=== PATIENT | female | born 1950 | race Caucasian/White ===

== ENCOUNTER → 2020-09-07 08:54 | Outpatient (CLI) | payer MEDICARE, SELFPAY ==
--- NOTE | ~2020-09-07 | US_ITS ---
EXAMINATION: US abdomen limited DATE: 09/07/2020 09:12 INDICATION: Right upper quadrant abdominal pain. TECHNIQUE: Multiple grayscale and Doppler ultrasound images of the abdomen were obtained. COMPARISON: None FINDINGS: The visualized portions of the head, body, and tail of the pancreas are normal. There is di ffuse hepatic steatosis. No liver surface nodularity. There is normal flow in main portal vein. The g allbladder is normal in size. No gallstones or gallbladder wall thickening. There was no sonographic Vigil sign. The common duct is normal and measures 4 mm. IMPRESSION: 1. Diffuse hepatic steatosis. Reviewed, dictated and finalized at location A.
== END ==
PROVIDERS: Visit Provider Internal Medicine
DX: R10.11 Right upper quadrant pain (principal); K76.0 Fatty (change of) liver, not elsewhere classified
CPT/HCPCS: 76705

== ENCOUNTER 2021-02-12 11:24 | Outpatient (CLI) | payer MEDICARE, SELFPAY ==
[2021-02-12 12:22] LABS: Basophils Percent Auto 0.6 % (0.2-1.2); Eosinophils Absolute Auto 0.1 K/mm3 (0-0.3); Eosinophils Percent Auto 2.5 % (0-4.4); Hematocrit 40.3 % (37.0-47.0); Hemoglobin 13.4 g/dL (12.0-15.0); Immature Granulocyte Absolute 0.01 K/mm3 (0.00-0.031); Immature Granulocyte Percent A 0.2 % (0-0.5); Lymphocytes Absolute Auto 1.82 K/mm3 (0.9-3.2); Lymphocytes Percent Auto 38.2 % (18.3-44.2); Mean Corpuscular HGB Conc 33.3 g/dl (32-36); Mean Corpuscular Hemoglobin 30.8 pg (26-34); Mean Corpuscular Volume 92.6 fl (80-100); Mean Platelet Volume 8.8 fl (7.4-10.4); Monocytes Absolute Auto 0.4 K/mm3 (0.1-0.6); Monocytes Percent Auto 8.6 % (2.6-8.5); Neutrophils Absolute Auto 2.4 K/mm3 (1.3-6.7); Neutrophils Percent Auto 49.9 % (45.5-73.1); Platelet Count Result 293 k/mm3 (150-375); Red Blood Count 4.35 M/mm3 (4.2-5.4); White Blood Count 4.8 K/mm3 (4.5-10.0)
[2021-02-12 12:32] LABS: Add Urine Microscopic? YES; Appearance Urine Turbid (Clear); Bacteria Urine Trace /hpf; Bilirubin Urine Negative (Negative); Blood Urine Negative (Negative); Color Urine Amber (Yellow); Glucose Urine UA Negative (Negative); Ketones Urine Negative (Negative); Leukocyte Esterase Ur Negative LEU/UL (NEGATIVE); Nitrate Urine Negative (Negative); Protein Urine Negative (Negative); Specific Grav Ur 1.024 (1.001-1.035); Squamous Epithelial Cell Urine Rare /hpf (Few); Urobilinogen Urine Negative mg/dL (<2.0)
[2021-02-12 12:42] LABS: Alanine Aminotransferase 26 U/L (4-35); Albumin Level 4.3 g/dL (3.5-5.1); Alkaline Phosphatase 78 U/L (38-126); Anion Gap 9 mmol/L (8-16); Aspartate Amino Transferase 28 U/L (14-36); Bilirubin,Total 0.5 mg/dL (0.2-1.3); Blood Urea Nitrogen 23 mg/dL (7-17); Calcium 8.8 mg/dL (8.4-10.2); Carbon Dioxide 25 mmol/L (22-30); Chloride 105 mmol/L (98-107); Cholesterol 132 mg/dL (0-200); Estimated Glomerular Filt Rate > 60; Glucose 125 mg/dL (65-110); HDL Direct 61 mg/dL; Potassium 4.2 mmol/L (3.4-5.0); Sodium 139 mmol/L (137-145); Triglycerides 82 mg/dL (<150)
[2021-02-12 12:53] LABS: LDL Cholesterol Direct 46 mg/dL
[2021-02-15 11:22] LABS: Apolipoprotein B 60 mg/dL (<90)
== END 2021-02-12 11:25 | disposition home or self-care (01) ==
LOC: ANHLAB 11:28
PROVIDERS: PCP Internal Medicine; Visit Provider Internal Medicine
DX: E78.2 Mixed hyperlipidemia (principal); E11.69 Type 2 diabetes mellitus with other specified complication; Z51.81 Encounter for therapeutic drug level monitoring; Z79.899 Other long term (current) drug therapy
CPT/HCPCS: 36415; 80053; 80061; 81001; 82172; 83036; 85025

== ENCOUNTER 2021-03-19 14:03 | Outpatient (CLI) | payer MEDICARE, SELFPAY ==
--- NOTE | ~2021-03-19 | CT_ITS ---
EXAMINATION: CT abdomen pelvis wo con DATE: 03/19/2021 14:31 INDICATION: Microscopic hematuria. TECHNIQUE: Computed tomography (CT) of the abdomen and pelvis was performed without intravenous contr ast. Automated exposure control and iterative reconstruction technique were employed. The dose-length product was 177.35 mGy-cm. COMPARISON: None. FINDINGS: The visualized portions of the lung bases are clear without pneumonia or pleural effusion. The heart size is normal. No pericardial effusion. The liver, gallbladder, spleen, pancreas, adrenal glands, and kidneys are normal. There is no urolithiasis. The bladder is decompressed. There are no d ilated loops of bowel. The appendix is normal. There are no pathologically enlarged lymph nodes. Ther e is no free intraperitoneal fluid. There is a 3.3 cm cyst in right ovary. 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 There is severe lumbar spondylosis and moderate thoracic spondylosis. IMPRESSION: 1. No urolithiasis. 2. 3.3 cm cyst in right ovary, likely benign. Pelvis ultrasound is recommended in one year. Reviewed, dictated and finalized at location A. DOCUMENTATION SPECIALIST
== END 2021-03-19 14:04 | disposition home or self-care (01) ==
PROVIDERS: PCP Internal Medicine; Visit Provider Urology
DX: R31.29 Other microscopic hematuria (principal); N83.201 Unspecified ovarian cyst, right side
CPT/HCPCS: 74176

== ENCOUNTER 2021-07-16 09:21 | Outpatient (CLI) | payer MEDICARE, SELFPAY ==
[2021-07-16 10:05] LABS: Alanine Aminotransferase 24 U/L (6-35); Albumin Level 4.3 g/dL (3.5-5.1); Alkaline Phosphatase 76 U/L (38-126); Anion Gap 8 mmol/L (8-16); Aspartate Amino Transferase 33 U/L (14-36); Bilirubin,Total 0.4 mg/dL (0.2-1.3); Blood Urea Nitrogen 18 mg/dL (7-17); Calcium 8.7 mg/dL (8.4-10.2); Carbon Dioxide 28 mmol/L (22-30); Chloride 105 mmol/L (98-107); Cholesterol 143 mg/dL (0-200); Estimated Glomerular Filt Rate > 60; Glucose 118 mg/dL (65-110); HDL Direct 63 mg/dL; Potassium 4.1 mmol/L (3.4-5.0); Sodium 141 mmol/L (137-145); Triglycerides 55 mg/dL (<150)
[2021-07-16 10:16] LABS: LDL Cholesterol Direct 50 mg/dL
[2021-07-16 10:27] LABS: Hemoglobin A1C 5.9 % (<5.7)
[2021-07-16 10:48] LABS: Free T4 Free Thyroxine 1.53 ng/mL (0.78-2.19)
== END 2021-07-16 09:22 | disposition home or self-care (01) ==
LOC: ANHLAB 09:25
PROVIDERS: PCP Internal Medicine; Visit Provider Internal Medicine
DX: E78.2 Mixed hyperlipidemia (principal); Z79.899 Other long term (current) drug therapy; E11.69 Type 2 diabetes mellitus with other specified complication; Z13.29 Encounter for screening for other suspected endocrine disorder
CPT/HCPCS: 36415; 80053; 80061; 83036; 84439; 84443

== ENCOUNTER 2021-11-24 09:54 | Outpatient (CLI) | payer MEDICARE, SELFPAY ==
[2021-11-24 10:31] LABS: Alanine Aminotransferase 27 U/L (6-35); Albumin Level 4.3 g/dL (3.5-5.1); Alkaline Phosphatase 79 U/L (38-126); Anion Gap 11 mmol/L (8-16); Aspartate Amino Transferase 27 U/L (14-36); Bilirubin,Total 0.5 mg/dL (0.2-1.3); Blood Urea Nitrogen 23 mg/dL (7-17); Calcium 8.6 mg/dL (8.4-10.2); Carbon Dioxide 24 mmol/L (22-30); Chloride 104 mmol/L (98-107); Cholesterol 135 mg/dL (0-200); Estimated Glomerular Filt Rate > 60; Glucose 121 mg/dL (65-110); HDL Direct 60 mg/dL; Potassium 3.9 mmol/L (3.4-5.0); Sodium 139 mmol/L (137-145); Triglycerides 79 mg/dL (<150)
[2021-11-24 10:34] LABS: Hemoglobin A1C 5.9 % (<5.7)
[2021-11-24 10:43] LABS: LDL Cholesterol Direct 49 mg/dL
[2021-11-24 10:54] LABS: Free T4 Free Thyroxine 1.34 ng/mL (0.78-2.19)
[2021-11-24 10:59] LABS: Creatinine Urine 201.3 mg/dL
[2021-11-24 11:05] LABS: MALB Creatinine Ratio 5.1 mg/g (0-30); Microalbumin Urine Random 10.2 mg/L (0-16.7)
[2021-11-26 16:00] LABS: GGT 13 U/L (3-65)
== END 2021-11-24 09:55 | disposition home or self-care (01) ==
LOC: ANHLAB 09:55
PROVIDERS: PCP Internal Medicine; Visit Provider Internal Medicine
DX: E11.69 Type 2 diabetes mellitus with other specified complication (principal); K76.0 Fatty (change of) liver, not elsewhere classified; Z13.29 Encounter for screening for other suspected endocrine disorder; Z79.899 Other long term (current) drug therapy; E78.2 Mixed hyperlipidemia
CPT/HCPCS: 36415; 80053; 80061; 82043; 82977; 83036; 84439; 84443

== ENCOUNTER 2022-04-28 09:16 | Outpatient (CLI) | payer MEDICARE, SELFPAY ==
[2022-04-28 10:03] LABS: Basophils Percent Auto 0.6 % (0.2-1.2); Eosinophils Absolute Auto 0.2 K/mm3 (0-0.3); Eosinophils Percent Auto 2.9 % (0-4.4); Hematocrit 41.4 % (37.0-47.0); Hemoglobin 13.9 g/dL (12.0-15.0); Immature Granulocyte Absolute 0.01 K/mm3 (0.00-0.031); Immature Granulocyte Percent A 0.2 % (0-0.5); Lymphocytes Absolute Auto 2.53 K/mm3 (0.9-3.2); Lymphocytes Percent Auto 38.5 % (18.3-44.2); Mean Corpuscular HGB Conc 33.6 g/dl (32-36); Mean Corpuscular Hemoglobin 30.9 pg (26-34); Monocytes Absolute Auto 0.5 K/mm3 (0.1-0.6); Monocytes Percent Auto 7.8 % (2.6-8.5); Neutrophils Absolute Auto 3.3 K/mm3 (1.3-6.7); Platelet Count Result 294 k/mm3 (150-375); Red Cell Distribution Width 12.8 % (11.5-14.5); White Blood Count 6.6 K/mm3 (4.5-10.0)
[2022-04-28 10:08] LABS: Alanine Aminotransferase 29 U/L (6-35); Albumin Level 4.5 g/dL (3.5-5.1); Alkaline Phosphatase 72 U/L (38-126); Anion Gap 8 mmol/L (8-16); Aspartate Amino Transferase 27 U/L (14-36); Bilirubin,Total 0.8 mg/dL (0.2-1.3); Blood Urea Nitrogen 19 mg/dL (7-17); Calcium 8.7 mg/dL (8.4-10.2); Carbon Dioxide 28 mmol/L (22-30); Chloride 105 mmol/L (98-107); Cholesterol 139 mg/dL (0-200); Estimated Glomerular Filt Rate > 60; Glucose 117 mg/dL (65-110); HDL Direct 63 mg/dL; Potassium 4.3 mmol/L (3.4-5.0); Sodium 141 mmol/L (137-145); Triglycerides 77 mg/dL (<150)
[2022-04-28 10:19] LABS: LDL Cholesterol Direct 51 mg/dL
[2022-04-28 10:34] LABS: Free T4 Free Thyroxine 1.21 ng/mL (0.78-2.19)
[2022-04-28 11:27] LABS: Appearance Urine Cloudy (Clear); Color Urine Dark Yellow (Yellow)
[2022-04-28 11:28] LABS: Bacteria Urine None Seen /hpf; Bilirubin Urine 1+ (Negative); Blood Urine Negative (Negative); Glucose Urine UA Negative (Negative); Ketones Urine Trace mg/dL (Negative); Leukocyte Esterase Ur Trace LEU/UL (Negative); Need Manual Microscopic Reviewed; Nitrate Urine Negative (Negative); Non Pathogenic Casts 0-2; Protein Urine Trace mg/dL (Negative); Specific Grav Ur 1.027 (1.001-1.035); Squamous Epithelial Cell Urine Occasional /hpf (Few); WBC Urine 0-5 /hpf
[2022-04-28 11:33] LABS: Add Urine Microscopic? YES
[2022-04-30 15:07] LABS: GGT 13 U/L (3-65)
== END 2022-04-28 09:17 | disposition home or self-care (01) ==
LOC: ANHLAB 09:17
PROVIDERS: PCP Internal Medicine; Visit Provider Internal Medicine
DX: K76.0 Fatty (change of) liver, not elsewhere classified (principal); Z79.899 Other long term (current) drug therapy; Z13.29 Encounter for screening for other suspected endocrine disorder; E11.69 Type 2 diabetes mellitus with other specified complication; E78.2 Mixed hyperlipidemia
CPT/HCPCS: 36415; 80053; 80061; 81001; 82977; 83036; 84439; 84443; 85025

== ENCOUNTER → 2022-04-30 08:18 | Outpatient (CLI) | payer MEDICARE, SELFPAY ==
--- NOTE | ~2022-04-30 | CT_ITS ---
CT of the Abdomen and Pelvis: Indication: Hematuria Technique: 2.5 mm axial scans were obtained through the abdomen and pelvis prior to and following in travenous administration of 130 cc of Omnipaque 350. Dose reduction technique was used on this scan b y utilizing automated exposure control and iterative reconstruction technique. The dose-length produc t (DLP) was 1537.35 mGy-cm. COMPARISON: 03/19/2021 Findings: Scans through the lung bases are unremarkable. The liver, spleen, pancreas, gallbladder, adrenals and kidneys are within normal limits. No evidence of aortic aneurysm. No lymphadenopathy. No bowel obstruction or bowel wall thickening. There is no evidence to suggest acute appendicitis. Images through the pelvis are degraded by streak artifact from left hip arthroplasty. Urinary bladder unremarkable. 3.8 cm right ovarian cyst present. No ascites. Impression: No etiology for hematuria identified. 3.8 cm right ovarian cyst. Reviewed, dictated and finalized at [facility]. EE BREAK ATTENDANT Impression: No etiology for hematuria identified. 3.8 cm right ovarian cyst.
== END ==
PROVIDERS: PCP Internal Medicine; Visit Provider Internal Medicine
DX: R82.90 Unspecified abnormal findings in urine (principal); N83.201 Unspecified ovarian cyst, right side
CPT/HCPCS: 74178; Q9967

== ENCOUNTER 2022-08-10 09:00 | Outpatient (NON) | payer MEDICARE, SELFPAY | END 2022-08-10 09:01 | disposition home or self-care (01) | LOC: ANHLAB 08-11 07:16 | PROVIDERS: PCP Internal Medicine; Visit Provider Internal Medicine Gastroenterology | DX: Z12.11 Encounter for screening for malignant neoplasm of colon (principal) | CPT/HCPCS: 88305 ==

== ENCOUNTER 2022-09-08 08:23 | Outpatient (CLI) | payer MEDICARE, SELFPAY ==
[2022-09-08 08:58] LABS: Basophils Percent Auto 0.5 % (0.2-1.2); Eosinophils Absolute Auto 0.2 K/mm3 (0-0.3); Hematocrit 39.8 % (37.0-47.0); Hemoglobin 13.2 g/dL (12.0-15.0); Immature Granulocyte Absolute 0.02 K/mm3 (0.00-0.031); Immature Granulocyte Percent A 0.3 % (0-0.5); Lymphocytes Percent Auto 34.8 % (18.3-44.2); Mean Corpuscular HGB Conc 33.2 g/dl (32-36); Mean Corpuscular Hemoglobin 31.1 pg (26-34); Mean Corpuscular Volume 93.9 fl (80-100); Mean Platelet Volume 8.9 fl (7.4-10.4); Monocytes Absolute Auto 0.5 K/mm3 (0.1-0.6); Monocytes Percent Auto 7.3 % (2.6-8.5); Neutrophils Absolute Auto 3.6 K/mm3 (1.3-6.7); Neutrophils Percent Auto 54.1 % (45.5-73.1); Platelet Count Result 259 k/mm3 (150-375); Red Blood Count 4.24 M/mm3 (4.2-5.4); Red Cell Distribution Width 12.7 % (11.5-14.5); White Blood Count 6.6 K/mm3 (4.5-10.0)
[2022-09-08 09:11] LABS: Alanine Aminotransferase 39 U/L (6-35); Albumin Level 4.3 g/dL (3.5-5.1); Alkaline Phosphatase 66 U/L (38-126); Anion Gap 5 mmol/L (8-16); Aspartate Amino Transferase 32 U/L (14-36); Bilirubin,Total 0.5 mg/dL (0.2-1.3); Blood Urea Nitrogen 18 mg/dL (7-17); Calcium 8.8 mg/dL (8.4-10.2); Carbon Dioxide 28 mmol/L (22-30); Chloride 102 mmol/L (98-107); Cholesterol 134 mg/dL (0-200); Estimated Glomerular Filt Rate > 60; Glucose 118 mg/dL (65-110); HDL Direct 58 mg/dL; Potassium 4.3 mmol/L (3.4-5.0); Sodium 135 mmol/L (137-145); Triglycerides 96 mg/dL (<150)
[2022-09-08 09:22] LABS: Hemoglobin A1C 6.3 % (<5.7)
[2022-09-08 09:24] LABS: LDL Cholesterol Direct 46 mg/dL
[2022-09-08 09:27] LABS: Creatinine Urine 156.3 mg/dL
[2022-09-08 09:30] LABS: MALB Creatinine Ratio 5.3 mg/g (0-30); Microalbumin Urine Random 8.3 mg/L (0-16.7)
[2022-09-08 10:01] LABS: Free T4 Free Thyroxine 1.22 ng/mL (0.78-2.19)
[2022-09-08 10:03] LABS: Vitamin D 25 Hydroxy > 126.0 ng/mL
== END 2022-09-08 08:24 | disposition home or self-care (01) ==
PROVIDERS: PCP Internal Medicine; Visit Provider Internal Medicine
DX: E11.69 Type 2 diabetes mellitus with other specified complication (principal); E78.2 Mixed hyperlipidemia; Z79.899 Other long term (current) drug therapy; E55.9 Vitamin D deficiency, unspecified; Z13.29 Encounter for screening for other suspected endocrine disorder
CPT/HCPCS: 36415; 80053; 80061; 82043; 82306; 83036; 84439; 84443; 85025

== ENCOUNTER 2022-10-13 12:18 | Outpatient (CLI) | payer MEDICARE, SELFPAY ==
[2022-10-13 13:29] LABS: Vitamin D 25 Hydroxy > 126.0 ng/mL
== END 2022-10-13 12:19 | disposition home or self-care (01) ==
LOC: ANHLAB 12:20
PROVIDERS: PCP Internal Medicine; Visit Provider Internal Medicine
DX: E67.3 Hypervitaminosis D (principal)
CPT/HCPCS: 36415; 82306

== ENCOUNTER 2023-02-01 14:53 | Outpatient (CLI) | payer MEDICARE, SELFPAY ==
[2023-02-01 15:13] LABS: Basophils Percent Auto 0.5 % (0.2-1.2); Eosinophils Absolute Auto 0.2 K/mm3 (0-0.3); Eosinophils Percent Auto 3.1 % (0-4.4); Hematocrit 39.1 % (37.0-47.0); Hemoglobin 12.7 g/dL (12.0-15.0); Immature Granulocyte Absolute 0.01 K/mm3 (0.00-0.031); Immature Granulocyte Percent A 0.2 % (0-0.5); Lymphocytes Absolute Auto 2.25 K/mm3 (0.9-3.2); Lymphocytes Percent Auto 36.8 % (18.3-44.2); Mean Corpuscular HGB Conc 32.5 g/dl (32-36); Mean Corpuscular Hemoglobin 30.2 pg (26-34); Mean Corpuscular Volume 92.9 fl (80-100); Mean Platelet Volume 8.8 fl (7.4-10.4); Monocytes Absolute Auto 0.5 K/mm3 (0.1-0.6); Monocytes Percent Auto 8.8 % (2.6-8.5); Neutrophils Absolute Auto 3.1 K/mm3 (1.3-6.7); Neutrophils Percent Auto 50.6 % (45.5-73.1); Platelet Count Result 258 k/mm3 (150-375); Red Blood Count 4.21 M/mm3 (4.2-5.4); Red Cell Distribution Width 12.8 % (11.5-14.5); White Blood Count 6.1 K/mm3 (4.5-10.0)
[2023-02-01 15:28] LABS: Alanine Aminotransferase 26 U/L (6-35); Albumin Level 4.2 g/dL (3.5-5.1); Alkaline Phosphatase 86 U/L (38-126); Anion Gap 9 mmol/L (8-16); Aspartate Amino Transferase 32 U/L (14-36); Bilirubin,Total 0.5 mg/dL (0.2-1.3); Blood Urea Nitrogen 20 mg/dL (7-17); Carbon Dioxide 25 mmol/L (22-30); Chloride 102 mmol/L (98-107); Cholesterol 141 mg/dL (0-200); Estimated Glomerular Filt Rate > 60; Glucose 116 mg/dL (65-110); HDL Direct 66 mg/dL; Potassium 4.2 mmol/L (3.4-5.0); Sodium 136 mmol/L (137-145); Triglycerides 103 mg/dL (<150)
[2023-02-01 15:39] LABS: LDL Cholesterol Direct 57 mg/dL
[2023-02-01 15:45] LABS: Free T4 Free Thyroxine 1.34 ng/mL (0.78-2.19); Vitamin D 25 Hydroxy 84.7 ng/mL
[2023-02-01 22:29] LABS: Hemoglobin A1C 5.9 % (<5.7)
== END 2023-02-01 14:54 | disposition home or self-care (01) ==
LOC: ANHLAB 14:55
PROVIDERS: PCP Internal Medicine; Visit Provider Internal Medicine
DX: E11.9 Type 2 diabetes mellitus without complications (principal); E78.5 Hyperlipidemia, unspecified; Z79.899 Other long term (current) drug therapy; Z13.29 Encounter for screening for other suspected endocrine disorder; E67.3 Hypervitaminosis D
CPT/HCPCS: 36415; 80053; 80061; 82306; 83036; 84439; 84443; 85025

== ENCOUNTER 2023-06-22 10:13 | Outpatient (CLI) | payer OTHER, SELFPAY ==
[2023-06-22 10:43] LABS: Basophils Percent Auto 0.5 % (0.2-1.2); Eosinophils Absolute Auto 0.2 K/mm3 (0-0.3); Eosinophils Percent Auto 3.1 % (0-4.4); Hematocrit 44.1 % (37.0-47.0); Hemoglobin 14.1 g/dL (12.0-15.0); Immature Granulocyte Absolute 0.02 K/mm3 (0.00-0.031); Immature Granulocyte Percent A 0.3 % (0-0.5); Lymphocytes Absolute Auto 2.37 K/mm3 (0.9-3.2); Lymphocytes Percent Auto 36.5 % (18.3-44.2); Mean Corpuscular Hemoglobin 30.5 pg (26-34); Mean Corpuscular Volume 95.5 fl (80-100); Monocytes Absolute Auto 0.6 K/mm3 (0.1-0.6); Monocytes Percent Auto 8.9 % (2.6-8.5); Neutrophils Absolute Auto 3.3 K/mm3 (1.3-6.7); Neutrophils Percent Auto 50.7 % (45.5-73.1); Platelet Count Result 307 k/mm3 (150-375); Red Blood Count 4.62 M/mm3 (4.2-5.4); White Blood Count 6.5 K/mm3 (4.5-10.0)
[2023-06-22 10:47] LABS: Appearance Urine Clear (Clear); Bilirubin Urine Negative (Negative); Blood Urine Negative (Negative); Color Urine Yellow (Yellow); Glucose Urine UA Negative (Negative); Ketones Urine Negative (Negative); Leukocyte Esterase Ur Negative LEU/UL (Negative); Nitrate Urine Negative (Negative); Protein Urine Negative (Negative); Specific Grav Ur 1.013 (1.001-1.035); Urobilinogen Urine 0.2 mg/dL (<2.0); pH Urine 6.5 (5.0-9.0)
[2023-06-22 10:48] LABS: Add Urine Microscopic? NO
[2023-06-22 10:54] LABS: Alanine Aminotransferase 26 U/L (6-35); Albumin Level 4.7 g/dL (3.5-5.1); Alkaline Phosphatase 68 U/L (38-126); Anion Gap 6 mmol/L (4-12); Aspartate Amino Transferase 29 U/L (14-36); Bilirubin,Total 0.7 mg/dL (0.2-1.3); Blood Urea Nitrogen 22 mg/dL (7-17); Calcium 9.2 mg/dL (8.4-10.2); Carbon Dioxide 29 mmol/L (22-30); Chloride 106 mmol/L (98-107); Cholesterol 153 mg/dL (0-200); Estimated Glomerular Filt Rate > 60; Glucose 127 mg/dL (65-110); HDL Direct 76 mg/dL; Potassium 4.1 mmol/L (3.4-5.0); Sodium 141 mmol/L (137-145); Triglycerides 75 mg/dL (<150)
[2023-06-22 11:06] LABS: LDL Cholesterol Direct 66 mg/dL
[2023-06-22 11:12] LABS: Creatinine Urine 72.7 mg/dL
[2023-06-22 11:18] LABS: Microalbumin Urine Random < 6.0 mg/L (0-16.7)
[2023-06-22 11:19] LABS: MALB Creatinine Ratio < 8.3 mg/g (0-30)
[2023-06-22 11:26] LABS: Free T4 Free Thyroxine 1.31 ng/mL (0.78-2.19)
[2023-06-22 19:26] LABS: Hemoglobin A1C 6.1 % (<5.7)
== END 2023-06-22 10:14 | disposition home or self-care (01) ==
LOC: ANHLAB 10:16
PROVIDERS: PCP Internal Medicine; Visit Provider Internal Medicine
DX: Z13.29 Encounter for screening for other suspected endocrine disorder (principal); Z79.899 Other long term (current) drug therapy; E11.69 Type 2 diabetes mellitus with other specified complication; E78.5 Hyperlipidemia, unspecified
CPT/HCPCS: 36415; 80053; 80061; 81003; 82043; 83036; 84439; 84443; 85025

== ENCOUNTER 2023-11-11 13:31 | Outpatient (CLI) | payer OTHER, SELFPAY ==
[2023-11-11 15:17] LABS: LDL Cholesterol Direct 39 mg/dL
[2023-11-11 15:19] LABS: Alanine Aminotransferase 27 U/L (6-35); Albumin Level 4.5 g/dL (3.5-5.1); Alkaline Phosphatase 52 U/L (38-126); Anion Gap 9 mmol/L (4-12); Aspartate Amino Transferase 32 U/L (14-36); Bilirubin,Total 0.5 mg/dL (0.2-1.3); Blood Urea Nitrogen 27 mg/dL (7-17); Calcium 9.5 mg/dL (8.4-10.2); Carbon Dioxide 27 mmol/L (22-30); Chloride 101 mmol/L (98-107); Cholesterol 125 mg/dL (0-200); Estimated Glomerular Filt Rate > 60; Glucose 84 mg/dL (65-110); HDL Direct 70 mg/dL; Potassium 4.4 mmol/L (3.4-5.0); Sodium 137 mmol/L (137-145); Triglycerides 60 mg/dL (<150)
[2023-11-11 15:53] LABS: Hemoglobin A1C 6.6 % (<5.7)
[2023-11-11 15:59] LABS: Vitamin D 25 Hydroxy 86.2 ng/mL
== END 2023-11-11 13:32 | disposition home or self-care (01) ==
LOC: ANHLAB 13:40
PROVIDERS: PCP Internal Medicine; Visit Provider Internal Medicine
DX: E11.9 Type 2 diabetes mellitus without complications (principal); E78.5 Hyperlipidemia, unspecified; Z79.899 Other long term (current) drug therapy
CPT/HCPCS: 36415; 80053; 80061; 82306; 83036

== ENCOUNTER 2024-03-20 09:14 | Outpatient (CLI) | payer OTHER, SELFPAY ==
[2024-03-20 10:01] LABS: Alanine Aminotransferase 27 U/L (6-35); Albumin Level 4.2 g/dL (3.5-5.1); Alkaline Phosphatase 59 U/L (38-126); Anion Gap 9 mmol/L (4-12); Aspartate Amino Transferase 29 U/L (14-36); Bilirubin,Total 0.6 mg/dL (0.2-1.3); Blood Urea Nitrogen 20 mg/dL (7-17); Carbon Dioxide 25 mmol/L (22-30); Chloride 102 mmol/L (98-107); Cholesterol 121 mg/dL (0-200); Estimated Glomerular Filt Rate > 60; Glucose 114 mg/dL (65-110); HDL Direct 60 mg/dL; Potassium 4.1 mmol/L (3.4-5.0); Sodium 136 mmol/L (137-145); Triglycerides 65 mg/dL (<150)
[2024-03-20 10:11] LABS: Hemoglobin A1C 6.5 % (<5.7)
[2024-03-20 10:12] LABS: LDL Cholesterol Direct 45 mg/dL
[2024-03-20 10:20] LABS: Free T4 Free Thyroxine 1.36 ng/dL (0.78-2.19); Vitamin D 25 Hydroxy 88.8 ng/mL
[2024-03-20 12:59] LABS: Creatinine Urine 12.7 mg/dL
[2024-03-20 13:11] LABS: MALB Creatinine Ratio < 47.2 mg/g (0-30); Microalbumin Urine Random < 6.0 mg/L (0-16.7)
== END 2024-03-20 09:15 | disposition home or self-care (01) ==
LOC: ANHLAB 09:17
PROVIDERS: PCP Internal Medicine; Visit Provider Internal Medicine
DX: E11.69 Type 2 diabetes mellitus with other specified complication (principal); E78.5 Hyperlipidemia, unspecified; E67.3 Hypervitaminosis D; Z79.899 Other long term (current) drug therapy; Z13.29 Encounter for screening for other suspected endocrine disorder
CPT/HCPCS: 36415; 80053; 80061; 82043; 82306; 83036; 84439; 84443

== ENCOUNTER 2024-05-03 07:08 | Outpatient (CLI) | payer OTHER, SELFPAY ==
--- NOTE | ~2024-05-03 | US_ITS ---
COMPLETE ABDOMINAL ULTRASOUND Ordering provider: Tomas Romero MD History: . R10.9 - Unspecified abdominal pain . Comparison: None. FINDINGS: LIVER: Normal size and echotexture. The liver measures 12.1 cm. No focal hepatic lesions or perihepat ic fluid collections are identified. GALLBLADDER: Unremarkable. No evidence for stones, sludge, gallbladder wall thickening or pericholecy stic fluid collections. The wall measures 2 mm. A negative sonographic Vigil's sign was noted. BILIARY DUCTS: No evidence for intra or extrahepatic biliary dilation. Common bile duct measures 5 mm in diameter which is within normal limits. PANCREAS: Normal echotexture and size. SPLEEN: Normal size, echotexture and contour and measures 9.3 cm in length. KIDNEYS: Right measures 10.1x 3.3x 4.8 cm in length and the left 10.3x 4.1x 5.3 cm in length. There i s no evidence for hydronephrosis, solid renal mass, renal calculi or perinephric fluid collections. N o renal cysts. UPPER ABDOMINAL AORTA: Normal in caliber. Proximal aorta measures 2.2 cm. Mid aorta measures 1.7 cm. Distal aorta measures 1.5 cm. IVC: Patent. FREE FLUID: None. IMPRESSION: Unremarkable complete ultrasound of the abdomen. Reviewed, dictated and finalized at location A. TS MEDICINE SPECIALIST
--- OUTSIDE RECORDS SUMMARY | 2024-05-03 07:12 | XMS_ITS | Encounter Summary ---
Author Organization [facility] Address [address] [place] [address] Care Team Providers Care Sporting Goods Salesperson Name Role Phone Rubin Lehman MD Primary Care Provider Jose powers Encounter Details Date Type Department Care Team (Late st Contact Info) Description 02/23/2007 Outpatient Historical [facility] Primary Care - [address] [place] [address] Chu Reddy MD [address] [facility] [address] [place] [address] Social History Tobacco Use Types Packs/Day Years Used Date Smoking Tobacco: Never Assessed Comments Unknown Sex and Gender Information Value Date Recorded Sex Assigned at Not on file Legal Sex Female 3:22 AM AFTERSCHOOL Gender Identity Not on file Sexual Orientation Not on file documented as of this encounter Plan of Treatment Not on file documented as of this encounter Visit Diagnoses Not on filedocumented in this encounter Care Teams Sporting Goods Salesperson Relationship Specialty Start Date End Date Rubin Lehman MD PCP - General Internal Medicine 09/03/10 05/08/17 documented as of this encounter
--- OUTSIDE RECORDS SUMMARY | 2024-05-03 07:12 | XMS_ITS | Continuity of Care Document ---
Author Organization [facility] Address [address] [place] [address] [address] [place] [address] Phone Care Team Providers Care Heel Slugger Name Role Phone Tessa PT, DPT, Noemi Unavailable Unavaila ble Procedures Procedure Date Therapeutic Activities Manual Therapy PT Re-evaluation Progress Note Neuromuscular Re-Ed Therapeutic Activities Manual Therapy Therapeutic Activities Therapeutic Exercise Neuromuscular Re-Ed Neuromuscular Re-Ed Therapeutic Activities Progress Note Therapeutic Exercise Manual Therapy Therapeutic Exercise Neuromuscular Re-Ed Therapeutic Exercise Neuromuscular Re-Ed Manual Therapy Therapeutic Activities Neuromuscular Re-Ed Manual Therapy Therapeutic Exercise Manual Therapy Neuromuscular Re-Ed Therapeutic Activities Therapeutic Activities Therapeutic Exercise Manual Therapy PT Evaluation Moderate Complexity Therapeutic Exercise Neuromuscular Re-Ed Manual Therapy Hot or Cold Pack Therapeutic Exercise Manual Therapy Hot or Cold Pack Therapeutic Exercise Neuromuscular Re-Ed Manual Therapy Hot or Cold Pack PT Evaluation Moderate Complexity Therapeutic Exercise Neuromuscular Re-Ed Advance Directives Directive Yes / No Effective Date File Name No Information Encounters Encounter Description Practice Location Reason(s) For Visit Diagnoses Date Provider Providers Copied on Encounter [facility] [address], [place], [place], [id number], tel:[phone] [place]k No Information 1 Zarate Noemi. . Referring Provider: Courtney Abreu [address] [place] [address] [address], [place], [address]. tel:[phone] [facility] [address], [place], [place], [id number], tel:[phone] [place] No Information 1 Zarate Noemi. . Referring Provider: Michelle Curry [facility] [address], [place], [address]. tel:[phone] [facility] [address], [place], [place], [id number], tel:[phone] [place] No Information 1 Zarate Noemi. . Referring Provider: Michelle Curry [facility] [address], [place], [address]. tel:[phone] [facility] [address], [place], [place], [id number], tel:[phone] Tk No Information 1 Zarate Noemi. . Referring Provider: Michelle Curry [facility] [address], [place], [address]. tel:[phone] [facility] [address], [place], [place], [id number], [place] tel:[phone] Tk No Information 1 Zarate Noemi. . Referring Provider: Courtney Abreu [address] [place] [address] [address], [place], [address]. tel:[phone] [facility], [address], [place], [place], [id number], [place] tel:[phone] [place] No Information 1 Zarate Noemi. . Referring Provider: Courtney Abreu, [address] [place] [address] [address], [place], [address]. tel:[phone] [facility], [address], [place], [place], [address], [place] tel:[phone] [place] No Information 1 Zarate Noemi. . Referring Provider: Courtney Abreu [address] [place] [address] [address], [place], [address]. tel:[phone] [facility], [address], [place], [place], [address], [place] tel:[phone] [place] No Information 1 Zarate Noemi. . Referring Provider: Courtney Abreu [address] [place] [address] [address], [place], [address]. tel:[phone] [facility] [address], [place], [place], [address], [place] tel:[phone] Tk No Information 1 Zarate Noemi. . Referring Provider: Courtney Abreu [address] [place] [address] [address], [place], [address]. tel:[phone] [facility], [place], [place], [address], [place] tel:[phone] [place] No Information 8 José Miguel Yates. . Referring Provider: Mart Fink, [address] [facility] [address], [place], [address]. tel:[phone], [id number], tel:[phone] [place] No Information 8 Simon Roberto. [address] [place] [address], [address] [place] [address], [facility], . tel:[phone] Referring Provider: Mart Fink, [address] [place] [address], [facility]. tel:[phone], [id number], tel:[phone] [place] No Information 8 José Miguel Yates. . Referring Provider: Mart Fink, [address] [place] [address], [facility]. tel:[phone], [id number], tel:[phone] [place] Low back painPain in right hipStiffness of unspecified joint, not elsewhere classifiedSti ffness of left hip, not elsewhere classifiedMus lindy weakness (generalized) 8 Simon Roberto. [address] [place] [address], [address], [place], [facility], . tel:[phone] Referring Provider: Mart Fink, [facility] [address] [place] [address], [facility]. tel:[phone] Family History Family Member Type Diagnosis Age At Onset No Information Payers Payer name Insurance type Covered green party ID Authorbrendaa ambersivan(s) [facility] Medicare Complete 16 [id number] Social History Type Description Quantity Date Captured Comments Alcohol Use Details Unknown Caffeine Use Details Unknown Tobacco Use Status Current non-smoker Smoking Status Never smoker Non-Smoking Tobacco Use Details : No Details Available : No Details Available Sex Female Chief Complaint And Reason For Visit No Information Reason For Referral Reason For Referral No Information Plan Of Treatment Date Type Action Status Referral Ordered: Weight management: Referral to physician timeframe: 1 Month. (related to Overweight) ordered Referral Ordered: PCP timeframe: 1 week. (related to Overweight) ordered History Of Present Illness Encounter Date Complaint History Of Prese nt Illness No Information Functional Status Date Functional Assessmen t No Information Instructions Date Instruction Additional Infor mation No Information Assessments Type Assessment Date No Information Patient Care Teams Name Effective Dates (start - stop) Status Members No Information
--- OUTSIDE RECORDS SUMMARY | 2024-05-03 07:12 | XMS_ITS | Encounter Summary ---
Author Organization [facility] Address [address] [place] [address] Care Team Providers Care Language Pathologist Name Role Phone Rubin Lehman MD Primary Care Provider Jose powers Encounter Details Date Type Department Care Team (Late st Contact Info) Description 03/09/2007 Orders Only [facility] Primary Care - [address] [place] [address] Chu Reddy MD [address] [facility] [address] [place], [place] [id number] Social History Tobacco Use Types Packs/Day Years Used Date Smoking Tobacco: Never Assessed Comments Unknown Sex and Gender Information Value Date Recorded Sex Assigned at Not on file Legal Sex Female 3:22 AM CUFF STITCHER Gender Identity Not on file Sexual Orientation Not on file documented as of this encounter Progress Notes * Chu Reddy MD - 07/13/2007 5:56 PM CDT BLOOD PRESSURE: 116/80 Right Arm Sitting TEMPERATURE: 98.6??f Oral WEIGHT: 170lbs NURSE NAME: Aggie Barrera ALLERGIES: Allergies are as listed. TOBACCO USE Patient does not currently use tobacco. MEDICATIONS: Medication list current. CHIEF COMPLAINT Seen as a new patient to get established with the practice. general check up. HISTORY: HISTORY: V70.0-ROUTINE GENERAL MEDICAL EXAMINATION The patient is here for a routine examination and to become established as a member of this practice. PAST MEDICAL HISTORY: see patient sheet for review of med/all/pmh/psh/sh/fh/ros PHYSICAL EXAMINATION: CONSTITUTIONAL: GENERAL APPEARANCE: Healthy appearing patient in no distress. NECK/THYROID: Trachea midline. No thyroid enlargement, tenderness, or mass. No supraclavicular or cervical adenopathy. RESPIRATORY: Clear to auscultation and percussion. Normal respiratory effort. CARDIOVASCULAR: CARDIAC: Regular rhythm. No murmurs, rubs, or gallops. ARTERIAL: No aortic bruits. EDEMA/VARICOSITIES OF EXTREMITIES: No edema or varicosities. GASTROINTESTINAL: ABDOMEN: Soft, non-tender, without masses. Bowel sounds active. LIVER/SPLEEN/KIDNEY: No hepatosplenomegaly, tenderness or nodularity. Kidneys not palpable. ASSESSMENT/PLAN: V70.0-ROUTINE GENERAL MEDICAL EXAMINATION repeat colonoscopy is due but she would like to defer until later in the year ASSESSMENT: The patient is doing well and no distinct problems were identified on exam. LAB ORDERS: Order number: [id number] Test Ordered: COMPREHENSIVE METABOLIC PANEL 17307 Order number: [id number] Test Ordered: TSH W/REFLEX TO FT4 [id number] Order number: [id number] Test Ordered: LIPID PANEL 7600 HEALTH MAINTENANCE: LAST BREAST EXAM DATE: 2001. LAST PAP DATE: 2001. LAST DATE PELVIC EXAM: 2001. LAST MAMMOGRAM DATE: 2001. DISCUSSED SMOKING: no. LAST TD: unknown SEXUAL ACTIVITY DISCUSSED: no. SUBSTANCE ABUSE DISCUSSED: no. INJURY PREVENTION DISCUSSED: yes. DIET AND EXERCISE DISCUSSED: yes. ADVANCED DIRECTIVES DISCUSSED: no. LAST DATE COLONOSCOPY: 1998. LAST BONE DENSITY DATE: 2000. LAST FLU VACCINE:no LAST PNEUMOCOCCAL:no Electronically Signed by: Chu Reddy MD on Friday, March 09, 2007 documented in this encounter Plan of Treatment Not on file documented as of this encounter Visit Diagnoses Not on filedocumented in this encounter Care Teams Language Pathologist Relationship Specialty Start Date End Date Rubin Lehman MD PCP - General Internal Medicine 09/03/10 05/08/17 documented as of this encounter
--- OUTSIDE RECORDS SUMMARY | 2024-05-03 07:12 | XMS_ITS | Encounter Summary ---
Author Organization [facility] Address [address] [place] [address] Care Team Providers Care Cnc Service Engineer Name Role Phone Rubin Lehman MD Primary Care Provider Jose powers Encounter Details Date Type Department Care Team (Late st Contact Info) Description 08/07/1999 Outpatient Historical [facility] Jeffery MATTHEWS Carolyn, MD [address] [place] [phone] Social History Tobacco Use Types Packs/Day Years Used Date Smoking Tobacco: Never Assessed Comments Unknown Sex and Gender Information Value Date Recorded Sex Assigned at Not on file Legal Sex Female 3:22 AM SHELL MOLDING ROLLER BLAST OPERATOR Gender Identity Not on file Sexual Orientation Not on file documented as of this encounter Plan of Treatment Not on file documented as of this encounter Visit Diagnoses Not on filedocumented in this encounter Care Teams Cnc Service Engineer Relationship Specialty Start Date End Date Rubin Lehman MD PCP - General Internal Medicine 09/03/10 05/08/17 documented as of this encounter
--- OUTSIDE RECORDS SUMMARY | 2024-05-03 07:13 | XMS_ITS | Encounter Summary ---
Author Organization [facility] Address [address] [place] [address] Care Team Providers Care Roundhouse Worker Name Role Phone Mart Fink MD Primary Care Provider [phone] Mena Butcher MD Primary Care Provider [phone] Flaco Burrell CONSULTING SALES EXECUTIVE-STAFF NUCLEAR WEAPONS OFFICER Primary Care Provi good Tomas Romero MD Primary Care Provider [phone] Encounter Details Date Type Department Care Team (Late st Contact Info) Description 08/10/2019 Telephone [facility] [address] [place] [address] Mart Fink MD [address] [facility] [address] [place] [address] Social History Tobacco Use Types Packs/Day Years Used Date Smoking Tobacco: Never Smokeless Tobacco: Never Alcohol Use Standard Drinks/Week Comments No 0 (1 standard drink = 0.6 oz pur e alcohol) Sex and Gender Information Value Date Recorded Sex Assigned at Not on file Gender Identity Not on file Sexual Orientation Not on file documented as of this encounter Patient Instructions * Patient Instructions* Neymar Moss - 08/10/2019 2:04 PM CDT Per pt she has called her provider, Dr. Bo GOYAL, for a colonoscopy. It is set for 08/23/2019. Pt stated that there is no longer a need to make one willam her. documented in this encounter Plan of Treatment Upcoming Encounters Date Type Department Care Team (Late st Contact Info) Description 05/03/2024 2:00 PM SMALL BATTERY PLATE ASSEMBLER Office Visit [facility] - ENT [address] [place] [phone] Nazanin Shetty MD [address] [place] [address] DEPT OF OTOLARYNGOLOGY [place], [place] [id number] 06/28/2024 1:30 PM CDT Office Visit [facility] - Ophthalmology [address] [place] [phone] Susan Flores MD [address] [place] [address] [place] [phone] documented as of this encounter Goals Goal Patient Goal Type Associated Problems Recent Progress Patient-Stated? Author Medication Management General Radha Dowling, RN Note: Interventions: documented as of this encounter Visit Diagnoses Not on filedocumented in this encounter Care Teams Roundhouse Worker Relationship Specialty Start Date End Date Mart Fink MD [address] [facility] [address] [place] [address] PCP - General Family Medicine 05/25/17 06/27/20 Mena Butcher MD [address] [place] [address] [place] [address] PCP - General 06/28/20 08/01/20 Flaco Burrell, CONSULTING SALES EXECUTIVE-STAFF NUCLEAR WEAPONS OFFICER [address] [facility] [address] [place] [address] PCP - General Nurse Practitioner Family 08/02/2010/30 Tomas Romero MD [address] [facility] [address] [place] [address] PCP - General Internal Medicine 11/13/20 documented as of this encounter
--- OUTSIDE RECORDS SUMMARY | 2024-05-03 07:13 | XMS_ITS | Clinical Summary ---
Author Organization [facility] Address [address] [place] [address] Care Team Providers Care Esl Professor Name Role Phone Unavailable Primary Care Provider Unavailabl e Allergies Active Allergy Reactions Criticality Noted Date Comments Amoxicillin-Pot Clavulanate Nausea and Vomiting,Fever Low 03/09/2007 Codeine 03/09/2007 Fd And C Blue No.1 Other (See Comments) 012 teary Fexofenadine-Pseudoephedrine 008 Triamcinolone 03/09/2007 Medications ascorbic acid (VITAMIN C) 1,000 mg Oral Tab Take 1 Tab by mouth 3 times daily. 1 Active PHYTONADIONE (VITAMIN K) 100 mcg Oral Tab Take 1 Tab by mouth daily. 1 Active astaxanthin 4 mg Oral Cap Take 10 mg by mouth daily. 1 Active OTHER Kriaxanthin 1000mg itd 1 Active resveratrol 100 mg Oral Cap Take 100 mg by mouth daily. 1 Active vitamin B complex (B COMPLEX 1) Oral Tab Take 3 Tabs by mouth daily. 1 Active coQ10, ubiquinol, 100 mg Oral Cap Take 1 Cap by mouth daily. 1 Cap 0 3 Active FLUoxetine (PROZAC) 20 mg capsule TAKE ONE CAPSULE BY MOUTH EVERY DAY. 30 Capsule 10 5 Active LORazepam (ATIVAN) 0.5 mg tablet TAKE ONE TABLET BY MOUTH AT BEDTIME 30 Tablet 0 6 Active Active Problems Problem Noted Date Diagnosed Date Mammogram declined 04/25/2015 Dysthymia 09/23/2010 Overview (09/23/2010): Hormone related Impaired fasting glucose 03/14/2007 Resolved Problems Problem Noted Date Diagnosed Date Resolved Date Depression 04/04/2008 09/23/2010 Routine general medical exam ination at a health care facility 03/09/2007 09/29/2010 Family History Medical History Relation Name Comments Other Father depression Colon Cancer Mother Breast Cancer Other Mat Aunt 40's Other Sister alcoholic Relation Name Status Comments Father Mother Other Mat Aunt Sister Alive Social History Tobacco Use Types Packs/Day Years Used Date Smoking Tobacco: Never Smokeless Tobacco: Never Tobacco Cessation:Counseling Given: No Alcohol Use Standard Drinks/Week Comments No 0 (1 standard drink = 0.6 oz pur e alcohol) Comments No Sex and Gender Information Value Date Recorded Sex Assigned at Not on file Legal Sex Female 3:22 AM PAROLE OFFICER Gender Identity Not on file Sexual Orientation Not on file Occupation Industry Job Start Date Job End Date Not on file Not on file Not on file Not on file Last Filed Vital Signs Vital Sign Reading Time Taken Comments Blood Pressure 100/70 04/25/2015 2:31 PM PAROLE OFFICER Pulse - - Temperature 37.2 C (99 F) 03/26/2014 2:42 PM PAROLE OFFICER Respiratory Rate - - Oxygen Saturation - - Inhaled Oxygen Concentration - - Weight 76.2 kg (168 lb) 04/25/2015 2:31 PM PAROLE OFFICER Height 157.5 cm (5' 2 ) 04/25/2015 2:31 PM PAROLE OFFICER Body Mass Index 30.73 04/25/2015 2:31 PM PAROLE OFFICER Plan of Treatment Health Maintenance Due Date Last Done Comments FIT-DNA Q 3 years 06/05/1995 FIT/FOBT Q 1 year 06/05/1995 Flex Sig/CT Colonography Q 5 years 06/05/1995 PNEUMOCOCCAL VACCINE 50+ YEA RS (1 of 1 - PCV) 2000 ZOSTER VACCINE (1 of 2) 2000 BREAST CANCER SCREENING 03/01/2002 03/01/2001, 03/01 OSTEOPOROSIS SCREENING 06/05/2015 INFLUENZA VACCINE (#1) 2023 COLORECTAL SCREENING 10/11/2023 10/10/2013, 03/01/2001, 03/01/1999 Colorectal Cancer Screening 10/11/2023 RSV VACCINE (60+ or ) (1 - 1-dose 75+ series) 2025 DTAP/TDAP/TD VACCINES (2 - T d or Tdap) 10/02/2026 10/02/2016 Procedures Procedure Name Priority Date/Time Associated Diagnosis Comments ENDOSCOPY, COLON, SCREENING Routine 10/10/2013 from Last 3 Months or Most Recently Relevant to Health Maintenance Results * (ABNORMAL) ENDOSCOPY, COLON, SCREENING (10/10/2013) us Abstract Provider GI PROCEDURE ORDERABLES Edited Result - Final [facility] from Last 3 Months or Most Recently Relevant to Health Maintenance Advance Directives For more information, please contact: [phone] Documents on File Type Date Recorded Patient Rubber Mill Operator Expl 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
--- OUTSIDE RECORDS SUMMARY | 2024-05-03 07:13 | XMS_ITS | Referral Summary ---
Author Organization [facility] Address [address] [place] [address] Care Team Providers Care Clerk Rating Name Role Phone Tomas Romero MD Primary Care Provider [phone] Source Comments [facility],non-owned Affiliates and Associated Physician Practices is amultiple site organization consisting of ambulatory clinics and hospital sitesin [place], [place], [place] and [place]. This disclosure is being madepursuant to the Care Everywhere program and may not contain all information available regarding this patient. Last updated 17.[facility] Encounters Date Type Department Care Team Description 05/01/2024 Refill [facility] - Orthopedic Surgery [address] [place] [address] Paco Meléndez MD MEDICATION REFILL 04/07/2024 Travel from Last 3 Months Allergies Active Allergy Reactions Criticality Noted Date Comments Naproxen GI Discomfort 05/31/2017 Amoxicillin-Pot Clavulanate Nausea and/or Vomiting,Other Low 03/09/2007 [place] [facility] Other Low 04/02/2011 teary, teary Fexofenadine-Pseudoeph edrine Urticaria Medium 03/09/2007 Hydrocodone Other 10/25/2018 Low blood pressure Tramadol Shortness of Breath High 05/31/2017 Medications * Be aware that medications may not be up to date on this document. Alwaysverify current medications with the patient. Medication Sig Dispensed Refills Start Date End Date Status FLUoxetine (PROZAC) 20 MG capsule Take 20 mg by mouth once daily Active Phenazopyridine HCl 99.5 MG TABS Active acetaminophen (TYLENOL) 500 MG tablet Take 1,000 mg by mouth every 4 hours as needed for Fever or Pain Maximum allowable Acetaminophen amount = 4 Grams (4000 mg) / 24 hours. Active Pseudoephedrine- guaiFENesin (MUCINEX D PO) Take 1 tablet by mouth as needed Active Dextromethorphan -guaiFENesin (MUCINEX DM PO) Take 1 tablet by mouth as needed Active LORazepam (ATIVAN) 0.5 MG tablet Take 0.25 mg by mouth every 8 hours as needed for Anxiety Active metFORMIN (GLUCOPHAGE) 500 MG tablet Take 1 (one) tablet by mouth 2 times daily with morning and evening meal 180 tablet 4 07/17/2020 Active Blood Glucose Monitoring Suppl (ONE TOUCH ULTRA 2) w/Device KIT CHECK BLOOD SUGAR ONCE PER DAY 09/23/2020 Active ONETOUCH ULTRA test strip CHECK BLOOD SUGAR ONCE PER DAY 10/26/2020 Active Lancets (ONETOUCH DELICA PLUS 33G EXTRA FINE LANCET) CHECK BLOOD SUGAR ONCE PER DAY 09/18/2020 Active rosuvastatin (CRESTOR) 20 MG tablet Take 20 mg by mouth once daily 09/23/2020 Active fluticasone propionate (FLONASE) 50 MCG/ACT nasal spray USE 2 SPRAYS IN EACH NOSTRIL ONCE DAILY 09/12/2020 Active amoxicillin (Amoxil) 500 MG capsule TAKE 4 (FOUR) CAPSULES BY MOUTH PRE-PROCEDURE ONCE FOR 1 DOSE. 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 Starting alendronate 11/2017 Prediabetes 07/30/2016 Assessment & Plan (03/29/2019 9:[address]IVER): A1c up slightly. Still in pre-diabetes stage. Continue to monitor Anxiety disorder 07/30/2016 Assessment & Plan (09/01/2019 2:35 PM CDT): Advised to continue reducing dose of lorazepam. Suggested trying some guided meditations to help continue weaning down dose. Assessment & Plan (07/21/2019 9:37 AM CDT): Better than previously, but still relying too heavily on lorazepam. Had long discussion about importance of coming off lorazepam eventually. Does not seem to be getting much from Prozac and she has tried numerous SSRIs in the past without significant improvement (sertraline, citalopram, escitalopram). Will try on Cymbalta. Follow-up 6 weeks. Assessment & Plan (03/29/2019 9:[address]IVER): Poorly controlled at present, mostly due to recent stressors. Continue with counseling. Increasing Prozac. Wary of increasing lorazepam dose. Return in about 6 weeks (around 05/10/2019) for f/u anxiety. Pure hypercholesterolemia 07/30/2016 Osteopenia 09/30/2015 Overview (07/11/2020): T-score -2.4 Resolved Problems Problem Noted Date Diagnosed Date Resolved Date S/P hip replacement, left 06/17/2017 Major depressive disorder, single episode 07/30/2016 09/01/2019 Immunizations Name Administration Dates Next Due Covid [employer] primary monoval ent 12+ yr 0.3mL Purple cap 05/17/2020,04/26/2020 PNEUMOCOCCAL PPSV23 05/12/2016 Pneumococcal Pcv13 Conj 12/17/2017 TDAP (7yrs+) 10/02/2016 Social History Tobacco Use Types Packs/Day Years Used Date Smoking Tobacco: Never Smokeless Tobacco: Never Alcohol Use Standard Drinks/Week Comments No 0 (1 standard drink = 0.6 oz pur e alcohol) PHQ-2 Answer Date Recorded PHQ2 TOTAL SCORE 0 07/17/2020 Sex and Gender Information Value Date Recorded Sex Assigned at Not on file Gender Identity Not on file Sexual Orientation Not on file Last Filed Vital Signs Vital Sign Reading Time Taken Comments Blood Pressure 144/80 07/17/2020 10:34 AM CDT Pulse 103 07/17/2020 10:34 AM CDT Temperature 37.1 C (98.8 F) 07/17/2020 10:32 AM CDT Respiratory Rate 12 01/16/2020 4:[address] Oxygen Saturation 95% 07/17/2020 10:34 AM CDT Inhaled Oxygen Concentration - - Weight 71.2 kg (157 lb) 10/14/2023 10:22 AM CDT Height 157.5 cm (5' 2 ) 10/14/2023 10:22 AM CDT Body Mass Index 28.72 10/14/2023 10:22 AM CDT Plan of Treatment Upcoming Encounters Date Type Department Care Team (Late st Contact Info) Description 05/03/2024 2:[address] Office Visit [facility] - ENT [address] [place] [address] [phone] Nazanin Shetty MD [address] [place] [address] [place] [address] 06/28/2024 1:30 PM CDT [facility] - Ophthalmology [address] [place] [phone] Susan Flores MD [address] [place] [address] [place] [address] Goals Goal Patient Goal Type Associated Problems Recent Progress Patient-Stated? Author Medication Management General No Radha Wall, RN Note: Interventions: Medical Devices Implanted Type Area Roll Scale Worker Device Identifier Shelf Expiration Date Model / Serial / Lot Shell Actb 52mm Hip 3 Hl Poly R3 Std Implanted:Qty: 1 on 06/17/2017 by Paco Meléndez MD at [facility] Left: Hip [employer] 12/02/2026 [id number] / / [id number] Screw 6.5mm 45mm Actb Sphrcl Head Reflc Implanted:Qty: 1 on 06/17/2017 by Paco Meléndez MD at [facility] Left: Hip [employer] 08/19/2026 [id number] / / [id number] Liner Actb R3 0d 52mm 36mm Xlpe Hip Flxb Implanted:Qty: 1 on 06/17/2017 by Paco Meléndez MD at [facility] Left: Hip [employer] 08/01/2026 [id number] / / [id number] Polarstem Size 3 Stem Implanted:Qty: 1 on 06/17/2017 by Paco Meléndez MD at [facility] Left: Hip 02/11/2024 75 [id number] / / [id number] Head Fem +4mm 12/14 36mm Hip Tpr Oxnm Implanted:Qty: 1 on 06/17/2017 by Pcao Meléndez MD at [facility] Left: Hip [employer] 10/11/2026 [id number] / / [id number] Mata Uncem Hip All Inclusive Implanted:Qty: 1 on 06/17/2017 by Paco Meléndez MD at [facility] [employer] BILL ONLY UNCEM HIP ALL INCLUSIVE SNORTH / / Procedures Procedure Name Priority Date/Time Associated Diagnosis Comments MAMMO BILAT SCREENING W SALOMÓN Routine 10/14/2023 10:26 AM CDT Encounter for screening mammogram for malignant neoplasm of breast HEMOGLOBIN A1C - POINT OF CARE (AMB) [facility] Routine 07/17/2020 Prediabetes COLONOSCOPY Routine 08/23/2019 COLOGUARD TEST Routine 08/02/2019 9:37 AM CDT Colon cancer screening DEXA BONE DENSITY AXIAL SKELETON Routine 12/27/2017 10:59 AM CDT Osteopenia, unspecified location LIPID PROFILE (EXTERAL RESULT ENTRY) Routine 12/17/2017 from Last 3 Months or Most Recently Relevant to Health Maintenance Results * Mammo Bilat Screening [place] (10/14/2023 10:26 AM CDT) Anatomical Region Laterality Modality Breast Bilateral Mammography 10/14/2023 12:5 6 PM CDT Impressions 10/14/2023 12:58 PM CDT : No mammographic evidence of malignancy in either breast. ASSESSMENT: BIRADS Category 1: Negative mammogram. RECOMMENDATION: Bilateral screening mammogram in one year. Thank you for allowing us to participate in the care of your patient. [facility] utilizes [employer] as a reminder system to notify patients of their next recommended mammogram. > Interpreting Provider: Alyssa Sosa MD on 10/14/2023 12:58 PM Narrative 10/14/2023 12:58 PM CDT EXAMINATION: Digital screening mammogram. Low-dose full-field digital breast tomosynthesis examination was performed with synthetic 2D images. Computer assisted detection was utilized. DATE: 10/14/2023 10:31 AM PRIOR: 05/13/2022 and prior mammograms dating back to 2020. BREAST PARENCHYMAL DENSITY: There are scattered areas of fibroglandular density. FINDINGS: No suspicious masses, areas of architectural distortion or microcalcifications are evident on synthetic 2D mammogram or tomosynthesis images. There has been no significant interval change since the prior examination. Tomas Romero MD MAMMO ORDERABLES * HEMOGLOBIN A1C - POINT OF CARE (AMB) [facility] (07/17/2020) Hemoglobin A1c POCT 5.8 % BLOOD SPECIMEN / Unknown 07/17/2020 Flaco Burrell COMIC WRITER-GALLERY OR MUSEUM CURATOR LAB - POINT OF CARE ORDERABLES * COLONOSCOPY (08/23/2019) Historical Provider MD SCANNING ONLY * (ABNORMAL) COLOGUARD TEST (08/02/2019 9:37 AM CDT) Cologuard Positive (A) Not Applicable [employer] [facility] Comment: It is recommended that a positive Cologuard screen be clinically correlated and followed-up with a structural examination of the colon such as diagnostic colonoscopy. Colonoscopies performed for a positive Cologuard may find as the most clinically significant lesion: colorectal cancer [4.0%], advanced adenoma (including sessile serrated polyps greater than or equal to 1cm diameter) [20%] or non- advanced adenoma [31%]; or no colorectal neoplasia [45%]. These estimates are derived from a prospective cross-sectional screening study of 10,000 individuals at average risk for colorectal cancer who were screened with both Cologuard and colonoscopy. (Table 3, Mira Lerma et al, N Engl J Med 2014;370(14):3389-3620.) The normal value (reference range) for this assay is negative. TEST TYPE: Composite algorithmic analysis of stool DNA-biomarkers with hemoglobin immunoassay. Quantitative values of individual biomarkers are not reportable and are not associated with individual biomarker result reference ranges. PRECAUTIONS AND LIMITATIONS: Cologuard is intended for colorectal cancer screening of adults of either sex, 45 years or older, who are at average-risk for colorectal cancer (CRC). Cologuard has been approved for use by the U.S. FDA. Cologuard may produce a false negative or false positive result. A negative Cologuard test result does not guarantee the absence of CRC or advanced adenoma (pre-cancer). Patients with a negative Cologuard test result should be advised to continue participating in a colorectal cancer screening program. The screening interval for Cologuard is currently recommended at an interval of every 3 years by the [place] [employer] Society and U.S. Multi-Society Task Force. A false positive result occurs when Cologuard produces a positive result, even though a colonoscopy may not find colorectal cancer or precancerous polyps. The performance of Cologuard has been established in a cross sectional study (i.e., single point in time) of average-risk adults aged 50-84. Cologuard performance in patients ages 45 to 49 years was estimated by sub-group analysis of near-age groups. Cologuard performance data in a 10,000 patient pivotal study using colonoscopy as the reference method can be accessed at the following location: www.[employer]/results. Additional description of the Cologuard test process, warnings and precautions can be found at www.cologuardtest.com. Rx only. Stool specimen (specimen) STOOL SPECIMEN / Unknown 08/02/2019 9:37 AM CDT 08/03/2019 3:38 PM CDT Mart Fink MD LAB - CHEMISTRY TAYA JEAN Performing Organization Address City/State/[facility] Co de Phone Number [facility] [address] [place] [address] [facility] [address] [place] [address] * DEXA BONE DENSITY AXIAL SKELETON (12/27/2017 10:59 AM CDT) Anatomical Region Laterality Modality Mammography 12/27/2017 9:43 AM CDT Narrative 12/27/2017 10:44 AM CDT Examination: Dual energy x-ray absorptiometry of the lumbar spine and hip. Clinical Indication: M85.80: Osteopenia, unspecified location Findings: No prior study is available for comparison at the time of this dictation. Detailed data from the exam is sent separately to the ordering physician and is also available on CUPS, the Radiology Department's computerized picture archive system. Patient's height 62 in; weight 155 lbs. SUMMARY: BONE MINERAL DENSITY (BMD) right femoral neck: Osteoporosis; T-score -2.7 BONE MINERAL DENSITY (BMD) lumbar spine (L1-4): Osteopenia; T-score -2.2 FRAX 10 year fracture risk: Not reported because all T-scores for spine total, hip total, femoral neck at/or below -2.5. Definitions: T-score = Standard Deviation Normal: A value for bone mineral density (BMD) within 1 standard deviation of the young adult reference mean (T-score above -1). Low bone mass (osteopenia): A value for bone mineral density (BMD) more than 1 standard deviation below the young adult mean, but less than 2.5 standard deviations below the young adult mean (T-score between -1 and -2.5). Osteoporosis: A value for bone mineral density 2.5 standard deviations or more below the young adult mean (T-score at or below -2.5). Severe osteoporosis: Osteoporosis + the presence of one or more fragility fractures. Please note that T-score values are important in determining increased risk for fractures. The T-score represents the standard deviation above or below the mean bone mineral density for young adults. With each -1 standard deviation decrease in bone mineral density, the risk for fracture doubles exponentially. A T-score of -1 will double the risk , and -2 will be 4 times the risk. As a rule of thumb, a T-score of -1 to -2.5 indicates increasing degrees of osteopenia. This report was approved by Ilya Love on 12/27/2017 9:45 AM . I, Dr. PACO HERNDON D.O. have personally reviewed and interpreted this examination/study. This report was electronically signed by PACO HERNDON D.O. on 12/27/2017 10:44 AM . Procedure Note Paco Herndon, - 12/27/2017 Examination: Dual energy x-ray absorptiometry of the lumbar spine andhip. Clinical Indication: M85.80: Osteopenia, unspecified location Findings: No prior study is available for comparison at the time of this dictation. Detailed data from the exam is sent separately to the ordering physician and is also available on CUPS, the Radiology Department'[employer] picture archive system. Patient's height 62 in; weight 155 lbs. SUMMARY: BONE MINERAL DENSITY (BMD) right femoral neck: Osteoporosis; T-score -2.7 BONE MINERAL DENSITY (BMD) lumbar spine (L1-4): Osteopenia; T-score -2.2 FRAX 10 year fracture risk: Not reported because all T-scores for spine total, hip total, femoralneck at/or below -2.5. Definitions: T-score = Standard Deviation Normal: A value for bone mineral density (BMD) within 1 standarddeviation of the young adult reference mean (T-score above -1). Low bone mass (osteopenia): A value for bone mineral density (BMD) more than 1 standard deviation below the young adult mean, but less than 2.5 standard deviations below the young adult mean (T-score between -1 and -2.5). Osteoporosis: A value for bone mineral density 2.5 standard deviationsor more below the young adult mean (T-score at or below -2.5). Severe osteoporosis: Osteoporosis + the presence of one or morefragility fractures. Please note that T-score values are important in determining increased risk for fractures. The T-score represents the standard deviation aboveor below the mean bone mineral density for young adults. With each -1 standard deviation decrease in bone mineral density, the risk forfracture doubles exponentially. A T-score of -1 will double the risk , and -2will be 4 times the risk. As a rule of thumb, a T-score of -1 to -2.5indicates increasing degrees of osteopenia. This report was approved by Ilya Love on 12/27/2017 9:45 AM . I, Dr. PACO HERNDON D.O. have personally reviewed and interpreted this examination/study. This report was electronically signed by PACO HERNDON D.O. on 12/27/2017 10:44 AM . Mart Fink MD DEXA ORDERABLES * LIPID PROFILE (EXTERAL RESULT ENTRY) (12/17/2017) Cholesterol (EXTERNAL RESULT) 192 mg/dL Triglycerides (EXTERNAL RESULT) 100 mg/dL HDL (EXTERNAL RESULT) 69 mg/dL LDL (EXTERNAL RESULT) 103 mg/dL VLDL (EXTERNAL RESULT) mg/dL Chol HDL Ratio (External Result) Fasting Glucose (EXTERNAL RESULTS) 127 HCV Antibody Screen Not Detected Blood BLOOD SPECIMEN / Unknown 12/17/2017 Historical Provider LAB - CHEMISTRY O RDERABLES from Last 3 Months or Most Recently Relevant to Health Maintenance Care Teams Clerk Rating Relationship Specialty Start Date End Date Tomas Romero MD [address] [facility] [address] [place] [address] PCP - General Internal Medicine 11/13/20
--- OUTSIDE RECORDS SUMMARY | 2024-05-03 07:13 | XMS_ITS | Encounter Summary ---
Author Organization [facility] Address [address] [place] [address] Care Team Providers Care Lumber Buyer Name Role Phone Mart Fink MD Primary Care Provider Mena Butcher MD Primary Care Provider [phone] Flaco Burrell COORDINATOR [employer]-SHAKE P[employer]ER Primary Care Provi good Tomas Romero MD Primary Care Provider [phone] Encounter Details Date Type Department Care Team (Late st Contact Info) Description 05/15/2020 Telephone [facility] [address] [place] [address] Mena Butcher MD [address] [place] [address] Social History Tobacco Use Types Packs/Day Years Used Date Smoking Tobacco: Never Smokeless Tobacco: Never Alcohol Use Standard Drinks/Week Comments No 0 (1 standard drink = 0.6 oz pur e alcohol) Sex and Gender Information Value Date Recorded Sex Assigned at Not on file Gender Identity Not on file Sexual Orientation Not on file COVID-19 Exposure Response Date Recorded In the last month, have you been in contact with someone who was confirmed or suspected to have Coronavirus / COVID-19? No / Unsure 05/16/2020 9:42 AM CDT documented as of this encounter Miscellaneous Notes * Telephone Encounter - Courtney hTao - 05/15/2020 1:16 PM CDT Reason for call: Pt called to schedule an appt w/ Dr. Butcher but there are no available NEW pt slots until 09/25. Is there any way she can get a sooner appt? Patient Call Back number: [phone] documented in this encounter Plan of Treatment Upcoming Encounters Date Type Department Care Team (Late st Contact Info) Description 05/03/2024 2:00 PM BLIND AIDE Office Visit [facility] - ENT [address] [place] [phone] Nazanin Shetty MD [address] [place] [address] [place] [address] 06/28/2024 1:30 PM CDT Office Visit [facility] - Ophthalmology [address] [place] [address] [phone] Susan Flores MD [address] [place] [address] [place] [phone] documented as of this encounter Goals Goal Patient Goal Type Associated Problems Recent Progress Patient-Stated? Author Medication Management General No Radha Wall, RN Note: Interventions: documented as of this encounter Visit Diagnoses Not on filedocumented in this encounter Care Teams Lumber Buyer Relationship Specialty Start Date End Date Mart Fink MD [address] [facility] [address] [place] [address] PCP - General Family Medicine 05/25/17 06/27/20 Mena Butcher MD [address] [place] [address] PCP - General 06/28/20 08/01/20 Flaco Burrell, COORDINATOR [employer] [address] [facility] [address] [place] [address] PCP - General Nurse Practitioner Family 08/02/2010/30 Tomas Romero MD [address] [facility] [address] [place] [address] PCP - General Internal Medicine 11/13/20 documented as of this encounter
--- OUTSIDE RECORDS SUMMARY | 2024-05-03 07:13 | XMS_ITS | Patient Health Summary ---
Author Organization [facility] Address [address] [place] [address] Care Team Providers Care Administrative Services Manager Name Role Phone Tomas Romero MD Primary Care Provider [phone] Note from [facility],non-owned Affiliates and Associated Physician Practices is amultiple site organization consisting of ambulatory clinics and hospital sitesin [place], [place], [place] and [place]. This disclosure is being madepursuant to the Care Everywhere program and may not contain all information available regarding this patient. Last updated 17.[facility] Allergies * Naproxen(GI Discomfort) * Amoxicillin-Pot Clavulanate(Nausea and/or Vomiting,Other) -Low Criticality * [place] Blue Fcf(Other) -Low Criticality * Fexofenadine-Pseudoephedrine(Urticaria) -Medium Criticality * Hydrocodone(Other) * Tramadol(Shortness of Breath) -High Criticality * Codeine(Dizziness) -Low Criticality,Inactive * Codeine(Other) -Low Criticality,Inactive * Nefazodone(Other),Inactive Medications * Be aware that medications may not be up to date on this document. Alwaysverify current medications with the patient. * FLUoxetine (PROZAC) 20 MG capsule Take 20 mg by mouth once daily * Phenazopyridine HCl 99.5 MG TABS * acetaminophen (TYLENOL) 500 MG tablet Take 1,000 mg by mouth every 4 hours as needed for Fever or Pain Maximum allowable Acetaminophen amount = 4 Grams (4000 mg) / 24 hours. * Pseudoephedrine-guaiFENesin (MUCINEX D PO) Take 1 tablet by mouth as needed * Dextromethorphan-guaiFENesin (MUCINEX DM PO) Take 1 tablet by mouth as needed * LORazepam (ATIVAN) 0.5 MG tablet Take 0.25 mg by mouth every 8 hours as needed for Anxiety * metFORMIN (GLUCOPHAGE) 500 MG tablet(Started 07/17/2020) Take 1 (one) tablet by mouth 2 times daily with morning and evening meal 4 refills by 07/17/2021 * Blood Glucose Monitoring Suppl (ONE TOUCH ULTRA 2) w/Device KIT(Started 09/23/2020) CHECK BLOOD SUGAR ONCE PER DAY * milogTOUCH ULTRA test strip(Started 10/26/2020) CHECK BLOOD SUGAR ONCE PER DAY * Lancets (milogTOUCH DELICA PLUS 33G EXTRA FINE LANCET)(Started 09/18/2020) CHECK BLOOD SUGAR ONCE PER DAY * rosuvastatin (CRESTOR) 20 MG tablet(Started 09/23/2020) Take 20 mg by mouth once daily * fluticasone propionate (FLONASE) 50 MCG/ACT nasal spray(Started 09/12/2020) USE 2 SPRAYS IN EACH NOSTRIL ONCE DAILY * amoxicillin (Amoxil) 500 MG capsule(Started 02/02/2024) TAKE 4 (FOUR) CAPSULES BY MOUTH PRE-PROCEDURE ONCE FOR 1 DOSE. 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 05/01/2020 Obstruction of nasal valve 05/01/2020 Cystitis 01/03/2020 Trigger finger of left thumb 06/23/2018 Arthritis of left hip 06/17/2017 Osteoporosis 07/30/2016 Prediabetes 07/30/2016 Anxiety disorder 07/30/2016 Pure hypercholesterolemia 07/30/2016 Osteopenia 09/30/2015 Resolved Problems Problem Noted Date Diagnosed Date Resolved Date S/P hip replacement, left 06/17/2017 Major depressive disorder, single episode 07/30/2016 09/01/2019 Immunizations * Covid Pfizer primary monovalent 12+ yr 0.3mL Purple cap(Given 05/17/2020, 04/26/2020) * PNEUMOCOCCAL PPSV23(Given 05/12/2016) * Pneumococcal Pcv13 Conj(Given 12/17/2017) * TDAP (7yrs+)(Given 10/02/2016) Social History Tobacco Use Types Packs/Day Years [...] CDT Respiratory Rate 12 01/16/2020 4:21 PM GLOBAL TRANSPORTATION MANAGER Oxygen Saturation 95% 07/17/2020 10:34 AM CDT Inhaled Oxygen Concentration - - Weight 71.2 kg (157 lb) 10/14/2023 10:22 AM CDT Height 157.5 cm (5' 2 ) 10/14/2023 10:22 AM CDT Body Mass Index 28.72 10/14/2023 10:22 AM CDT Medical Devices Implanted Type Area Surgical Asst Device Identifier Shelf Expiration Date Model / Serial / Lot Shell Actb 52mm Hip 3 Hl Poly R3 Std Implanted:Qty: 1 on 06/17/2017 by Paco Meléndez MD at [facility] Left: Hip [employer] 12/02/2026 [id number] / / [id number] Screw 6.5mm 45mm Actb Sphrcl Head Reflc Implanted:Qty: 1 on 06/17/2017 by Paco Meléndez MD at [facility] Left: Hip [employer] 08/19/2026 [id number] / / [id number] Liner Actb R3 0d 52mm 36mm Xlpe Hip Flxb Implanted:Qty: 1 on 06/17/2017 by Paco Meléndez MD at [facility] Left: Hip [employer] 08/01/2026 [id number] / / [id number] Polarstem Size 3 Stem Implanted:Qty: 1 on 06/17/2017 by Paco Meléndez MD at [facility] Left: Hip 02/11/2024 75 100 [id number] / / [id number] Head Fem +4mm 02/11 36mm Hip Tpr Oxnm Implanted:Qty: 1 on 06/17/2017 by Paco Meléndez MD at [facility] Left: Hip [employer] 10/11/2026 [id number] / / [id number] Mata Uncem Hip All Inclusive Implanted:Qty: 1 on 06/17/2017 by Paco Meléndez MD at [facility] [employer] BILL ONLY UNCEM HIP ALL INCLUSIVE SNORTH / / Procedures * MAMMO BILAT SCREENING W SALOMÓN(Performed 10/14/2023) Performed for Encounter for screening mammogram for malignant neoplasm of breast * MAMMO BILAT SCREENING W [place](Performed 05/13/2022) Performed for Visit for screening mammogram * HEMOGLOBIN A1C - POINT OF CARE (AMB) [facility](Performed 07/17/2020) Performed for Prediabetes * MAMMO BILAT SCREENING(Performed 07/08/2020) Performed for Visit for screening mammogram * US RETROPERITONEAL COMPLETE(Performed 05/21/2020) Performed for Kidney stone * PROC SINUS ENDOSCOPY(Performed 05/01/2020) Performed for Nasal obstruction * EYE EXAM(Performed 04/11/2020) * CT ABDOMEN PELVIS W CONTRAST(Performed 01/16/2020) Performed for Flank pain * URINE MICROSCOPIC ONLY REFLEX TO CULTURE(Performed 01/16/2020) * URINALYSIS REFLEX MICROSCOPIC REFLEX CULTURE(Performed 01/16/2020) * COMPREHENSIVE METABOLIC PANEL(Performed 01/16/2020) * CBC W AUTO DIFFERENTIAL(Performed 01/16/2020) * NJ INSERT NON-INDWELLING BLADDER(Performed 01/16/2020) Performed for Urge incontinence, Dysuria, Microscopic hematuria * URINALYSIS - POINT OF CARE(Performed 01/16/2020) Performed for Urge incontinence, Dysuria, Microscopic hematuria * EYE EXAM(Performed 01/04/2020) * URINALYSIS MICROSCOPIC ONLY REFLEXED(Performed 01/03/2020) Performed for Cystitis * URINALYSIS W/MICROSCOPIC NO CULTURE(Performed 01/03/2020) Performed for Cystitis * CULTURE URINE(Performed 01/03/2020) Performed for Cystitis * URINALYSIS - POINT OF CARE (AMB) [facility](Performed 01/03/2020) Performed for Cystitis * COLONOSCOPY(Performed 08/23/2019) * COLOGUARD TEST(Performed 08/02/2019) Performed for Colon cancer screening * EYE EXAM(Performed 03/30/2019) * HEMOGLOBIN A1C - POINT OF CARE (AMB) [facility](Performed 03/29/2019) Performed for Prediabetes * XR PELVIS 1 OR 2VW(Performed 10/25/2018) Performed for Pain of left hip joint * XR HIP LEFT 2VW OR MORE(Performed 10/25/2018) Performed for Pain of left hip joint * US BREAST LEFT LTD(Performed 08/03/2018) Performed for Abnormal mammogram * MAMMO LEFT DIAGNOSTIC(Performed 08/03/2018) Performed for Abnormal mammogram * MAMMO BILAT SCREENING(Performed 07/20/2018) Performed for Visit for screening mammogram * HEMOGLOBIN A1C - POINT OF CARE (AMB)(Performed 06/23/2018) Performed for Prediabetes * NJ INJ TENDON SHEATH/LIGAMENT/APONEUROSIS(Performed 12/30/2017) Performed for Trigger finger of left thumb * XR HAND LEFT 3VW OR MORE(Performed 12/30/2017) Performed for Pain of left thumb * DEXA BONE DENSITY AXIAL SKELETON(Performed 12/27/2017) Performed for Osteopenia, unspecified location * LAB RESULTS ORDER(Performed 12/21/2017) * LIPID PROFILE (EXTERAL RESULT ENTRY)(Performed 12/17/2017) * XR PELVIS W LEFT HIP 2VW(Performed 10/19/2017) Performed for Follow-up examination after orthopedic surgery * XR PELVIS W LEFT HIP 2VW(Performed 07/13/2017) Performed for Follow-up examination after orthopedic surgery * CARDIAC RHYTHM STRIP ORDER(Performed 06/22/2017) * HGB HCT PANEL(Performed 06/19/2017) * GLUCOSE - POINT OF CARE(Performed 06/18/2017) * GLUCOSE - POINT OF CARE(Performed 06/18/2017) * GLUCOSE - POINT OF CARE(Performed 06/18/2017) * HGB HCT PANEL(Performed 06/18/2017) * GLUCOSE - POINT OF CARE(Performed 06/17/2017) * GLUCOSE - POINT OF CARE(Performed 06/17/2017) * GLUCOSE - POINT OF CARE(Performed 06/17/2017) * XR PELVIS 1 OR 2VW(Performed 06/17/2017) Performed for Arthritis of left hip * GLUCOSE - POINT OF CARE(Performed 06/17/2017) * ENDOTRACHEAL TUBE NOTE(Performed 06/17/2017) * ARTHROPLASTY TOTAL HIP(Performed 06/17/2017) Performed for Diagnosis unknown * BLOOD TYPE VERIFICATION(Performed 06/17/2017) * TYPE + SCREEN PANEL(Performed 06/17/2017) * GLUCOSE - POINT OF CARE(Performed 06/17/2017) * TRANSFERRIN(Performed 05/31/2017) Performed for Pre-op testing * URINALYSIS REFLEX MICROSCOPIC REFLEX CULTURE(Performed 05/31/2017) Performed for Pre-op testing * COMPREHENSIVE METABOLIC PANEL(Performed 05/31/2017) Performed for Pre-op testing * CBC W AUTO DIFFERENTIAL(Performed 05/31/2017) Performed for Pre-op testing * CULTURE MSSA/MRSA(Performed 05/31/2017) Performed for Pre-op testing * XR PELVIS W LEFT HIP 2VW(Performed 04/13/2017) * HEMOGLOBIN A1C - POINT OF CARE (AMB) [facility](Performed 02/01/2017) * LAB HISTORICAL RESULTS-ONBASE(Performed 05/12/2016) Results * Mammo Bilat Screening [place] (10/14/2023 10:26 AM CDT) Only the most recent of2 resultswithin the time period is included. Anatomical Region Laterality Modality Breast Bilateral Mammography 10/14/2023 12:5 6 PM CDT Impressions 10/14/2023 12:58 PM CDT : No mammographic evidence of malignancy in either breast. ASSESSMENT: BIRADS Category 1: Negative mammogram. RECOMMENDATION: Bilateral screening mammogram in one year. Thank you for allowing us to participate in the care of your patient. [facility] utilizes [employer] as a reminder system to notify patients [...] - POINT OF CARE (AMB) [facility] (07/17/2020) Only the most recent of3 resultswithin the time period is included. Hemoglobin A1c POCT 5.8 % BLOOD SPECIMEN / Unknown 07/17/2020 Flaco Burrell [employer] SHARPENER-BENCH EXAMINER LAB - POINT OF CARE ORDERABLES * MAMMO BILAT SCREENING (07/08/2020 11:55 AM CDT) Only the most recent of2 resultswithin the time period is included. Anatomical Region Laterality Modality Breast Bilateral Mammography 07/08/2020 1:06 PM CDT Impressions 07/08/2020 1:22 PM CDT Annual screening mammography is recommended. OVERALL FINAL ASSESSMENT: BI-RADS CATEGORY 1: NEGATIVE. *Reading Radiologist: Katie Ortega on 07/08/2020 at 1:22 PM Narrative 07/08/2020 1:22 PM CDT EXAMINATION: BILATERAL DIGITAL SCREENING MAMMOGRAM AND BILATERAL BREAST TOMOSYNTHESIS HISTORY: Screening. COMPARISON: Serial examinations dating back to 05/12/2016 TECHNIQUE: BILATERAL digital breast tomosynthesis (DBT) and synthetic 2D digital mammogram images were obtained (bilateral craniocaudal and mediolateral oblique projections) including computer aided detection (CAD.) BREAST PARENCHYMAL COMPOSITION:Category B: There are scattered areas of fibroglandular density. MAMMOGRAM FINDINGS: There is no suspicious finding in either breast. Mena Butcher MD MAMMO ORDERABLES * US RETROPERITONEAL COMPLETE (05/21/2020 11:30 AM CDT) Anatomical Region Laterality Modality Abdomen Ultrasound 05/21/2020 11:4 0 AM CDT Impressions 05/21/2020 12:29 PM CDT No stone or hydronephrosis identified. Edited by Cristina Madsen on 05/21/2020 11:43 AM *Reading Radiologist: Alvaro Connell on 05/21/2020 at 12:29 PM Narrative 05/21/2020 12:29 PM CDT RENAL SONOGRAM HISTORY: Kidney stone, left hydronephrosis. Images show the right kidney to measure 10.3 x 4.3 cm with a cortical thickness of 1.4 cm. The left kidney is 9.8 x 4.9 x 4 cm with a cortical thickness of 1.4 cm. There is no hydronephrosis. No calculi are demonstrated. Urinary bladder is not distended. Ureteral jets are not seen. Procedure Note Alvaro Connell MD - 05/21/2020 RENAL SONOGRAM HISTORY: Kidney stone, left hydronephrosis. Images show the right kidney to measure 10.3 x 4.3 cm with a cortical thickness of 1.4 cm. The left kidney is 9.8 x 4.9 x 4 cm with a cortical thickness of 1.4 cm. There is no hydronephrosis. No calculi are demonstrated. Urinary bladder is not distended. Ureteral jets are not seen. IMPRESSION No stone or hydronephrosis identified. Edited by Cristina Madsen on 05/21/2020 11:43 AM *Reading Radiologist: Alvaro Connell on 05/21/2020 at 12:29 PM Ja Quezada MD US ORDERABLES * PROC SINUS ENDOSCOPY (05/01/2020 2:30 PM GLOBAL TRANSPORTATION MANAGER) Narrative Nazanin Shetty MD - 05/01/2020 2:30 PM GLOBAL TRANSPORTATION MANAGER Raj Daly MD 05/01/2020 2:51 PM Procedure: Rigid Nasal Sinus Endoscopy Procedure date: 05/01/20 Pre Op Dx: nasal obstruction Post Op Dx: same Attending: Dr. Shetty Resident: Raj Daly MD Anesthesia: Bilateral Nasal Cavities sprayed with Lidocaine and Neosynephrine Procedure Detaisl: Rigid nasal endoscopy performed bilaterally. Septum was mildly deviated. Right nasal cavity showed normal healthy appearing mucosa and turbinates, there were no polyps or purulence. Left nasal cavity showed normal mucosa and turbinates, small polypoid tissue seen in posterior superior middle meatus there were no purulence. Dr. Shetty was present for the entire procedure. Raj Daly MD 05/01/20 Nazanin Shetty MD PROCEDURE/MINOR KAREN GICAL ORDERABLES * EYE EXAM (04/11/2020 1:08 PM GLOBAL TRANSPORTATION MANAGER) Anatomical Region Laterality Modality Other Narrative 04/11/2020 1:08 PM GLOBAL TRANSPORTATION MANAGER Ordered by an unspecified provider. Scanned Document SCANNING ONLY * CT ABDOMEN PELVIS W CONTRAST (01/16/2020 2:52 PM GLOBAL TRANSPORTATION MANAGER) Anatomical Region Laterality Modality Abdomen, Pelvis Computed Tomogra phy 01/16/2020 2:55 PM GLOBAL TRANSPORTATION MANAGER Impressions 01/16/2020 3:02 PM GLOBAL TRANSPORTATION MANAGER 1. Left hydronephrosis and hydroureter. This is most likely due to a 2 mm distal ureteral calculus. (Note that the pelvis is not well seen due to artifact from the left hip arthroplasty and this calcification could also be a phlebolith.) Differential would include upper urinary tract infection. 2. Mild hepatic steatosis. 2. No intrarenal stones. *Reading Radiologist: Alli Bolivar on 01/16/2020 at 3:02 PM Narrative 01/16/2020 3:02 PM GLOBAL [address]SPORTATION MANAGER CT ABDOMEN AND PELVIS with contrast DATE: 01/16/2020. INDICATION: Left flank pain with dysuria and hematuria TECHNIQUE: Multidetector enhanced CT through the abdomen and pelvis utilizing 80 cc of Isovue-370 intravenously with triplanar reformations. No oral contrast. COMPARISONS: None. FINDINGS: The lung bases are clear and free of effusion. The heart size is normal. The liver is fatty but normal in size. No mass or cyst. The portal and hepatic veins are patent. Gallbladder is unremarkable. No dilatation of biliary tree or common duct. The pancreas and pancreatic duct are normal. The spleen is normal. Adrenal glands are normal. There is mild to moderate left hydronephrosis with perinephric stranding. The ureter is dilated extending into the pelvis. There is a possible 2 mm calculus in the distal left ureter. Unfortunately this area is partially obscured by artifact from the left total hip arthroplasty. The urinary bladder is entirely decompressed and unremarkable. There are no stones in either kidney. No renal perfusion defects to indicate pyelonephritis. The abdominal aorta and IVC are normal. Retroperitoneal lymph nodes are small. No iliac or inguinal adenopathy. The stomach is decompressed and normal. The duodenum is normal. Small bowel is normal. The terminal ileum and appendix are normal. There is scattered stool in colon without obstructive or inflammatory changes. Uterine size is normal. The ovaries are not enlarged. There is a dominant follicle on the right measuring 2.7 cm. No associated free fluid. Mild chronic degenerative changes occur in the lower thoracic spine and minimal degenerative subluxation at L4-L5. Procedure Note Alli Bolivar MD - 01/16/2020 CT ABDOMEN AND PELVIS with contrast DATE: 01/16/2020. INDICATION: Left flank pain with dysuria and hematuria TECHNIQUE: Multidetector enhanced CT through the abdomen and pelvis utilizing 80 cc of Isovue-370 intravenously with triplanar reformations. No oral contrast. COMPARISONS: None. FINDINGS: The lung bases are clear and free of effusion. The heart size is normal. The liver is fatty but normal in size. No mass or cyst. The portal and hepatic veins are patent. Gallbladder is unremarkable. No dilatation of biliary tree or common duct. The pancreas and pancreatic duct are normal. The spleen is normal. Adrenal glands are normal. There is mild to moderate left hydronephrosis with perinephric stranding. The ureter is dilated extending into the pelvis. There is a possible 2 mm calculus in the distal left ureter. Unfortunately this area is partially obscured by artifact from the left total hip arthroplasty. The urinary bladder is entirely decompressed and unremarkable. There are no stones in either kidney. No renal perfusion defects to indicate pyelonephritis. The abdominal aorta and IVC are normal. Retroperitoneal lymph nodes are small. No iliac or inguinal adenopathy. The stomach is decompressed and normal. The duodenum is normal. Small bowel is normal. The terminal ileum and appendix are normal. There is scattered stool in colon without obstructive or inflammatory changes. Uterine size is normal. The ovaries are not enlarged. There is a dominant follicle on the right measuring 2.7 cm. No associated free fluid. Mild chronic degenerative changes occur in the lower thoracic spine and minimal degenerative subluxation at L4-L5. IMPRESSION 1. Left hydronephrosis and hydroureter. This is most likely due to a 2 mm distal ureteral calculus. (Note that the pelvis is not well seen due to artifact from the left hip arthroplasty and this calcification could also be a phlebolith.) Differential would include upper urinary tract infection. 2. Mild hepatic steatosis. 2. No intrarenal stones. *Reading Radiologist: Alli Bolivar on 01/16/2020 at 3:02 PM Diann Redd MD CT ORDERABLES * (ABNORMAL) URINE MICROSCOPIC ONLY REFLEX TO CULTURE (01/16/2020 11:21 AM GLOBAL TRANSPORTATION MANAGER) RBC UA 6-10(A) None Seen, 0-2, 3-5 # /hpf 01/16/2020 12:05 PM GLOBAL TRANSPORTATION MANAGER [facility] WBC UA 6-10(A) None Seen, 0-5 # /hpf 01/16/2020 12:[address] [facility] Bacteria UA 2+(A) None Seen 01/16/2020 12:[address] [facility] Squamous Epithelial Cells 0-2 None Seen, 0-2, 3-5 /hpf 01/16/2020 12:[address] [facility] Urine URINE SPECIMEN OBTAINED BY CLEAN CATCH PROCEDURE / Unknown Collection / Unknown 01/16/2020 11:21 AM GLOBAL TRANSPORTATION MANAGER 01/16/2020 11:24 AM GLOBAL TRANSPORTATION MANAGER Narrative [facility] - 01/16/2020 12:05 PM GLOBAL TRANSPORTATION MANAGER SAMPLE QNS FOR SPUN MICROSCOPIC. MICRO DONE ON UNSPUN SAMPLE Rafael Connelly PA-C LAB - URINALYSIS OR DERABLES [facility] [address] [place] [address] * (ABNORMAL) URINALYSIS REFLEX MICROSCOPIC REFLEX CULTURE (01/16/2020 11:21 AM GLOBAL TRANSPORTATION MANAGER) Only the most recent of2 resultswithin the time period is included. Color UA Liliana(A) Straw, Yellow 01/16/2020 11:[address] [facility] Clarity UA Cloudy(A) Clear 01/16/2020 11:[address] [facility] Glucose UA Negative Negative 01/16/2020 11:[address] [facility] Bilirubin UA 1+(A) Negative 01/16/2020 11:[address] [facility] Ketone UA 1+(A) Negative 01/16/2020 11:[address] [facility] Specific Strawn UA >=1.030 1.005 - 1.030 01/16/2020 11:[address] [facility] Blood UA 3+(A) Negative 01/16/2020 11:[address] [facility] pH UA 5.0 5.0 - 8.0 pH 01/16/2020 11:[address] [facility] Protein UA 1+(A) Negative 01/16/2020 11:[address] [facility] Urobilinogen UA Negative Negative mg/dL 01/16/2020 11:[address] [facility] Nitrite UA Negative Negative 01/16/2020 11:[address] [facility] Leukocyte UA Negative Negative 01/16/2020 11:[address] [facility] Urine Microscopy Urine microscopy to follow 01/16/2020 11:[address] [facility] Reflex Status Culture not indicated 01/16/2020 11:[address] [facility] Urine URINE SPECIMEN OBTAINED BY CLEAN CATCH PROCEDURE / Unknown Collection / Unknown 01/16/2020 11:21 AM GLOBAL TRANSPORTATION MANAGER 01/16/2020 11:24 AM GLOBAL TRANSPORTATION MANAGER Rafael Connelly PA-C LAB - URINALYSIS OR DERABLES [facility] [address] [place] [address] [id number] * (ABNORMAL) CBC W AUTO DIFFERENTIAL (01/16/2020 10:06 AM GLOBAL TRANSPORTATION MANAGER) Only the most recent of2 resultswithin the time period is included. [facility] WBC 12.2(H) 4.4 - 10.7 x10E9/L 01/16/2020 10:[address] [facility] WBC Corrected 01/16/2020 10:[address] [facility] RBC 4.56 3.80 - 5.20 x10E12/L 01/16/2020 10:[address] [facility] Hemoglobin 13.6 12.0 - 15.6 gm/dL 01/16/2020 10:[address] [facility] Hematocrit 40.7 35.9 - 45.5 % 01/16/2020 10:[address] [facility] MCV 89.3 80.7 - 98.3 fl 01/16/2020 10:[address] [facility] MCH 29.8 26.7 - 34.0 pg 01/16/2020 10:[address] [facility] MCHC 33.4 30.8 - 35.9 gm/dL 01/16/2020 10:[address] [facility] Platelet Count 412 153 - 416 x10E9/L 01/16/2020 10:[address] [facility] RDW-CV 11.9(L) 12.1 - 14.9 % 01/16/2020 10:[address] [facility] MPV 8.6(L) 9.4 - 12.9 fl 01/16/2020 10:[address] [facility] Neutrophils % 85.9(H) 44.0 - 73.0 % 01/16/2020 10:[address] [facility] Lymphocytes % 9.4(L) 20.0 - 43.0 % 01/16/2020 10:[address] [facility] Monocytes % 4.1(L) 5.0 - 13.0 % 01/16/2020 10:[address] [facility] Eosinophils % 0.2 0.0 - 6.0 % 01/16/2020 10:[address] [facility] Basophils % 0.2 0.0 - 2.0 % 01/16/2020 10:[address] [facility] Immature Granulocytes 0.2 0 - 1 % 01/16/2020 10:[address] [facility] Neutrophil Absolute 10.49(H) 2.01 - 7.14 x10E9/L 01/16/2020 10:[address] [facility] Lymphocytes Absolute 1.14 1.07 - 3.94 x10E9/L 01/16/2020 10:[address] [facility] Monocytes Absolute 0.50 0.26 - 1.07 x10E9/L 01/16/2020 10:[address] [facility] Eosinophils Absolute 0.02 0 - 0.47 x10E9/L 01/16/2020 10:[address] [facility] Basophils Absolute 0.02 0 - 0.08 x10E9/L 01/16/2020 10:[address] [facility] Immature Granulocytes Absolute 0.02 0.00 - 0.06 x10E9/L 01/16/2020 10:[address] [facility] nRBC Auto 0 /100 WBC 01/16/2020 10:[address] [facility] Blood BLOOD SPECIMEN / Unknown Venipuncture / Unknown 01/16/2020 10:06 AM GLOBAL TRANSPORTATION MANAGER 01/16/2020 10:13 AM [facility] Linda Ruby [employer] SHARP[employer]-BENCH EXAMINER LAB - HEMATO LOGY ORDERABLES [facility] [address] [place] [address] * (ABNORMAL) COMPREHENSIVE METABOLIC PANEL (01/16/2020 10:06 AM [facility]) Only the most recent of2 resultswithin the time period is included. Glucose 216(H) 70 - 105 mg/dL 01/16/2020 10:[address] [facility] Sodium 137 136 - 145 mmol/L 01/16/2020 10:[address] [facility] Potassium 3.8 3.5 - 5.1 mmol/L 01/16/2020 10:[address] [facility] Chloride 103 98 - 107 mmol/L 01/16/2020 10:[address] [facility] CO2 20(L) 23 - 31 mmol/L 01/16/2020 10:[address] [facility] LABORATORY Calcium 9.2 8.4 - 10.4 mg/dL 01/16/2020 10:[address] [facility] Anion Gap 14 8 - 18 mmol/L 01/16/2020 10:[address] [facility] Comment:Attention clinician: Reference Range change. BUN 19 9.8 - 20.1 mg/dL 01/16/2020 10:31 AM GLOBAL TRANSPORTATION MANAGER [facility] Creatinine 1.07 0.57 - 1.11 mg/dL 01/16/2020 10:[address] [facility] Alkaline Phosphatase 120 40 - 150 U/L 01/16/2020 10:[address] [facility] Comment:Attention clinician: Reference Range change. ALT 25 0 - 61 U/L 01/16/2020 10:31 AM GLOBAL TRANSPORTATION MANAGER [facility] AST 23 5 - 34 U/L 01/16/2020 10:[address] [facility] Protein Total 7.4 6.4 - 8.3 gm/dL 01/16/2020 10:[address] [facility] Albumin 4.4 3.2 - 4.6 gm/dL 01/16/2020 10:[address] [facility] Bilirubin Total 0.7 0.2 - 1.2 mg/dL 01/16/2020 10:[address] [facility] Comment:Attention clinician: Reference Range change. eGFR by MDRD 51(L) >60 mL/min/1.7 3m2 01/16/2020 10:[address] [facility] eGFR by MDRD >60 >60 mL/min/1.7 3m2 01/16/2020 10:[address] [facility] Blood BLOOD SPECIMEN / Unknown Venipuncture / Unknown 01/16/2020 10:06 AM GLOBAL TRANSPORTATION MANAGER 01/16/2020 10:13 AM GLOBAL TRANSPORTATION MANAGER Linda Ruby [employer] SHARP[employer]-BENCH EXAMINER LAB - CHEMIS TRY ORDERABLES Performing Organization Address City/State/[facility] Co de Phone Number [facility] [address] [place], [place] [id number] * [place] INSERT NON-INDWELLING BLADDER (01/16/2020 9:26 AM GLOBAL TRANSPORTATION MANAGER) Narrative Osmin Velazquez Che, MD - 01/16/2020 9:26 AM GLOBAL TRANSPORTATION MANAGER Osmin Velazquez Che, MD 01/16/2020 9:27 AM The patient was prepped with betadine (or with hibiclens or other antiseptic agent if allergic to topical iodine). She understood the rationale for the procedure and agreed to the procedure. A 14F short female catheter was then advanced into the urethra and urine was collected for bedside urinalysis as well as a urine culture and/or formal urinalysis as needed. The post void residual is as noted in the progress note, as are results of the dipstick taken. The patient tolerated the procedure well. Osmin Velazquez MD PROCEDURE/MINOR SURG ICAL ORDERABLES * (ABNORMAL) URINALYSIS - POINT OF CARE (01/16/2020) Clarity UA POCT cloudy Color UA POCT liliana Leukocyte UA neg Negative Nitrite UA POCT neg Negative Urobilinogen UA 1.0 0.1 - 1.0 Protein UA POCT + Negative pH UA 5.0 5.0 - 8.0 pH units Blood UA +++ Negative Specific Strawn UA POCT 1.030 1.002 - 1.030 Ketone UA + Negative Bilirubin UA POCT + Negative Glucose UA neg Negative Urine URINE / Unknown 01/16/2020 Osmin Velazquez MD LAB - POINT OF CARE ORDERABLES * EYE EXAM (01/04/2020 2:11 PM GLOBAL TRANSPORTATION MANAGER) Anatomical Region Laterality Modality Other Narrative 01/04/2020 2:11 PM GLOBAL TRANSPORTATION MANAGER Ordered by an unspecified provider. Scanned Document SCANNING ONLY * (ABNORMAL) URINALYSIS MICROSCOPIC ONLY REFLEXED (01/03/2020 4:19 PM GLOBAL TRANSPORTATION MANAGER) WBC UA None seen 0 - 5 /hpf [facility] INSURANCE BILL RBC UA None seen 0 - 2 /hpf [facility] INSURANCE BILL Epithelial Cells (non renal) 0-10 0 - 10 /hpf [facility] INSURANCE BILL Epithelial Cells (renal) NOT NEEDED [facility] INSURANCE BILL Comment:Ancillary determined the test is not needed. Casts ua NOT NEEDED [facility] INSURANCE BILL Comment:Ancillary determined the test is not needed. Casts UA NOT NEEDED [facility] INSURANCE BILL Comment:Ancillary determined the test is not needed. Crystals UA Present(A) N/A [facility] INSURANCE BILL Crystals UA Calcium Oxalate N/A [facility] INSURANCE BILL Mucus UA Present Not Estab. [facility] INSURANCE BILL Bacteria UA None seen None seen/Few [facility] INSURANCE BILL Yeast UA NOT NEEDED [facility] INSURANCE BILL Comment:Ancillary determined the test is not needed. Trichomonas UA NOT NEEDED [facility] INSURANCE BILL Comment:Ancillary determined the test is not needed. Comment Urine NOT NEEDED [facility] INSURANCE BILL Comment:Ancillary determined the test is not needed. 01/03/2020 4:19 PM GLOBAL TRANSPORTATION MANAGER 01/03/2020 Narrative Resulting Agency Comment Lab Testing performed at: [facility] [place] [address] [facility] [phone] Mart Fink MD LAB - URINALYSIS ORD ERABLES [facility] INSURANCE BILL [address] [place] [address] * URINALYSIS W/MICROSCOPIC NO CULTURE (01/03/2020 4:19 PM GLOBAL TRANSPORTATION MANAGER) Specific Strawn UA NOT NEEDED [facility] INSURANCE BILL Comment: Test not performed Ancillary determined the test is not needed. pH UA NOT NEEDED [facility] INSURANCE BILL Comment: Test not performed Ancillary determined the test is not needed. Color UA Yellow Yellow [facility] INSURANCE BILL Comment:Unable to read or as say due to color interference. Appearance Clear Clear [facility] INSURANCE BILL Leukocyte UA NOT NEEDED [facility] INSURANCE BILL Comment:Ancillary determined the test is not needed. Protein UA NOT NEEDED [facility] INSURANCE BILL Comment: Test not performed Ancillary determined the test is not needed. Glucose UA NOT NEEDED [facility] INSURANCE BILL Comment: Test not performed Ancillary determined the test is not needed. Ketone UA NOT NEEDED [facility] INSURANCE BILL Comment: Test not performed Ancillary determined the test is not needed. Occult Blood Urine NOT NEEDED [facility] INSURANCE BILL Comment:Ancillary determined the test is not needed. Bilirubin UA NOT NEEDED [facility] INSURANCE BILL Comment:Ancillary determined the test is not needed. Urobilinogen NOT NEEDED [facility] INSURANCE BILL Comment:Ancillary determined the test is not needed. Nitrite UA NOT NEEDED [facility] INSURANCE BILL Comment:Ancillary determined the test is not needed. Microscopic Examination Urine [facility] INSURANCE BILL Comment:Microscopic follows if indicated. Microscopic Examination Urine See below: [facility] INSURANCE BILL Comment:Microscopic was idalia cated and was performed. Urine URINE SPECIMEN OBTAINED BY CLEAN CATCH PROCEDURE / Unknown 01/03/2020 4:19 PM GLOBAL TRANSPORTATION MANAGER 01/03/2020 Narrative Resulting Agency Comment Lab Testing performed at: [facility] [address] [facility] [phone] Mart Fink MD LAB - URINALYSIS ORD ERABLES [facility] INSURANCE BILL [address] [place] [address] * CULTURE URINE (01/03/2020 4:19 PM GLOBAL TRANSPORTATION MANAGER) [facility] Urine Culture Routine Final report [facility] INS[facility] Result 1 [facility] INSURANCE BILL Comment: Mixed urogenital staci Less than 10,000 colonies/mL Urine URINE SPECIMEN OBTAINED BY CLEAN CATCH PROCEDURE / Unknown 01/03/2020 4:19 PM GLOBAL TRANSPORTATION MANAGER 01/03/2020 Narrative Resulting Agency Comment Lab Testing performed at: [facility] [address] [facility] [phone] Mart Fink MD LAB - MICROBIOLOGY O RDERABLES Performing Organization Address City/[facility]/ZIP Co de Phone Number [facility] [address] [place] [address] * URINALYSIS - POINT OF CARE (AMB) [facility] (01/03/2020) [facility] Specific Strawn UA 1.020 pH UA 5 WBC UA trace Nitrite UA positive Protein UA neg Glucose UA normal Ketones UA POCT neg Urobilinogen UA normal Bilirubin UA POCT neg Blood Urine POCT about 50 Urine URINE / Unknown 01/03/2020 Mart Fink MD LAB - POINT OF CARE ORDERABLES * COLONOSCOPY (08/23/2019) Historical Provider SCANNING ONLY * (ABNORMAL) COLOGUARD TEST (08/02/2019 9:37 AM CDT) [facility] Cologuard Positive (A) Not Applicable [facility] Comment: It is recommended that [...] Lerma et al, N Engl J Med 2014;370(14):8649-6229.) The normal value (reference range) for this [...] interval of every 3 years by the [place] [employer] and U.S. Multi-Society Task Force. [...] can be accessed at the following location: [email or web address]/results. Additional description of the Cologuard test process, warnings and precautions can be found at [email or web address].com. Rx only. Stool specimen (specimen) STOOL SPECIMEN / Unknown 08/02/2019 9:37 AM CDT 08/03/2019 3:38 PM CDT Mart Fink MD LAB - CHEMISTRY TAYA JEAN [facility] [address] [facility] [address] [place] [address] [facility] [address] [place] [address] * EYE EXAM (03/30/2019 10:27 AM GLOBAL TRANSPORTATION MANAGER) Anatomical Region Laterality Modality Other Narrative 03/30/2019 10:27 AM GLOBAL TRANSPORTATION MANAGER Ordered by an unspecified provider. Scanned Document SCANNING ONLY * XR PELVIS 1 OR 2VW (10/25/2018 10:07 AM CDT) Only the most recent of2 resultswithin the time period is included. Anatomical Region Laterality Modality Pelvis Radiographic Sheri ging 10/25/2018 10:5 3 AM CDT Impressions 10/25/2018 10:55 AM CDT IMPRESSION: Left total hip arthroplasty without complication. This report was electronically signed by CHAPO ESCAMILLA MD on 10/25/2018 10:55 AM . Narrative 10/25/2018 10:55 AM CDT Exam: 1. XR PELVIS 1 view 2. XR HIP LEFT 2 view History: hip pain Comparison: 10/19/2017. Findings: Left hip: Total hip arthroplasty is present. The prosthetic components are intact and there is no suspicious periprosthetic lucency. No acute fracture or dislocation is seen. Focal sclerosis is noted in the lateral supra-acetabular region of the iliac bone. Pelvis: There is no displaced pelvic fracture. Mild right hip degeneration is evident. Multiple enthesophytes are noted. Procedure Note Chapo Escamilla MD - 10/25/2018 Exam: 1. XR PELVIS 1 view 2. XR HIP LEFT 2 view History: hip pain Comparison: 10/19/2017. Findings: Left hip: Total hip arthroplasty is present. The prosthetic components are intact and there is no suspicious periprosthetic lucency. No acute fracture or dislocation is seen. Focal sclerosis is noted in the lateral supra-acetabular region of the iliac bone. Pelvis: There is no displaced pelvic fracture. Mild right hip degeneration is evident. Multiple enthesophytes are noted. IMPRESSION: Left total hip arthroplasty without complication. This report was electronically signed by CHAPO ESCAMILLA MD on10/25/2018 10:55 AM . Paco Meléndez MD DIAGNOSTIC IMAGING ORDERABLES * XR HIP LEFT 2VW OR MORE (10/25/2018 10:07 AM CDT) Anatomical Region Laterality Modality Pelvis, Lower Extremity Radiogra phic Imaging 10/25/2018 10:5 3 AM CDT Impressions 10/25/2018 10:55 AM CDT IMPRESSION: Left total hip arthroplasty without complication. This report was electronically signed by CHAPO ESCAMILLA MD on 10/25/2018 10:55 AM . Narrative 10/25/2018 10:55 AM CDT Exam: 1. XR PELVIS 1 view 2. XR HIP LEFT 2 view History: hip pain Comparison: 10/19/2017. Findings: Left hip: Total hip arthroplasty is present. The prosthetic components are intact and there is no suspicious periprosthetic lucency. No acute fracture or dislocation is seen. Focal sclerosis is noted in the lateral supra-acetabular region of the iliac bone. Pelvis: There is no displaced pelvic fracture. Mild right hip degeneration is evident. Multiple enthesophytes are noted. Procedure Note Chapo Escamilla MD - 10/25/2018 Exam: 1. XR PELVIS 1 view 2. XR HIP LEFT 2 view History: hip pain Comparison: 10/19/2017. Findings: Left hip: Total hip arthroplasty is present. The prosthetic components are intact and there is no suspicious periprosthetic lucency. No acute fracture or dislocation is seen. Focal sclerosis is noted in the lateral supra-acetabular region of the iliac bone. Pelvis: There is no displaced pelvic fracture. Mild right hip degeneration is evident. Multiple enthesophytes are noted. IMPRESSION: Left total hip arthroplasty without complication. This report was electronically signed by CHAPO ESCAMILLA MD on10/25/2018 10:55 AM . Paco Meléndez MD DIAGNOSTIC IMAGING ORDERABLES * US BREAST LEFT LTD (08/03/2018 11:13 AM CDT) Anatomical Region Laterality Modality Breast Left Ultrasound 08/03/2018 10:5 2 AM CDT Impressions 08/09/2018 1:09 PM CDT No evidence of malignancy ASSESSMENT: BIRADS Category 2: Benign finding(s). RECOMMENDATION: Bilateral screening mammogram in one year Findings and recommendation were discussed with the patient by Dr. Carrasco. Thank you for allowing us to participate in the care of your patient. [facility] [employer] utilizes [employer] as a reminder system to notify patients of their next recommended mammogram. I, Kaite Carrasco, have personally reviewed the images and I agree with this report. Reading Radiologist: Katie Carrasco MD on 08/09/2018 at 1:09 PM Narrative 08/09/2018 1:09 PM CDT EXAMINATION: Digital left diagnostic mammogram and targeted left breast ultrasound on 08/03/2018 10:52 AM. Outside images 2017 are now available as of 08/09/2018, see below Low-dose digital breast tomosynthesis examination was performed with 2D and 3D acquisitions. Computer assisted detection was utilized. PRIOR: Screening mammogram dated 07/20/[address]. [address] [place] [address] now available as of 08/09/18 HISTORY: 68-year-old female recalled from screening mammogram for a mass in the subareolar slightly upper outer left breast BREAST PARENCHYMAL DENSITY: There are scattered areas of fibroglandular density. FINDINGS: In the slightly upper outer subareolar left breast, there is a 0.6 cm round mass with mildly indistinct margins. No associated architectural distortion or calcifications are identified. Limited left breast ultrasound in the slightly upper outer subareolar breast was performed by the hand cloth cutter. In the 1:00 position 2 cm from the nipple there is a 1 cm mixed echogenicity mass in parallel orientation corresponding to the mammographic mass. It is unchanged since 2017 mammographically and deemed benign. Shayna Carrasco MD US ORDERABLES * NORMA DIAG DIRECT DIG IMAGE UNI LEFT [id number] (08/03/2018 10:50 AM CDT) Anatomical Region Laterality Modality Breast Left Mammography 08/03/2018 10:5 2 AM CDT Impressions 08/09/2018 1:09 PM CDT No evidence of malignancy ASSESSMENT: BIRADS Category 2: Benign finding(s). RECOMMENDATION: Bilateral screening mammogram in one year Findings and recommendation were discussed with the patient by Dr. Carrasco. Thank you for allowing us to participate in the care of your patient. [facility] [employer] utilizes [employer] as a reminder system to notify patients of their next recommended mammogram. I, Katie Carrasco, have personally reviewed the images and I agree with this report. Reading Radiologist: Katie Carrasco MD on 08/09/2018 at 1:09 PM Narrative 08/09/2018 1:09 PM CDT EXAMINATION: Digital left diagnostic mammogram and targeted left breast ultrasound on 08/03/2018 10:52 AM. Outside images 2017 are now available as of 08/09/2018, see below Low-dose digital breast tomosynthesis examination was performed with 2D and 3D acquisitions. Computer assisted detection was utilized. PRIOR: Screening mammogram dated 07/20/[address]. [address] [place] [address] now available as of 08/09/18 HISTORY: 68-year-old female recalled from screening mammogram for a mass in the subareolar slightly upper outer left breast BREAST PARENCHYMAL DENSITY: There are scattered areas of fibroglandular density. FINDINGS: In the slightly upper outer subareolar left breast, there is a 0.6 cm round mass with mildly indistinct margins. No associated architectural distortion or calcifications are identified. Limited left breast ultrasound in the slightly upper outer subareolar breast was performed by the hand cloth cutter. In the 1:00 position 2 cm from the nipple there is a 1 cm mixed echogenicity mass in parallel orientation corresponding to the mammographic mass. It is unchanged since 2017 mammographically and deemed benign. Shayna Carrasco MD MAMMO ORDERABLES * HEMOGLOBIN A1C - POINT OF CARE (AMB) (06/23/2018) Hemoglobin A1c POCT 5.7 % Expiration Date 04/03/2020 Lot # [id number] QC Verified Yes Yes Blood BLOOD SPECIMEN / Unknown 06/23/2018 Mart Fink MD LAB - POINT OF CARE ORDERABLES * [place] INJ TENDON SHEATH/LIGAMENT/APONEUROSIS (12/30/2017 3:57 PM CDT) Narrative Aida Sanchez PA-C - 12/30/2017 3:57 PM CDT Aida Sanchez PA-C 12/30/2017 3:57 PM Orthopaedic Hand Surgery Procedure Note Diagnosis: Left Trigger Finger Procedure: Injection of Corticosteroid into the Left Thumb Indications: Citlaly Gauthier is a 67 y.o. female who has Left trigger finger in the Thumb. Procedure Details: The patient was informed of her condition, and the potential benefits of injection of steroid. The patient was counseled as to the risks of the procedure including the risk of pain during injection and of temporary effect of the medication. The patient was understanding and agreeable. The patient's Left hand was placed onto the table with the palm up. The area was prepped with beta-dine. Next, a topical anesthetic was used to numb the skin and using a 25 Ga needle, a solution of 0.5 cc 1% lidocaine without epinephrine and 0.5 cc of betamethasone was injected at the level of the A1 tami level. The needle was removed and the needle site dressed with a semi-sterile bandage. The patient tolerated the procedure well. Aida Sanchez PA-C 12/30/2017 3:53 PM Aida Sanchez PA-C PROCEDURE/MINOR SURGICAL ORDERABLES * XR HAND LEFT 3VW OR MORE (12/30/2017 12:49 PM CDT) Anatomical Region Laterality Modality Wrist / Hand Radiographic Sheri ging 12/30/2017 2:01 PM CDT Impressions 12/30/2017 3:05 PM CDT IMPRESSION: Arthritis, greatest at the base of first carpometacarpal joint. Dictated by Tramaine Salguero MD (residential real estate assistant). IDr. CHAPO MD have personally reviewed and interpreted this examination/study. This report was electronically signed by CHAPO ESCAMILLA MD on 12/30/2017 3:05 PM . Narrative 12/30/2017 3:05 PM CDT EXAMINATION: XR HAND LEFT 3VW OR MORE HISTORY: thump pain COMPARISON: No prior study is available for comparison. FINDINGS: No acute fracture or dislocation is seen. There is moderate to severe osteoarthritis at the first carpometacarpal joint and mild to moderate involvement of several interphalangeal joints. There is chronic deformity of the base of the third digit middle phalanx medially which is probably due to old fracture. A chronic appearing cortical contour defect is noted along the distal, lateral aspect of the third proximal phalanx shaft. There is mild concavity along the radial side of the second and third middle phalanges which appears chronic and could be related to bone resorption from hyperparathyroidism or other process. Small erosions are noted in the ulnar styloid process. Soft tissue swelling is present including around the third proximal interphalangeal joint and ulnar styloid process. There is a sclerotic focus in the second metacarpal head, likely a bone island. A cyst is noted in the lunate. Procedure Note Chapo Escamilla MD - 12/30/2017 EXAMINATION: XR HAND LEFT 3VW OR MORE HISTORY: thump pain COMPARISON: No prior study is available for comparison. FINDINGS: No acute fracture or dislocation is seen. There is moderate to severe osteoarthritis at the first carpometacarpal joint and mild to moderate involvement of several interphalangeal joints. There is chronicdeformity of the base of the third digit middle phalanx medially which is probably due to old fracture. A chronic appearing cortical contour defect isnoted along the distal, lateral aspect of the third proximal phalanx shaft. There is mild concavity along the radial side of the second and third middle phalanges which appears chronic and could be related to bone resorption from hyperparathyroidism or other process. Small erosionsare noted in the ulnar styloid process. Soft tissue swelling is present including around the third proximal interphalangeal joint and ulnar styloid process. There is a sclerotic focus in the second metacarpalhead, likely a bone island. A cyst is noted in the lunate. IMPRESSION: Arthritis, greatest at the base of first carpometacarpal joint. Dictated by Tramaine Salguero MD (residential real estate assistant). I, Dr. CHAPO ESCAMILLA MD have personally reviewed and interpreted this examination/study. This report was electronically signed by CHAPO ESCAMILLA MD on12/30/2017 3:05 PM . Aida Sanchez PAFela DIAGNOSTIC IMAG ING ORDERABLES * DEXA BONE DENSITY AXIAL SKELETON (12/27/2017 [...] ordering physician and is also available on [employer], the Radiology Department's computerized picture archive system. [...] Ilya Love on 12/27/2017 9:45 AM . IDr. PACO, D.O. have personally reviewed and interpreted this examination/study. This report was electronically signed by PACO HERNDON D.O. on 12/27/2017 10:44 AM . Procedure Note Paco Herndon, DO - 12/27/2017 Examination: Dual energy x-ray absorptiometry of the lumbar spine andhip. Clinical Indication: M85.80: Osteopenia, unspecified location Findings: No prior study is available for comparison at the time of this dictation. Detailed data from the exam is sent separately to the ordering physician and is also available on [employer], the Radiology Department'[employer] picture archive system. Patient's height 62 in; [...] Ilya Love on 12/27/2017 9:[address] PACO Romero D.O. have personally reviewed and interpreted this examination/study. This report was electronically signed by PACO HERNDON D.O. on 12/27/2017 10:44 AM . Mart Fink MD DEXA ORDERABLES * LAB RESULTS ORDER (12/21/2017 9:14 AM CDT) Narrative 12/21/2017 9:14 AM CDT Ordered by an unspecified provider. Scanned Document LAB - THERAPEUTIC DR HARRIET MONITORING ORDERABLES * LIPID PROFILE (EXTERAL RESULT ENTRY) (12/17/2017) Cholesterol (EXTERNAL RESULT) 192 mg/dL Triglycerides (EXTERNAL RESULT) 100 mg/dL HDL (EXTERNAL RESULT) 69 mg/dL LDL (EXTERNAL RESULT) 103 mg/dL VLDL (EXTERNAL RESULT) mg/dL Chol HDL Ratio (External Result) Fasting Glucose (EXTERNAL RESULTS) 127 HCV Antibody Screen Not Detected Blood BLOOD SPECIMEN / Unknown 12/17/2017 Historical Provider LAB - CHEMISTRY O RDERABLES * XR PELVIS W LEFT HIP 2VW (10/19/2017 9:55 AM CDT) Only the most recent of3 resultswithin the time period is included. Anatomical Region Laterality Modality Radiographic Sheri ging 10/19/2017 10:1 0 AM CDT Impressions 10/19/2017 10:19 AM CDT IMPRESSION: Intact left hip total arthroplasty. Dictated by Aldair Lagunas MD (residential real estate assistant). Dr. CHAPO Romero MD have personally reviewed and interpreted this examination/study. This report was electronically signed by CHAPO ESCAMILLA MD on 10/19/2017 10:19 AM . Narrative 10/19/2017 10:19 AM CDT EXAMINATION: XR PELVIS W LEFT HIP 2VW HISTORY: L HIP F/U FINDINGS: 07/13/2017. The patient is status post left hip total arthroplasty. The prosthesis is intact without evidence of loosening. No fractures or dislocation are seen. The right hip demonstrates mild osteoarthritis. Bone density is mildly decreased. Procedure Note Chapo Escamilla MD - 10/19/2017 EXAMINATION: XR PELVIS W LEFT HIP 2VW HISTORY: L HIP F/U FINDINGS: 07/13/2017. The patient is status post left hip total arthroplasty. The prosthesisis intact without evidence of loosening. No fractures or dislocation are seen. The right hip demonstrates mild osteoarthritis. Bone density is mildly decreased. IMPRESSION: Intact left hip total arthroplasty. Dictated by Aldair Lagunas MD (residential real estate assistant). I, Dr. CHAPO ESCAMILLA MD have personally reviewed and interpreted this examination/study. This report was electronically signed by CHAPO ESCAMILLA MD on10/19/2017 10:19 AM . Paco Meléndez MD DIAGNOSTIC IMAGING ORDERABLES * CARDIAC RHYTHM STRIP ORDER (06/22/2017 2:53 AM CDT) Narrative 06/22/2017 2:53 AM CDT Ordered by an unspecified provider. Scanned Document CARDIAC SERVICES ORD ERABLES * (ABNORMAL) HGB HCT PANEL (06/19/2017 4:52 AM CDT) Only the most recent of2 resultswithin the time period is included. Pathologist [facility] Hemoglobin 8.1(L) 12.0 - 15.6 gm/dL 06/19/2017 5:18 AM CDT [facility] Hematocrit 24.4(L) 35.9 - 45.5 % 06/19/2017 5:18 AM CDT [facility] [facility] Blood BLOOD SPECIMEN / Unknown Lab Venipuncture / Unknown 06/19/2017 4:52 AM CDT 06/19/2017 5:12 AM CDT Ga Short MD LAB - HEMATOLOGY ORD ERABLES [facility] [address] [place] [address] * (ABNORMAL) GLUCOSE - POINT OF CARE (06/18/2017 9:16 PM CDT) Only the most recent of8 resultswithin the time period is included. Glucose WB/POC 126(H) 70 - 106 mg/dL 06/18/2017 9:39 PM CDT [facility] Specimen Type CAPILLARY BLOOD 06/18/2017 9:39 PM CDT [facility] Blood BLOOD SPECIMEN / Unknown 06/18/2017 9:16 PM CDT 06/18/2017 9:39 PM CDT Paco Meléndez MD LAB - POINT OF CARE ORDERABLES Performing Organization Address City/[facility]/ZIP Co de Phone Number [facility] [address] [place] [address] * BLOOD TYPE VERIFICATION (06/17/2017 6:56 AM CDT) ABO A 06/17/2017 7:36 AM CDT [facility] Rh Type Positive 06/17/2017 7:36 AM CDT [facility] Blood Bank BLOOD SPECIMEN / Unknown Lab Venipuncture / Unknown 06/17/2017 6:56 AM CDT 06/17/2017 6:56 AM CDT Paco Meléndez MD LAB - BLOOD BANK OR DERABLES Performing Organization Address [facility] Co de Phone Number [facility] [address] [place] [address] * TYPE + SCREEN PANEL (06/17/2017 6:45 AM CDT) ABO A 06/17/2017 7:36 AM CDT [facility] Rh Type Positive 06/17/2017 7:36 AM CDT [facility] Comment:History checked. Antibody Screen Negative 06/17/2017 7:36 AM CDT [facility] Blood Bank BLOOD SPECIMEN / Unknown Venipuncture / Unknown 06/17/2017 6:45 AM CDT 06/17/2017 6:51 AM CDT Elvi Polk MD LAB - BLOOD BANK ORD ERABLES Performing Organization Address City/[facility]/ZIP Co de Phone Number [facility] [address] [place] [address] * CULTURE MSSA/MRSA (05/31/2017 8:03 AM CDT) Culture Negative for Staphylococcus aureus (MRSA/MSSA) [place] 06/02/2017 9:57 AM CDT [facility] Microbiology SPECIMEN FROM NASAL FOSSAE / Unknown Collection / Unknown 05/31/2017 8:03 AM CDT 05/31/2017 8:40 AM CDT Paco Meléndez MD LAB - MICROBIOLOGY ORDERABLES [facility] [address] [place], [place] [address] [place] [address] * (ABNORMAL) TRANSFERRIN (05/31/2017 8:03 AM CDT) Transferrin 235(L) 250 - 380 mg/dL 05/31/2017 9:07 AM CDT [facility] Blood BLOOD SPECIMEN / Unknown Venipuncture / Unknown 05/31/2017 8:03 AM CDT 05/31/2017 8:40 AM CDT Paco Meléndez MD LAB - CHEMISTRY ORD ERABLES Performing Organization Address City/[facility]/ZIP Co de Phone Number [facility] [address] [place] [address] * LAB HISTORICAL RESULTS-ONBASE (05/12/2016) 05/12/2016 Historical Provider LAB - CHEMISTRY O RDERABLES [facility] [address] [place] [address], [facility] Care Teams Administrative Services Manager Relationship Specialty Start Date End Date Tomas Romero MD [address] [facility] [address] [facility] [address] [place] [address] PCP - General Internal Medicine 11/13/20
--- OUTSIDE RECORDS SUMMARY | 2024-05-03 07:13 | XMS_ITS | Clinical Summary ---
Author Organization [facility] Address [address] [facility] [place] [address] Care Team Providers Care Pneumatic System Conveyor Operator Name Role Phone Tomas Romero MD Primary Care Provider [phone] Source Comments [facility],non-owned Affiliates and Associated Physician Practices is amultiple site organization consisting of ambulatory clinics and hospital sitesin [place], [place], [place] and [place]. This disclosure is being madepursuant to the Care Everywhere program and may not contain all information available regarding this patient. Last updated 17.[facility] Box Upon a Time Allergies Active Allergy Reactions Criticality Noted Date Comments Naproxen GI Discomfort 05/31/2017 Amoxicillin-Pot Clavulanate Nausea and/or Vomiting,Other Low 03/09/2007 [place] [facility] Other Low 04/02/2011 teary, teary [...] 07/30/2016 Assessment & Plan (03/29/2019 9:51 PM MATHEMATICAL STATISTICIAN): A1c up slightly. Still in pre-diabetes stage. [...] weeks. Assessment & Plan (03/29/2019 9:52 PM MATHEMATICAL STATISTICIAN): Poorly controlled at present, mostly due to recent stressors. Continue with counseling. Increasing Prozac. Wary of increasing lorazepam dose. Return in about 6 weeks (around 05/10/2019) for f/u anxiety. Pure hypercholesterolemia 07/30/2016 Osteopenia 09/30/2015 Overview (07/11/2020): T-score -2.4 Resolved Problems Problem Noted Date Diagnosed Date Resolved Date S/P hip replacement, left 06/17/2017 Major depressive disorder, single episode 07/30/2016 09/01/2019 Encounters Date Type Department Care Team Description 05/01/2024 Refill [facility] [address] [place] [address] Paco Meléndez MD MEDICATION REFILL 04/07/2024 Travel from Last 3 Months Immunizations Name Administration Dates Next Due Covid youmag primary monoval ent 12+ yr 0.3mL Purple cap 05/17/2020,04/26/2020 PNEUMOCOCCAL PPSV23 05/12/2016 Pneumococcal Pcv13 Conj 12/17/2017 TDAP (7yrs+) 10/02/2016 Family History Medical History Relation Name Comments Cancer - Breast Maternal Aunt Deirdre Mckinley She ronn vived it Macular Degeneration Maternal Aunt Deirdre Mckinley Glaucoma Neg Hx Relation Name Status Comments Maternal Aunt Deirdre Mckinley Social History Tobacco Use Types Packs/Day Years [...] CDT Respiratory Rate 12 01/16/2020 4:21 PM MATHEMATICAL STATISTICIAN Oxygen Saturation 95% 07/17/2020 10:34 AM CDT Inhaled Oxygen Concentration - - Weight 71.2 kg (157 lb) 10/14/2023 10:22 AM CDT Height 157.5 cm (5' 2 ) 10/14/2023 10:22 AM CDT Body Mass Index 28.72 10/14/2023 10:22 AM CDT Plan of Treatment Upcoming Encounters Date Type Department Care Team (Late st Contact Info) Description 05/03/2024 2:00 PM MATHEMATICAL STATISTICIAN [facility] [address] [place] [phone] Nazanin Shetty MD [address] [place] [address] [place] [address] 06/28/2024 1:30 PM CDT Office Visit [facility] - Ophthalmology [address] [place] [phone] Susan Flores MD [address] [place] [address] [place] [phone] Health Maintenance Due Date Last Done Comments CT COLONOGRAPHY - COLON CA SCREENING 1950 FIT - COLON CA SCREENING 1950 FLEX SIG - COLON CA SCREENING 1950 MEDICARE AWV 12 MONTHS 1950 ZOSTER VACCINE (1 of 2) 2000 COLOGUARD (AGES 45-75) - COLON CA SCREENING 08/01/2022 08/02/2019, 08/02/2019 SCREENING FOR DIABETES 07/18/2023 , 01/16/2020, 03/29/2019, Additional history exists COVID-19 VACCINE ( season) 2023 11/16/2020, 05/17/2020, 04/26/2020 INFLUENZA VACCINE (#1) 2023 01/03/2021 DEPRESSION SCREENING 03/01/2024 COLON MONITORING 08/22/2024 08/23/2019, 01/2014 (Done Outside Per Report) Colorectal Cancer Screening 08/22/2024 Respiratory Syncytial Virus (RSV) Vaccine Pt: or over 60 yrs (1 - 1-dose 75+ series) 2025 MAMMOGRAM 10/13/2025 10/14/2023, 04/29, 07/08/2020, Additional history exists DTAP/TDAP/TD VACCINES (2 - Td or Tdap) 10/02/2026 10/02/2016 COLONOSCOPY - COLON CA SCREENING 08/22/2029 08/23/2019 HEPATITIS C SCREENING Completed 12/17/2017, 018 PNEUMOCOCCAL VACCINE 50+ Completed 12/17/2017, 04/29 BONE DENSITY TESTING Completed 12/27/2017 HEPATITIS B VACCINE Aged Out No longe r eligible based on patient's age to complete this topic HIB VACCINE Aged Out No longer eligi ble based on patient's age to complete this topic HPV VACCINE Aged Out No longer eligi ble based on patient's age to complete this topic MENINGOCOCCAL (Group B) VACCINE Aged Out No longer eligible based on patient's age to complete this topic MENINGOCOCCAL VACCINE Aged Out No jael samantha eligible based on patient's age to complete this topic Goals Goal Patient Goal Type Associated Problems Recent Progress Patient-Stated? Author Medication Management General No Wall, Radha, RN Note: Interventions: Medical Devices Implanted Type Area Thread Separator Device Identifier Shelf Expiration Date Model / Serial / Lot Shell Actb 52mm Hip 3 Hl Poly R3 Std Implanted:Qty: 1 on 06/17/2017 by Paco Meléndez MD at [facility] Left: Hip [employer] 12/02/2026 [id number] / / [id number] Screw 6.5mm 45mm Actb Sphrcl Head Reflc Implanted:Qty: 1 on 06/17/2017 by Paco Meléndez MD at [facility] Left: Hip [employer] 08/19/2026 [id number] / / [id number] Liner Actb R3 0d 52mm 36mm Xlpe Hip Flxb Implanted:Qty: 1 on 06/17/2017 by Paco Meléndez MD at [facility] Left: Hip [employer] 08/01/2026 [id number] / / [id number] Polarstem Size 3 Stem Implanted:Qty: 1 on 06/17/2017 by Paco Meléndez MD at [facility] Left: Hip 02/11/2024 75 [id number] / / [id number] Head Fem +4mm /14 36mm Hip Tpr Oxnm Implanted:Qty: 1 on 06/17/2017 by Paco Meléndez MD at [facility] Left: Hip [employer] 10/11/2026 [id number] / / [id number] Mata Uncem Hip All Inclusive Implanted:Qty: 1 on 06/17/2017 by Paco Meléndez MD at [facility] [employer] BILL ONLY UN[employer] HIP [...] participate in the care of your patient. [facility] Care utilizes [employer] as a reminder system to notify patients [...] % BLOOD SPECIMEN / Unknown 07/17/2020 Flaco GriggsMckenna Burrell MIXER AND BLENDER-TIME STAMP ASSEMBLER LAB - POINT OF CARE ORDERABLES * COLONOSCOPY (08/23/2019) Historical Provider MD SCANNING ONLY * (ABNORMAL) COLOGUARD TEST (08/02/2019 9:37 AM CDT) Cologuard Positive (A) Not Applicable [facility] Comment: It is recommended that a [...] both Cologuard and colonoscopy. (Table 3, Mira White. et al, N Engl J Med 2014;370(14):9699-5214.) The normal value (reference range) for this [...] interval of every 3 years by the [place] [employer] Society and U.S. Multi-Society Task Force. [...] can be accessed at the following location: [email or web address].com/results. Additional description of the Cologuard test process, warnings and precautions can be found at [email or web address].com. Rx only. Stool specimen (specimen) STOOL SPECIMEN / Unknown 08/02/2019 9:37 AM CDT 08/03/2019 3:38 PM CDT Mart Fink MD LAB - CHEMISTRY TAYA JEAN [facility] Organization Address City/State/[facility] Co de Phone Number [facility] [address] [place] [address] [facility] [address] [place] [address] * DEXA BONE DENSITY AXIAL SKELETON (12/27/2017 [...] ordering physician and is also available on [employer], the Radiology Department's computerized picture archive system. [...] ordering physician and is also available on [employer], the Radiology Department'Valentin Uzhun picture archive system. Patient's height 62 in; [...] Recently Relevant to Health Maintenance Care Teams Pneumatic System Conveyor Operator Relationship Specialty Start Date End Date Tomas Romero MD [address] [facility] [address] [place] [address] PCP - General Internal Medicine 11/13/20
== END 2024-05-03 07:09 | disposition home or self-care (01) ==
PROVIDERS: PCP Internal Medicine; Visit Provider Internal Medicine
DX: R63.8 Other symptoms and signs concerning food and fluid intake (principal)
CPT/HCPCS: 76700

== ENCOUNTER 2024-05-17 08:28 | Outpatient (CLI) | payer OTHER, SELFPAY ==
--- NOTE | ~2024-05-17 | XR_ITS ---
EXAMINATION: XR UGIAC w small bowel DATE: 05/17/2024 09:41 INDICATION: Unspecified abdominal pain TECHNIQUE: The patient drank thick barium, gas-producing crystals, and thin barium. Conventional supi ne abdomen radiographs and fluoroscopic spot radiographs of the esophagus, stomach, and proximal smal l bowel were obtained. Additional overhead radiographs were obtained during the transit through the s mall bowel. Spot fluoroscopic images of the small bowel were obtained upon contrast reaching the cec um. A total of 444 fluoroscopic images and 3 overhead radiographs were obtained. Fluoroscopy exposure time was 2.2 minutes. Total DAP was 17.440 Gycm^2 COMPARISON: None. FINDINGS: Instrumented cervical anterior spinal fusion with interbody bone graft cages and anterior plate-screw fixation extending from C3-C7. The esophagus is normal without mass or stricture. Esophageal motilit y is normal. Small sliding-type hiatal hernia with subtle esophageal B ring at the gastroesophageal j unction located approximately 4 cm above level of the diaphragm. Single episode of gastroesophageal r eflux was observed with provocative maneuvers with a relatively large amount of contrast which extend s cephalad to the upper thoracic esophagus. The stomach and proximal small bowel are normal. Transit time from the stomach to proximal colon was approximately 15 minutes. There is normal caliber and mucosal fold pattern throughout the small bowel. Terminal ileum is normal. IMPRESSION: 1. Small sliding-type hiatal hernia and gastroesophageal reflux with provocative maneuvers. 2. Normal small bowel follow-through. Reviewed, dictated and finalized at location A. IMPRESSION: 1. Small sliding-type hiatal hernia and gastroesophageal reflux with provocativ e maneuvers. 2. Normal small bowel follow-through.
--- OUTSIDE RECORDS SUMMARY | 2024-05-17 08:51 | XMS_ITS | Encounter Summary ---
Author Organization [facility] Address [address] [place] [address] Care Team Providers Care Associate Manager Affiliate Marketing Name Role Phone Rubin Lehman MD Primary Care Provider Jose powers Encounter Details Date Type Department Care Team (Late st Contact Info) Description 03/09/2007 Orders Only [facility] Primary Care - [address] [place] [address] Chu Reddy MD [address] [facility] [address] [place], [place] [id number] Social History Tobacco Use Types Packs/Day Years Used Date Smoking Tobacco: Never Assessed Comments Unknown Sex and Gender Information Value Date Recorded Sex Assigned at Not on file Legal Sex Female 3:22 AM [facility] Gender Identity Not on file Sexual Orientation [...] identified on exam. LAB ORDERS: Order number: [id number] Test Ordered: COMPREHENSIVE METABOLIC PANEL [id number] Order number: [id number] Test Ordered: TSH W/REFLEX TO [id number] Order number: [id number] Test Ordered: LIPID PANEL 7600 HEALTH MAINTENANCE: [...] on filedocumented in this encounter Care Teams Associate Manager Affiliate Marketing Relationship Specialty Start Date End Date Rubin Lehman MD PCP - General Internal Medicine 09/03/10 05/08/17 documented as of this encounter
--- OUTSIDE RECORDS SUMMARY | 2024-05-17 08:51 | XMS_ITS | Encounter Summary ---
Author Organization [facility] Address [address] [place] [address] Care Team Providers Care Environmental Science Instructor Name Role Phone Mart Fink MD Primary Care Provider Mena Butcher MD Primary Care Provider [phone] Flaco Burrell SHIPS EQUIPMENT ENGINEER-PROGRAM MANAGER RN Primary Care Provi good Tomas Romero MD Primary Care Provider [phone] Encounter Details Date Type Department Care Team (Late st Contact Info) Description 08/10/2019 Telephone [facility] [address] [place] [address] Mart Fink MD [address] [facility] [address] [place] [address] Social History Tobacco Use Types Packs/Day Years [...] Care Team (Late st Contact Info) Description 06/28/2024 1:30 PM CDT Office Visit [facility] - Ophthalmology [address] [facility] [place] [phone] Susan Flores MD [facility] [facility] [place] [phone] documented as of this encounter Goals Goal Patient Goal Type Associated Problems Recent Progress Patient-Stated? Author Medication Management General No Radha Wall, RN Note: Interventions: documented as of this encounter Visit Diagnoses Not on filedocumented in this encounter Care Teams Environmental Science Instructor Relationship Specialty Start Date End Date Mart Fink MD [address] [facility] [address] [place] [address] PCP - General Family Medicine 05/25/17 06/27/20 Mena Butcher MD [address] DIV [place] [address] PCP - General 06/28/20 08/01/20 Flaco Burrell, SHIPS EQUIPMENT ENGINEER-PROGRAM MANAGER RN [address] [facility] [address] [place] [address] PCP - General Nurse Practitioner Family 08/02/2010/30 Tomas Romero MD [address] [place] [address] PCP - General Internal Medicine 11/13/20 documented as of this encounter
--- OUTSIDE RECORDS SUMMARY | 2024-05-17 08:51 | XMS_ITS | Clinical Summary ---
Author Organization [facility] Address [address] [facility] [place] [address] Care Team Providers Care Docket Clerk Name Role Phone Tomas Romero MD Primary Care Provider Source Comments [facility],non-owned Affiliates and Associated Physician Practices is amultiple site organization consisting of ambulatory clinics and hospital sitesin [place], [place], [place] and [place]. This disclosure is being madepursuant to the Care Everywhere program and may not contain all information available regarding this patient. Last updated 17.[facility] Allergies Active Allergy Reactions Criticality Noted Date Comments Naproxen GI Discomfort 05/31/2017 Mireya-D Itching,Unknown,Fever 05/10/2024 Augmentin Nausea and/or Vomiting,Dizziness,Fever 05/10/2024 Dapagliflozin Other,GI Discomfort,Neuropathy High 05/10/2024 Lower back pain Hydrocodone Other 10/25/2018 Low blood pressure Triamcinolone Itching,Other,Fever 05/10/2024 Bone pain Tramadol Shortness of Breath High 05/31/2017 Medications * Be aware that medications may not be up to date on this document. Alwaysverify current medications with the patient. Medication Sig Dispensed Refills Start Date End Date Status FLUoxetine (PROZAC) 20 MG capsule Take 1 (one) capsule by mouth once daily Active LORazepam (ATIVAN) 0.5 MG tablet Take 0.5 (one-half) tablet by mouth every 8 hours as needed [...] Active rosuvastatin (CRESTOR) 20 MG tablet Take 1 (one) tablet by mouth once daily 09/23/2020 Active fluticasone propionate (FLONASE) 50 MCG/ACT nasal spray USE 2 SPRAYS IN EACH NOSTRIL ONCE DAILY 09/12/2020 Active famotidine (Pepcid) 40 MG tablet Take 1 (one) tablet by mouth once daily 04/03/2024 Active tretinoin (Retin-A) 0.05 % cream Apply to affected area at bedtime 04/27/2024 Active mupirocin (Bactroban) 2 % ointment Apply to affected area 3 times daily 22 g 05/10/2024 Active Phenazopyridine HCl 99.5 MG TABS 5 Discontinued (List Clean-Up) acetaminophen (TYLENOL) 500 MG tablet Take 1,000 mg by mouth every 4 hours as needed for Fever or Pain Maximum allowable Acetaminophen amount = 4 Grams (4000 mg) / 24 hours. 5 Discontinued (List Clean-Up) Pseudoephedrine -guaiFENesin (MUCINEX D PO) Take 1 tablet by mouth as needed 5 Discontinued (List Clean-Up) Dextromethorpha n-guaiFENesin (MUCINEX DM PO) Take 1 tablet by mouth as needed 5 Discontinued (List Clean-Up) amoxicillin (Amoxil) 500 MG capsule TAKE 4 (FOUR) CAPSULES BY MOUTH PRE-PROCEDURE ONCE FOR 1 DOSE. 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 Assessment & Plan (03/29/2019 9:52 PM MAKING MACHINE CATCHER): Poorly controlled at present, mostly due to recent stressors. Continue with counseling. Increasing Prozac. Wary of increasing lorazepam dose. Return in about 6 weeks (around 05/10/2019) for f/u anxiety. Pure hypercholesterolemia 07/30/2016 Osteopenia 09/30/2015 Overview (07/11/2020): T-score -2.4 Resolved Problems Problem Noted Date Diagnosed Date Resolved Date Cystitis 01/03/2020 05/10/2024 Trigger finger of left thumb 06/23/2018 05/10/2024 Arthritis of left hip 06/17/20172024 S/P hip replacement, left 06/17/2017 Osteoporosis 07/30/2016 05/10/2024 Overview (12/28/2017): Diagnosed 11/2017. Starting alendronate 11/2017 Prediabetes 07/30/2016 05/10/2024 Assessment & Plan (03/29/2019 9:51 PM MAKING MACHINE CATCHER): A1c up slightly. Still in pre-diabetes stage. Continue to monitor Major depressive disorder, single episode 07/30/2016 09/01/2019 Encounters Date Type Department Care Team Description 05/10/2024 1:45 PM CDT Office Visit [facility] - ENT [address] [place] [address] Nazanin Shetty MD Nasal obstruction (Primary Dx); Post-nasal drip; Facial pain; Nasal congestion; Nasal valve collapse 05/10/2024 Travel 05/01/2024 Refill [facility] - Orthopedic Surgery [address] [place] [address] Paco Meléndez MD MEDICATION REFILL 04/07/2024 Travel from Last 3 Months Immunizations Name Administration Dates Next Due Covid BOS [employer] primary monoval ent 12+ yr 0.3mL Purple cap 05/17/2020,04/26/2020 INFLUENZA VACCINE, ADJUVANTE D, QUADR. (FLUAD QUADRIVALENT; 65Y+) (AIIV4) 01/03/2021 PNEUMOCOCCAL PPSV23 05/12/2016 Pneumococcal Pcv13 Conj 12/17/2017 TDAP (7yrs+) 10/02/2016 Family History Medical History Relation Name Comments Cancer - Breast Maternal Aunt Deirdre Cuimeredith She ronn vived it Macular Degeneration Maternal [...] Sign Reading Time Taken Comments Blood Pressure 174/77 05/10/2024 1:32 PM CDT Pulse 102 05/10/2024 1:32 PM CDT Temperature 37.1 C (98.8 F) 07/17/2020 10:32 AM CDT Respiratory Rate 12 01/16/2020 4:21 PM MAKING MACHINE CATCHER Oxygen Saturation 95% 07/17/2020 10:34 AM CDT Inhaled Oxygen Concentration - - Weight 69.9 kg (154 lb) 05/10/2024 1:32 PM CDT Height 157.5 cm (5' 2 ) 05/10/2024 1:32 PM CDT Body Mass Index 28.17 05/10/2024 1:32 PM CDT Plan of Treatment Upcoming Encounters Date Type Department Care Team (Late st Contact Info) Description 06/28/2024 1:30 PM CDT Office Visit [facility] - Ophthalmology [address] [place] [address] Susan Flores MD [address] [place] [address] [place] [address] Health Maintenance Due Date Last Done Comments CT COLONOGRAPHY - COLON CA SCREENING 1950 FIT - COLON CA SCREENING 1950 FLEX SIG - COLON CA SCREENING 1950 MEDICARE AWV 12 MONTHS 1950 ZOSTER VACCINE (1 of 2) 2000 COLOGUARD (AGES 45-75) - COLON CA SCREENING 08/01/2022 08/02/2019, 08/02/2019 SCREENING FOR DIABETES 07/18/2023 , 01/16/2020, 03/29/2019, Additional history exists COVID-19 VACCINE (2023- season) 2023 11/16/2020, 05/17/2020, 04/26/2020 INFLUENZA VACCINE (#1) 2023 01/03/2021 DEPRESSION SCREENING 03/01/2024 MEDICARE AWV CALENDAR YEAR 2024 COLON MONITORING 08/22/2024 08/23/2019, 01/2014 (Done Outside [...] complete this topic MENINGOCOCCAL (Group B) VACCINE SHARED DECISION-MAKING Aged Out No longer eligible based on patient's age to complete this topic MENINGOCOCCAL GROUPS A/C/Y/W VACCINE Aged Out No longer eligible based on patient's age to complete this topic Goals Goal Patient Goal Type Associated Problems Recent Progress Patient-Stated? Author Medication Management General No Radha Wall, RN Note: Interventions: Medical Devices Implanted Type Area Looper Operator Device Identifier Shelf Expiration Date Model / Serial / Lot Shell Actb 52mm Hip 3 Hl Poly R3 Std Implanted:Qty: 1 on 06/17/2017 by Paco Meléndez MD at [facility] Left: Hip [employer] 12/02/2026 [id number] / / [id number] Screw 6.5mm 45mm Actb Sphrcl Head Reflc Implanted:Qty: 1 on 06/17/2017 by Paco Meléndez MD at [facility] Left: Hip [employer] 08/19/2026 [id number] / / [id number] Liner Actb R3 0d 52mm 36mm Xlpe Hip Flxb Implanted:Qty: 1 on 06/17/2017 by Paco Meléndez MD at [facility] Left: Hip [employer] 08/01/2026 [id number] / / [id number] Polarstem Size 3 Stem Implanted:Qty: 1 on 06/17/2017 by Paco Meléndez MD at [facility] Left: Hip 02/11/2024 [id number] / / [id number] Head Fem +4mm /14 36mm Hip Tpr Oxnm Implanted:Qty: 1 on 06/17/2017 by Paco Meléndez MD at [facility] Left: Hip [employer] 10/11/2026 [id number] / / [id number] Mata Uncem Hip All Inclusive Implanted:Qty: 1 on 06/17/2017 by Paco Meléndez MD at [facility] Orthopaedics BILL ONLY UNCEM HIP ALL INCLUSIVE SNORTH / / Procedures Procedure Name Priority Date/Time Associated Diagnosis Comments [place] NASAL ENDOSCOPY,DX Routine 05/10/2024 1:51 PM CDT Nasal obstruction Post-nasal drip Facial pain Nasal congestion MAMMO BILAT SCREENING W SALOMÓN Routine 10/14/2023 [...] Recently Relevant to Health Maintenance Results * AZ NASAL ENDOSCOPY,DX (05/10/2024 1:51 PM CDT) Narrative Andre Cazares MD - 05/10/2024 1:51 PM CDT Andre Cazares MD 05/10/2024 2:21 PM Procedure: Rigid Nasal Endoscopy Anesthesia: Bilateral Nasal Cavities sprayed with lidocaine and Neosynephrine Detail: Rigid nasal endoscopy performed bilaterally. We bilaterally visualized the interior nasal cavity, entire septum, inferior, middle and superior turbinates, middle meatus, superior meatus, sphenoethmoidal recess and the nasopharynx. Unless mentioned below these structures were normal. Findings include external nasal valve collapse. Mild septal deviation anteriorly to the left. Right nasal cavity normal. Clear mucus seen posteriorly in the nose. Left nasal cavity with evidence of vestibulitis extending onto the left lateral wall with mild crusting. No polyps bilaterally. EBL: none Dr. Shetty was present for the entire procedure. Nazanin Shetty MD PROCEDURE/MINOR RONN GICAL ORDERABLES * Mammo Bilat Screening W [place] (10/14/2023 10:26 AM CDT) Anatomical Region Laterality Modality Breast Bilateral Mammography 10/14/2023 12:5 6 PM CDT Impressions 10/14/2023 12:58 PM CDT : No mammographic evidence of malignancy in either breast. ASSESSMENT: BIRADS Category 1: Negative mammogram. RECOMMENDATION: Bilateral screening mammogram in one year. Thank you for allowing us to participate in the care of your patient. [facility] utilizes [employer] as a reminder system to notify patients [...] BLOOD SPECIMEN / Unknown 07/17/2020 Flaco Burrell PATIENT CARE REPRESENTATIVE-FREEZER ASSISTANT LAB - POINT OF CARE ORDERABLES * COLONOSCOPY (08/23/2019) Historical Provider MD SCANNING ONLY * (ABNORMAL) COLOGUARD TEST (08/02/2019 9:37 AM CDT) Cologuard Positive (A) Not Applicable [facility] Comment: It is recommended that a [...] White. et al, N Engl J Med 2014;370(14):3417-2987.) The normal value (reference range) for this [...] interval of every 3 years by the [place] [employer] and U.S. Multi-Society Task Force. [...] can be accessed at the following location: www.Viewsy/results. Additional description of the Cologuard test process, warnings and precautions can be found at [email or web address].com. Rx only. Stool specimen (specimen) STOOL SPECIMEN / Unknown 08/02/2019 9:37 AM CDT 08/03/2019 3:38 PM CDT Mart Fink MD LAB - CHEMISTRY TAYA JEAN Performing Organization Address City/State/[facility] Co de Phone Number [employer] [address] [place] [address] [employer] [address] [place] [address]. [place] [address] * DEXA BONE DENSITY AXIAL SKELETON (12/27/2017 [...] ordering physician and is also available on [employer], the Radiology Department's computerized picture archive system. [...] ordering physician and is also available on [employer], the Radiology Department'[employer] picture archive system. Patient's height 62 in; [...] Recently Relevant to Health Maintenance Care Teams Docket Clerk Relationship Specialty Start Date End Date Tomas Romero MD [address] [facility] [address] [place] [address] PCP - General Internal Medicine 11/13/20
--- OUTSIDE RECORDS SUMMARY | 2024-05-17 08:51 | XMS_ITS | Clinical Summary ---
Author Organization [facility] Address [address] [place] [address] Care Team Providers Care Product Steward Name Role Phone Unavailable Primary Care Provider [...] on file Legal Sex Female 3:22 AM ENTRY LEVEL ACCOUNT EXECUTIVE Gender Identity Not on file Sexual Orientation Not on file Occupation Industry Job Start Date Job End Date Not on file Not on file Not on file Not on file Last Filed Vital Signs Vital Sign Reading Time Taken Comments Blood Pressure 100/70 04/25/2015 2:31 PM ENTRY LEVEL ACCOUNT EXECUTIVE Pulse - - Temperature 37.2 C (99 F) 03/26/2014 2:42 PM ENTRY LEVEL ACCOUNT EXECUTIVE Respiratory Rate - - Oxygen Saturation - - Inhaled Oxygen Concentration - - Weight 76.2 kg (168 lb) 04/25/2015 2:31 PM ENTRY LEVEL ACCOUNT EXECUTIVE Height 157.5 cm (5' 2 ) 04/25/2015 2:31 PM ENTRY LEVEL ACCOUNT EXECUTIVE Body Mass Index 30.73 04/25/2015 2:31 PM ENTRY LEVEL ACCOUNT EXECUTIVE Plan of Treatment Health Maintenance Due Date [...] Advance Directives For more information, please contact: [phone] Documents on File Type Date Recorded Patient Honing Machine Operator Tool Expl 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
--- OUTSIDE RECORDS SUMMARY | 2024-05-17 08:51 | XMS_ITS | Encounter Summary ---
Author Organization [facility] Address [address] [facility] [facility] [place] [address] Care Team Providers Care Netsuite Consultant Name Role Phone Mart Fink MD Primary Care Provider [phone] Mena Butcher MD Primary Care Provider [phone] Flcao Burrell PARTS DRIVER-LUMBER BUYER Primary Care Provi good Tomas Romero MD Primary Care Provider [phone] Encounter Details Date Type Department Care Team (Late st Contact Info) Description 05/15/2020 Telephone [facility] [address] [place] [address] Mena Butcher MD [address] [address] Social History Tobacco Use Types Packs/Day Years [...] encounter Miscellaneous Notes * Telephone Encounter - MasterCourtney good - 05/15/2020 1:16 PM CDT Reason for call: Pt called to schedule an appt w/ Dr. Butcher but there are no available NEW pt slots until 09/25. Is there any way she can get a sooner appt? Patient Call Back number: [phone] documented in this encounter Plan of Treatment Upcoming Encounters Date Type Department Care Team (Late st Contact Info) Description 06/28/2024 1:30 PM CDT Office Visit [facility] - Ophthalmology [address] [facility], [place] [address] [place] [address] [place] [address] DEPT [place] [address] documented as of this encounter Goals Goal Patient Goal Type Associated Problems Recent Progress Patient-Stated? Author Medication Management General No Radha Wall, RN Note: Interventions: documented as of this encounter Visit Diagnoses Not on filedocumented in this encounter Care Teams Netsuite Consultant Relationship Specialty Start Date End Date Mart Fink MD [address] [facility] [address] [place] [phone] PCP - General Family Medicine 05/25/17 06/27/20 Mena Butcher MD [address] [place] [address] PCP - General 06/28/20 08/01/20 Flaco Burrell, PARTS DRIVER-LUMBER BUYER [address] [facility] [facility] [address] [place] [address] PCP - General Nurse Practitioner Family 08/02/2010/30 Tomas Romero MD [address] [facility] [address] [place] [address] PCP - General Internal Medicine 11/13/20 documented as of this encounter
--- OUTSIDE RECORDS SUMMARY | 2024-05-17 08:51 | XMS_ITS | Encounter Summary ---
Author Organization [facility] Address [address] [place] [address] Care Team Providers Care Prototype Machine Operator Name Role Phone Rubin Lehman MD Primary Care Provider Jose powers Encounter Details Date Type Department Care Team (Late st Contact Info) Description 02/23/2007 Outpatient Historical [facility] Primary Care - [address] [place] [address] Chu Reddy MD [address] [facility] [address] [place] [address] Social History Tobacco Use Types Packs/Day Years Used Date Smoking Tobacco: Never Assessed Comments Unknown Sex and Gender Information Value Date Recorded Sex Assigned at Not on file Legal Sex Female 3:22 AM WINDOW TINTER Gender Identity Not on file Sexual Orientation Not on file documented as of this encounter Plan of Treatment Not on file documented as of this encounter Visit Diagnoses Not on filedocumented in this encounter Care Teams Prototype Machine Operator Relationship Specialty Start Date End Date Rubin Lehman MD PCP - General Internal Medicine 09/03/10 05/08/17 documented as of this encounter
--- OUTSIDE RECORDS SUMMARY | 2024-05-17 08:51 | XMS_ITS | Encounter Summary ---
Author Organization [facility] Address [address] [place] [address] Care Team Providers Care Construction Carpenter Name Role Phone Rubin Lehman MD Primary Care Provider Jose pwoers Encounter Details Date Type Department Care Team (Late st Contact Info) Description 08/07/1999 Outpatient Historical [facility] Jeffery MATTHEWS Carolyn, MD [address] [place] [phone] Social History Tobacco Use Types Packs/Day Years Used Date Smoking Tobacco: Never Assessed Comments Unknown Sex and Gender Information Value Date Recorded Sex Assigned at Not on file Legal Sex Female 3:22 AM TECHNICAL SPECIALIST CYTOLOGY Gender Identity Not on file Sexual Orientation Not on file documented as of this encounter Plan of Treatment Not on file documented as of this encounter Visit Diagnoses Not on filedocumented in this encounter Care Teams Construction Carpenter Relationship Specialty Start Date End Date Rubin Lehman MD PCP - General Internal Medicine 09/03/10 05/08/17 documented as of this encounter
== END 2024-05-17 08:29 | disposition home or self-care (01) ==
PROVIDERS: PCP Internal Medicine; Visit Provider Internal Medicine
DX: R10.9 Unspecified abdominal pain (principal); R14.0 Abdominal distension (gaseous); R13.10 Dysphagia, unspecified; R63.8 Other symptoms and signs concerning food and fluid intake
CPT/HCPCS: 74246; 74248

== ENCOUNTER 2024-05-22 12:36 | Inpatient (IN) | payer OTHER, SELFPAY ==
[2024-05-22] VITALS (7 sets, daily range): BP systolic 108–145; BP diastolic 56–68; PULSE 85–102; RESP 14–20; TEMP 36.7–37.6; O2SAT 94–100; BMI 25.6
--- NOTE | ~2024-05-22 | CT_ITS ---
EXAMINATION: CTA chest PE protocol DATE: 05/22/2024 15:08 INDICATION: Right-sided chest pain and hypoxia TECHNIQUE: Computed tomography (CT) pulmonary angiogram of the chest was performed with 100 mL Omnipa que-350 intravenous contrast. Additional 3D reconstructions utilizing coronal maximum intensity proje ction (MIP) were performed. Automated exposure control and iterative reconstruction technique were em ployed. The dose-length product was 282.61 mGy-cm. COMPARISON: None FINDINGS: There are occlusive appearing filling defects within the medial segmental pulmonary artery the right middle lobe and the right lower lobar pulmonary artery extending into the posterior basilar, lateral basilar and anterior basilar subsegmental pulmonary arteries. Additional nonocclusive pulmonary arter ial filling defect within the more posterior branch of the (lower lobar pulmonary artery. Discoid ate lectasis in the bilateral lower lobes. There are also patchy groundglass opacities in both lungs. Brooks ateral trace pleural effusion. Heart size is normal. No evident bowing of the ventricular septum to s uggest right heart strain. No pericardial effusion. Thoracic aorta is normal in caliber with no disse ction. No pathologically enlarged thoracic lymphadenopathy. 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 Mild thoracic spondylosis. Partially visualized anterior plate and screw fixatio n for anterior spinal fusion at C6-C7. IMPRESSION: 1. Bilateral pulmonary emboli but without evident right heart strain. Dr. Hall discussed these fi ndings with Dr. Harrison at 2:20 PM. 2. Patchy groundglass opacities in both lungs including the lower lobes which could represent atelect asis, pulmonary infarcts, pulmonary edema, pneumonia or some combination thereof. Reviewed, dictated and finalized at location B. IMPRESSION: 1. Bilateral pulmonary emboli but without evident right heart strain. Dr. Kayce gomez discussed these findings with Dr. Harrison at 2:20 PM. 2. Patchy groundglass opacities in both lungs including the lower lobes which c ould represent atelectasis, pulmonary infarcts, pulmonary edema, pneumonia or s ome combination thereof.
--- NOTE | ~2024-05-22 | XR_ITS ---
XR abdomen/kub 1V Ordering provider: Cinthia Purcell History: . Contrast seen in colon . Comparison: None. FINDINGS: BOWEL: Residual contrast in the bowel. Nonobstructive bowel gas pattern. ORGANOMEGALY: None. SIGNIFICANT PATHOLOGIC CALCIFICATIONS: None. OTHER: No free air is seen under the diaphragm. contrast in the urinary bladder and kidneys. degenerative changes in the spine. Left hip arthroplasty . Right hip osteoarthritic changes. IMPRESSION: NO ACUTE ABDOMINAL FINDINGS. Reviewed, dictated and finalized at location A.
--- NOTE | ~2024-05-22 | US_ITS ---
EXAMINATION: US venous doppler [facility] DATE: 05/23/2024 18:16 INDICATION: Lower limb swelling, rule out dvt . TECHNIQUE: Grayscale images without and with compression and Doppler images of the bilateral lower ex tremity veins were obtained. COMPARISON: None FINDINGS: The right common femoral vein, profunda (deep) femoral vein, femoral vein, popliteal vein, peroneal v ein, posterior tibial veins, gastrocnemius vein, and greater saphenous vein are patent. The left common femoral vein, profunda (deep) femoral vein, femoral vein, popliteal vein, peroneal v ein, posterior tibial veins, gastrocnemius vein, and greater saphenous vein are patent. IMPRESSION: Patent bilateral lower extremity veins. No evidence of deep venous thrombosis. Reviewed, dictated and finalized at location K.
--- NOTE | 2024-05-22 14:13 | ECG_ITS ---
Test Date: 2024-05-22 14:30:49 Measurements Intervals Olema Rate: 92 P: 41 ND: 145 QRS: 55 QRSD: 88 T: 40 QT: 347 QTc: 431 Interpretive Statements SINUS RHYTHM No previous ECG available for comparison Electronically Signed On 05-23-2024 15:38:20 CDT by Harper Martin M.D.
--- OUTSIDE RECORDS SUMMARY | 2024-05-22 14:13 | XMS_ITS | Encounter Summary ---
Author Organization [facility] Address [address] [place] [address] Care Team Providers Care Automation Test Engineer Name Role Phone Rubin Lehman MD Primary Care Provider Jose powesr Encounter Details Date Type Department Care Team (Late st Contact Info) Description 02/23/2007 Outpatient Historical [facility] Primary Care - [address] [place] [address] Chu Reddy MD [address] [facility] [address] [place] [address] Social History Tobacco Use Types Packs/Day Years Used Date Smoking Tobacco: Never Assessed Comments Unknown Sex and Gender Information Value Date Recorded Sex Assigned at Not on file Legal Sex Female 3:22 AM POLICY ADVISER Gender Identity Not on file Sexual Orientation Not on file documented as of this encounter Plan of Treatment Not on file documented as of this encounter Visit Diagnoses Not on filedocumented in this encounter Care Teams Automation Test Engineer Relationship Specialty Start Date End Date Rubin Lehman MD PCP - General Internal Medicine 09/03/10 05/08/17 documented as of this encounter
--- OUTSIDE RECORDS SUMMARY | 2024-05-22 14:13 | XMS_ITS | Encounter Summary ---
Author Organization [facility] Address [address] [facility] [place] [address] Care Team Providers Care Transmission Mechanic Name Role Phone Mart Fink MD Primary Care Provider [phone] Mena Butcher MD Primary Care Provider [phone] Flaco Burrell SUPERVISOR REINFORCED STEEL PLACING-SHELLACKER Primary Care Provi good Tomas Romero MD Primary Care Provider [phone] Encounter Details Date Type Department Care Team (Late st Contact Info) Description 05/15/2020 Telephone [facility] [address] [place] [address] Mena Butcher MD [address] [place] [address] Social History Tobacco Use Types Packs/Day Years [...] Miscellaneous Notes * Telephone Encounter - Courtney Thao - 05/15/2020 1:16 PM CDT Reason for call: Pt called to schedule an appt w/ Dr. Butcher but there are no available NEW pt slots until 09/25. Is there any way she can get a sooner appt? Patient Call Back number: [phone] documented in this encounter Plan of Treatment Upcoming Encounters Date Type Department Care Team (Late st Contact Info) Description 05/29/2024 10:45 AM CDT Office Visit [facility] - ENT [address], [facility] [address] [place] [phone] Enrique Fontanez MD [address] [place] [address] 06/28/2024 1:30 PM CDT Office Visit [facility] - Ophthalmology [address] [facility], [place] [address] Susan Flores MD [address] [place] [address] [place] [phone] documented as of this encounter Goals Goal Patient Goal Type Associated Problems Recent Progress Patient-Stated? Author Medication Management General No Radha Wall, RN Note: Interventions: documented as of this encounter Visit Diagnoses Not on filedocumented in this encounter Care Teams Transmission Mechanic Relationship Specialty Start Date End Date Mart Fink MD [address] [facility] [address] [place] [address] PCP - General Family Medicine 05/25/17 06/27/20 Mena Butcher MD [address] [place] [address] PCP - General 06/28/20 08/01/20 Flaco Burrell, SUPERVISOR REINFORCED STEEL PLACING-SHELLACKER [address] [facility] [address] [place] [address] PCP - General Nurse Practitioner Family 08/02/2010/30 Tomas Romero MD [address] [facility] [address] [place] [address] PCP - General Internal Medicine 11/13/20 documented as of this encounter
--- OUTSIDE RECORDS SUMMARY | 2024-05-22 14:13 | XMS_ITS | Clinical Summary ---
Author Organization [facility] Address [address] [place] [address] Care Team Providers Care Oracle Business Analyst Name Role Phone Tomas Romero MD Primary Care Provider [phone] Source Comments [facility],non-owned Affiliates and Associated Physician Practices is amultiple site organization consisting of ambulatory clinics and hospital sitesin [place], [place], [place] and [place]. This disclosure is being madepursuant to the Care Everywhere program and may not contain all information available regarding this patient. Last updated 17.[facility] [employer] Allergies Active Allergy Reactions Criticality Noted Date [...] weeks. Assessment & Plan (03/29/2019 9:52 PM SKEIN DYER): Poorly controlled at present, mostly due to [...] 05/10/2024 Assessment & Plan (03/29/2019 9:51 PM SKEIN DYER): A1c up slightly. Still in pre-diabetes stage. Continue to monitor Major depressive disorder, single episode 07/30/2016 09/01/2019 Encounters Date Type Department Care Team Description 05/10/2024 1:45 PM CDT Office Visit [facility] - ENT [address] [place] [address] Nazanin Shetty MD Nasal obstruction (Primary Dx); Post-nasal drip; Facial pain; Nasal congestion; Nasal valve collapse 05/10/2024 Travel 05/01/2024 Refill [facility] - Orthopedic Surgery [address] [place] [address] Paco Meléndez MD MEDICATION REFILL 04/07/2024 Travel from Last 3 Months Immunizations Name Administration Dates Next Due Covid Pruffi primary monoval ent 12+ yr 0.3mL Purple [...] CDT Respiratory Rate 12 01/16/2020 4:21 PM SKEIN DYER Oxygen Saturation 95% 07/17/2020 10:34 AM CDT Inhaled Oxygen Concentration - - Weight 69.9 kg (154 lb) 05/10/2024 1:32 PM CDT Height 157.5 cm (5' 2 ) 05/10/2024 1:32 PM CDT Body Mass Index 28.17 05/10/2024 1:32 PM CDT Plan of Treatment Upcoming Encounters Date Type Department Care Team (Late st Contact Info) Description 05/29/2024 10:45 AM CDT Office Visit [facility] - ENT [address], [address] [phone] Enrique Fontanez MD [address] [place] [address] [place] [address] 06/28/2024 1:30 PM CDT Office Visit [facility] - Ophthalmology [address] [place] [address], [place] [phone] Susan Flores MD [address] [place] [address] [place] [address] Health Maintenance Due Date Last Done Comments CT COLONOGRAPHY - COLON CA SCREENING 1950 FIT - COLON CA SCREENING 1950 FLEX SIG - COLON CA SCREENING 1950 ZOSTER VACCINE (1 of 2) 2000 [...] Patient-Stated? Author Medication Management General No Radha Wall RN Note: Interventions: Medical Devices Implanted Type Area Independent Insurance Adjuster Device Identifier Shelf Expiration Date Model / Serial / Lot Shell Actb 52mm Hip 3 Hl Poly R3 Std Implanted:Qty: 1 on 06/17/2017 by Paco Meléndez MD at [facility] Left: Hip [employer] 12/02/2026 [id number] / / [id number] Screw 6.5mm 45mm Actb Sphrcl Head Reflc Implanted:Qty: 1 on 06/17/2017 by Paco Meléndez MD at [facility] Left: Hip [employer] 08/19/2026 [id number] / / [id number] Liner Actb R3 0d 52mm 36mm Xlpe Hip Flxb Implanted:Qty: 1 on 06/17/2017 by Paco Meléndez MD at [facility] Left: Hip [employer] 08/01/2026 [id number] / / [id number] Polarstem Size 3 Stem Implanted:Qty: 1 on 06/17/2017 by Paco Meléndez MD at [facility] Left: Hip 02/11/2024 [id number] / / [id number] Head Fem +4mm 02/11 36mm Hip Tpr Oxnm Implanted:Qty: 1 on 06/17/2017 by Paco Meléndez MD at [facility] Left: Hip [employer] 10/11/2026 [id number] / / [id number] Mata Uncem Hip All Inclusive Implanted:Qty: 1 on 06/17/2017 by Paco Meléndez MD at [facility] [employer] BILL ONLY UNCEM HIP ALL INCLUSIVE SNORTH / / Procedures Procedure Name Priority Date/Time Associated Diagnosis Comments [place] NASAL ENDOSCOPY,DX Routine 05/10/2024 1:51 PM CDT [...] Recently Relevant to Health Maintenance Results * [place] NASAL ENDOSCOPY,DX (05/10/2024 1:51 PM CDT) Narrative [...] participate in the care of your patient. [facility] utilizes [employer] as a reminder system to notify patients [...] SPECIMEN / Unknown 07/17/2020 Flaco GriggsMckenna Burrell [employer] OFFICER-RIVER BOAT CAPTAIN LAB - POINT OF CARE ORDERABLES * COLONOSCOPY (08/23/2019) Historical Provider MD SCANNING ONLY * (ABNORMAL) COLOGUARD TEST (08/02/2019 9:37 AM CDT) Cologuard Positive (A) Not Applicable [facility] Comment: It is recommended that [...] Lerma et al, N Engl J Med 2014;370(14):9121-6496.) The normal value (reference range) for this [...] interval of every 3 years by the [place] [employer] Society and U.S. Multi-Society Task Force. [...] can be accessed at the following location: [email or web address].Wizer/results. Additional description of the Cologuard test process, warnings and precautions can be found at www.cologuardtest.com. Rx only. Stool specimen (specimen) STOOL SPECIMEN / Unknown 08/02/2019 9:37 AM CDT 08/03/2019 3:38 PM CDT Mart Fink MD LAB - CHEMISTRY TAYA JEAN [facility] Organization Address City/State/[facility] Co de Phone Number [employer] [address] [place] [address] [employer] [address] [place] [address] * DEXA BONE DENSITY AXIAL SKELETON (12/27/2017 [...] ordering physician and is also available on [facility], the Radiology Department's computerized picture archive system. [...] Love on 12/27/2017 9:45 AM . IDr. PACO D.O. have personally reviewed and interpreted this [...] ordering physician and is also available on [facility], the Radiology Department'[employer]ibe picture archive system. Patient's height 62 in; [...] Love on 12/27/2017 9:45 AM . IDr. PACO D.O. have personally reviewed and interpreted this [...] Recently Relevant to Health Maintenance Care Teams Oracle Business Analyst Relationship Specialty Start Date End Date Tomas Romero MD [address] [place] [address] PCP - General Internal Medicine 11/13/20
--- OUTSIDE RECORDS SUMMARY | 2024-05-22 14:13 | XMS_ITS | Clinical Summary ---
Author Organization [facility] Address [address] [place] [address] Care Team Providers Care Flight Information Expediter Name Role Phone Unavailable Primary Care Provider [...] on file Legal Sex Female 3:22 AM MACHINE STUFFER AUTOMATIC Gender Identity Not on file Sexual Orientation Not on file Occupation Industry Job Start Date Job End Date Not on file Not on file Not on file Not on file Last Filed Vital Signs Vital Sign Reading Time Taken Comments Blood Pressure 100/70 04/25/2015 2:31 PM MACHINE STUFFER AUTOMATIC Pulse - - Temperature 37.2 C (99 F) 03/26/2014 2:42 PM MACHINE STUFFER AUTOMATIC Respiratory Rate - - Oxygen Saturation - - Inhaled Oxygen Concentration - - Weight 76.2 kg (168 lb) 04/25/2015 2:31 PM MACHINE STUFFER AUTOMATIC Height 157.5 cm (5' 2 ) 04/25/2015 2:31 PM MACHINE STUFFER AUTOMATIC Body Mass Index 30.73 04/25/2015 2:31 PM MACHINE STUFFER AUTOMATIC Plan of Treatment Health Maintenance Due Date [...] Advance Directives For more information, please contact: [phone] Documents on File Type Date Recorded Patient Lace Roller Expl 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
--- OUTSIDE RECORDS SUMMARY | 2024-05-22 14:13 | XMS_ITS | Encounter Summary ---
Author Organization [facility] Address [address] [place] [address] Care Team Providers Care Commercial Account Manager Name Role Phone Rubin Lehman MD Primary Care Provider Jose powers Encounter Details Date Type Department Care Team (Late st Contact Info) Description 08/07/1999 Outpatient Historical HIS MD Jeffery MATTHEWS Carolyn, MD [address] [place] [phone] Social History Tobacco Use Types Packs/Day Years Used Date Smoking Tobacco: Never Assessed Comments Unknown Sex and Gender Information Value Date Recorded Sex Assigned at Not on file Legal Sex Female 3:22 AM ASPHALT HEATER TENDER Gender Identity Not on file Sexual Orientation Not on file documented as of this encounter Plan of Treatment Not on file documented as of this encounter Visit Diagnoses Not on filedocumented in this encounter Care Teams Commercial Account Manager Relationship Specialty Start Date End Date Rubin Lehman MD PCP - General Internal Medicine 09/03/10 05/08/17 documented as of this encounter
--- OUTSIDE RECORDS SUMMARY | 2024-05-22 14:13 | XMS_ITS | Encounter Summary ---
Author Organization [facility] Address [address] [place] [address] Care Team Providers Care Senior Restaurant Manager Name Role Phone Mart Fink MD Primary Care Provider [phone] Mena Butcher MD Primary Care Provider [phone] Flaco Burrell LEARNING DISABLED TEACHER-OCEAN BIOLOGIST Primary Care Provi good Tomas Romero MD Primary Care Provider [phone] Encounter Details Date Type Department Care Team (Late st Contact Info) Description 08/10/2019 Telephone [facility] [address] [place] [address] Mart Fink MD [address] [facility] [address] [place] [address] Social History Tobacco Use Types Packs/Day Years [...] Description 05/29/2024 10:45 AM CDT Office Visit [facility] - ENT [address], [address] [place] [phone] Enrique Fontanez MD [address] DEPT OF OTOLARYNGOLOGY [place], [place] [phone] 06/28/2024 1:30 PM CDT Office Visit [facility] - Ophthalmology [address] [facility], [place] [phone] Susan Flores MD [address] [place] [address] [place] [phone] documented as of this encounter Goals Goal Patient Goal Type Associated Problems Recent Progress Patient-Stated? Author Medication Management General Radha Dowling, RN Note: Interventions: documented as of this encounter Visit Diagnoses Not on filedocumented in this encounter Care Teams Senior Restaurant Manager Relationship Specialty Start Date End Date Mart Fink MD [address] [facility] [address] [place] [address] PCP - General Family Medicine 05/25/17 06/27/20 Mena Butcher MD [address] [place] [address] PCP - General 06/28/20 08/01/20 Flaco Burrell, LEARNING DISABLED TEACHER-OCEAN BIOLOGIST [address] [place] [address] PCP - General Nurse Practitioner Family 08/02/2010/30 Tomas Romero MD [address] [facility] [address] [place] [address] PCP - General Internal Medicine 11/13/20 documented as of this encounter
--- OUTSIDE RECORDS SUMMARY | 2024-05-22 14:13 | XMS_ITS | Encounter Summary ---
Author Organization [facility] Address [address] [place] [address] Care Team Providers Care Plastics Fitter Name Role Phone Rubin Lehman MD Primary Care Provider Jose powers Encounter Details Date Type Department Care Team (Late st Contact Info) Description 03/09/2007 Orders Only [facility] Primary Care - [address] [place] [address] Chu Reddy MD [address] [facility] [address] [place], [place] [id number] Social History Tobacco Use Types Packs/Day Years Used Date Smoking Tobacco: Never Assessed Comments Unknown Sex and Gender Information Value Date Recorded Sex Assigned at Not on file Legal Sex Female 3:22 AM GAMBLING BOX PERSON Gender Identity Not on file Sexual Orientation [...] identified on exam. LAB ORDERS: Order number: [id number] Test Ordered: COMPREHENSIVE METABOLIC PANEL 98368 Order number: [id number] Test Ordered: TSH W/REFLEX TO FT4 77310 Order number: [id number] Test Ordered: LIPID PANEL 7600 HEALTH MAINTENANCE: [...] on filedocumented in this encounter Care Teams Plastics Fitter Relationship Specialty Start Date End Date Rubin Lehman MD PCP - General Internal Medicine 09/03/10 05/08/17 documented as of this encounter
[2024-05-22 14:28] LABS: Basophils Percent Auto 0.3 % (0.2-1.2); Eosinophils Absolute Auto 0.1 K/mm3 (0-0.3); Hematocrit 40.2 % (37.0-47.0); Hemoglobin 13.4 g/dL (12.0-15.0); Immature Granulocyte Absolute 0.04 K/mm3 (0.00-0.031); Immature Granulocyte Percent A 0.4 % (0-0.5); Lymphocytes Absolute Auto 1.66 K/mm3 (0.9-3.2); Lymphocytes Percent Auto 15.9 % (18.3-44.2); Mean Corpuscular HGB Conc 33.3 g/dl (32-36); Mean Corpuscular Hemoglobin 30.3 pg (26-34); Mean Platelet Volume 8.4 fl (7.4-10.4); Monocytes Absolute Auto 0.9 K/mm3 (0.1-0.6); Neutrophils Absolute Auto 7.6 K/mm3 (1.3-6.7); Neutrophils Percent Auto 73.4 % (45.5-73.1); Platelet Count Result 278 k/mm3 (150-375); Red Blood Count 4.42 M/mm3 (4.2-5.4); Red Cell Distribution Width 12.9 % (11.5-14.5); White Blood Count 10.4 K/mm3 (4.5-10.0)
[2024-05-22 14:38] LABS: Alanine Aminotransferase 19 U/L (6-35); Albumin Level 4.5 g/dL (3.5-5.1); Alkaline Phosphatase 62 U/L (38-126); Anion Gap 12 mmol/L (4-12); Aspartate Amino Transferase 29 U/L (14-36); Bilirubin,Total 0.8 mg/dL (0.2-1.3); Blood Urea Nitrogen 20 mg/dL (7-17); Calcium 9.3 mg/dL (8.4-10.2); Carbon Dioxide 22 mmol/L (22-30); Chloride 103 mmol/L (98-107); Estimated CRCL calculation 49 ml/min; Estimated Glomerular Filt Rate > 60; Glucose 127 mg/dL (65-110); Potassium 4.4 mmol/L (3.4-5.0); Sodium 137 mmol/L (137-145)
--- NOTE | 2024-05-22 14:53 | ED.GENADULT ---
HPI - General Adult General Chief complaint: Shortness of Breath/Dyspnea Stated complaint: SOB Time Seen by Provider: 05/22/24 14:10 History of Present Illness HPI narrative: 73-year-old female presenting to the emergency department for evaluation for worsening shortness of breath. Patient states she has had intermittent shortness breath since January and states the shortness of breath was attributed to anxiety. Patient feels that her shortness of breath did acutely worsen the last few days. At time of initial evaluation patient was satting approximately 87% on room air was placed on 2 L of supplemental oxygen and did feel improved Patient did have some right lower extremity tenderness to palpation. Patient does have history of diabetes. Patient denies prior history of HI, PE, DVT. Related Data Home Medications ?Medication ?Instructions ?Recorded ?Confirmed ?Last Taken ?Type coenzyme Q10 100 mg capsule 100 mg PO DAILY 08/29/20 05/22/24 Unknown History (CoQ-10) pseudoephedrine-guaifenesin ER 60 1 tablet PO BID PRN Congestion 08/29/20 05/22/24 Unknown History mg-600 mg tablet,extend release 12hr (Mucinex D) Optimized Quercetin 250 mg PO DAILY 11/17/23 05/22/24 Unknown History fluoxetine 20 mg capsule 20 mg PO DAILY 11/17/23 05/22/24 Unknown History folate 8,500 mcg PO DAILY 11/17/23 05/22/24 Unknown History tretinoin 0.1 % topical cream 1 applic topical QHS 11/17/23 05/22/24 Unknown History Vitamin C 24 hr liposomal hydrogel PO DAILY 04/03/24 04/03/24 Unknown History brimonidine 0.025 % eye drops 1 drp EACH EYE QID PRN dry eye(s) 04/03/24 05/22/24 Unknown History (Lumify) cranberry fruit concentrate 250 mg 250 mg PO TID 04/03/24 05/22/24 Unknown History chewable tablet (Azo Cranberry) multivitamin 1 tablet PO BID 04/03/24 05/22/24 Unknown History Curcumin 500 mg PO DAILY 05/22/24 05/22/24 Unknown History brimonidine 0.025 % eye drops 1 drp EACH EYE DAILY PRN dry eye(s) 05/22/24 05/22/24 Unknown History (Lumify) cranberry fruit concentrate 250 mg 250 mg PO BID 05/22/24 05/22/24 Unknown History chewable tablet (Azo Cranberry) critical slow release PO BID 05/22/24 Unknown History dextromethorphan-guaifenesin 30 1 tablet PO HS PRN cough 05/22/24 05/22/24 Unknown History mg-600 mg tablet extended [id number] hr (Mucinex DM) magnesium acetyl-taurate 45 mg PO DAILY 05/22/24 05/22/24 Unknown History mupirocin 2 % topical ointment 1 applic topical TID 05/22/24 05/22/24 Unknown History omega-3 fatty acids 1,000 mg PO BID 05/22/24 05/22/24 Unknown History peg 400-propylene glycol (PF) 0.4 1 drp EACH EYE Q6H 05/22/24 05/22/24 Unknown History %-0.3 % eye drops in a dropperette (Systane Hydration (PF)) pseudoephedrine-guaifenesin ER 120 1 tablet PO DAILY PRN cold symptoms 05/22/24 05/22/24 Unknown History mg-1,200 mg tab,extend release 12hr (Mucinex D Maximum Strength) resveratrol 250 mg capsule 222 mg PO DAILY 05/22/24 05/22/24 Unknown History womens bladder support PO BID 05/22/24 Unknown History Allergies Allergy/AdvReac Type Severity Reaction Status Date / Time hydrocodone Allergy Severe Difficulty Verified 05/22/24 17:35 Breathing tramadol Allergy Severe Difficulty Verified 05/22/24 17:35 Breathing alendronate sodium Allergy Intermediate Unknown Verified 05/22/24 17:35 trazodone Allergy Intermediate body aches Verified 05/22/24 17:35 codeine Allergy Unknown Dizziness Verified 05/22/24 17:35 dapagliflozin Allergy Unknown Back Pain Verified 05/22/24 17:35 fexofenadine Allergy Unknown Unknown Verified 05/22/24 17:35 nefazodone Allergy Unknown Unknown Verified 05/22/24 17:35 triamcinolone Allergy Unknown Unknown Verified 05/22/24 17:35 doxycycline Allergy Gastrointestinal Verified 05/22/24 17:35 Upset clavulanic acid (From AdvReac Intermediate Nausea Verified 05/22/24 17:35 Augmentin) duloxetine AdvReac Intermediate Hypertensio Verified 05/22/24 17:35 n ibuprofen AdvReac Intermediate extreme Verified 05/22/24 17:35 acid reflux naproxen AdvReac Intermediate extreme Verified 05/22/24 17:35 acid reflux buspirone AdvReac Mild Depression Verified 05/22/24 17:35 diphenhydramine (From AdvReac Agitated Verified 05/22/24 17:35 Benadryl) levofloxacin AdvReac Gastrointestinal Verified 05/22/24 17:35 Upset Review of Systems Review of Systems: All systems reviewed & are unremarkable except as noted in HPI and below [facility] Past Medical History Medical History (Updated 05/22/24 @ 21:38 by Terrell Harrison MD) Breast cancer screening Dysphagia Facial hair on examination Trigger finger of right hand Migraine Colon cancer screening BMI 28.0-28.9,adult Vision changes Encounter for Medicare annual wellness exam Osteopenia Hip pain, bilateral Elevated fasting blood sugar Depression Chronic bilateral low back pain without sciatica Ovarian cyst Personal history of COVID-19 BMI 26.0-26.9,adult Microscopic hematuria Pelvic floor weakness Post menopausal syndrome BMI 25.0-25.9,adult Encounter for routine adult health examination without abnormal findings Need for 23-polyvalent pneumococcal polysaccharide vaccine Family history of colon cancer History of unexplained bleeding Visit for gynecologic examination Dysuria Hypersomnolence Hyperlipidemia Follow up BMI 27.0-27.9,adult Fatty liver Nasal congestion Facial pain Facial pressure RUQ abdominal pain Nasal polyp DM type 2 (diabetes mellitus, type 2) Hx of colonic polyps Ptosis, bilateral Insomnia Bladder spasms Anxiety with depression Encounter to establish care 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 Pre-diabetes Surgical History Surgical History (Updated 04/03/24 @ 10:38 by Teagan Francis CMA) ACEI/ARB contraindicated Hx of abdominoplasty History of bilateral breast reduction surgery Hx of section History of tonsillectomy and adenoidectomy History of strabismus surgery Family History Family History Mother Family history of arthritis Carcinoma of colon Myocardial infarction Depression Heart disease Father Family history of congestive heart failure Alcoholism Depression Heart disease Sibling Alcoholism Hypertension Other Depression Grandparent Alcoholism Heart disease Grandparent Carcinoma of colon Other Cerebrovascular accident Family history of alcoholism Family history of cardiovascular disease Family history of liver disease Family history of malignant neoplasm Family history of mental disorder Social History Social History (Reviewed 04/03/24 @ 10:22 by Teagan Francis [facility]) Smoking status: Never smoker Second hand tobacco smoke exposure: No Alcohol intake: never Substance use: never Substance use type: does not use Do You Feel Safe in your Home?: Yes Lack of Transportation: No Lack of Food: Never True Current Housing: I Have Housing Concerned About Future Housing: No Difficulty Paying Gas/Electric Bills: No Difficulty Paying for Meds: No Currently Unemployed: No Education: Master's Degree or Higher Difficulty w/ Childcare or Family Care: No Living arrangements: with family Gender identity (if verbalized by the patient): Female Spiritual care concerns: No Exam Narrative: APPEARANCE: Uncomfortable due to right-sided chest pain and shortness of breath HEAD: normocephalic, atraumatic. EYES: PERRLA/EOMI, conjunctivae clear. NOSE: Normal no drainage EARS:TMS clear with good light reflex. THROAT: Pharynx clear, no exudate. NECK: Supple. No adenopathy, no masses. RESPIRATORY: Airway patent, respirations nonlabored. Clear to auscultation bilaterally, no rales, rhonchi, wheezing. CARDIOVASCULAR: Regular rate and rhythm without murmurs rubs or gallops. ABDOMINAL: Soft, nontender, nondistended, normal bowel sounds MUSCULOSKELETAL: Moves all extremities. Strength/ROM intact, No edema, No calf tenderness. NEURO: Alert. Cranial nerves II through XII intact. Good gait. Good coordination SKIN: Warm, dry. Normal Color Course Vital Signs Vital signs: Vital Signs Temperature 99.4 F 05/22/24 12:51 Pulse Rate 102 H 05/22/24 12:51 Respiratory Rate 20 05/22/24 12:51 Blood Pressure 139/65 05/22/24 12:51 Pulse Oximetry 97 05/22/24 12:51 Oxygen Delivery Room Air 05/22/24 12:51 Temperature 98.9 F 05/22/24 19:52 Pulse Rate 87 05/22/24 19:52 Respiratory Rate 20 05/22/24 19:52 Blood Pressure 145/63 H 05/22/24 19:52 Pulse Oximetry 96 05/22/24 19:52 Oxygen Delivery Nasal Cannula 05/22/24 16:30 Oxygen Flow Rate 2 05/22/24 16:30 Medical Decision Making [facility] Narrative Medical decision making narrative: 73-year-old female presents emergency department for evaluation for worsening shortness of breath. Patient was found to have bilateral pulmonary embolisms with no evidence of right heart strain. Patient is currently afebrile with a minor leukocytosis of 10.4 hemoglobin of 13.4. No significant acute abnormalities on the patient's CMP proBNP is 113. Patient was started on heparin bolus and infusion. Case was discussed with hospitalist patient was admitted to [facility] for pulmonary edema. Patient family updated on results of the workup and plan for treatment admission. All questions concerns were addressed. Differential Diagnosis Differential Diagnosis: Pneumonia, pulmonary embolism, pneumothorax, COVID, RSV, influenza Vital Signs Vital Signs: Vital Signs Temperature 99.4 F 05/22/24 12:51 Pulse Rate 102 H 05/22/24 12:51 Respiratory Rate 20 05/22/24 12:51 Blood Pressure 139/65 05/22/24 12:51 Pulse Oximetry 97 05/22/24 12:51 Oxygen Delivery Room Air 05/22/24 12:51 Temperature 98.9 F 05/22/24 19:52 Pulse Rate 87 05/22/24 19:52 Respiratory Rate 20 05/22/24 19:52 Blood Pressure 145/63 H 05/22/24 19:52 Pulse Oximetry 96 05/22/24 19:52 Oxygen Delivery Nasal Cannula 05/22/24 16:30 Oxygen Flow Rate 2 05/22/24 16:30 Lab Data Lab results reviewed: Yes I reviewed the patient's lab results. 05/22/24 14:23 05/22/24 14:23 Labs: Lab Results 05/22/24 Range/Units 14:23 WBC 10.4 H (4.5-10.0) K/mm3 RBC 4.42 (4.2-5.4) M/mm3 Hgb 13.4 (12.0-15.0) g/dL Hct 40.2 (37.0-47.0) % MCV 91.0 (80-100) fl MCH 30.3 (26-34) pg MCHC 33.3 (32-36) g/dl RDW 12.9 (11.5-14.5) % Plt Count 278 (150-375) k/mm3 MPV 8.4 (7.4-10.4) fl Immature Gran % (Auto) 0.4 (0-0.5) % Neut % (Auto) 73.4 H (45.5-73.1) % Lymph % (Auto) 15.9 L (18.3-44.2) % Custer % (Auto) 9.0 H (2.6-8.5) % Eos % (Auto) 1.0 (0-4.4) % Baso % (Auto) 0.3 (0.2-1.2) % Lymph # (Auto) 1.66 (0.9-3.2) K/mm3 Custer # (Auto) 0.9 H (0.1-0.6) K/mm3 Eos # (Auto) 0.1 (0-0.3) K/mm3 Baso # (Auto) 0.0 (0.0-0.1) K/mm3 Abs Immat Gran (auto) 0.04 H (0.00-0.031) K/mm3 Absolute Neuts (auto) 7.6 H (1.3-6.7) K/mm3 Absolute Nucleated RBC 0.000 (0.0-0.012) K/mm3 Nucleated RBC % 0.0 (0.0-0.2) % Sodium 137 (137-145) mmol/L Potassium 4.4 (3.4-5.0) mmol/L Chloride 103 (98-107) mmol/L Carbon Dioxide 22 (22-30) mmol/L Anion Gap 12 (4-12) mmol/L BUN 20 H (7-17) mg/dL Creatinine 0.70 (0.7-1.0) mg/dL Estim Creat Clear Calc 49 ml/min Estimated GFR > 60 (59 - ) Glucose 127 H (65-110) mg/dL Calcium 9.3 (8.4-10.2) mg/dL Total Bilirubin 0.8 (0.2-1.3) mg/dL AST 29 (14-36) U/L ALT 19 (6-35) U/L Alkaline Phosphatase 62 (38-126) U/L NT-Pro-B Natriuret Pep 113 H (19.9-100) pg/mL Total Protein 7.0 (6.3-8.2) g/dL Albumin 4.5 (3.5-5.1) g/dL Imaging Data Radiologist's impression: Impressions Chest CTA 05/22/24 15:13 IMPRESSION: 1. Bilateral pulmonary emboli but without evident right heart strain. Dr. Hall discussed these findings with Dr. Harrison at 2:20 PM. 2. Patchy groundglass opacities in both lungs including the lower lobes which could represent atelectasis, pulmonary infarcts, pulmonary edema, pneumonia or some combination thereof. Abdomen X-Ray 05/22/24 15:54 IMPRESSION: NO ACUTE ABDOMINAL FINDINGS. Critical Care Time Critical Care Time Critical Care Time: Yes Total Critical Care Time: 35 Discharge Plan Discharge Clinical Impression: Pulmonary embolism Patient Disposition: Still a Patient Condition: Serious
--- NOTE | 2024-05-22 15:27 | P.HP_ITS ---
H&P: HPI History of Present Illness Date/Time: 05/22/24 15:27 Chief Complaint: Shortness of breath Narrative: 73-year-old female past medical history of chronic low back pain, hyperlipidemia, fatty liver, diabetes type 2 presents the hospital with shortness of breath. She had gone to her primary care provider the ended March beginning of April with shortness of breath in the residential that was anxiety. Today when she presented to the hospital she was 87% on room air. Patient states that in December she had very sedentary after the presidential elections and one of her close friends got sick and had . She states that most days she states in bed and placed on her phone or watches TV. She states that prior to elections she was very active. She states that she had acute calf pain yesterday was worried that she had a DVT, the pain went away with Tylenol. But in her restart she became worried that she had a pulmonary embolism so she came into the emergency room today. In the ED she had leukocytosis at 10.4, BUN of 20, glucose of 127 with hemoglobin A1c 6.5, BUN of 113, chest CT shows Bilateral pulmonary emboli but without evident right heart strain. Patchy groundglass opacities in both lungs including the lower lobes which could represent atelectasis, pulmonary infarcts, pulmonary edema, pneumonia or some combination thereof. Review of Systems Review of Systems: 12 systems were reviewed and are negativ e except for as per HPI. 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) Breast cancer screening Dysphagia Facial hair on examination Trigger finger of right hand Migraine Colon cancer screening BMI 28.0-28.9,adult Vision changes Encounter for Medicare annual wellness exam Osteopenia Hip pain, bilateral Elevated fasting blood sugar Depression Chronic bilateral low back pain without sciatica Ovarian cyst Personal history of COVID-19 BMI 26.0-26.9,adult Microscopic hematuria Pelvic floor weakness Post menopausal syndrome BMI 25.0-25.9,adult Encounter for routine adult health examination without abnormal findings Need for 23-polyvalent pneumococcal polysaccharide vaccine Family history of colon cancer History of unexplained bleeding Visit for gynecologic examination Dysuria Hypersomnolence Hyperlipidemia Follow up BMI 27.0-27.9,adult Fatty liver Nasal congestion Facial pain Facial pressure RUQ abdominal pain Nasal polyp DM type 2 (diabetes mellitus, type 2) Hx of colonic polyps Ptosis, bilateral Insomnia Bladder spasms Anxiety with depression Encounter to establish care 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 Pre-diabetes Surgical History Surgical History (Updated 04/03/24 @ 10:38 by Teagan Francis [facility]) ACEI/ARB contraindicated Hx of abdominoplasty History of bilateral breast reduction surgery Hx of section History of tonsillectomy and adenoidectomy History of strabismus surgery Family History Family History Mother Family history of arthritis Carcinoma of colon Myocardial infarction Depression Heart disease Father Family history of congestive heart failure Alcoholism Depression Heart disease Sibling Alcoholism Hypertension Other Depression Grandparent Alcoholism Heart disease Grandparent Carcinoma of colon Other Cerebrovascular accident Family history of alcoholism Family history of cardiovascular disease Family history of liver disease Family history of malignant neoplasm Family history of mental disorder Social History Social History Smoking status: Never smoker Second hand tobacco smoke exposure: No Alcohol intake: never Substance use: never Substance use type: does not use Do You Feel Safe in your Home?: Yes Lack of Transportation: No Lack of Food: Never True Current Housing: I Have Housing Concerned About Future Housing: No Difficulty Paying Gas/Electric Bills: No Difficulty Paying for Meds: No Currently Unemployed: No Education: Master's Degree or Higher Difficulty w/ Childcare or Family Care: No Living arrangements: with family Gender identity (if verbalized by the patient): Female Spiritual care concerns: No Meds Home Medications and Allergies Home Medications ?Medication ?Instructions ?Recorded ?Confirmed ?Type coenzyme Q10 100 mg capsule 100 mg PO DAILY 08/29/20 05/22/24 History (CoQ-10) pseudoephedrine-guaifenesin ER 60 1 tablet PO BID PRN Congestion 08/29/20 05/22/24 History mg-600 mg tablet,extend release 12hr (Mucinex D) resveratrol 250 mg capsule 250 mg PO DAILY #90 caps 02/17/21 05/22/24 Rx Optimized Quercetin 250 mg PO DAILY 11/17/23 05/22/24 History fluoxetine 20 mg capsule 20 mg PO DAILY 11/17/23 05/22/24 History folate 8,500 mcg PO DAILY 11/17/23 05/22/24 History tretinoin 0.1 % topical cream 1 applic topical QHS 11/17/23 05/22/24 History fluticasone propionate 50 See Rx Instructions .Route 12/02/23 05/22/24 Rx mcg/actuation nasal .COMPLEX #48 mL spray,suspension metformin 500 mg tablet See Rx Instructions .Route 12/05/23 05/22/24 Rx .COMPLEX #180 tabs rosuvastatin 20 mg tablet See Rx Instructions .Route 02/18/24 05/22/24 Rx .COMPLEX #45 tabs Vitamin C 24 hr liposomal hydrogel PO DAILY 04/03/24 04/03/24 History brimonidine 0.025 % eye drops 1 drp EACH EYE QID PRN dry eye(s) 04/03/24 05/22/24 History (Lumify) cranberry fruit concentrate 250 mg 250 mg PO TID 04/03/24 05/22/24 History chewable tablet (Azo Cranberry) famotidine 40 mg tablet (Pepcid) 40 mg PO DAILY #90 tabs 04/03/24 05/22/24 Rx multivitamin 1 tablet PO BID 04/03/24 05/22/24 History lorazepam 0.5 mg tablet 0.5 mg PO DAILY #30 tabs 04/28/24 05/22/24 Rx Curcumin 500 mg PO DAILY 05/22/24 05/22/24 History brimonidine 0.025 % eye drops 1 drp EACH EYE DAILY PRN dry eye(s) 05/22/24 05/22/24 History (Lumify) cranberry fruit concentrate 250 mg 250 mg PO BID 05/22/24 05/22/24 History chewable tablet (Azo Cranberry) critical slow release PO BID 05/22/24 History dextromethorphan-guaifenesin 30 1 tablet PO HS PRN cough 05/22/24 05/22/24 History mg-600 mg tablet extended [id number] hr (Mucinex DM) magnesium acetyl-taurate 45 mg PO DAILY 05/22/24 05/22/24 History mupirocin 2 % topical ointment 1 applic topical TID 05/22/24 05/22/24 History omega-3 fatty acids 1,000 mg PO BID 05/22/24 05/22/24 History peg 400-propylene glycol (PF) 0.4 1 drp EACH EYE Q6H 05/22/24 05/22/24 History %-0.3 % eye drops in a dropperette (Systane Hydration (PF)) pseudoephedrine-guaifenesin ER 120 1 tablet PO DAILY PRN cold symptoms 05/22/24 05/22/24 History mg-1,200 mg tab,extend release 12hr (Mucinex D Maximum Strength) resveratrol 250 mg capsule 222 mg PO DAILY 05/22/24 05/22/24 History womens bladder support PO BID 05/22/24 History Allergies Allergy/AdvReac Type Severity Reaction Status Date / Time hydrocodone Allergy Severe Difficulty Verified 05/22/24 17:35 Breathing tramadol Allergy Severe Difficulty Verified 05/22/24 17:35 Breathing alendronate sodium Allergy Intermediate Unknown Verified 05/22/24 17:35 trazodone Allergy Intermediate body aches Verified 05/22/24 17:35 codeine Allergy Unknown Dizziness Verified 05/22/24 17:35 dapagliflozin Allergy Unknown Back Pain Verified 05/22/24 17:35 fexofenadine Allergy Unknown Unknown Verified 05/22/24 17:35 nefazodone Allergy Unknown Unknown Verified 05/22/24 17:35 triamcinolone Allergy Unknown Unknown Verified 05/22/24 17:35 doxycycline Allergy Gastrointestinal Verified 05/22/24 17:35 Upset clavulanic acid (From AdvReac Intermediate Nausea Verified 05/22/24 17:35 Augmentin) duloxetine AdvReac Intermediate Hypertensio Verified 05/22/24 17:35 n ibuprofen AdvReac Intermediate extreme Verified 05/22/24 17:35 acid reflux naproxen AdvReac Intermediate extreme Verified 05/22/24 17:35 acid reflux buspirone AdvReac Mild Depression Verified 05/22/24 17:35 diphenhydramine (From AdvReac Agitated Verified 05/22/24 17:35 Benadryl) levofloxacin AdvReac Gastrointestinal Verified 05/22/24 17:35 Upset Vital Signs Vital Signs - 24 hr 05/22/24 12:51 Temperature 99.4 F Pulse Rate 102 H Respiratory Rate 20 Blood Pressure 139/65 Pulse Oximetry 97 Oxygen Delivery Room Air Exam Narrative: General: well appearing, appears stated age. HEENT: normocephalic, atraumatic. Mucous membranes moist. EOMI, PERRLA, bilateral sclera anicteric, no conjunctival injection. Neck supple without JVD, lymphadenopathy, or bruit. Respiratory: clear to ascultation bilaterally. No rales/rhonic/wheezes. Cardiovascular: Regular rate and rhythm, normal S1-S2 upon ascultation. No murmurs, rubs, or clicks. PMI is nondisplaced, capillary refill less than 3 second. Abdomen: Soft, round, no pulsatile masses, nondistended and nontender. No rebound, no guarding. No CVA tenderness, no hepatosplenomegaly. Bowel sounds present to all four quadrants. No high pitch or tinkling sounds, resonant to percussion. Extremities: No cyanosis, clubbing, or edema present. Pulses are palpable 2/2. Active ROM to all four extremities. Neuro: Alert and orientated x 4. PERRLA. Cranial nerves 2-12 intact without focal deficit. Skin: Warm, dry, and intact, without rash, erythema, or lesion. Psych: pleasant, cooperative, normal speech, normal affect, no hallucinations, no dysarthia H&P: Results Labs Labs: Short CBC 05/22/24 Range/Units 14:23 WBC 10.4 H (4.5-10.0) K/mm3 Hgb 13.4 (12.0-15.0) g/dL Hct 40.2 (37.0-47.0) % Plt Count 278 (150-375) k/mm3 BMP 05/22/24 14:23 Sodium 137 Potassium 4.4 Chloride 103 Carbon Dioxide 22 BUN 20 H Creatinine 0.70 Glucose 127 H Calcium 9.3 Liver Function 05/22/24 Range/Units 14:23 Total Bilirubin 0.8 (0.2-1.3) mg/dL AST 29 (14-36) U/L ALT 19 (6-35) U/L Alkaline Phosphatase 62 (38-126) U/L Albumin 4.5 (3.5-5.1) g/dL Assessment and Plan Assessment and plan (1) Pulmonary embolism: Code(s): I26.99 - Other pulmonary embolism without acute cor pulmonale Status: Acute Assessment and Plan: Heparin drip per protocol Telemetry monitoring Activities tolerate Educated patient on sedentary lifestyle (2) Acute respiratory failure: Code(s): J96.00 - Acute respiratory failure, unspecified whether with hypoxia or hypercapnia Status: Acute Assessment and Plan: Secondary to above Currently on 2 L nasal cannula Wean oxygen as able Incentive spirometer (3) Muscle spasm: Code(s): M62.838 - Other muscle spasm Status: Acute Assessment and Plan: Robaxin q.i.d. (4) Right leg pain: Code(s): M79.604 - Pain in right leg Status: Acute Assessment and Plan: Patient denies pain at this time, no erythema or tenderness to palpation No SCDs (5) Ground glass opacity present on imaging of lung: Code(s): R91.8 - Other nonspecific abnormal finding of lung field Status: Acute Assessment and Plan: Patchy groundglass opacities in both lungs including the lower lobes which could represent atelectasis, pulmonary infarcts, pulmonary edema, pneumonia or some combination thereof. Repeat chest x-ray in the morning Holding off on antibiotics at this time (6) Leukocytosis: Code(s): D72.829 - Elevated white blood cell count, unspecified Status: Acute Assessment and Plan: 10.4 on admission Daily CBC Holding off on antibiotics at this time (7) Fatty liver: Code(s): K76.0 - Fatty (change of) liver, not elsewhere classified Status: Acute Assessment and Plan: liver enzymes within normal limits (8) Anxiety with depression: Code(s): F41.8 - Other specified anxiety disorders Status: Acute Assessment and Plan: Continue home Prozac and Ativan Quality VTE Prophylaxis VTE prophylaxis: pharmacologic ordered If No VTE Prophylaxis Answer both mechanical and pharmacologic: Reason no mechanical VTE proph: medical contraindication Patient states that her will have to bring her home [facility] Hospitalist [facility] Advance Care Plan I have confirmed that the patient's Advanced Care Plan is present, code status is documented, or surrogate decision maker is listed in patient medical record.: Yes
[2024-05-22 15:32] LABS: NT Pro B Type Natriuretic Pept 113 pg/mL (19.9-100)
[2024-05-22] MEDS: HEPARIN SODIUM 5,000 UNITS/ML VIAL 4500 UNITS IV PUSH (15:46)
[2024-05-22] MEDS: HEPARIN SOD/D5W 100 UNITS/ML 25,000 UNITS/250 ML BAG 10 UNITS IV CONT (15:47)
--- NOTE | 2024-05-22 16:29 | ADMGEN ---
This patient, Citlaly Gauthier, was admitted to 2 Medical Room 259-01. Patient/family oriented to hospital policies and general routines including ID bracelet, bed and alarms, visiting hours, pain management, procedures, bathroom and other care routines, personal items, smoking policy, room service/diet, and visiting hours. Information on how to activate the Rapid Response Team has been discussed. Patient/Family are encouraged to report perceived risks to care and to ask questions if they do not understand what they are told or what they should do.
--- OUTSIDE RECORDS SUMMARY | 2024-05-22 16:51 | XMS_ITS | Encounter Summary ---
Author Organization [facility] Address 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
--- OUTSIDE RECORDS SUMMARY | 2024-05-22 16:51 | XMS_ITS | Encounter Summary ---
Author Organization [facility] Address [address] [place] [address] Care Team Providers Care Qa Reviewer Name Role Phone Rubin Lehman MD Primary Care Provider Jose powers Encounter Details Date Type Department Care Team (Late st Contact Info) Description 02/23/2007 Outpatient Historical [facility] Primary Care - [address] [place] [address] Chu Reddy MD [address] [facility] [address] [place] [address] Social History Tobacco Use Types Packs/Day Years Used Date Smoking Tobacco: Never Assessed Comments Unknown Sex and Gender Information Value Date Recorded Sex Assigned at Not on file 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
--- OUTSIDE RECORDS SUMMARY | 2024-05-22 16:51 | XMS_ITS | Encounter Summary ---
Author Organization [facility] Address [address] [place] [address] Care Team Providers Care Drop Hammer Pile Driver Operator Name Role Phone Rubin Lehman MD Primary Care Provider Jose powers Encounter Details Date Type Department Care Team (Late st Contact Info) Description 03/09/2007 Orders Only [facility] Primary Care - [address] [place] [address] Chu Reddy MD [address] [facility] [address] [place], [place] [id number] Social History Tobacco Use Types Packs/Day Years Used Date Smoking Tobacco: Never Assessed Comments Unknown Sex and Gender Information Value Date Recorded Sex Assigned at Not on file 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 LAB ORDERS: Order number: [id number] Test Ordered: COMPREHENSIVE METABOLIC PANEL 91854 Order number: [id number] Test Ordered: TSH W/REFLEX TO FT4 94998 Order number: [id number] Test Ordered: LIPID PANEL 7600 HEALTH MAINTENANCE: [...] on filedocumented in this encounter Care Teams Drop Hammer Pile Driver Operator Relationship Specialty Start Date End Date Rubin Lehman MD PCP - General Internal Medicine 09/03/10 05/08/17 documented as of this encounter
--- OUTSIDE RECORDS SUMMARY | 2024-05-22 16:52 | XMS_ITS | Continuity of Care Document ---
Author Organization [facility] Address [address] [place] [address] [address] [place] [address] Phone Care Team Providers Care Infrastructure Developer Name Role Phone Tessa PT, DPT, Noemi Unavailable Unavaila ble Procedures Procedure Date PT Re-evaluation Manual Therapy Therapeutic Activities Neuromuscular Re-Ed Therapeutic Activities Progress Note Manual Therapy Therapeutic Exercise Neuromuscular Re-Ed Therapeutic Activities Neuromuscular Re-Ed Therapeutic Activities Progress Note Therapeutic Exercise Manual Therapy Neuromuscular Re-Ed Therapeutic Exercise Therapeutic Exercise Neuromuscular Re-Ed Manual Therapy Therapeutic Activities Manual Therapy Therapeutic Exercise Neuromuscular Re-Ed Manual Therapy Therapeutic Activities Neuromuscular Re-Ed Manual Therapy PT Evaluation Moderate Complexity Therapeutic Activities Therapeutic Exercise Therapeutic Exercise Neuromuscular Re-Ed Manual Therapy Hot or Cold Pack Therapeutic Exercise Manual Therapy Hot or Cold Pack Therapeutic Exercise Neuromuscular Re-Ed Manual Therapy Hot or Cold Pack PT Evaluation Moderate Complexity Therapeutic Exercise Neuromuscular Re-Ed Advance Directives Directive Yes / No Effective Date File Name No Information Encounters Encounter Description Practice Location Reason(s) For Visit Diagnoses Date Provider Providers Copied on Encounter [facility] [address], [place], [place], [id number], tel:[phone] Tk No Information 1 Zarate Noemi. . Referring Provider: Courtney Abreu [address] [place] [address] [address], [place], [address]. tel:[phone] [facility] [address], [place], [place], [address], tel:[phone] Tk No Information 1 Zarate Noemi. . Referring Provider: Michelle Curry [facility] [address], [place], [address]. tel:[phone] [facility] [address], [place], [place], [address], tel:[phone] Tk No Information 1 Zarate Noemi. . Referring Provider: Michelle Curry [facility] [address], [place], [address]. tel:[phone] [facility] [address], [place], [place], [id number], tel:[phone] Tk No Information 1 Zarate Noemi. . Referring Provider: Michelle Curry [facility] [address], [place], [address]. tel:[phone] [facility] [address], [place], [place], [address], [place] tel:[phone] [place] No Information 1 Zarate Noemi. . Referring Provider: Courtney Abreu [address] [place] [address] [address], [place], [address]. tel:[phone] [facility], [address], [place], [place], [address], [place] tel:[phone] [place] No Information 1 Zarate Noemi. . Referring Provider: Courtney Abreu, [address] [place] [address] [address], [place], [address]. tel:[phone] [facility], [address], [place], [place], [address], [place] tel:[phone] [place] No Information 1 Zarate Noemi. . Referring Provider: Courtney Abreu [address] [place] [address] [address], [place], [address]. tel:[phone] [facility], [address], [place], [place], [address], [place] tel:[phone] T[place] No Information 1 Zarate Noemi. . Referring Provider: Courtney Abreu [address] [place] [address] [address], [place], [address]. tel:[phone] [facility] [address], [place], [place], [address], [place] tel:[phone] [place] No Information 1 Zarate Noemi. . Referring Provider: Courtney Abreu [address] [place] [address] [address], [place], [address]. tel:[phone] [facility], [place], [place], [address], [place] tel:[phone] [place] No Information 8 José Miguel Yates. . Referring Provider: Mart Fink, [address] [facility] [address], [place], [address]. tel:[phone], [id number], tel:[phone] [place] No Information 8 Simon Roberto. [address] [place] [address], [address] [place] [address], [facility], . tel:[phone] Referring Provider: Mart Fink, [address] [place] [address], [facility]. tel:[phone], [id number], tel:[phone] [place] No Information 8 José Miguel Yates. . Referring Provider: Mart Fink, [address] [place] [address], [facility]. tel:[phone], [id number], tel:[phone] [place] Low back painPain in right hipStiffness of unspecified joint, not elsewhere classifiedSti ffness of left hip, not elsewhere classifiedMus lindy weakness (generalized) 8 Simon Roberto. [address] [place] [address], [address], [place], [facility], . tel:[phone] Referring Provider: Mart Fink, [facility] [address] [place] [address], [facility]. tel:[phone] Family History Family Member Type Diagnosis Age At Onset No Information Payers Payer name Insurance type Covered republican ID Authorbrendaa ambersivan(s) [facility] Medicare Complete 16 [id number] Social History Type Description Quantity Date Captured [...]
--- OUTSIDE RECORDS SUMMARY | 2024-05-22 16:52 | XMS_ITS | Clinical Summary ---
Author Organization [facility] Address [address] [facility] [place] [address] Care Team Providers Care Medical Record Coder Name Role Phone Tomas Romero MD Primary Care Provider [phone] Source Comments [facility],non-owned Affiliates and Associated Physician Practices is amultiple site organization consisting of ambulatory clinics and hospital sitesin [place], [place], [place] and [place]. This disclosure is being madepursuant to the Care Everywhere program and may not contain all information available regarding this patient. Last updated 17.[facility] [employer] Allergies Active Allergy Reactions Criticality Noted Date [...] weeks. Assessment & Plan (03/29/2019 9:52 PM CLUB WAITER/WAITRESS): Poorly controlled at present, mostly due to [...] 05/10/2024 Assessment & Plan (03/29/2019 9:51 PM CLUB WAITER/WAITRESS): A1c up slightly. Still in pre-diabetes stage. Continue to monitor Major depressive disorder, single episode 07/30/2016 09/01/2019 Encounters Date Type Department Care Team Description 05/10/2024 1:45 PM CDT Office Visit [facility] - ENT [address] [place] [address] Nazanin Shetty MD Nasal obstruction (Primary Dx); Post-nasal drip; Facial pain; Nasal congestion; Nasal valve collapse 05/10/2024 Travel 05/01/2024 Refill [facility] - Orthopedic Surgery [address] [place] [address] Paco Meléndez MD MEDICATION REFILL 04/07/2024 Travel from Last 3 Months Immunizations Name Administration Dates Next Due Covid Tweekaboo primary monoval ent 12+ yr 0.3mL Purple cap 05/17/2020,04/26/2020 INFLUENZA VACCINE, ADJUVANTE D, QUADR. (FLUAD QUADRIVALENT; 65Y+) (AIIV4) 01/03/2021 PNEUMOCOCCAL PPSV23 05/12/2016 Pneumococcal Pcv13 Conj 12/17/2017 TDAP (7yrs+) 10/02/2016 Family History Medical History Relation Name Comments Cancer - Breast Maternal Aunt Deirdre Cuimeredith She rnon vived it Macular Degeneration Maternal Aunt Deirdre Mckinley Glaucoma Neg Hx Relation Name Status Comments Maternal Aunt Deirdre Mckinlye Social History Tobacco Use Types Packs/Day Years [...] CDT Respiratory Rate 12 01/16/2020 4:21 PM CLUB WAITER/WAITRESS Oxygen Saturation 95% 07/17/2020 10:34 AM CDT Inhaled Oxygen Concentration - - Weight 69.9 kg (154 lb) 05/10/2024 1:32 PM CDT Height 157.5 cm (5' 2 ) 05/10/2024 1:32 PM CDT Body Mass Index 28.17 05/10/2024 1:32 PM CDT Plan of Treatment Upcoming Encounters Date Type Department Care Team (Late st Contact Info) Description 05/29/2024 10:45 AM CDT Office Visit [facility] - ENT [address], [address] [address] Enrique Fontanez MD [address] [place] [address] [place] [address] 06/28/2024 1:30 PM CDT Office Visit [facility] - Ophthalmology [address] [place] [address], [place] [address] Susan Flores MD [address] [place] [address] DE[place] [address] Health Maintenance Due Date Last [...] Note: Interventions: Medical Devices Implanted Type Area Binder Folder Operator Device Identifier Shelf Expiration Date Model / Serial / Lot Shell Actb 52mm Hip 3 Hl Poly R3 Std Implanted:Qty: 1 on 06/17/2017 by Paco Meléndez MD at [facility][note 3] Left: Hip [employer] 12/02/2026 [id number] / / [id number] Screw 6.5mm 45mm Actb Sphrcl Head Reflc Implanted:Qty: 1 on 06/17/2017 by Paco Meléndez MD at [facility][note 3] Left: Hip [employer] 08/19/2026 [id number] / / [id number] Liner Actb R3 0d 52mm 36mm Xlpe Hip Flxb Implanted:Qty: 1 on 06/17/2017 by Paco Meléndez MD at [facility][note 3] Left: Hip [employer] 08/01/2026 [id number] / / [id number] Polarstem Size 3 Stem Implanted:Qty: 1 on 06/17/2017 by Paco Meléndez MD at [facility][note 3] Left: Hip 02/11/2024 [id number] / / [id number] Head Fem +4mm 02/11 36mm Hip Tpr Oxnm Implanted:Qty: 1 on 06/17/2017 by Paco Meléndez MD at [facility][note 3] Left: Hip [employer] 10/11/2026 [id number] / / [id number] Mata Uncem Hip All Inclusive Implanted:Qty: 1 on 06/17/2017 by Paco Meléndez MD at [facility][note 3] [employer] BILL ONLY [employer] HIP ALL INCLUSIVE SNORTH / / Procedures Procedure Name Priority Date/Time Associated Diagnosis Comments ND NASAL ENDOSCOPY,DX Routine 05/10/2024 1:51 PM CDT [...] Recently Relevant to Health Maintenance Results * ND NASAL ENDOSCOPY,DX (05/10/2024 1:51 PM CDT) Narrative [...] in the care of your patient. [facility] Breast Care utilizes [employer] as a reminder system to notify patients [...] SPECIMEN / Unknown 07/17/2020 Flaco GriggsMckenna Burrell MANAGER CLIENT-MOTOR VEHICLE OR CARAVAN SALESPERSON LAB - POINT OF CARE ORDERABLES * COLONOSCOPY (08/23/2019) Historical Provider MD SCANNING ONLY * (ABNORMAL) COLOGUARD TEST (08/02/2019 9:37 AM CDT) Cologuard Positive (A) Not Applicable [facility] Comment: It is recommended that [...] Lerma et al, N Engl J Med 2014;370(14):2460-3940.) The normal value (reference range) for this [...] interval of every 3 years by the [place] Cancer Society and U.S. Multi-Society Task Force. [...] can be accessed at the following location: www.Tynt.CBTec/results. Additional description of the Cologuard test process, warnings and precautions can be found at www.cologuardtest.com. Rx only. Stool specimen (specimen) STOOL SPECIMEN / Unknown 08/02/2019 9:37 AM CDT 08/03/2019 3:38 PM CDT Mart Fink MD LAB - CHEMISTRY [facility] Organization Address City/State/[facility] Co de Phone Number [employer] [address] [place] [address] [employer] [address] [place] [address] * DEXA BONE DENSITY AXIAL SKELETON (12/27/2017 [...] ordering physician and is also available on SoWeTrip, the Radiology Department's computerized picture archive system. [...] ordering physician and is also available on [employer], the Radiology Department'Quick2LAUNCH picture archive system. Patient's height 62 in; [...] Recently Relevant to Health Maintenance Care Teams Medical Record Coder Relationship Specialty Start Date End Date Tomas Romero MD [address] [place] [address] PCP - General Internal Medicine 11/13/20
--- OUTSIDE RECORDS SUMMARY | 2024-05-22 16:52 | XMS_ITS | Encounter Summary ---
Author Organization [facility] Address [address] [place] [address] Care Team Providers Care Dependency Program Director Name Role Phone Mart Fink MD Primary Care Provider [phone] Mena Butcher MD Primary Care Provider [phone] Flaco Burrell GAS TURBINE POWERPLANT MECHANIC HELPER-PEDIATRIC GENETICIST Primary Care Provi good Tomas Romero MD Primary Care Provider [phone] Encounter Details Date Type Department Care Team (Late st Contact Info) Description 08/10/2019 Telephone [facility] [address] [place] [address] Mart Fink MD [address] [facility] [address] [place] [address] Social History Tobacco Use Types Packs/Day Years [...] Description 05/29/2024 10:45 AM CDT Office Visit [facility] - ENT [address], [address] [place] [address] Enrique Fontanez MD [address] DEPT OF OTOLARYNGOLOGY [place], [place] [address] 06/28/2024 1:30 PM CDT Office Visit [facility] - Ophthalmology [address] [facility], [place] [address] Susan Flores MD [address] [place] [address] [place] [address] documented as of this encounter Goals Goal Patient Goal Type Associated Problems Recent Progress Patient-Stated? Author Medication Management General Radha Dowling, RN Note: Interventions: documented as of this encounter Visit Diagnoses Not on filedocumented in this encounter Care Teams Dependency Program Director Relationship Specialty Start Date End Date Mart Fink MD [address] [facility] [address] [place] [address] PCP - General Family Medicine 05/25/17 06/27/20 Mena Butcher MD [address] [place] [address] PCP - General 06/28/20 08/01/20 Flaco Burrell, GAS TURBINE POWERPLANT MECHANIC HELPER-PEDIATRIC GENETICIST [address] [facility] [address] [place] [address] PCP - General Nurse Practitioner Family 08/02/2010/30 Tomas Romero MD [address] [facility] [address] [place] [address] PCP - General Internal Medicine 11/13/20 documented as of this encounter
--- OUTSIDE RECORDS SUMMARY | 2024-05-22 16:52 | XMS_ITS | Encounter Summary ---
Author Organization [facility] Address [address] [facility] [place] [address] Care Team Providers Care Commission Specialist Name Role Phone Mart Fink MD Primary Care Provider [phone] Mena Butcher MD Primary Care Provider [phone] Flaco Burrell MARKETING TECHNOLOGY SPECIALIST-REAGENT TENDER HELPER Primary Care Provi good Tomas Romero MD Primary Care Provider [phone] Encounter Details Date Type Department Care Team (Late st Contact Info) Description 05/15/2020 Telephone [facility] [address] [place] [address] Mena Butcher MD [address] [address] Social History Tobacco Use Types Packs/Day Years [...] a sooner appt? Patient Call Back number: [phone] documented in this encounter Plan of Treatment Upcoming Encounters Date Type Department Care Team (Late st Contact Info) Description 05/29/2024 10:45 AM CDT Office Visit [facility] - ENT [address], [facility] [address] [place] [address] Enrique Fontanez MD [address] [place] [address] 06/28/2024 1:30 PM CDT Office Visit [facility] - Ophthalmology [address] [facility], [place] [address] Susan Flores MD [address] [place] [address] [place] [address] documented as of this encounter Goals Goal Patient Goal Type Associated Problems Recent Progress Patient-Stated? Author Medication Management General No Radha Wall, RN Note: Interventions: documented as of this encounter Visit Diagnoses Not on filedocumented in this encounter Care Teams Commission Specialist Relationship Specialty Start Date End Date Mart Fink MD [address] [facility] [address] [place] [address] PCP - General Family Medicine 05/25/17 06/27/20 Mena Butcher MD [address] [address] PCP - General 06/28/20 08/01/20 Flaco Burrell, MARKETING TECHNOLOGY SPECIALIST-REAGENT TENDER HELPER [address] [facility] [address] [place] [address] PCP - General Nurse Practitioner Family 08/02/2010/30 Tomas Romero MD [address] [facility] [address] [place] [address] PCP - General Internal Medicine 11/13/20 documented as of this encounter
--- OUTSIDE RECORDS SUMMARY | 2024-05-22 16:52 | XMS_ITS | Clinical Summary ---
Author Organization [facility] Address [address] [place] [address] Care Team Providers Care Air Crew Member Name Role Phone Unavailable Primary Care Provider [...] on file Legal Sex Female 3:22 AM EQUIPMENT MAINTENANCE SUPERVISOR Gender Identity Not on file Sexual Orientation Not on file Occupation Industry Job Start Date Job End Date Not on file Not on file Not on file Not on file Last Filed Vital Signs Vital Sign Reading Time Taken Comments Blood Pressure 100/70 04/25/2015 2:31 PM EQUIPMENT MAINTENANCE SUPERVISOR Pulse - - Temperature 37.2 C (99 F) 03/26/2014 2:42 PM EQUIPMENT MAINTENANCE SUPERVISOR Respiratory Rate - - Oxygen Saturation - - Inhaled Oxygen Concentration - - Weight 76.2 kg (168 lb) 04/25/2015 2:31 PM EQUIPMENT MAINTENANCE SUPERVISOR Height 157.5 cm (5' 2 ) 04/25/2015 2:31 PM EQUIPMENT MAINTENANCE SUPERVISOR Body Mass Index 30.73 04/25/2015 2:31 PM EQUIPMENT MAINTENANCE SUPERVISOR Plan of Treatment Health Maintenance Due Date [...] Advance Directives For more information, please contact: [phone] Documents on File Type Date Recorded Patient Manager Operational Expl 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
[2024-05-22] MEDS: FAMOTIDINE 20 MG TABLET 40 MG PO ×2 (20:09→20:18)
[2024-05-22] MEDS: methocarbamoL 500 MG TABLET PO (20:09)
[2024-05-22] MEDS: LORazepam (*CRX) 0.5 MG TABLET PO (20:09)
[2024-05-22 21:36] LABS: Partial Thromboplastin Time 69.8 Seconds (22.3-36.8)
[2024-05-22 21:44] LABS: Glucose Point of Care 191 mg/dl (65-105)
[2024-05-22] MEDS: HEPARIN SODIUM 5,000 UNITS/ML VIAL 2000 UNITS IV PUSH (22:04)
[2024-05-23] VITALS (7 sets, daily range): BP systolic 105–126; BP diastolic 52–65; PULSE 65–83; RESP 16–18; TEMP 36.4–37.3; O2SAT 94–100; BMI 25.6
--- NOTE | 2024-05-23 | ECHO_ITS ---
Patient Info Name: Citlaly Gauthier Age: 73 years : 1950 Gender: Female Ht: 62 in Wt: 139 lbs BSA: 1.67 m2 HR: 81 bpm BP: 110 / 54 mmHg Technical Quality: Good Exam Date: 05/23/2024 2:39 PM Exam Location: Echo Lab Patient Status: Inpatient Admit Date: 05/22/2024 Staff Ordering Physician: Inez Shine PA-C [place] Receptionist: Kassidy Russell RDCS Attending Provider: Inez Shine PA-C Referring Physician: Rl CHIU; Exam Type: CA echo doppler color flow Study Info Indications - Right heart strain - PE Complete two-dimensional, color flow and Doppler transthoracic echocardiogram is performed. Summary 1. Complete two-dimensional, color flow and Doppler transthoracic echocardiogram is performed. 2. Left ventricular chamber dimension is normal. 3. Left ventricular systolic function is normal, estimated at 65-70%. 4. The left ventricular diastolic function is grade I diastolic dysfunction. 5. E/e' 17 is elevated. 6. The mitral valve has moderately calcified annulus. 7. No pulmonary hypertension, estimated pulmonary arterial systolic pressure is 26 mmHg. Left Ventricle E/e' 17 is elevated. Left ventricular chamber dimension is normal. Left ventricular systolic function is normal, estimated at 65-70%. The left ventricular diastolic function is grade I diastolic dysfunction. Right Ventricle Right ventricular systolic function is normal and with normal TAPSE 1.9 cm. Right ventricular chamber dimension is normal. Left Atria Left atrial chamber dimension is normal. Right Atria Right atrial chamber dimension is normal. Aortic Valve The aortic valve is trileaflet. There is no aortic valve stenosis. There is no aortic valve regurgitation. Pulmonic Valve There is no pulmonic regurgitation. Mitral Valve The mitral valve has moderately calcified annulus. There is no mitral valve stenosis. There is no mitral valve regurgitation. Tricuspid Valve There is no tricuspid valve regurgitation. No pulmonary hypertension, estimated pulmonary arterial systolic pressure is 26 mmHg. Pericardium/Pleural There is no pericardial effusion. Inferior Vena Cava Normal inferior vena cava with >50% collapse upon inspiration consistent with normal right atrial pressure, 5 mmHg. Aorta The aortic root size at the sinus of Valsalva is normal. Left Ventricular Outflow Tract Name Value Normal LVOT 2D LVOT Diameter 1.6 cm LVOT Doppler LVOT Peak Gradient 7 mmHg LVOT Mean Gradient 5 mmHg LVOT VTI 25 cm LVOT VTI/AV VTI Ratio 0.7 LVOT Stroke Volume 50 ml LVOT CO 12.3 l/min LVOT CI 7.3 l/min/m2 Pulmonic Valve Name Value Normal PV Doppler PV Peak Gradient 5 mmHg Mitral Valve Name Value Normal MV Doppler MV Peak Gradient 11 mmHg MV Mean Gradient 5 mmHg MV Decel [place] 269 cm/s2 MV PHT 111 ms MV Area (PHT) 2.0 cm2 4.0-5.0 MV Area (Cont Eq VTI) 1.1 cm2 MV Diastolic Function MV E Peak Velocity 104 cm/s MV A Peak Velocity 170 cm/s MV E/A 0.6 MV Decel Time 384 ms MV Annular TDI MV E/e' (Septal) 20.6 <=8.0 MV E/e' (Lateral) 15.8 <=8.0 MV E/e' (Average) 18.2 Tricuspid Valve Name Value Normal TV Regurgitation Doppler TR Peak Velocity 230 cm/s TR Peak Gradient 19 mmHg Estimated PAP/RSVP RA Pressure 5 mmHg <=5 PA Systolic Pressure 26 mmHg <36 RV Systolic Pressure 26 mmHg <36 Aorta Name Value Normal Ascending Aorta Ao Root Diameter (MM) 3.3 cm Ao Root Diam Index (MM) 2.0 cm/m2 Aortic Valve Name Value Normal AV Doppler AV Peak Velocity 176 cm/s AV Peak Gradient 12 mmHg AV Mean Gradient 7 mmHg AV VTI 34 cm AV Area (Cont Eq VTI) 1.4 cm2 >=3.0 AV Area (Cont Eq Joe) 1.5 cm2 AV Regurgitation 2D LVOT Area 2.0 cm2 Ventricles Name Value Normal LV Dimensions 2D/MM IVS Diastolic Thickness (2D) 1.0 cm 0.6-1.0 LVID Diastole (2D) 3.5 cm 3.8-5.2 LVIW Diastolic Thickness (2D) 0.9 cm 0.6-0.9 LVID Systole (2D) 1.9 cm 2.2-3.5 LVOT Diameter 1.6 cm LV Mass (2D Cubed) 93.24 g 67.00-162.00 LV Mass Index (2D Cubed) 56 g/m2 43-95 Relative Wall Thickness (2D) 0.49 LV Fractional Shortening/Ejection Fraction 2D/MM LV Fractional Shortening (2D) 46 % 27-45 LV EF (2D [place]z) 79 % 54-74 LV Diastolic Volume (4C MOD) 42 ml LV EF (4C MOD) 65 % LV Diastolic Volume (2C MOD) 40 ml LV EF (2C MOD) 56 % LV Diastolic Volume (BP MOD) 43 ml 46-106 LV Diastolic Volume Index (BP MOD) 25 ml/m2 29-61 LV Systolic Volume (BP MOD) 16 ml 14-42 LV Systolic Volume Index (BP MOD) 10 ml/m2 8-24 LV EF (BP MOD) 61 % 54-74 LV Diastolic Length (4C) 6.7 cm LV Systolic Length (4C) 5.2 cm LV Stroke Volume (4C MOD) 27 ml Atria Name Value Normal LA Dimensions LA Volume (4C A-L) 31 ml LA Volume (BP A-L) 37 ml RA Dimensions RA Area (4C) 11.7 cm2 <=18.0 Report Signatures
[2024-05-23 05:31] LABS: Basophils Absolute Auto 0.1 K/mm3 (0.0-0.1); Basophils Percent Auto 0.5 % (0.2-1.2); Eosinophils Absolute Auto 0.2 K/mm3 (0-0.3); Eosinophils Percent Auto 1.7 % (0-4.4); Hematocrit 39.4 % (37.0-47.0); Hemoglobin 12.9 g/dL (12.0-15.0); Immature Granulocyte Absolute 0.03 K/mm3 (0.00-0.031); Immature Granulocyte Percent A 0.3 % (0-0.5); Lymphocytes Absolute Auto 2.26 K/mm3 (0.9-3.2); Lymphocytes Percent Auto 23.2 % (18.3-44.2); Mean Corpuscular HGB Conc 32.7 g/dl (32-36); Mean Corpuscular Volume 91.6 fl (80-100); Mean Platelet Volume 8.6 fl (7.4-10.4); Monocytes Absolute Auto 1.1 K/mm3 (0.1-0.6); Monocytes Percent Auto 11.2 % (2.6-8.5); Neutrophils Absolute Auto 6.2 K/mm3 (1.3-6.7); Neutrophils Percent Auto 63.1 % (45.5-73.1); Platelet Count Result 281 k/mm3 (150-375); Red Cell Distribution Width 12.8 % (11.5-14.5); White Blood Count 9.8 K/mm3 (4.5-10.0)
[2024-05-23 05:45] LABS: Partial Thromboplastin Time 92.5 Seconds (22.3-36.8)
[2024-05-23 05:46] LABS: Anion Gap 8 mmol/L (4-12); Blood Urea Nitrogen 16 mg/dL (7-17); Calcium 8.8 mg/dL (8.4-10.2); Carbon Dioxide 26 mmol/L (22-30); Chloride 103 mmol/L (98-107); Estimated CRCL calculation 48 ml/min; Estimated Glomerular Filt Rate > 60; Glucose 130 mg/dL (65-110); Potassium 4.1 mmol/L (3.4-5.0); Sodium 137 mmol/L (137-145)
[2024-05-23] MEDS: ACETAMINOPHEN 325 MG TABLET 650 MG PO ×3 (06:13→20:31)
[2024-05-23] MEDS: methocarbamoL 500 MG TABLET PO ×4 (06:13→20:30)
--- NOTE | 2024-05-23 08:13 | PM.IMPN ---
Progress Note: A&P Assessment and Plan (1) Acute respiratory failure: Code(s): J96.00 - Acute respiratory failure, unspecified whether with hypoxia or hypercapnia Status: Acute Assessment and Plan: Per urine no patient satting approximately 87% on room air during initial evaluation, placed on 2 L nasal cannula - Oxygen supplementation: 2L NC, baseline RA. Wean as tolerated for spo2 > 90%. - Chest CTA: 1. Bilateral pulmonary emboli but without evident right heart strain. 2. Patchy ground glass opacities in both lungs including the lower lobes which could represent atelectasis, pulmonary infarcts, pulmonary edema, pneumonia or some combination thereof. - Suspected cause: Pulmonary embolism, no signs of infection given normal wbc, no cough, and afebrile - IS - Viral panel negative - EKG: sinus rhythm HR 92 (2) Pulmonary embolism: Code(s): I26.99 - Other pulmonary embolism without acute cor pulmonale Status: Acute Assessment and Plan: Chest CTA: 1. Bilateral pulmonary emboli but without evident right heart strain. 2. Patchy ground glass opacities in both lungs including the lower lobes which could represent atelectasis, pulmonary infarcts, pulmonary edema, pneumonia or some combination thereof. - Discontinued heparin drip, started on eliquis 10 mg BID 05/23-05/29, transition to 5 mg BID on 05/30 - Oxygen via NC; wean as tolerated keeping SpO2 above 88% - Echocardiogram to rule out cardiac strain - Venous dopplers ordered - Monitor vital signs, I&Os, shortness of breath and chest pain. Patient is a fall risk - Monitor serum electrolytes, PTT, CBC, WBC, temperature curve and cultures. - Monitor for bloody bowel movements,chest pain,SOB or dizziness/lightheadedness (3) Diabetes mellitus: Code(s): E11.9 - Type 2 diabetes mellitus without complications Status: Acute Assessment and Plan: - hypoglycemia protocol - POC blood glucose ACHS - home medication - metformin 500 mg daily - correct regimen ordered - low dose TIDWM and HS - A1C 6.5 (4) Hyperlipidemia: Qualifiers: Hyperlipidemia type: mixed hyperlipidemia Qualified Code(s): E78.2 - Mixed hyperlipidemia Code(s): E78.5 - Hyperlipidemia, unspecified Status: Acute Assessment and Plan: Chronic, continue rosuvastatin 20 mg daily (5) Anxiety with depression: Code(s): F41.8 - Other specified anxiety disorders Status: Acute Assessment and Plan: Continue fluoxetine 20 mg daily and ativan 0.5 mg PRN Time Spent With Patient Time with patient: 25 - 35 minutes Subjective Date/time seen: 05/23/24 08:13 Interval history: 73 year old female with past medical history of diabetes, hyperlipidemia, and depression presents to the hospital for shortness of breath. Patient is pleasant lying comfortably in bed. She remains on 2 L nasal cannula and continues to endorse shortness of breath and a right-sided rib pain. She has no other complaints denying chest pain, palpitations, nausea/vomiting, abdominal pain. Review of Systems Review of Systems: All systems reviewed & are unremarkable except as noted in HPI and below Exam Narrative: AF HR 74 RR 18 SpO2 96 BP 115/65 General: female in no acute respiratory distress who is nontoxic appearing, lying semi recumbent in bed. HEENT: Normocephalic. Atraumatic. Extraocular movement intact. Sclera clear and anicteric. No facial asymmetry. Chest: Lungs are clear to auscultation bilaterally. No wheezes or crackles. CV: Heart was regular rate and rhythm. S1-S2. No murmurs, gallops, or rubs. Abd: Abdomen was soft. Nontender. Nondistended. Positive bowel sounds. Ext: No clubbing, cyanosis, or edema. Tenderness to palpation of the BLE. DP pulses bilaterally. Neuro: Patient is alert and oriented x4. Speech is clear. Objective Data Vital Signs Vital Signs: Vital Signs - 24 hr 05/22/24 12:51 05/22/24 16:00 05/22/24 16:14 Temperature 99.4 F 98.1 F Pulse Rate 102 H 91 85 Respiratory Rate 20 14 14 Blood Pressure 139/65 127/68 108/63 Pulse Oximetry 97 94 100 Oxygen Delivery Room Air Oxygen Flow Rate 05/22/24 16:30 05/22/24 19:52 05/22/24 20:00 Temperature 98.9 F Pulse Rate 87 89 Respiratory Rate 20 Blood Pressure 145/63 H Pulse Oximetry 100 96 Oxygen Delivery Nasal Cannula Oxygen Flow Rate 2 05/22/24 20:00 05/22/24 23:50 05/23/24 00:00 Temperature 99.7 F H Pulse Rate 89 85 83 Respiratory Rate 20 18 Blood Pressure 129/56 L Pulse Oximetry 96 96 Oxygen Delivery Nasal Cannula Oxygen Flow Rate 2 05/23/24 04:00 05/23/24 04:00 05/23/24 08:00 Temperature 98.7 F Pulse Rate 81 73 Respiratory Rate 16 Blood Pressure 122/56 L Pulse Oximetry 94 94 Oxygen Delivery Nasal Cannula Oxygen Flow Rate 2 05/23/24 08:00 Temperature Pulse Rate 78 Respiratory Rate Blood Pressure Pulse Oximetry Oxygen Delivery Oxygen Flow Rate Intake/Output Intake/Output: Intake & Output 05/20/24 05/21/24 05/22/24 05/23/24 23:59 23:59 23:59 23:59 Intake Total 752.8 250 Balance 752.8 250 Meds/Results Medications: Active Medications Generic Name Dose Route Start Last Admin Trade Name Freq PRN Reason Stop Dose Admin Acetaminophen 650 mg 05/22/24 15:50 05/23/24 06:13 Acetaminophen 325 Mg Tablet PO 650 mg Q4H PRN Administration Mild Pain (1-3) or Fever Famotidine 40 mg 05/22/24 21:00 05/22/24 20:18 Famotidine 20 Mg Tablet PO 40 mg HS MILDRED Administration Fluoxetine HCl 20 mg 05/23/24 09:00 Fluoxetine Hcl 20 Mg Capsule PO Q48HR MILDRED Heparin Sodium (Porcine) 4,500 units 05/22/24 15:22 Heparin Sodium 5,000 Units/Ml Vial IV PUSH PRN PRN aPTT less than 55 seconds Heparin Sodium (Porcine) 2,000 units 05/22/24 15:22 05/22/24 22:04 Heparin Sodium 5,000 Units/Ml Vial IV PUSH 2,000 units PRN PRN Administration aPTT 55 - 70 seconds Heparin Sodium/Dextrose 25,000 units in 250 mls @ 11 mls/hr 05/22/24 15:25 05/22/24 22:04 Heparin Sodium/D5w 100 Units/Ml IV CONT 1,100 units/hr .[id number] MILDRED 11 mls/hr Titration Protocol 1,100 UNITS/HR Lidocaine 2 patch 05/23/24 09:00 Lidocaine 5% Patch TRANSDERM DAILY MILDRED Lorazepam 0.5 mg 05/22/24 18:46 05/22/24 20:09 Lorazepam (*Crx) 0.5 Mg Tablet PO 0.5 mg BID PRN Administration Anxiety Methocarbamol 500 mg 05/22/24 21:00 05/23/24 06:13 Methocarbamol 500 Mg Tablet PO 500 mg QID [facility] Administration Senna/Docusate Sodium 1 tab 05/23/24 09:00 Senna/Docusate Sodium Tablet PO BID [facility] Radiology Results: ITS Impressions Chest CTA 05/22/24 15:13 IMPRESSION: 1. Bilateral pulmonary emboli but without evident right heart strain. Dr. Hall discussed these findings with Dr. Harrison at 2:20 PM. 2. Patchy groundglass opacities in both lungs including the lower lobes which could represent atelectasis, pulmonary infarcts, pulmonary edema, pneumonia or some combination thereof. Abdomen X-Ray 05/22/24 15:54 IMPRESSION: NO ACUTE ABDOMINAL FINDINGS. Labs Labs: Laboratory Results - last 24 hr 05/22/24 05/22/24 05/22/24 14:23 20:02 21:15 WBC 10.4 H RBC 4.42 Hgb 13.4 Hct 40.2 MCV 91.0 MCH 30.3 MCHC 33.3 RDW 12.9 Plt Count 278 MPV 8.4 Immature Gran % (Auto) 0.4 Neut % (Auto) 73.4 H Lymph % (Auto) 15.9 L [place] % (Auto) 9.0 H Eos % (Auto) 1.0 Baso % (Auto) 0.3 Lymph # (Auto) 1.66 [place] # (Auto) 0.9 H Eos # (Auto) 0.1 Baso # (Auto) 0.0 Abs Immat Gran (auto) 0.04 H Absolute Neuts (auto) 7.6 H Absolute Nucleated RBC 0.000 Nucleated RBC % 0.0 APTT 69.8 H Sodium 137 Potassium 4.4 Chloride 103 Carbon Dioxide 22 Anion Gap 12 BUN 20 H Creatinine 0.70 Estim Creat Clear Calc 49 Estimated GFR > 60 Glucose 127 H POC Capillary Glucose 191 H Calcium 9.3 Total Bilirubin 0.8 AST 29 ALT 19 Alkaline Phosphatase 62 NT-Pro-B Natriuret Pep 113 H Total Protein 7.0 Albumin 4.5 05/23/24 04:47 WBC 9.8 RBC 4.30 Hgb 12.9 Hct 39.4 MCV 91.6 MCH 30.0 MCHC 32.7 RDW 12.8 Plt Count 281 MPV 8.6 Immature Gran % (Auto) 0.3 Neut % (Auto) 63.1 Lymph % (Auto) 23.2 [place] % (Auto) 11.2 H Eos % (Auto) 1.7 Baso % (Auto) 0.5 Lymph # (Auto) 2.26 [place] # (Auto) 1.1 H Eos # (Auto) 0.2 Baso # (Auto) 0.1 Abs Immat Gran (auto) 0.03 Absolute Neuts (auto) 6.2 Absolute Nucleated RBC 0.000 Nucleated RBC % 0.0 APTT 92.5 H Sodium 137 Potassium 4.1 Chloride 103 Carbon Dioxide 26 Anion Gap 8 BUN 16 Creatinine 0.71 Estim Creat Clear Calc 48 Estimated GFR > 60 Glucose 130 H POC Capillary Glucose Calcium 8.8 Total Bilirubin AST ALT Alkaline Phosphatase NT-Pro-B Natriuret Pep Total Protein Albumin Quality VTE Prophylaxis VTE prophylaxis: pharmacologic ordered
[2024-05-23] MEDS: FLUoxetine HCL 20 MG CAPSULE PO (08:33)
[2024-05-23] MEDS: APIXABAN 5 MG TABLET 10 MG PO ×2 (08:33→20:30)
[2024-05-23] MEDS: LIDOCAINE 5% PATCH 2 PATCH TRANSDERM (08:34)
[2024-05-23] MEDS: SENNA/DOCUSATE SODIUM TABLET 1 TAB PO (08:34)
[2024-05-23 09:44] LABS: Influenza A QL RT-PCR Negative (Negative); Influenza B QL RT-PCR Negative (Negative); RSV RNA, RT-PCR Negative (Negative); SARS-CoV-2 RNA PCR Negative (Negative)
[2024-05-23 10:13] LABS: Partial Thromboplastin Time 37.1 Seconds (22.3-36.8)
[2024-05-23 12:11] LABS: Glucose Point of Care 110 mg/dl (65-105)
[2024-05-23 16:52] LABS: Glucose Point of Care 131 mg/dl (65-105)
[2024-05-23] MEDS: LORazepam (*CRX) 0.5 MG TABLET PO (20:30)
[2024-05-23 21:07] LABS: Glucose Point of Care 118 mg/dl (65-105)
[2024-05-24] VITALS (9 sets, daily range): BP systolic 115–125; BP diastolic 53–63; PULSE 69–90; RESP 16–18; TEMP 36.2–36.4; O2SAT 94–96
[2024-05-24 05:25] LABS: Hemoglobin 12.6 g/dL (12.0-15.0); Mean Corpuscular HGB Conc 32.3 g/dl (32-36); Mean Corpuscular Volume 92.9 fl (80-100); Mean Platelet Volume 8.8 fl (7.4-10.4); Platelet Count Result 271 k/mm3 (150-375); Red Cell Distribution Width 12.7 % (11.5-14.5); White Blood Count 8.6 K/mm3 (4.5-10.0)
[2024-05-24 05:40] LABS: Alanine Aminotransferase 31 U/L (6-35); Albumin Level 3.9 g/dL (3.5-5.1); Alkaline Phosphatase 56 U/L (38-126); Anion Gap 10 mmol/L (4-12); Aspartate Amino Transferase 38 U/L (14-36); Bilirubin,Total 0.6 mg/dL (0.2-1.3); Blood Urea Nitrogen 19 mg/dL (7-17); Calcium 9.1 mg/dL (8.4-10.2); Carbon Dioxide 24 mmol/L (22-30); Chloride 104 mmol/L (98-107); Estimated CRCL calculation 49 ml/min; Estimated Glomerular Filt Rate > 60; Glucose 118 mg/dL (65-110); Sodium 138 mmol/L (137-145)
[2024-05-24 08:18] LABS: Glucose Point of Care 111 mg/dl (65-105)
[2024-05-24] MEDS: APIXABAN 5 MG TABLET 10 MG PO (09:23)
[2024-05-24] MEDS: ACETAMINOPHEN 325 MG TABLET 650 MG PO ×2 (09:23→14:43)
[2024-05-24] MEDS: methocarbamoL 500 MG TABLET PO ×2 (09:23→12:57)
[2024-05-24] MEDS: SENNA/DOCUSATE SODIUM TABLET 1 TAB PO (09:23)
[2024-05-24] MEDS: ROSUVASTATIN 20 MG TABLET PO (09:24)
[2024-05-24] MEDS: LIDOCAINE 5% PATCH 2 PATCH TRANSDERM (09:24)
--- NOTE | 2024-05-24 09:53 | P.PNIM_ITS ---
Progress Note: A&P Assessment and Plan (1) Acute respiratory failure: Code(s): J96.00 - Acute respiratory failure, unspecified whether with hypoxia or hypercapnia Status: Acute Assessment and Plan: Per urine no patient satting approximately 87% on room air during initial evaluation, placed on 2 L nasal cannula - Oxygen supplementation: 2L NC, baseline RA. Wean as tolerated for spo2 > 90%. - Chest CTA: 1. Bilateral pulmonary emboli but without evident right heart strain. 2. Patchy ground glass opacities in both lungs including the lower lobes which could represent atelectasis, pulmonary infarcts, pulmonary edema, pneumonia or some combination thereof. - Suspected cause: Pulmonary embolism, no signs of infection given normal wbc, no cough, and afebrile - IS - Viral panel negative - EKG: sinus rhythm HR 92 (2) Pulmonary embolism: Code(s): I26.99 - Other pulmonary embolism without acute cor pulmonale Status: Acute Assessment and Plan: Chest CTA: 1. Bilateral pulmonary emboli but without evident right heart strain. 2. Patchy ground glass opacities in both lungs including the lower lobes which could represent atelectasis, pulmonary infarcts, pulmonary edema, pneumonia or some combination thereof. - Discontinued heparin drip, started on eliquis 10 mg BID 05/23-05/29, transition to 5 mg BID on 05/30 - Oxygen via NC; wean as tolerated keeping SpO2 above 88% - Echocardiogram to rule out cardiac strain- ef 65-70% - Venous dopplers ordered- Patent bilateral lower extremity veins. No evidence of deep venous thrombosis. - Monitor vital signs, I&Os, shortness of breath and chest pain. Patient is a fall risk - Monitor serum electrolytes, PTT, CBC, WBC, temperature curve and cultures. - Monitor for bloody bowel movements,chest pain,SOB or dizziness/lightheadedness (3) Diabetes mellitus: Code(s): E11.9 - Type 2 diabetes mellitus without complications Status: Acute Assessment and Plan: - hypoglycemia protocol - POC blood glucose ACHS - home medication - metformin 500 mg daily - correct regimen ordered - low dose TIDWM and HS - A1C 6.5 (4) Hyperlipidemia: Qualifiers: Hyperlipidemia type: mixed hyperlipidemia Qualified Code(s): E78.2 - Mixed hyperlipidemia Code(s): E78.5 - Hyperlipidemia, unspecified Status: Acute Assessment and Plan: Chronic, continue rosuvastatin 20 mg daily (5) Anxiety with depression: Code(s): F41.8 - Other specified anxiety disorders Status: Acute Assessment and Plan: Continue fluoxetine 20 mg daily and ativan 0.5 mg PRN Time Spent With Patient Time with patient: 25 - 35 minutes Subjective Date/time seen: 05/24/24 09:53 Interval history: 73 year old female with past medical history of diabetes, hyperlipidemia, and depression presents to the hospital for shortness of breath. Assuming care. Pt is seen and examined. started on eliquis 10 mg BID 05/23-05/29, transition to 5 mg BID on 05/30 Patient is pleasant and calm. She is on 2 L nasal cannula and continues to endorse shortness of breath and a right-sided rib pain. She has no other complaints denying chest pain, palpitations, nausea/vomiting, abdominal pain. Review of Systems Review of Systems: 12 systems were reviewed and are negativ e except for as per HPI. All systems reviewed & are unremarkable except as noted in HPI and below Exam Narrative: AF HR 74 RR 18 SpO2 96 BP 115/65 General: female in no acute respiratory distress who is nontoxic appearing, lying semi recumbent in bed. HEENT: Normocephalic. Atraumatic. Extraocular movement intact. Sclera clear and anicteric. No facial asymmetry. Chest: Lungs are clear to auscultation bilaterally. No wheezes or crackles. CV: Heart was regular rate and rhythm. S1-S2. No murmurs, gallops, or rubs. Abd: Abdomen was soft. Nontender. Nondistended. Positive bowel sounds. Ext: No clubbing, cyanosis, or edema. Tenderness to palpation of the BLE. DP pulses bilaterally. Neuro: Patient is alert and oriented x4. Speech is clear. Objective Data Vital Signs Vital Signs: Vital Signs - 24 hr 05/23/24 12:00 05/23/24 12:00 05/23/24 16:00 Temperature 98.3 F 98.1 F Pulse Rate 77 74 73 Respiratory Rate 18 18 Blood Pressure 115/65 105/52 L Pulse Oximetry 96 95 Oxygen Delivery Oxygen Flow Rate 05/23/24 16:00 05/23/24 20:00 05/23/24 20:00 Temperature 97.6 F Pulse Rate 75 82 82 Respiratory Rate 16 16 Blood Pressure 126/55 L Pulse Oximetry 97 97 Oxygen Delivery Nasal Cannula Oxygen Flow Rate 2 05/23/24 20:00 05/23/24 23:34 05/24/24 00:00 Temperature 97.8 F Pulse Rate 82 65 69 Respiratory Rate 16 Blood Pressure 109/59 L Pulse Oximetry 100 Oxygen Delivery Oxygen Flow Rate 05/24/24 03:31 05/24/24 04:00 05/24/24 08:00 Temperature 97.5 F L 97.2 F L Pulse Rate 69 71 90 Respiratory Rate 16 16 Blood Pressure 115/55 L 119/53 L Pulse Oximetry 95 95 Oxygen Delivery Oxygen Flow Rate Intake/Output Intake/Output: Intake & Output 05/21/24 05/22/24 05/23/24 05/24/24 23:59 23:59 23:59 23:59 Intake Total 752.8 854 550 Balance 752.8 854 550 Meds/Results Medications: Active Medications Generic Name Dose Route Start Last Admin Trade Name Freq PRN Reason Stop Dose Admin Acetaminophen 650 mg 05/22/24 15:50 05/24/24 09:23 Acetaminophen 325 Mg Tablet PO 650 mg Q4H PRN Administration Mild Pain (1-3) or Fever Apixaban 10 mg 05/23/24 09:00 05/24/24 09:23 Apixaban 5 Mg Tablet PO 05/29/24 21:01 10 mg Q12HR MILDRED Administration Apixaban 5 mg 05/30/24 09:00 Apixaban 5 Mg Tablet PO 05/30/24 09:01 Q12HR MILDRED Dextrose 12.5 gm 05/23/24 08:33 Dextrose 50% 25 Gm/50 Ml Syringe IV PUSH PRN PRN Hypoglycemia Protocol Famotidine 40 mg 05/22/24 21:00 05/22/24 20:18 Famotidine 20 Mg Tablet PO 40 mg HS MILDRED Administration Fluoxetine HCl 20 mg 05/23/24 09:00 05/23/24 08:33 Fluoxetine Hcl 20 Mg Capsule PO 20 mg Q48HR MILDRED Administration Glucagon 1 mg 05/23/24 08:33 Glucagon For Inj 1 Mg Vial IM PRN PRN Hypoglycemia Protocol Glucose 15 gm 05/23/24 08:33 Glucose Oral Gel 15 Gm Of Glucse In 37.5 Gm Tube PO PRN PRN Hypoglycemia Protocol Dextrose 1,000 mls @ 100 mls/hr 05/23/24 08:33 Dextrose 5% 1,000 Ml IVPB PRN PRN Hypoglycemia Protocol Insulin Aspart 2 - 5 units 05/23/24 12:00 05/24/24 09:18 Insulin Aspart (*Bkc) 100 Units/Ml SUB-Q Not Given TIDWM MILDRED Protocol Lidocaine 2 patch 05/23/24 09:00 05/24/24 09:24 Lidocaine 5% Patch TRANSDERM 2 patch DAILY MILDRED Administration Lorazepam 0.5 mg 05/22/24 18:46 05/23/24 20:30 Lorazepam (*Crx) 0.5 Mg Tablet PO 0.5 mg BID PRN Administration Anxiety Methocarbamol 500 mg 05/22/24 21:00 05/24/24 09:23 Methocarbamol 500 Mg Tablet PO 500 mg QID MILDRED Administration Perflutren Lipid Microsphere 0 ml 05/23/24 08:20 Perflutren Lipid Microspheres 1.5 Ml Vial Diluted To 10 Ml Total Volume IV PUSH 05/26/24 08:21 ONCE PRN adequate visualization Protocol Rosuvastatin Calcium 20 mg 05/24/24 09:00 05/24/24 09:24 Rosuvastatin 20 Mg Tablet PO 20 mg Q48H MILDRED Administration Senna/Docusate Sodium 1 tab 05/23/24 09:00 05/24/24 09:23 Senna/Docusate Sodium Tablet PO 1 tab BID MILDRED Administration Radiology Results: ITS Impressions Chest CTA 05/22/24 15:13 IMPRESSION: 1. Bilateral pulmonary emboli but without evident right heart strain. Dr. Hall discussed these findings with Dr. Harrison at 2:20 PM. 2. Patchy groundglass opacities in both lungs including the lower lobes which could represent atelectasis, pulmonary infarcts, pulmonary edema, pneumonia or some combination thereof. Abdomen X-Ray 05/22/24 15:54 IMPRESSION: NO ACUTE ABDOMINAL FINDINGS. Venous Doppler Study 05/23/24 18:39 IMPRESSION: Patent bilateral lower extremity veins. No evidence of deep venous thrombosis. Labs Labs: Laboratory Results - last 24 hr 05/23/24 05/23/24 05/23/24 09:52 12:05 16:46 WBC RBC Hgb Hct MCV MCH MCHC RDW Plt Count MPV APTT 37.1 H Sodium Potassium Chloride Carbon Dioxide Anion Gap BUN Creatinine Estim Creat Clear Calc Estimated GFR Glucose POC Capillary Glucose 110 H 131 H Calcium Total Bilirubin AST ALT Alkaline Phosphatase Total Protein Albumin 05/23/24 05/24/24 05/24/24 20:43 04:54 08:13 WBC 8.6 RBC 4.20 Hgb 12.6 Hct 39.0 MCV 92.9 MCH 30.0 MCHC 32.3 RDW 12.7 Plt Count 271 MPV 8.8 APTT Sodium 138 Potassium 5.0 Chloride 104 Carbon Dioxide 24 Anion Gap 10 BUN 19 H Creatinine 0.70 Estim Creat Clear Calc 49 Estimated GFR > 60 Glucose 118 H POC Capillary Glucose 118 H 111 H Calcium 9.1 Total Bilirubin 0.6 AST 38 H ALT 31 Alkaline Phosphatase 56 Total Protein 7.0 Albumin 3.9 Quality VTE Prophylaxis VTE prophylaxis: pharmacologic ordered
[2024-05-24 11:54] LABS: Glucose Point of Care 122 mg/dl (65-105)
--- NOTE | 2024-05-24 14:55 | PM.DS ---
DS: Admitting Diagnosis Discharge Date 05/24 Admitting Diagnosis sob, chest pain DS: Discharge Diagnosis Discharge Diagnosis (1) Acute respiratory failure: Code(s): J96.00 - Acute respiratory failure, unspecified whether with hypoxia or hypercapnia Status: Acute (2) Pulmonary embolism: Code(s): I26.99 - Other pulmonary embolism without acute cor pulmonale Status: Acute (3) Diabetes mellitus: Code(s): E11.9 - Type 2 diabetes mellitus without complications Status: Acute (4) Hyperlipidemia: Qualifiers: Hyperlipidemia type: mixed hyperlipidemia Qualified Code(s): E78.2 - Mixed hyperlipidemia Code(s): E78.5 - Hyperlipidemia, unspecified Status: Acute (5) Anxiety with depression: Code(s): F41.8 - Other specified anxiety disorders Status: Acute DS: Summary Hospital Course Hospital Course: 73 year old female with past medical history of diabetes, hyperlipidemia, and depression presents to the hospital for shortness of breath. Initially was on heparin drip, then transitioned to eliquis- started on eliquis 10 mg BID 05/23-05/29, transition to 5 mg BID on 05/30 Able to wean off oxygen- currently on room air. pain is well controlled. Fall and bleeding precautions discussed. PT needs to have a close f/u with pcp and repeat CT chest in 3 months. Status at Discharge Functional status at discharge: independent ambulation Overall status at discharge: patient is progressing back to baseline Time Spent with Patient Time attestation: Total time spent providing and/or coordinating discharge services: Exam Narrative: General: female in no acute respiratory distress who is nontoxic appearing, lying semi recumbent in bed. HEENT: Normocephalic. Atraumatic. Extraocular movement intact. Sclera clear and anicteric. No facial asymmetry. Chest: Lungs are clear to auscultation bilaterally. No wheezes or crackles. CV: Heart was regular rate and rhythm. S1-S2. No murmurs, gallops, or rubs. Abd: Abdomen was soft. Nontender. Nondistended. Positive bowel sounds. Ext: No clubbing, cyanosis, or edema. Tenderness to palpation of the BLE. DP pulses bilaterally. Neuro: Patient is alert and oriented x4. Speech is clear. DS: Data Data Completed and Pending Labs on day of discharge: Labs from last 24 hours 05/24/24 05/24/24 05/24/24 11:48 08:13 04:54 WBC 8.6 RBC 4.20 Hgb 12.6 Hct 39.0 MCV 92.9 MCH 30.0 MCHC 32.3 RDW 12.7 Plt Count 271 MPV 8.8 Sodium 138 Potassium 5.0 Chloride 104 Carbon Dioxide 24 Anion Gap 10 BUN 19 H Creatinine 0.70 Estim Creat Clear Calc 49 Estimated GFR > 60 Glucose 118 H POC Capillary Glucose 122 H 111 H Calcium 9.1 Total Bilirubin 0.6 AST 38 H ALT 31 Alkaline Phosphatase 56 Total Protein 7.0 Albumin 3.9 05/23/24 05/23/24 20:43 16:46 WBC RBC Hgb Hct MCV MCH MCHC RDW Plt Count MPV Sodium Potassium Chloride Carbon Dioxide Anion Gap BUN Creatinine Estim Creat Clear Calc Estimated GFR Glucose POC Capillary Glucose 118 H 131 H Calcium Total Bilirubin AST ALT Alkaline Phosphatase Total Protein Albumin Discharge Plan Discharge Attending physician on discharge: Trace Mckinney Discharging Clinician: Jacquie Nolan Patient Disposition: Home, Self-Care Activity: june shower Diet: heart healthy Discharge Instructions: You were admitted for PE. Initially heparin drip was started, then you were transitioned to eliquis. Take 10 mg twice a [id number] day 05/29 9 pm), the 5 mg twice a day-start 05/30 in am. Repeat chest CT in 3 months. Please be careful as we discussed as you are fall and bleeding risk. Patient Instructions: Antibiotic Form Patient Language: Italian Stand Alone Forms: General Discharge Information Follow-up/Referrals: Tomas Romero MD [Primary Care Provider] - 2 Weeks Discharge Medications: New Eliquis 5 mg Tablet 10 mg PO Q12HR Qty: 11 0RF Rx Instructions: take 10 mg bid for a week- last day 05/29 at 0900pm, then 5 mg twice a day, starting 05/30 0900 am Eliquis 5 mg Tablet 5 mg PO Q12HR Qty: 90 0RF Rx Instructions: start 05/30 at 0900 am Continued pseudoephedrine-guaifenesin [Mucinex D] 60-600 mg tablet extended release 12 hr 1 tablet PO BID PRN (Reason: Congestion) coenzyme Q10 [CoQ-10] 100 mg capsule 100 mg PO DAILY resveratrol 250 mg capsule 250 mg PO DAILY Qty: 90 0RF Optimized Quercetin 250 mg PO DAILY folate 8,500 mcg PO DAILY fluoxetine 20 mg capsule 20 mg PO DAILY Patient Comments: QOD tretinoin 0.1 % cream 1 applic topical QHS Patient Comments: apply to face multivitamin Tablet 1 tablet PO BID Vitamin C 24 hr liposomal hydrogel PO DAILY Azo Cranberry 250 mg tablet,chewable 250 mg PO TID Lumify 0.025 % drops 1 drp EACH EYE QID PRN (Reason: dry eye(s)) famotidine [Pepcid] 40 mg tablet 40 mg PO DAILY Qty: 90 1RF mupirocin 2 % ointment 1 applic TOPICAL TID Rx Instructions: use for 2 weeks in left nostril, last day 05/24/2024 pseudoephedrine-guaifenesin [Mucinex D Maximum Strength] 120-1,200 mg tablet extended release 12 hr 1 tablet PO DAILY PRN (Reason: cold symptoms) Mucinex DM 30-600 mg tablet extended release 12 hr 1 tablet PO HS PRN (Reason: cough) Systane Hydration (PF) 0.4-0.3 % dropperette 1 drp EACH EYE Q6H Lumify 0.025 % drops 1 drp EACH EYE DAILY PRN (Reason: dry eye(s)) Curcumin 500 mg PO DAILY resveratrol 250 mg capsule 222 mg PO DAILY Azo Cranberry 250 mg tablet,chewable 250 mg PO BID omega-3 fatty acids Capsule 1,000 mg PO BID womens bladder support PO BID Rx Instructions: 2 capsules BID critical slow release PO BID Rx Instructions: 2 tabs BID magnesium acetyl-taurate 45 mg PO DAILY fluticasone propionate 50 mcg/actuation spray,suspension See Rx Instructions .ROUTE .COMPLEX Qty: 48 1RF Dose Instruction: USE 2 SPRAYS IN EACH NOSTRIL ONCE DAILY Rx Instructions: USE 2 SPRAYS IN EACH NOSTRIL ONCE DAILY metformin 500 mg tablet See Rx Instructions .ROUTE .COMPLEX Qty: 180 1RF Dose Instruction: TAKE 1 TABLET BY MOUTH TWICE A DAY Rx Instructions: TAKE 1 TABLET BY MOUTH TWICE A DAY rosuvastatin 20 mg tablet See Rx Instructions .ROUTE .COMPLEX Qty: 45 1RF Dose Instruction: TAKE 1 TABLET BY MOUTH EVERY DAY Rx Instructions: TAKE 1 TABLET BY MOUTH EVERY OTHER DAY lorazepam 0.5 mg tablet 0.5 mg PO DAILY Qty: 30 0RF Date of admission: 05/22/24 17:58 Primary Care Provider: Tomas Romero Admitting Provider: Trace Mckinney Attending physician on admission: Ienz Shine Condition: Improved Quality VTE Prophylaxis VTE prophylaxis: pharmacologic ordered Hospitalist MIPS Heart Failure (Exclusion) Patient has history of Heart Transplant or Left Ventricular Assistive Device?: No IF YES, STOP HERE Heart Failure (Qualifier) Patient has current or prior documentation of LVEF less than or equal to 40%, or mod/servere depressed LVSF?: No IF NO, STOP HERE
== END 2024-05-24 15:24 | disposition home or self-care (01) | DRG 176 ==
LOC: ANHED 14:36 → ANH2MED 15:58
PROVIDERS: Internal Medicine; Nurse Practitioner Gerontology; Student in an Organized Health Care Education/Training Program; Admitting Provider General Practice; Emergency Provider Emergency Medicine; PCP Internal Medicine; Visit Provider Nurse Practitioner
DX: I26.99 Other pulmonary embolism without acute cor pulmonale (principal); E78.5 Hyperlipidemia, unspecified; K76.0 Fatty (change of) liver, not elsewhere classified; E11.9 Type 2 diabetes mellitus without complications; M54.59 Other low back pain; M85.80 Other specified disorders of bone density and structure, unspecified site; N32.89 Other specified disorders of bladder; F41.9 Anxiety disorder, unspecified; F32.A Depression, unspecified; Z20.822 Contact with and (suspected) exposure to COVID-19; Z86.0101 Personal history of adenomatous and serrated colon polyps; Z79.899 Other long term (current) drug therapy; Z80.0 Family history of malignant neoplasm of digestive organs
CPT/HCPCS: 36415; 71275; 74018; 80048; 80053; 82948; 83880; 85025; 85027; 85730; 87637; 93005; 93306; 93970; 96374; 99291; A9270; G0378; J1644; Q9967

== ENCOUNTER 2024-05-30 15:29 | Outpatient (CLI) | payer OTHER, SELFPAY ==
--- OUTSIDE RECORDS SUMMARY | 2024-05-30 16:59 | XMS_ITS | Clinical Summary ---
Author Organization [facility] Address [address] [place] [address] Care Team Providers Care Associate Professor Of Radiology Name Role Phone Tomas Romero MD Primary Care Provider [phone] Source Comments [facility],non-owned Affiliates and Associated Physician Practices is amultiple site organization consisting of ambulatory clinics and hospital sitesin [place], [place], [place] and [place]. This disclosure is being madepursuant to the Care Everywhere program and may not contain all information available regarding this patient. Last updated 17.[facility] [employer] Allergies Active Allergy Reactions Criticality Noted Date Comments Alendronate Sodium Nausea and/or Vomiting 05/29 Naproxen GI Discomfort 05/31/2017 Mireya-D Itching,Unknown,Fever 05/10/2024 Augmentin Nausea and/or Vomiting,Dizziness,Feve r 05/10/2024 Dapagliflozin Other,GI Discomfort,Neuropathy High 05/10/2024 Lower [...] 3 times daily 22 g 05/10/2024 Active amoxicillin (Amoxil) 500 MG capsule Take 1 (one) capsule by mouth pre-Procedure once Active apixaban (Eliquis) 5 MG tablet Take 2 (two) tablets by mouth 2 times daily Active Phenazopyridine HCl 99.5 MG TABS 5 [...] capsules before dental procedure 4 capsule 05/01/2024 5 Active Problems Problem Noted Date Diagnosed Date [...] weeks. Assessment & Plan (03/29/2019 9:52 PM COMMERCIAL FINANCE MANAGER): Poorly controlled at present, mostly due to [...] 05/10/2024 Assessment & Plan (03/29/2019 9:51 PM COMMERCIAL FINANCE MANAGER): A1c up slightly. Still in pre-diabetes stage. Continue to monitor Major depressive disorder, single episode 07/30/2016 09/01/2019 Encounters Date Type Department Care Team Description 05/30/2024 Telephone [facility] - ENT [facility] [place] [phone] Kym Cobb, RN Update (Does not want to schedule surgery) 05/29/2024 10:45 AM CDT Office Visit [facility] - ENT [address] , [address] [phone] Enrique Fontanez MD Nasal valve collapse (Primary Dx) 05/10/2024 1:45 PM CDT Office Visit [facility] - ENT [facility] [place] [phone] Nazanin Shetty MD Nasal obstruction (Primary Dx); Post-nasal drip; Facial pain; Nasal congestion; Nasal valve collapse 05/10/2024 Travel 05/01/2024 Refill [facility] - Orthopedic Surgery [address] [place] [phone] Paco Meléndez MD MEDICATION REFILL 04/07/2024 Travel from Last 3 Months Immunizations Name Administration Dates Next Due Covid Pfizer primary monoval ent 12+ yr 0.3mL Purple cap 05/17/2020,04/26/2020 INFLUENZA VACCINE, ADJUVANTE D, QUADR. (FLUAD QUADRIVALENT; 65Y+) (AIIV4) 01/03/2021 PNEUMOCOCCAL PPSV23 05/12/2016 Pneumococcal Pcv13 Conj 12/17/2017 TDAP (7yrs+) 10/02/2016 Family History Medical History Relation Name Comments Cancer - Breast Maternal Aunt Deirdre Mckinley She ronn vived it Macular Degeneration Maternal Aunt Deirdre Mckinley Glaucoma Neg Hx Relation Name Status Comments Maternal Aunt Deirdre Mckinely Social History Tobacco Use Types Packs/Day Years Used Date Smoking Tobacco: Never Smokeless Tobacco: Never Tobacco Cessation:Counseling Given: Not Answered Alcohol Use Standard Drinks/Week Comments No 0 (1 standard drink = 0.6 oz pur e alcohol) PHQ-2 Answer Date Recorded PHQ2 TOTAL SCORE 0 07/17/2020 Sex and Gender Information Value Date Recorded Sex Assigned at Not on file Gender Identity Not on file Sexual Orientation Not on file Last Filed Vital Signs Vital Sign Reading Time Taken Comments Blood Pressure 138/85 05/29/2024 10:56 AM CDT Pulse 88 05/29/2024 10:56 AM CDT Temperature 37.1 C (98.8 F) 07/17/2020 10:32 AM CDT Respiratory Rate 12 01/16/2020 4:21 PM COMMERCIAL FINANCE MANAGER Oxygen Saturation 95% 07/17/2020 10:34 AM CDT Inhaled Oxygen Concentration - - Weight 63.5 kg (140 lb) 05/29/2024 10:56 AM CDT Height 157.5 cm (5' 2 ) 05/29/2024 10:56 AM CDT Body Mass Index 25.61 05/29/2024 10:56 AM CDT Plan of Treatment Upcoming Encounters Date Type Department Care Team (Late st Contact Info) Description 06/28/2024 1:30 PM CDT Office Visit [facility] - Ophthalmology [address] [place] [phone] Susan Flores MD [address] [place] [address] [place] [address] Health Maintenance Due Date Last Done Comments [...] VACCINE ( season) 2023 11/16/2020, 05/17/2020, 04/26/2020 DEPRESSION SCREENING 03/01/2024 COLON MONITORING 08/22/2024 08/23/2019, 01/2014 (Done Outside Per Report) Colorectal Cancer Screening 08/22/2024 INFLUENZA VACCINE (Season Ended) 2024 01/03/2021 Respiratory Syncytial Virus (RSV) Vaccine Pt: or [...] Note: Interventions: Medical Devices Implanted Type Area Warehouse Loader Device Identifier Shelf Expiration Date Model / Serial / Lot Shell Actb 52mm Hip 3 Hl Poly R3 Std Implanted:Qty: 1 on 06/17/2017 by Paco Meléndez MD at [facility] Left: Hip [employer] 12/02/2026 [id number] / / [id number] Screw 6.5mm 45mm Actb Sphrcl Head Reflc Implanted:Qty: 1 on 06/17/2017 by Paco Meléndez MD at [facility] Left: Hip [employer] 08/19/2026 [id number] / / [id number] Liner Actb R3 0d 52mm 36mm Xlpe Hip Flxb Implanted:Qty: 1 on 06/17/2017 by Paco Meléndez MD at [facility] Left: Hip [employer] 08/01/2026 [id number] / / [id number] Polarstem Size 3 Stem Implanted:Qty: 1 on 06/17/2017 by Paco Meléndez MD at [facility] Left: Hip 02/11/2024 [id number] / / [id number] Head Fem +4mm 12/14 36mm Hip Tpr Oxnm Implanted:Qty: 1 on 06/17/2017 by Paco Meléndez MD at [facility] Left: Hip [employer] 10/11/2026 [id number] / / [id number] Mata Uncem Hip All Inclusive Implanted:Qty: 1 on 06/17/2017 by Paco Meléndez MD at [facility] [employer] BILL ONLY UNCEM HIP ALL INCLUSIVE SNORTH / / Procedures Procedure Name Priority Date/Time Associated Diagnosis Comments NE NASAL ENDOSCOPY,DX Routine 05/10/2024 1:51 PM CDT [...] Recently Relevant to Health Maintenance Results * NE NASAL ENDOSCOPY,DX (05/10/2024 1:51 PM CDT) Narrative [...] participate in the care of your patient. [facility] utilizes [employer] as a reminder system to notify patients of their next recommended mammogram. > Interpreting Provider: Alsysa Sosa MD on 10/14/2023 12:58 PM Narrative [...] BLOOD SPECIMEN / Unknown 07/17/2020 Flaco Burrell INDUSTRIAL ECONOMICS PROFESSOR-[facility] - POINT OF CARE ORDERABLES * COLONOSCOPY (08/23/2019) Historical Provider MD SCANNING ONLY * (ABNORMAL) COLOGUARD TEST (08/02/2019 9:37 AM CDT) Cologuard Positive (A) Not Applicable [facility] Comment: It is recommended that a [...] both Cologuard and colonoscopy. (Table 3, Mira Bautista al, N Engl J Med 2014;370(14):3788-3238.) The normal value (reference range) for this [...] interval of every 3 years by the [place] [employer] and U.S. Multi-Society Task Force. [...] can be accessed at the following location: www.Meshify/results. Additional description of the Cologuard test process, warnings and precautions can be found at [email or web address].com. Rx only. Stool specimen (specimen) STOOL SPECIMEN / Unknown 08/02/2019 9:37 AM CDT 08/03/2019 3:38 PM CDT Mart Fink MD LAB - CHEMISTRY TAYA JEAN [facility] [address] [place] [address] [place] [id number] [facility] [address] [place] [address]. [place] [address] * DEXA BONE DENSITY AXIAL SKELETON (12/27/2017 10:59 AM CDT) Anatomical Region Laterality Modality Mammography 12/27/2017 9:4 3 AM CDT Narrative 12/27/2017 10:44 AM CDT Examination: Dual energy x-ray absorptiometry of the lumbar spine and hip. Clinical Indication: M85.80: Osteopenia, unspecified location Findings: No prior study is available for comparison at the time of this dictation. Detailed data from the exam is sent separately to the ordering physician and is also available on [employer], the Radiology Department's computerized picture archive system. [...] . Procedure Note Paco Herndon, DO - 10/29/2018 Examination: Dual energy x-ray absorptiometry of the lumbar spine andhip. Clinical Indication: M85.80: Osteopenia, unspecified location Findings: No prior study is available for comparison at the time of this dictation. Detailed data from the exam is sent separately to the ordering physician and is also available on [employer], the Radiology Department'e-Go aeroplanes picture archive system. Patient's height 62 in; [...] Recently Relevant to Health Maintenance Care Teams Associate Professor Of Radiology Relationship Specialty Start Date End Date Tomas Romero MD [address] [place] [phone] PCP - General Internal Medicine 11/13/20
--- OUTSIDE RECORDS SUMMARY | 2024-05-30 16:59 | XMS_ITS | Encounter Summary ---
Author Organization [facility] Health Address [address] [place] [address] Care Team Providers Care Acetylene Operator Name Role Phone Mart Fink MD Primary Care Provider [phone] Mena Butcher MD Primary Care Provider [phone] Flaco Burrell DRAFTER ELECTROMECHANICAL-LOGISTICS MANAGER Primary Care Provi good Tomas Romero MD Primary Care Provider [phone] Encounter Details Date Type Department Care Team (Late st Contact Info) Description 05/15/2020 Telephone [facility] [address] [place] [address] Mena Butcher MD [address] [address] Social History Tobacco Use Types Packs/Day Years [...] a sooner appt? Patient Call Back number: [phone] documented in this encounter Plan of Treatment Upcoming Encounters Date Type Department Care Team (Late st Contact Info) Description 06/28/2024 1:30 PM CDT Office Visit [facility] - Ophthalmology [address] [facility], [place] [address] [place] [address] [place] [address] [place] [id number] documented as of this encounter Goals Goal Patient Goal Type Associated Problems Recent Progress Patient-Stated? Author Medication Management General No Radha Wall, RN Note: Interventions: documented as of this encounter Visit Diagnoses Not on filedocumented in this encounter Care Teams Acetylene Operator Relationship Specialty Start Date End Date Mart Fink MD [address] [address] [place] [id number] PCP - General Family Medicine 05/25/17 06/27/20 Mena Butcher MD [address] [place] [address] PCP - General 06/28/20 08/01/20 Flaco Burrell, DRAFTER ELECTROMECHANICAL-LOGISTICS MANAGER [address] [facility] [address] [place] [address] PCP - General Nurse Practitioner Family 08/02/2010/30 Tomas Romero MD [address] [facility] [address] [place] [address] PCP - General Internal Medicine 11/13/20 documented as of this encounter
--- OUTSIDE RECORDS SUMMARY | 2024-05-30 16:59 | XMS_ITS | Encounter Summary ---
Author Organization [facility] Address [address] [place] [address] Care Team Providers Care Turbine Room Attendant Name Role Phone Rubin Lehman MD Primary Care Provider Jose powers Encounter Details Date Type Department Care Team (Late st Contact Info) Description 02/23/2007 Outpatient Historical [facility] Primary Care - [address] [place] [address] Chu Reddy MD [address] [facility] [address] [place] [address] Social History Tobacco Use Types Packs/Day Years Used Date Smoking Tobacco: Never Assessed Comments Unknown Sex and Gender Information Value Date Recorded Sex Assigned at Not on file Legal Sex Female 3:22 AM CAN PUSHER Gender Identity Not on file Sexual Orientation Not on file documented as of this encounter Plan of Treatment Not on file documented as of this encounter Visit Diagnoses Not on filedocumented in this encounter Care Teams Turbine Room Attendant Relationship Specialty Start Date End Date Rubin Lehman MD PCP - General Internal Medicine 09/03/10 05/08/17 documented as of this encounter
--- OUTSIDE RECORDS SUMMARY | 2024-05-30 16:59 | XMS_ITS | Encounter Summary ---
Author Organization [facility] Address [address] [facility] [place] [address] Care Team Providers Care Community Planning Technician Name Role Phone Mart Fink MD Primary Care Provider [phone] Mena Butcher MD Primary Care Provider [phone] Flaco Burrell ESTHETICIAN AND MANAGER MEDICAL SPA-FACILITY ASSISTANT Primary Care Provi good Tomas Romero MD Primary Care Provider [phone] Encounter Details Date Type Department Care Team (Late st Contact Info) Description 08/10/2019 Telephone [facility] [address] [place] [address] Mart Fink MD [address] [facility] [address] [place] [address] Social History Tobacco Use Types Packs/Day Years [...] Description 06/28/2024 1:30 PM CDT Office Visit [facility] - Ophthalmology [address] [facility] [place] [address] Susan Flores MD [facility] [facility] [place] [address] documented as of this encounter Goals Goal Patient Goal Type Associated Problems Recent Progress Patient-Stated? Author Medication Management General No Radha Wall, RN Note: Interventions: documented as of this encounter Visit Diagnoses Not on filedocumented in this encounter Care Teams Community Planning Technician Relationship Specialty Start Date End Date Mart Fink MD [address] [facility] [address] [place] [address] PCP - General Family Medicine 05/25/17 06/27/20 Mena Butcher MD [address] [place] [address] PCP - General 06/28/20 08/01/20 Flaco Burrell, ESTHETICIAN AND MANAGER MEDICAL SPA-FACILITY ASSISTANT [address] [facility] [address] [place] [address] PCP - General Nurse Practitioner Family 08/02/2010/30 Tomas Romero MD [address] [place] [address] PCP - General Internal Medicine 11/13/20 documented as of this encounter
--- OUTSIDE RECORDS SUMMARY | 2024-05-30 16:59 | XMS_ITS | Clinical Summary ---
Author Organization [facility] Address [address] [place] [address] Care Team Providers Care Associate Professor Of Communication Name Role Phone Unavailable Primary Care Provider [...] on file Legal Sex Female 3:22 AM MEDIA THEORIST AND AUTHOR OF Gender Identity Not on file Sexual Orientation Not on file Occupation Industry Job Start Date Job End Date Not on file Not on file Not on file Not on file Last Filed Vital Signs Vital Sign Reading Time Taken Comments Blood Pressure 100/70 04/25/2015 2:31 PM MEDIA THEORIST AND AUTHOR OF Pulse - - Temperature 37.2 C (99 F) 03/26/2014 2:42 PM MEDIA THEORIST AND AUTHOR OF Respiratory Rate - - Oxygen Saturation - - Inhaled Oxygen Concentration - - Weight 76.2 kg (168 lb) 04/25/2015 2:31 PM MEDIA THEORIST AND AUTHOR OF Height 157.5 cm (5' 2 ) 04/25/2015 2:31 PM MEDIA THEORIST AND AUTHOR OF Body Mass Index 30.73 04/25/2015 2:31 PM MEDIA THEORIST AND AUTHOR OF Plan of Treatment Health Maintenance Due Date [...] Advance Directives For more information, please contact: [phone] Documents on File Type Date Recorded Patient Special Service Officer Expl 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
--- OUTSIDE RECORDS SUMMARY | 2024-05-30 16:59 | XMS_ITS | Encounter Summary ---
Author Organization [facility] Address [address] [place] [address] Care Team Providers Care Magnetic Locater Name Role Phone Rubin Lehman MD Primary Care Provider Jose powers Encounter Details Date Type Department Care Team (Late st Contact Info) Description 03/09/2007 Orders Only [facility] Primary Care - [address] [place] [address] Chu Reddy MD [address] [facility] [address] [place], [place] [id number] Social History Tobacco Use Types Packs/Day Years Used Date Smoking Tobacco: Never Assessed Comments Unknown Sex and Gender Information Value Date Recorded Sex Assigned at Not on file Legal Sex Female 3:22 AM MASTER OF CEREMONIES Gender Identity Not on file Sexual Orientation [...] identified on exam. LAB ORDERS: Order number: [id number] Test Ordered: COMPREHENSIVE METABOLIC PANEL 82533 Order number: [id number] Test Ordered: TSH W/REFLEX TO FT4 91731 Order number: [id number] Test Ordered: LIPID PANEL 7600 HEALTH MAINTENANCE: [...] on filedocumented in this encounter Care Teams Magnetic Locater Relationship Specialty Start Date End Date Rubin Lehman MD PCP - General Internal Medicine 09/03/10 05/08/17 documented as of this encounter
--- OUTSIDE RECORDS SUMMARY | 2024-05-30 16:59 | XMS_ITS | Encounter Summary ---
Author Organization [facility] Health Address [address] [facility] [place] [address] Care Team Providers Care Respiratory Therapy Instructor Name Role Phone Tomas Romero MD Primary Care Provider [phone] Reason for Visit * Reason Onset Date Comments Update 05/30/2024 Does not want to schedule surgery Encounter Details Date Type Department Care Team (Late st Contact Info) Description 05/30/2024 Telephone [facility] - ENT [address] [place] [address] Kym Cobb, RN Update (Does not want to schedule surgery) Social History Tobacco Use Types Packs/Day Years [...] on file documented as of this encounter Miscellaneous Notes * Telephone Encounter - Kym Cobb, RN - 05/30/2024 12:16 PM CDT Pt leaves message on [facility] nurse line: Does not want to schedule surgery now, thank you. Do not send information to insurance company. documented in this encounter Plan of Treatment Upcoming Encounters Date Type Department Care Team (Late st Contact Info) Description 06/28/2024 1:30 PM CDT Office Visit [facility] - Ophthalmology [facility] [facility], [place] [address] Susan Flores MD [address] [place] [address] [place] [address] documented as of this encounter Goals Goal Patient Goal Type Associated Problems Recent Progress Patient-Stated? Author Medication Management General No Radha Wall, RN Note: Interventions: documented as of this encounter Visit Diagnoses Not on filedocumented in this encounter Care Teams Respiratory Therapy Instructor Relationship Specialty Start Date End Date Tomas Romero MD [address] [facility] [address] [place] [address] PCP - General Internal Medicine 11/13/20 documented as of this encounter
--- OUTSIDE RECORDS SUMMARY | 2024-05-30 16:59 | XMS_ITS | Continuity of Care Document ---
Author Organization [facility] Address [address] [place] [address] [address] [place] [address] Phone Care Team Providers Care Airbrush Painter Name Role Phone Tessa PT, DPT, Noemi Unavailable Unavaila ble Procedures Procedure Date PT Re-evaluation Manual Therapy Therapeutic Activities Therapeutic Activities Neuromuscular Re-Ed Progress Note Manual Therapy Therapeutic Activities Therapeutic Exercise Neuromuscular Re-Ed Therapeutic Activities Neuromuscular Re-Ed Progress Note Therapeutic Exercise Manual Therapy Neuromuscular Re-Ed Therapeutic Exercise Therapeutic Exercise Neuromuscular Re-Ed Manual Therapy Therapeutic Activities Manual Therapy Neuromuscular Re-Ed Therapeutic Exercise Manual Therapy Neuromuscular Re-Ed Therapeutic Activities PT Evaluation Moderate Complexity Manual Therapy Therapeutic Activities Therapeutic Exercise Therapeutic Exercise Neuromuscular [...] Diagnoses Date Provider Providers Copied on Encounter [facility] [address], [place], [place], [id number], tel:[phone] Tk No Information 1 Zarate Noemi. . Referring Provider: Courtney Abreu [address] [place] [address] [address], [place], [address]. tel:[phone] [facility] [address], [place], [place], [id number], tel:[phone] [place] No Information 1 Zarate Noemi. . Referring Provider: Michelle Curry [facility] [address], [place], [address]. tel:[phone] [facility] [address], [place], [place], [address], tel:[phone] [place] No Information 1 Zarate Noemi. . Referring Provider: Michelle Curry [facility] [address], [place], [address]. tel:[phone] [facility] [address], [place], [place], [id number], tel:[phone] Tk No Information 1 Zarate Noemi. . Referring Provider: Michelle Curry [facility] [address], [place], [address]. tel:[phone] [facility] [address], [place], [place], [id number], [place] tel:[phone] Tk No Information 1 Zarate Noemi. . Referring Provider: Courtney Abreu [address] [place] [address] [address], [place], [address]. tel:[phone] [facility], [address], [place], [place], [id number], [place] tel:[phone] [place] No Information 1 Zarate Noemi. . Referring Provider: Courtney Abreu, [address] [place] [address] [address], [place], [address]. tel:[phone] [facility], [address], [place], [place], [id number], [place] tel:[phone] Tk No Information 1 Zarate Noemi. . Referring Provider: Courtney Abreu [address] [place] [address] [address], [place], [address]. tel:[phone] [facility], [address], [place], [place], [id number], [place] tel:[phone] [place] No Information 1 Zarate Noemi. . Referring Provider: Courtney Abreu [address] [place] [address] [address], [place], [address]. tel:[phone] [facility] [address], [place], [place], [address], [place] tel:[phone] Tk No Information 1 Zarate Noemi. . Referring Provider: Courtney Abreu [address] [place] [address] [address], [place], [address]. tel:[phone] [facility], [place], [place], [id number], [place] tel:[phone] [place] No Information 8 José Miguel Yates. . Referring Provider: Mart Fink, [address] [facility] [address], [place], [address]. tel:[phone], [id number], tel:[phone] [place] No Information 8 Simon Roberto. [address] [place] [address], [address] [place] [address], [facility], . tel:[phone] Referring Provider: Mart Fink, [address] [place] [address], [facility]. tel:[phone], [id number], tel:[phone] [place] No Information 8 José Miguel Yates. . Referring Provider: Mart Fink, [address] [place] [address], [facility]. tel:[phone], [id number], tel:[phone] [place] Low back painPain in right hipStiffness of unspecified joint, not elsewhere classifiedSti ffness of left hip, not elsewhere classifiedMus lindy weakness (generalized) 8 Simon Roberto. [address] [place] [address], [address], [place], [facility], . tel:[phone] Referring Provider: Mart Fink, [facility] [facility] [address] [place] [address], [facility]. tel:[phone] Family History Family Member Type Diagnosis Age At Onset No Information Payers Payer name Insurance type Covered constitution party ID Authorbrendaa ambersivan(s) [facility] Medicare Complete 16 [id number] Social History Type Description Quantity Date Captured [...]
--- OUTSIDE RECORDS SUMMARY | 2024-05-30 16:59 | XMS_ITS | Encounter Summary ---
Author Organization [facility] Health Address [address] [place] [address] Care Team Providers Care Tin Assorter Name Role Phone Tomas Romero MD Primary Care Provider [phone] Reason for Visit * Reason Comments Establish Care Nose Problem Encounter Details Date Type Department Care Team (Late st Contact Info) Description 05/29/2024 10:45 AM CDT Office Visit [facility] - ENT [address], [facility] [address] [place] [address] Enrique Fontanez MD [address] [facility] [address] [place] [address] Nasal valve collapse (Primary Dx) Social History Tobacco Use Types Packs/Day Years [...] on file documented as of this encounter Last Filed Vital Signs Vital Sign Reading Time Taken Comments Blood Pressure 138/85 05/29/2024 10:56 AM CDT Pulse 88 05/29/2024 10:56 AM CDT Temperature - - Respiratory Rate - - Oxygen Saturation - - Inhaled Oxygen Concentration - - Weight 63.5 kg (140 lb) 05/29/2024 10:56 AM CDT Height 157.5 cm (5' 2 ) 05/29/2024 10:56 AM CDT Body Mass Index 25.61 05/29/2024 10:56 AM CDT documented in this encounter Patient Instructions * Patient Instructions* Tejal Us - 05/29/2024 10:56 AM CDT Thank you for visiting [facility] Otolaryngology - Head & Neck Surgery. We appreciate your confidence in allowing us to participate in your health care. You may receive a survey about your visit with us today. Making our patients happy isn???t just happy talk; it???s ourmission. Please tell us if we made the right impression on you- and how we can serve you better. Please SAVE the information below, it will assist you when it???s time for you to contact us. To MAKE - CHANGE - CANCEL an office appointment If you become ill, need to be seen before your next scheduled appointment, or need to cancel or reschedule an appointment, please call our office at [phone] Wednesday through Wednesday from 8:30 am to4:30 pm. You can also request a routine appointment through your [employer] account. Prescription Refills Contact your pharmacy to request all refills. The pharmacy will need to fax the request to us at . Please allow a minimum of 48-72 hours for your prescription to be completed. Your pharmacy will notify you when your prescription is ready to be picked up. Medical Emergency / After Hours Contact Information If you have a medical emergency, please call 911 or go to the nearest emergency room. For urgent medical calls, which cannot wait until the office opens, please call the medical exchange at and ask the cracking machine operator to page the ENT physician bullion weigher. *Caller ID blocking service will need to be turned off for your call to be returned. We also specialize in Hearing Aids, Allergy testing, swallowing disorders, voice problems, cancer diagnosis, and so much more. Visit our website at [email or web address] for information about our practice and an interactive health encyclopedia. documented in this encounter Progress Notes * Enrique Fontanez MD - 05/29/2024 11:28 AM CDT History of Present Illness: 73 year old who presents with nasal airway complaints . She is referred by Dr. Shetty. She recently went to [facility] for shortness of breath and was diagnosed with a blood clotin her lungs . Prior to this she had calf pain for 3 months. Now she is started on Eliquis and willbe on this for 3 months The patient describes symptoms as difficulty breathing and inability to move enough air through thenose, nasal collapse . Symptoms present for 5 years. Symptoms are progressively getting worse with time. The patient currently uses Flonase without benefit The nasal symptoms are worse on the- Codominant The degree of symptom severity: severe The patient's symptoms are alleviated by certain factors- yes, pulling her nostril skin outward The patient's symptoms are exacerbated by certain factors- no The patient has history of nasal trauma- no The patient has history of nasal or sinus surgery- no The patient has history of nasal steroid use- yes, Flonase not helpful The patient desires cosmetic changes- no The patient is undergoing allergy immunotherapy- no The patient uses nicotine- no. 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 Current Outpatient Medications Medication Sig Dispense Refill amoxicillin (Amoxil) 500 MG capsule Take 1 (one) capsule by mouth pre-Procedure once apixaban (Eliquis) 5 MG tablet Take 2 (two) tablets by mouth 2 times daily Blood Glucose Monitoring Suppl (ONE TOUCH ULTRA 2) w/Device KIT CHECK BLOOD SUGAR ONCE PER DAY famotidine (Pepcid) 40 MG tablet Take 1 (one) tablet by mouth once daily FLUoxetine (PROZAC) 20 MG capsule Take 1 (one) capsule by mouth once daily fluticasone propionate (FLONASE) 50 MCG/ACT nasal spray USE 2 SPRAYS IN EACH NOSTRIL ONCE DAILY Lancets (BrightEdgeTOUCH DELICA PLUS 33G EXTRA FINE LANCET) CHECK BLOOD SUGAR ONCE PER DAY LORazepam (ATIVAN) 0.5 MG tablet Take 0.5 (one-half) tablet by mouth every 8 hours as needed for Anxiety metFORMIN (GLUCOPHAGE) 500 MG tablet Take 1 (one) tablet by mouth 2 times daily with morning and evening meal 180 tablet 4 mupirocin (Bactroban) 2 % ointment Apply to affected area 3 times daily 22 g 0 BrightEdgeTOUCH ULTRA test strip CHECK BLOOD SUGAR ONCE PER DAY rosuvastatin (CRESTOR) 20 MG tablet Take 1 (one) tablet by mouth once daily tretinoin (Retin-A) 0.05 % cream Apply to affected area at bedtime No current facility-administered medications for this visit. Allergies Tramadol, Aleve [naproxen], Augmentin, Hydrocodone, Farxiga [dapagliflozin], Alendronate sodium, Mireya-d, and Nasacort [triamcinolone] Social History Tobacco Use Smoking status: Never Smokeless tobacco: Never Vaping Use Vaping status: Never Used Substance Use Topics Alcohol use: No Drug use: No Family History Problem Relation Name Age of Onset Cancer - Breast Maternal Aunt Deirdre Mckinley She survived it Macular Degeneration Maternal Aunt Deirdre Mckinley Glaucoma Neg Hx Physical Exam: Constitutional: Alert, No acute Distress; Well developed/well nourished Neuro: Facial sensation intact to light touch, facial expressions symmetrical Eyes: conjunctiva clear Face/Skin: normal appearance, no lesions/masses Ears: Right: External auricle normal Left: External auricle normal Nose: External- No external skin lesions, nasal dorsum is straight, midvault is straight, nasal tip is straight Internal- Nasal septum is mostly straight, inferior turbinates enlarged, external nasal valve collapse improved with Michael and Modified Holt Mouth: symmetric tongue mobility, no lesions/masses/ulcers Neck: supple, no lymphadenopathy, no masses Voice: strong MusculoSkeletal: moves all extremities well Pulm: Breathing comfortably on room air. Extremities warm to palpation. CV: Extremities warm to palpation. I have personally reviewed Dr. Shetty's notes, he prescribed Mupirocin cream 05/10 for left nostril crusting, she says she used as directed for 1 week and it has resolved Assessment and Plan: The patient is a 73 year old female who presents today with complaints relating to the nasal airway. Nasal valve collapse- On exam, the patient has at least 50% obstruction of the right nasal cavity and at least 75% obstruction of the left nasal cavity. The patient's history of nasal valve collapse has resulted in significant anatomic setbacks causing poor nasal function. These static anatomic deformities are not expected to resolve with medications. We discussed the options of medical management and surgical management We discussed surgical treatment in the form of open nasal valve repair. The surgery would involve asmall internal nasal skin incision which has a risk for scarring. In addition to risks of bleeding,infection, pain, there will be postoperative nasal swelling and periorbital swelling, risk for dissatisfaction with the aesthetic appearance of the nose, asymmetry, persistent nasal airway obstruction. Any aesthetic changes to make the nose smaller may result in worse nasal breathing. Any grafts placed into the nose has the potential to make the nose appear bigger. There will be need for harvesting auricular cartilage to use for grafts inside the nose. This would require a postoperative dressing on the ear, slight change in ear position, ear asymmetry, and a potential scar. Plan: -Patient chooses surgery over medical management -Photos taken, orders submitted -Will schedule for August or later, she will be on Eliquis for at least 3 months starting in April Enrique Fontanez MD Community Support Associate Facial Plastic and Reconstructive Surgery Otolaryngology- Head and Neck Surgery documented in this encounter Plan of Treatment Upcoming Encounters Date Type Department Care Team (Late st Contact Info) Description 06/28/2024 1:30 PM CDT Office Visit [facility] - Ophthalmology [address] [place] [address] Susan Flores MD [address] [place] [address] [place] [address] documented as of this encounter Goals Goal Patient Goal Type Associated Problems Recent Progress Patient-Stated? Author Medication Management General No Radha Wall RN Note: Interventions: documented as of this encounter Visit Diagnoses Diagnosis Nasal valve collapse- Primary Other diseases of nasal cavity and sinuses documented in this encounter Care Teams Tin Assorter Relationship Specialty Start Date End Date Tomas Romero MD [address] [facility] [address] [facility] [address] [place] [address] PCP - General Internal Medicine 11/13/20 documented as of this encounter
--- OUTSIDE RECORDS SUMMARY | 2024-05-30 16:59 | XMS_ITS | Encounter Summary ---
Author Organization [facility] Address 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
== END 2024-05-30 15:30 | disposition home or self-care (01) ==
PROVIDERS: PCP Internal Medicine; Visit Provider Internal Medicine
DX: I26.99 Other pulmonary embolism without acute cor pulmonale (principal)
CPT/HCPCS: 36415; 85300; 86146

== ENCOUNTER 2024-05-31 14:56 | Outpatient (CLI) | payer OTHER, SELFPAY ==
--- OUTSIDE RECORDS SUMMARY | 2024-05-31 16:19 | XMS_ITS | Encounter Summary ---
Author Organization [facility] Address 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
--- OUTSIDE RECORDS SUMMARY | 2024-05-31 16:19 | XMS_ITS | Continuity of Care Document ---
Author Organization [facility] Address [address] [place] [address] [address] [place] [address] Phone Care Team Providers Care Marketing Support Assistant Name Role Phone Tessa PT, DPT, Noemi Unavailable Unavaila ble Procedures Procedure Date Manual Therapy Therapeutic Activities PT Re-evaluation Progress Note Neuromuscular Re-Ed Therapeutic Activities Manual Therapy Therapeutic Activities Therapeutic Exercise Neuromuscular Re-Ed Progress Note Neuromuscular Re-Ed Therapeutic Activities Therapeutic Exercise Therapeutic Exercise Manual Therapy Neuromuscular Re-Ed Neuromuscular Re-Ed Manual Therapy Therapeutic Exercise Therapeutic Activities Therapeutic Exercise Neuromuscular Re-Ed Manual Therapy Therapeutic Activities Neuromuscular Re-Ed Manual Therapy Therapeutic Activities Therapeutic Exercise PT Evaluation Moderate Complexity Manual Therapy Therapeutic Exercise Neuromuscular Re-Ed Manual Therapy Hot or Cold Pack Therapeutic Exercise Manual Therapy Hot or Cold Pack Therapeutic Exercise Neuromuscular Re-Ed Manual Therapy Hot or Cold Pack PT Evaluation Moderate Complexity Therapeutic Exercise Neuromuscular Re-Ed Advance Directives Directive Yes / No Effective Date File Name No Information Encounters Encounter Description Practice Location Reason(s) For Visit Diagnoses Date Provider Providers Copied on Encounter [facility] [address], [place], [place], [id number], tel:[phone] Tk No Information 1 Zarate Noemi. . Referring Provider: Courtney bAreu [address] [place] [address] [address], [place], [address]. tel:[phone] [facility] [address], [place], [place], [id number], tel:[phone] [place] No Information 1 Zarate Noemi. . Referring Provider: Michelle Curry [facility] [address], [place], [address]. tel:[phone] [facility] [address], [place], [place], [id number], tel:[phone] [place] No Information 1 Zarate Noemi. . Referring Provider: Michelle Curry [facility] [address], [place], [address]. tel:[phone] [facility] [address], [place], [place], [id number], tel:[phone] Tk No Information 1 Zarate Noemi. . Referring Provider: Michelle Curry [facility] [address], [place], [address]. tel:[phone] [facility] [address], [place], [place], [id number], [place] tel:[phone] [place] No Information 1 Zarate Noemi. . Referring Provider: Courtney Abreu [address] [place] [address] [address], [place], [address]. tel:[phone] [facility], [address], [place], [place], [id number], [place] tel:[phone] [place] No Information 1 Zarate Noemi. . Referring Provider: Courtney Abreu, [address] [place] [address] [address], [place], [address]. tel:[phone] [facility], [address], [place], [place], [id number], [place] tel:[phone] T[place] No Information 1 Zarate Noemi. . Referring Provider: Courtney Abreu [address] [place] [address] [address], [place], [address]. tel:[phone] [facility], [address], [place], [place], [id number], [place] tel:[phone] [place] No Information 1 Zarate Noemi. . Referring Provider: Courtney Abreu [address] [place] [address] [address], [place], [address]. tel:[phone] [facility] [address], [place], [place], [id number], [place] tel:[phone] Tk No Information 1 Zarate Noemi. . Referring Provider: Courtney Abreu [address] [place] [address] [address], [place], [address]. tel:[phone] [facility], [place], [place], [id number], [place] tel:[phone] [place] No Information 8 José Miguel Yates. . Referring Provider: Mart Fink, [address] [facility] [address], [place], [address]. tel:[phone], [id number], tel:[phone] [place] No Information 8 Simon Roberto. [address] [place] [address], [address] [place] [address], [facility], . tel:[phone] Referring Provider: Mart Fink, [address] [place] [address], [facility]. tel:[phone], [id number], tel:[phone] [place] No Information 8 José Miguel Yates. . Referring Provider: Mart Fink, [address] [place] [address], [facility]. tel:[phone], [id number], tel:[phone] [place] Low back painPain in right hipStiffness of unspecified joint, not elsewhere classifiedSti ffness of left hip, not elsewhere classifiedMus lindy weakness (generalized) 8 Simon Roberto. [address] [place] [address], [address], [place], [facility], . tel:[phone] Referring Provider: Mart Fink, [facility] [address] [place] [address], [facility]. tel:[phone] Family History Family Member Type Diagnosis Age At Onset No Information Payers Payer name Insurance type Covered democrat ID Authorbrendaa ambersivan(s) [facility] Medicare Complete 16 [id number] Social History Type Description Quantity Date Captured [...]
--- OUTSIDE RECORDS SUMMARY | 2024-05-31 16:19 | XMS_ITS | Encounter Summary ---
Author Organization [facility] Address [address] [place] [address] Care Team Providers Care Payroll And Benefits Coordinator Name Role Phone Rubin Lehman MD Primary Care Provider Jose powers Encounter Details Date Type Department Care Team (Late st Contact Info) Description 02/23/2007 Outpatient Historical [facility] - [address] [place] [address] Chu Reddy MD [address] [facility] [address] [place] [address] Social History Tobacco Use Types Packs/Day Years Used Date Smoking Tobacco: Never Assessed Comments Unknown Sex and Gender Information Value Date Recorded Sex Assigned at Not on file 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
--- OUTSIDE RECORDS SUMMARY | 2024-05-31 16:19 | XMS_ITS | Clinical Summary ---
Author Organization [facility] Address [address] [place] [address] Care Team Providers Care Manager Publishing Name Role Phone Unavailable Primary Care Provider [...] on file Legal Sex Female 3:22 AM SOFTWARE SALES Gender Identity Not on file Sexual Orientation Not on file Occupation Industry Job Start Date Job End Date Not on file Not on file Not on file Not on file Last Filed Vital Signs Vital Sign Reading Time Taken Comments Blood Pressure 100/70 04/25/2015 2:31 PM SOFTWARE SALES Pulse - - Temperature 37.2 C (99 F) 03/26/2014 2:42 PM SOFTWARE SALES Respiratory Rate - - Oxygen Saturation - - Inhaled Oxygen Concentration - - Weight 76.2 kg (168 lb) 04/25/2015 2:31 PM SOFTWARE SALES Height 157.5 cm (5' 2 ) 04/25/2015 2:31 PM SOFTWARE SALES Body Mass Index 30.73 04/25/2015 2:31 PM SOFTWARE SALES Plan of Treatment Health Maintenance Due Date [...] Advance Directives For more information, please contact: [phone] Documents on File Type Date Recorded Patient Financial Associate Expl 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
--- OUTSIDE RECORDS SUMMARY | 2024-05-31 16:19 | XMS_ITS | Encounter Summary ---
Author Organization [facility] Health Address [address] [place] [address] Care Team Providers Care Hand Stitcher Name Role Phone Tomas Romero MD Primary Care Provider [phone] Reason for Visit * Reason Onset Date Comments Update 05/30/2024 Does not want to schedule surgery Encounter Details Date Type Department Care Team (Late st Contact Info) Description 05/30/2024 Telephone [facility] - ENT [address] [place] [address] Kym Cobb, RN Update (Does not [...] Office Visit [facility] - Ophthalmology [facility] [facility], [place] [address] Susan Flores MD [address] [place] [address] [place] [address] documented as of this encounter Goals Goal Patient Goal Type Associated Problems Recent Progress Patient-Stated? Author Medication Management General No Radha Wall, RN Note: Interventions: documented as of this encounter Visit Diagnoses Not on filedocumented in this encounter Care Teams Hand Stitcher Relationship Specialty Start Date End Date Tomas Romero MD [address] [facility] [address] [place] [address] PCP - General Internal Medicine 11/13/20 documented as of this encounter
--- OUTSIDE RECORDS SUMMARY | 2024-05-31 16:19 | XMS_ITS | Clinical Summary ---
Author Organization [facility] Address [address] [place] [address] Care Team Providers Care Psychiatric Clinical Nurse Specialist Name Role Phone Tomas Romero MD Primary Care Provider [phone] Source Comments [facility],non-owned Affiliates and Associated Physician Practices is amultiple site organization consisting of ambulatory clinics and hospital sitesin [place], [place], [place] and [place]. This disclosure is being madepursuant to the Care Everywhere program and may not contain all information available regarding this patient. Last updated 17.[facility] [employer] Allergies Active Allergy Reactions Criticality Noted Date [...] weeks. Assessment & Plan (03/29/2019 9:52 PM TEA TREE FARMER): Poorly controlled at present, mostly due to [...] 05/10/2024 Assessment & Plan (03/29/2019 9:51 PM TEA TREE FARMER): A1c up slightly. Still in pre-diabetes stage. Continue to monitor Major depressive disorder, single episode 07/30/2016 09/01/2019 Encounters Date Type Department Care Team Description 05/30/2024 Telephone [facility] - ENT [facility] [place] [address] Kym Cobb, RN Update (Does not want to schedule surgery) 05/29/2024 10:45 AM CDT Office Visit [facility] - ENT [address] , [address] [address] Enrique Fontanez MD Nasal valve collapse (Primary Dx) 05/10/2024 1:45 PM CDT Office Visit [facility] - ENT [facility] [place] [address] Nazanin Shetty MD Nasal obstruction (Primary Dx); Post-nasal drip; Facial pain; Nasal congestion; Nasal valve collapse 05/10/2024 Travel 05/01/2024 Refill [facility] - Orthopedic Surgery [address] [place] [phone] Paco Meléndez MD MEDICATION REFILL 04/07/2024 Travel [...] CDT Respiratory Rate 12 01/16/2020 4:21 PM TEA TREE FARMER Oxygen Saturation 95% 07/17/2020 10:34 AM CDT Inhaled Oxygen Concentration - - Weight 63.5 kg (140 lb) 05/29/2024 10:56 AM CDT Height 157.5 cm (5' 2 ) 05/29/2024 10:56 AM CDT Body Mass Index 25.61 05/29/2024 10:56 AM CDT Plan of Treatment Upcoming Encounters Date Type Department Care Team (Late st Contact Info) Description 06/28/2024 1:30 PM CDT Office Visit [facility] - Ophthalmology [address] [place] [address] Susan Flores MD [address] [place] [address] [place] [address] Health Maintenance Due Date Last Done Comments [...] Note: Interventions: Medical Devices Implanted Type Area Wedding Decorator Device Identifier Shelf Expiration Date Model / Serial / Lot Shell Actb 52mm Hip 3 Hl Poly R3 Std Implanted:Qty: 1 on 06/17/2017 by Paco Meléndez MD at [facility] Left: Hip [employer] 12/02/2026 [id number] / / [id number] Screw 6.5mm 45mm Actb Sphrcl Head Reflc Implanted:Qty: 1 on 06/17/2017 by Paco Meléndez MD at [facility] Left: Hip [employer] 08/19/2026 [id number] / / [id number] Liner Actb R3 0d 52mm 36mm Xlpe Hip Flxb Implanted:Qty: 1 on 06/17/2017 by Paco Meléndez MD at [facility] Left: Hip [employer] 08/01/2026 [id number] / / [id number] Polarstem Size 3 Stem Implanted:Qty: 1 on 06/17/2017 by Paco Meléndez MD at [facility] Left: Hip 02/11/2024 75 100 466 / / [id number] Head Fem +4mm 12/14 36mm Hip Tpr Oxnm Implanted:Qty: 1 on 06/17/2017 by Paco Meléndez MD at [facility] Left: Hip [employer] 10/11/2026 [id number] / / [id number] Mata Uncem Hip All Inclusive Implanted:Qty: 1 on 06/17/2017 by Paco Meléndez MD at [facility] [employer] BILL ONLY UNCEM HIP ALL INCLUSIVE SNORTH / / Procedures Procedure Name Priority Date/Time Associated Diagnosis Comments [place] NASAL ENDOSCOPY,DX Routine 05/10/2024 1:51 PM CDT [...] Recently Relevant to Health Maintenance Results * [place] NASAL ENDOSCOPY,DX (05/10/2024 1:51 PM CDT) Narrative [...] participate in the care of your patient. [facility] utilizes [employer] as a reminder system to notify patients [...] BLOOD SPECIMEN / Unknown 07/17/2020 Flaco Burrell DIRECTOR OF HEAD START-BURNISHER LAB - POINT OF CARE ORDERABLES * COLONOSCOPY (08/23/2019) Historical Provider MD SCANNING ONLY * (ABNORMAL) COLOGUARD TEST (08/02/2019 9:37 AM CDT) Cologuard Positive (A) Not Applicable [facility] Comment: It is recommended that a [...] Mira Bautista al, N Engl J Med 2014;370(14):9214-9489.) The normal value (reference range) for this [...] interval of every 3 years by the [place] Cancer Society and U.S. Multi-Society Task Force. [...] can be accessed at the following location: www.Life in Hi-[employer]/results. Additional description of the Cologuard test process, warnings and precautions can be found at www.cologuardtest.com. Rx only. Stool specimen (specimen) STOOL SPECIMEN / Unknown 08/02/2019 9:37 AM CDT 08/03/2019 3:38 PM CDT Mart Fink MD LAB - CHEMISTRY TAYA JEAN [facility] [address] [place] [address] [place] [address] [facility] [address] [place] [address]. [place] [address] * DEXA BONE DENSITY AXIAL SKELETON (12/27/2017 [...] ordering physician and is also available on [employer], the Radiology Department's computerized picture archive system. [...] ordering physician and is also available on [employer], the Radiology Department'[employer] picture archive system. Patient's height 62 in; [...] Recently Relevant to Health Maintenance Care Teams Psychiatric Clinical Nurse Specialist Relationship Specialty Start Date End Date Tomas Romero MD [address] [facility] [address] [place] [address] PCP - General Internal Medicine 11/13/20
--- OUTSIDE RECORDS SUMMARY | 2024-05-31 16:19 | XMS_ITS | Encounter Summary ---
Author Organization [facility] Address [address] [place] [address] Care Team Providers Care Director Of Technology Name Role Phone Rubin Lehman MD Primary Care Provider Jose powers Encounter Details Date Type Department Care Team (Late st Contact Info) Description 03/09/2007 Orders Only [facility] Primary Care - [address] [place] [address] Chu Reddy MD [address] [facility] [address] [place], [place] [phone] Social History Tobacco Use Types Packs/Day Years Used Date Smoking Tobacco: Never Assessed Comments Unknown Sex and Gender Information Value Date Recorded Sex Assigned at Not on file Legal Sex Female 3:22 AM BRIM STRETCHER Gender Identity Not on file Sexual Orientation [...] identified on exam. LAB ORDERS: Order number: [id number] Test Ordered: COMPREHENSIVE METABOLIC PANEL 61482 Order number: [id number] Test Ordered: TSH W/REFLEX TO FT4 [id number] Order number: [id number] Test Ordered: LIPID PANEL 7600 HEALTH MAINTENANCE: [...] on filedocumented in this encounter Care Teams Director Of Technology Relationship Specialty Start Date End Date Rubin Lehman MD PCP - General Internal Medicine 09/03/10 05/08/17 documented as of this encounter
--- OUTSIDE RECORDS SUMMARY | 2024-05-31 16:19 | XMS_ITS | Encounter Summary ---
Author Organization [facility] Address [address] [place] [address] Care Team Providers Care Plant Culture Manager Name Role Phone Mart Fink MD Primary Care Provider [phone] Mena Butcher MD Primary Care Provider [phone] Flaco Burrell TRUCK DRIVER INSTRUCTOR-SUPERVISORY INVESTIGATIVE SPECIALIST Primary Care Provi good Tomas Romero MD Primary Care Provider [phone] Encounter Details Date Type Department Care Team (Late st Contact Info) Description 08/10/2019 Telephone [facility] [address] [place] [address] Mart Fink MD [address] [facility] [address] [place] [address] Social History Tobacco Use Types Packs/Day Years [...] Description 06/28/2024 1:30 PM CDT Office Visit [facility] - Ophthalmology [address] [facility] [place] [address] Susan Flores MD [facility]5 [facility] [place] [phone] documented as of this encounter Goals Goal Patient Goal Type Associated Problems Recent Progress Patient-Stated? Author Medication Management General No Radha Wall, RN Note: Interventions: documented as of this encounter Visit Diagnoses Not on filedocumented in this encounter Care Teams Plant Culture Manager Relationship Specialty Start Date End Date Mart Fink MD [address] [facility] [address] [place] [address] PCP - General Family Medicine 05/25/17 06/27/20 Mena Butcher MD [address] [place] [address] PCP - General 06/28/20 08/01/20 Flaco Burrell, TRUCK DRIVER INSTRUCTOR-SUPERVISORY INVESTIGATIVE SPECIALIST [address] [facility] [address] [place] [address] PCP - General Nurse Practitioner Family 08/02/2010/30 Tomas Romero MD [address] [place] [address] PCP - General Internal Medicine 11/13/20 documented as of this encounter
--- OUTSIDE RECORDS SUMMARY | 2024-05-31 16:19 | XMS_ITS | Encounter Summary ---
Author Organization [facility] Address [address] [place] [address] Care Team Providers Care B2B Managed Service Sales Exec Name Role Phone Mart Fink MD Primary Care Provider [phone] Mena Butcher MD Primary Care Provider [phone] Flaco Burrell EMERGENCY ROOM TECH-FEED MIXER Primary Care Provi good Tomas Romero MD Primary Care Provider [phone] Encounter Details Date Type Department Care Team (Late st Contact Info) Description 05/15/2020 Telephone [facility] [address] [place] [address] Mena Butcher MD [address] [place] [address] Social History Tobacco Use Types Packs/Day Years [...] a sooner appt? Patient Call Back number: [phone] documented in this encounter Plan of Treatment Upcoming Encounters Date Type Department Care Team (Late st Contact Info) Description 06/28/2024 1:30 PM CDT Office Visit [facility] - Ophthalmology [address] [facility], [place] [address] [place] [address] [place] [address] [place] [address] documented as of this encounter Goals Goal Patient Goal Type Associated Problems Recent Progress Patient-Stated? Author Medication Management General No Radha Wall, RN Note: Interventions: documented as of this encounter Visit Diagnoses Not on filedocumented in this encounter Care Teams B2B Managed Service Sales Exec Relationship Specialty Start Date End Date Mart Fink MD [address] [facility] [address] [place] [phone] PCP - General Family Medicine 05/25/17 06/27/20 Mena Butcher MD [address] [place] [address] PCP - General 06/28/20 08/01/20 Flaco Burrell, EMERGENCY ROOM TECH-FEED MIXER [address] [facility] [address] [place] [address] PCP - General Nurse Practitioner Family 08/02/2010/30 Tomas Romero MD [address] [facility] [address] [place] [address] PCP - General Internal Medicine 11/13/20 documented as of this encounter
[2024-06-03 21:58] LABS: Antithrombin III Activity 112 % normal (80-135)
== END 2024-05-31 14:57 | disposition home or self-care (01) ==
LOC: ANHLAB 14:57
PROVIDERS: PCP Internal Medicine; Visit Provider Internal Medicine
DX: I26.99 Other pulmonary embolism without acute cor pulmonale (principal)
CPT/HCPCS: 36415; 85300

== ENCOUNTER 2024-06-12 14:10 | Outpatient (CLI) | payer OTHER, SELFPAY ==
--- NOTE | ~2024-06-12 | CT_ITS ---
EXAMINATION: CTA abdomen pelvis DATE: 06/12/2024 14:48 INDICATION: Pelvic and perineal pain. Possible blood clots in the pelvis. TECHNIQUE: Computed tomographic angiography (CTA) of the abdomen and pelvis was performed with 100 mL Omnipaque-350 intravenous contrast. Additional 3D reconstructions utilizing rotating maximum intensi ty projection (MIP) were performed. Automated exposure control and iterative reconstruction technique were employed. The dose-length product was 374.94 mGy-cm. COMPARISON: 04/30/2022 FINDINGS: The distal descending thoracic and abdominal aorta along with the major branch vessels aorta includin g the celiac axis, superior mesenteric and inferior mesenteric, bilateral renal arteries and the bila teral common, external and internal iliac arteries are all normal in caliber with no hematoma signifi cant stenosis or dissection. There is no contrast opacification of the veins below level of the bilat eral renal veins precluding assessment for pelvic venous thrombosis. Liver, gallbladder, spleen, panc reas, bilateral adrenal glands and kidneys are normal. Calcific lesion versus inspissated barium. A s ann-marie sigmoid diverticulum without adjacent comparison to suggest diverticular colitis. Small bowel a nd appendix are normal. Bladder, anteverted uterus and left adnexa are unremarkable. Unchanged 3.6 cm simple appearing right adnexal cyst. No free intraperitoneal gas or fluid. No pathologically enlarge d abdominal or pelvic lymphadenopathy. Moderate to severe lumbar and moderate lower thoracic spondylo sis. Chronic appearing mild likely physiologic anterior wedging at T11 and T12. Moderate right hip os teoarthritis. Left total hip arthroplasty. IMPRESSION: 1. Unremarkable CT angiogram of the abdominal aorta and its major branch vessels. Patency of the vein s is not assessed due to arterial phase of contrast. 2. No significant change in a 3.6 cm right ovarian cyst. Reviewed, dictated and finalized at location A. IMPRESSION: 1. Unremarkable CT angiogram of the abdominal aorta and its major branch vessel s. Patency of the veins is not assessed due to arterial phase of contrast. 2. No significant change in a 3.6 cm right ovarian cyst.
--- OUTSIDE RECORDS SUMMARY | 2024-06-12 15:49 | XMS_ITS | Encounter Summary ---
Author Organization [facility] Address [address] [place] [address] Care Team Providers Care Hook Loader Name Role Phone Rubin Lehman MD Primary Care Provider Jose powers Encounter Details Date Type Department Care Team (Late st Contact Info) Description 08/07/1999 Outpatient Historical [facility] MD Jeffery MATTHEWS Carolyn, MD [address] [place] [phone] Social History Tobacco Use Types Packs/Day Years Used Date Smoking Tobacco: Never Assessed Comments Unknown Sex and Gender Information Value Date Recorded Sex Assigned at Not on file Legal Sex Female 3:22 AM COMMERCIAL ASSISTANT Gender Identity Not on file Sexual Orientation Not on file documented as of this encounter Plan of Treatment Not on file documented as of this encounter Visit Diagnoses Not on filedocumented in this encounter Care Teams Hook Loader Relationship Specialty Start Date End Date Rubin Lehman MD PCP - General Internal Medicine 09/03/10 05/08/17 documented as of this encounter
--- OUTSIDE RECORDS SUMMARY | 2024-06-12 15:49 | XMS_ITS | Clinical Summary ---
Author Organization [facility] Address [address] [place] [address] Care Team Providers Care Tube Cleaner Name Role Phone Unavailable Primary Care Provider [...] on file Legal Sex Female 3:22 AM ARMATURE CONNECTOR Gender Identity Not on file Sexual Orientation Not on file Occupation Industry Job Start Date Job End Date Not on file Not on file Not on file Not on file Last Filed Vital Signs Vital Sign Reading Time Taken Comments Blood Pressure 100/70 04/25/2015 2:31 PM ARMATURE CONNECTOR Pulse - - Temperature 37.2 C (99 F) 03/26/2014 2:42 PM ARMATURE CONNECTOR Respiratory Rate - - Oxygen Saturation - - Inhaled Oxygen Concentration - - Weight 76.2 kg (168 lb) 04/25/2015 2:31 PM ARMATURE CONNECTOR Height 157.5 cm (5' 2 ) 04/25/2015 2:31 PM ARMATURE CONNECTOR Body Mass Index 30.73 04/25/2015 2:31 PM ARMATURE CONNECTOR Plan of Treatment Health Maintenance Due Date [...] Advance Directives For more information, please contact: [phone] Documents on File Type Date Recorded Patient Election Assistant Expl 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
--- OUTSIDE RECORDS SUMMARY | 2024-06-12 15:49 | XMS_ITS | Clinical Summary ---
Author Organization [facility] Address [address] [facility] [place] [address] Care Team Providers Care Collections And Archives Director Name Role Phone Tomas Romero MD Primary Care Provider [phone] Source Comments [facility],non-owned Affiliates and Associated Physician Practices is amultiple site organization consisting of ambulatory clinics and hospital sitesin [place], [place], [place] and [place]. This disclosure is being madepursuant to the Care Everywhere program and may not contain all information available regarding this patient. Last updated 17.[facility] Allergies Active Allergy Reactions Criticality Noted Date [...] document. Alwaysverify current medications with the patient. FLUoxetine (PROZAC) 20 MG capsule Take 1 [...] tablets by mouth 2 times daily Active Active Problems Problem Noted Date Diagnosed [...] weeks. Assessment & Plan (03/29/2019 9:52 PM GAME AND FISH PROTECTOR): Poorly controlled at present, mostly due to [...] 05/10/2024 Assessment & Plan (03/29/2019 9:51 PM GAME AND FISH PROTECTOR): A1c up slightly. Still in pre-diabetes stage. Continue to monitor Major depressive disorder, single episode 07/30/2016 09/01/2019 Encounters Date Type Department Care Team Description 05/30/2024 Telephone [facility] - ENT [address] [place] [address] Kym Cobb RN Update (Does not want to schedule surgery) 05/29/2024 10:45 AM CDT [facility] [address], [facility] [address] [place] [address] Enrique Fontanez MD Nasal valve collapse (Primary Dx) 05/10/2024 1:45 PM CDT [facility] [place] [address] Nazanin Shetty MD Nasal obstruction (Primary Dx); Post-nasal drip; Facial pain; Nasal congestion; Nasal valve collapse 05/10/2024 Travel 05/01/2024 [facility] [address] [place] [address] Paco Meléndez MD MEDICATION REFILL 04/07/2024 Travel from Last 3 Months Immunizations Immunization Administration Dates Next Due Covid Pfizer primary [...] Date Recorded PHQ2 TOTAL SCORE 0 07/17/2020 Comments No Sex and Gender Information Value Date Recorded Sex Assigned at Not on file Legal Sex Female 5:15 PM GAME AND FISH PROTECTOR Gender Identity Not on file Sexual Orientation Not on file Last Filed Vital Signs Vital Sign Reading Time Taken Comments Blood Pressure 138/85 05/29/2024 10:56 AM CDT Pulse 88 05/29/2024 10:56 AM CDT Temperature 37.1 C (98.8 F) 07/17/2020 10:32 AM CDT Respiratory Rate 12 01/16/2020 4:21 PM GAME AND FISH PROTECTOR Oxygen Saturation 95% 07/17/2020 10:34 AM CDT [...] Visit [facility] - Ophthalmology [address] [facility], [place] [address] Susan Flores MD [facility]5 [facility] [place] [address] Health Maintenance Due Date Last Done Comments [...] Progress Patient-Stated? Author Medication Management General No aRdha Wall RN Note: Interventions: Medical Devices Implanted Type Area Vehicle Maintenance Technician Device Identifier Shelf Expiration Date Model / Serial / Lot Shell Actb 52mm Hip 3 Hl Poly R3 Std Implanted:Qty: 1 on 06/17/2017 by Paco Meléndez MD at [facility] Left: Hip [employer] 12/02/2026 [id number] / / [id number] Screw 6.5mm 45mm Actb Sphrcl Head Reflc Implanted:Qty: 1 on 06/17/2017 by Paco Meléndez MD at [facility] Left: Hip [employer] 08/19/2026 [id number] / / [id number] Liner Actb R3 0d 52mm 36mm Xlpe Hip Flxb Implanted:Qty: 1 on 06/17/2017 by Paco Meléndez MD at [facility] Left: Hip [employer] 08/01/2026 [id number] / / [id number] Polarstem Size 3 Stem Implanted:Qty: 1 on 06/17/2017 by Paco Meléndez MD at [facility] Left: Hip 02/11/2024 75 100 466 / / [id number] Head Fem +4mm /14 36mm Hip Tpr Oxnm Implanted:Qty: 1 on 06/17/2017 by Paco Meléndez MD at [facility] Left: Hip [employer] 10/11/2026 [id number] / / [id number] Mata Uncem Hip All Inclusive Implanted:Qty: 1 on 06/17/2017 by Paco Meléndez MD at [facility] BILL ONLY UNCEM HIP ALL INCLUSIVE SNORTH / / Procedures Procedure Name Priority Date/Time Associated Diagnosis Comments [place] NASAL ENDOSCOPY,DX Routine 05/10/2024 1:51 PM CDT [...] Recently Relevant to Health Maintenance Results * [place] NASAL ENDOSCOPY,DX (05/10/2024 1:51 PM CDT) Narrative [...] the entire procedure. Nazanin Shetty MD PROCEDURE/MINOR SURGICAL OR DERABLES Final Result * Mammo Bilat Screening [place] (10/14/2023 10:26 AM CDT) Anatomical Region Laterality Modality Breast Bilateral Mammography 10/14/2023 12:5 6 PM CDT Impressions 10/14/2023 12:58 PM CDT : No mammographic evidence of malignancy in either breast. ASSESSMENT: BIRADS Category 1: Negative mammogram. RECOMMENDATION: Bilateral screening mammogram in one year. Thank you for allowing us to participate in the care of your patient. [facility] utilizes [employer] as a reminder system to notify patients [...] prior examination. Tomas Romero MD MAMMO ORDERABLES Final Result * HEMOGLOBIN A1C - POINT OF CARE (AMB) [facility] (07/17/2020) Hemoglobin A1c POCT 5.8 % BLOOD SPECIMEN / Unknown 07/17/2020 Flaco Burrell SENIOR PROCUREMENT SPECIALIST-WAREHOUSE PRICING AND INVENTORY CLERK LAB - POINT OF CARE ORDERABLES Final Result * COLONOSCOPY (08/23/2019) Historical Provider SCANNING ONLY Final Res ult * (ABNORMAL) COLOGUARD TEST (08/02/2019 9:37 AM CDT) Cologuard Positive (A) Not Applicable EXACT SCIENCES [...] White. et al, N Engl J Med 2014;370(14):0593-6720.) The normal value (reference range) for this [...] interval of every 3 years by the [place] Cancer Society and U.S. Multi-Society Task Force. [...] can be accessed at the following location: www.[employer]/results. Additional description of the Cologuard test process, warnings and precautions can be found at www.cologuardtest.com. Rx only. Stool specimen (specimen) STOOL SPECIMEN / Unknown 08/02/2019 9:37 AM CDT 08/03/2019 3:38 PM CDT us Mart Fink MD LAB - CHEMISTRY ORDERABLES Fi nal Result Performing Organization Address City/State/[facility] Co de Phone Number [employer] [address] [place] [phone] [employer] [address] [place] [address]. [place] [address] * DEXA BONE DENSITY AXIAL SKELETON (12/27/2017 [...] ordering physician and is also available on [employer], the Radiology Department's computerized picture archive system. [...] ordering physician and is also available on [employer], the Radiology Department'[employer]* picture archive system. Patient's height 62 in; [...] AM . Mart Fink MD DEXA ORDERABLES Final Result * LIPID PROFILE (EXTERAL RESULT ENTRY) (12/17/2017) Cholesterol (EXTERNAL RESULT) 192 mg/dL Triglycerides (EXTERNAL RESULT) 100 mg/dL HDL (EXTERNAL RESULT) 69 mg/dL LDL (EXTERNAL RESULT) 103 mg/dL VLDL (EXTERNAL RESULT) mg/dL Chol HDL Ratio (External Result) Fasting Glucose (EXTERNAL RESULTS) 127 HCV Antibody Screen Not Detected Blood BLOOD SPECIMEN / Unknown 12/17/2017 Historical Provider LAB - CHEMISTRY ORDERABLE S Final Result from Last 3 Months or Most Recently Relevant to Health Maintenance Insurance [facility] MANAGED MEDICARE ADV [facility] MEDICARE ADV PPO [facility] MEDICARE ADV Care Teams Collections And Archives Director Relationship Specialty Start Date End Date Tomas Romero MD [address] [place] [address] PCP - General Internal Medicine 11/13/20
--- OUTSIDE RECORDS SUMMARY | 2024-06-12 15:49 | XMS_ITS | Encounter Summary ---
Author Organization [facility] Address [address] [place] [address] Care Team Providers Care Radio Presenter Name Role Phone Rubin Lehman MD Primary Care Provider Jose powers Encounter Details Date Type Department Care Team (Late st Contact Info) Description 03/09/2007 Orders Only [facility] Primary Care - [address] [place] [address] Chu Reddy MD [address] [facility] [address] [place], [place] [phone] Social History Tobacco Use Types Packs/Day Years Used Date Smoking Tobacco: Never Assessed Comments Unknown Sex and Gender Information Value Date Recorded Sex Assigned at Not on file Legal Sex Female 3:22 AM EDUCATION ANALYST Gender Identity Not on file Sexual Orientation [...] identified on exam. LAB ORDERS: Order number: [id number] Test Ordered: COMPREHENSIVE METABOLIC PANEL [id number] Order number: [id number] Test Ordered: TSH W/REFLEX TO FT4 69839 Order number: [id number] Test Ordered: LIPID PANEL 7600 HEALTH MAINTENANCE: [...] on filedocumented in this encounter Care Teams Radio Presenter Relationship Specialty Start Date End Date Rubin Lehman MD PCP - General Internal Medicine 09/03/10 05/08/17 documented as of this encounter
--- OUTSIDE RECORDS SUMMARY | 2024-06-12 15:49 | XMS_ITS | Encounter Summary ---
Author Organization [facility] Address [address] [place] [address] Care Team Providers Care Auto Parts Counter Person Name Role Phone Mart Fink MD Primary Care Provider [phone] Mena Butcher MD Primary Care Provider [phone] Flaco Burrell VISUAL AID EXPERT-[employer] BAND TEACHER Primary Care Provi good Tomas Romero MD Primary Care Provider [phone] Encounter Details Date Type Department Care Team (Late st Contact Info) Description 05/15/2020 Telephone [facility] [address] [place] [address] Mena Butcher MD [facility] [address] Social History Tobacco Use Types Packs/Day Years Used Date Smoking Tobacco: Never Smokeless Tobacco: Never Alcohol Use Standard Drinks/Week Comments No 0 (1 standard drink = 0.6 oz pur e alcohol) Comments No Sex and Gender Information Value Date Recorded Sex Assigned at Not on file Legal Sex Female 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 Patient Call Back number: [phone] documented in this encounter Plan of Treatment Upcoming Encounters Date Type Department Care Team (Late st Contact Info) Description 06/28/2024 1:30 PM CDT Office Visit [facility] - Ophthalmology [address] [place] [address], [place] [address] Susan Flores MD [address] [place] [address] [place] [phone] documented as of this encounter Goals Goal Patient Goal Type Associated Problems Recent Progress Patient-Stated? Author Medication Management General No Radha Wall, NAHED Note: Interventions: documented as of this encounter Visit Diagnoses Not on filedocumented in this encounter Care Teams Auto Parts Counter Person Relationship Specialty Start Date End Date Mart Fink MD [address] [facility] [address] [place] [address] PCP - General Family Medicine 05/25/17 06/27/20 [place] [address] [place] [address] [place] [address] PCP - General 06/28/20 08/01/20 Flaco Burrell APRN-[employer] BAND TEACHER [address] [facility] [address] [place] [address] PCP - General Nurse Practitioner Family 08/02/2010/30 Tomas Romero MD [address] [facility] [address] [place] [phone] PCP - General Internal Medicine 11/13/20 documented as of this encounter
--- OUTSIDE RECORDS SUMMARY | 2024-06-12 15:49 | XMS_ITS | Encounter Summary ---
Author Organization [facility] Address [address] [place] [address] Care Team Providers Care Care Transport Nurse Name Role Phone Mart Fink MD Primary Care Provider [phone] Mena Butcher MD Primary Care Provider Flaco Burrell BOILING HOUSE OILER-FIXED ROUTE BUS OPERATOR Primary Care Provi good Tomas Romero MD Primary Care Provider Encounter Details Date Type Department Care Team (Late st Contact Info) Description 08/10/2019 Telephone [facility] [address] [place] [address] Mart Fink MD [address] 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 Author Medication Management General No Radha Wall, NAHED Note: Interventions: documented as of this encounter Visit Diagnoses Not on filedocumented in this encounter Care Teams Care Transport Nurse Relationship Specialty Start Date End Date Mart Fink MD [address] [facility] [address] [place] [address] PCP - General Family Medicine 05/25/17 06/27/20 Mena Butcher MD [address] [place] [address] PCP - General 06/28/20 08/01/20 Flaco Burrell, BOILING HOUSE OILER-FIXED ROUTE BUS OPERATOR [address] [facility] [address] [place] [address] PCP - General Nurse Practitioner Family 08/02/2010/30 Tomas Romero MD [address] [place] [address] PCP - General Internal Medicine 11/13/20 documented as of this encounter
--- OUTSIDE RECORDS SUMMARY | 2024-06-12 15:49 | XMS_ITS | Encounter Summary ---
Author Organization [facility] Address [address] [place] [address] Care Team Providers Care Superintendent Drivers Name Role Phone Rubin Lehman MD Primary Care Provider Jose powers Encounter Details Date Type Department Care Team (Late st Contact Info) Description 02/23/2007 Outpatient Historical [facility] Primary Care - [address] [place] [address] Chu Reddy MD [address] [facility] [address] [place] [address] Social History Tobacco Use Types Packs/Day Years Used Date Smoking Tobacco: Never Assessed Comments Unknown Sex and Gender Information Value Date Recorded Sex Assigned at Not on file 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
== END 2024-06-12 14:11 | disposition home or self-care (01) ==
PROVIDERS: PCP Internal Medicine; Visit Provider Internal Medicine
DX: N83.291 Other ovarian cyst, right side (principal); Z86.718 Personal history of other venous thrombosis and embolism
CPT/HCPCS: 74174; Q9967

== ENCOUNTER 2024-08-03 11:23 | Outpatient (CLI) | payer OTHER, SELFPAY ==
[2024-08-03 12:16] LABS: Alanine Aminotransferase 24 U/L (6-35); Albumin Level 4.6 g/dL (3.5-5.1); Alkaline Phosphatase 61 U/L (38-126); Anion Gap 8 mmol/L (4-12); Aspartate Amino Transferase 32 U/L (14-36); Bilirubin,Total 0.5 mg/dL (0.2-1.3); Blood Urea Nitrogen 21 mg/dL (7-17); Calcium 9.6 mg/dL (8.4-10.2); Carbon Dioxide 24 mmol/L (22-30); Chloride 107 mmol/L (98-107); Cholesterol 146 mg/dL (0-200); Estimated Glomerular Filt Rate > 60; Glucose 118 mg/dL (65-110); HDL Direct 69 mg/dL; Potassium 4.6 mmol/L (3.4-5.0); Sodium 139 mmol/L (137-145); Total Protein 7.5 g/dL (6.3-8.2); Triglycerides 86 mg/dL (<150)
[2024-08-03 12:19] LABS: LDL Cholesterol Direct 48 mg/dL
[2024-08-03 12:29] LABS: Free T4 Free Thyroxine 1.29 ng/dL (0.78-2.19)
--- OUTSIDE RECORDS SUMMARY | 2024-08-03 12:31 | XMS_ITS | Clinical Summary ---
Author Organization [facility] Address [address] [facility] [place] [address] Care Team Providers Care Recenterer Name Role Phone Tomas Romero MD Primary Care Provider [phone] Source Comments [facility],non-owned Affiliates and Associated Physician Practices is amultiple site organization consisting of ambulatory clinics and hospital sitesin [place], [place], [place] and [place]. This disclosure is being madepursuant to the Care Everywhere program and may not contain all information available regarding this patient. 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 Assessment & Plan (03/29/2019 9:52 PM ENVIRONMENTAL INTERN): Poorly controlled at present, mostly due to [...] 05/10/2024 Assessment & Plan (03/29/2019 9:51 PM ENVIRONMENTAL INTERN): A1c up slightly. Still in pre-diabetes stage. Continue to monitor Major depressive disorder, single episode 07/30/2016 09/01/2019 Encounters Date Type Department Care Team Description 06/28/2024 1:30 PM CDT Office Visit [facility] - Ophthalmology [address] [place] [phone] Susan Flores MD Floppy eyelid syndrome of both eyes (Primary Dx); Diplopia 06/28/2024 Travel 05/30/2024 Telephone [facility] - ENT [address] [place] [phone] Kym Cobb, RN Update (Does not want to schedule surgery) 05/29/2024 10:45 AM CDT Office Visit [facility] - ENT [address] [place] [phone] Enrique Fontanez MD Nasal valve collapse (Primary Dx) 05/10/2024 1:45 PM CDT Office Visit [facility] - ENT [address] [facility], [place] [phone] Nazanin Shetty MD Nasal obstruction (Primary Dx); Post-nasal drip; Facial pain; Nasal congestion; Nasal valve collapse 05/10/2024 Travel from Last 3 Months Immunizations Immunization Administration Dates Next Due CovProtonMail primary monoval ent 12+ yr 0.3mL Purple [...] pur e alcohol) PHQ-2 Answer Date Recorded Patient Health Questionnaire-2 Score 0 06/28/2024 Comments No Sex and Gender Information Value Date Recorded Sex Assigned at Not on file Legal Sex Female 5:15 PM ENVIRONMENTAL INTERN Gender Identity Not on file Sexual Orientation Not on file Last Filed Vital Signs Vital Sign Reading Time Taken Comments Blood Pressure 138/85 05/29/2024 10:56 AM CDT Pulse 88 05/29/2024 10:56 AM CDT Temperature 37.1 C (98.8 F) 07/17/2020 10:32 AM CDT Respiratory Rate 12 01/16/2020 4:21 PM ENVIRONMENTAL INTERN Oxygen Saturation 95% 07/17/2020 10:34 AM CDT Inhaled Oxygen Concentration - - Weight 63.5 kg (140 lb) 05/29/2024 10:56 AM CDT Height 157.5 cm (5' 2) 05/29/2024 10:56 AM CDT Body Mass Index 25.61 05/29/2024 10:56 AM CDT Plan of Treatment Upcoming Encounters Date Type Department Care Team (Late st Contact Info) Description 09/06/2024 1:00 PM CDT Office Visit [facility] - Ophthalmology [address] [place] [phone] Hardy Up, PATRICE [address] [place] [phone] 09/06/2024 1:30 PM CDT Office Visit [facility] - Ophthalmology [address] [place] [phone] Ann-Marie Baxter Health Maintenance Due Date Last Done Comments CT COLONOGRAPHY - COLON CA SCREENING 1950 FIT - COLON CA SCREENING 1950 FLEX SIG - COLON CA SCREENING 1950 ZOSTER VACCINE (1 of 2) 2000 COLOGUARD (AGES 45-75) - COLON CA SCREENING 08/01/2022 08/02/2019, 08/02/2019 SCREENING FOR DIABETES 07/18/2023 , 01/16/2020, 03/29/2019, Additional history exists COVID-19 VACCINE (2023- season) 2023 11/16/2020, 05/17/2020, 04/26/2020 MEDICARE AWV CALENDAR YEAR 2024 COLON MONITORING [...] 12/17/2017, 04/29 BONE DENSITY TESTING Completed 12/27/2017 DEPRESSION SCREENING Completed 06/28/2024 HEPATITIS B VACCINE Aged Out No longe [...] Note: Interventions: Medical Devices Implanted Type Area Heavy Equipment Technician Device Identifier Shelf Expiration Date Model / Serial / Lot Shell Actb 52mm Hip 3 Hl Poly R3 Std Implanted:Qty: 1 on 06/17/2017 by Paco Meléndez MD at [facility][note 3] Left: Hip [employer] 12/02/2026 [id number] / / [id number] Screw 6.5mm 45mm Actb Sphrcl Head Reflc Implanted:Qty: 1 on 06/17/2017 by Paco Meléndez MD at [facility][note 3] Left: Hip [employer] 08/19/2026 [id number] / / [id number] Liner Actb R3 0d 52mm 36mm Xlpe Hip Flxb Implanted:Qty: 1 on 06/17/2017 by Paco Meléndez MD at [facility][note 3] Left: Hip [employer] 08/01/2026 [id number] / / [id number] Polarstem Size 3 Stem Implanted:Qty: 1 on 06/17/2017 by Paco Meléndez MD at [facility][note 3] Left: Hip 02/11/2024 [id number] / / [id number] Head Fem +4mm 02/11 36mm Hip Tpr Oxnm Implanted:Qty: 1 on 06/17/2017 by Paco Meléndez MD at [facility][note 3] Left: Hip [employer] 10/11/2026 [id number] / / [id number] Mata Uncem Hip All Inclusive Implanted:Qty: 1 on 06/17/2017 by Paco Meléndez MD at [facility][note 3] Orthopaedics BILL ONLY [employer] HIP ALL INCLUSIVE SNORTH / / Procedures Procedure Name Priority Date/Time Associated Diagnosis Comments WA NASAL ENDOSCOPY,DX Routine 05/10/2024 1:51 PM CDT [...] Recently Relevant to Health Maintenance Results * WA NASAL ENDOSCOPY,DX (05/10/2024 1:51 PM CDT) Narrative [...] participate in the care of your patient. [facility] utilizes [employer] as a reminder system to notify patients [...] BLOOD SPECIMEN / Unknown 07/17/2020 Flaco Burrell FUSE COILER-SOCIAL SERVICE MANAGER LAB - POINT OF CARE ORDERABLES Final Result * COLONOSCOPY (08/23/2019) Historical Provider MD SCANNING ONLY Final Res ult * (ABNORMAL) COLOGUARD TEST (08/02/2019 9:37 AM CDT) Cologuard Positive (A) Not Applicable [facility] Comment: It is recommended that a [...] White. et al, N Engl J Med 2014;370(14):4482-5657.) The normal value (reference range) for this [...] interval of every 3 years by the [employer] [place] [employer] Society and U.S. Multi-Society Task Force. [...] can be accessed at the following location: [email or web address]/results. Additional description of the Cologuard test process, warnings and precautions can be found at [email or web address]. Rx only. Stool specimen (specimen) STOOL SPECIMEN / Unknown 08/02/2019 9:37 AM CDT 08/03/2019 3:38 PM CDT Mart Fink MD LAB - CHEMISTRY ORDERABLES Fi nal Result Performing Organization Address City/State/[facility] Co de Phone Number [employer] [address] [place] [address] [employer] [address] [place] [address]. [place] [address] * DEXA BONE DENSITY AXIAL SKELETON (12/27/2017 [...] ordering physician and is also available on [employer], the Radiology Department's computerized picture archive system. [...] ordering physician and is also available on [employer], the Radiology Department'[employer] picture archive system. Patient's height 62 in; [...] Detected Blood BLOOD SPECIMEN / Unknown 12/17/2017 us Historical Provider LAB - CHEMISTRY ORDERABLE S Final Result from Last 3 Months or Most Recently Relevant to Health Maintenance Insurance MEDICARE ADV PPO [facility] MEDICARE ADV Care Teams Recenterer Relationship Specialty Start Date End Date Tomas Romero MD [address] [facility] [address] [facility] [address] [place] [address] PCP - General Internal Medicine 11/13/20
--- OUTSIDE RECORDS SUMMARY | 2024-08-03 12:31 | XMS_ITS | Encounter Summary ---
Author Organization [facility] Address [address] [place] [address] Care Team Providers Care Web Site Project Manager Name Role Phone Unavailable Primary Care Provider Unavailabl e Reason for Visit * Reason Comments Establish Care Encounter Details Date Type Department Care Team (Late st Contact Info) Description 08/03/2024 10:30 AM CDT Office Visit [facility] Oncology and Hematology - [place] [address] [facility] [address] [place] [address] Joon Giron MD [address] [facility] [address] [place] [address] Bilateral pulmonary embolism (CMS/HCC) (Primary Dx) Social History Tobacco Use Types Packs/Day Years Used Date Smoking Tobacco: Never Smokeless Tobacco: Never Alcohol Use Standard Drinks/Week Comments No 0 (1 standard drink = 0.6 oz pur e alcohol) Comments No Sex and Gender Information Value Date Recorded Sex Assigned at Not on file 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 Gender Identity Not on file Sexual Orientation Not on file Occupation Industry Job Start Date Job End Date Not on file Not on file Not on file Not on file documented as of this encounter Last Filed Vital Signs Vital Sign Reading Time Taken Comments Blood Pressure 126/65 08/03/2024 10:18 AM CDT Pulse 79 08/03/2024 10:18 AM CDT Temperature 37.2 C (99 F) 08/03/2024 10:18 AM CDT Respiratory Rate 15 08/03/2024 10:1 8 AM CDT Oxygen Saturation 94% 08/03/2024 10: 18 AM CDT Inhaled Oxygen Concentration - - Weight 63.5 kg (140 lb) 08/03/2024 10:1 8 AM CDT Pt is unable to stand on scale Height 157.5 cm (5' 2) 08/03/2024 10:1 8 AM CDT Body Mass Index 25.61 08/03/2024 10:18 AM CDT documented in this encounter Progress Notes * Joon Giron MD - 08/03/2024 11:17 AM CDT Hematology-oncology consult Note Requesting Physician Tomas Romero MD Primary Care Physician No primary care provider on file. Problem list Patient Active Problem List Diagnosis Code Impaired fasting glucose R73.01 Dysthymia F34.1 Mammogram declined Z53.20 Previous TREATMENT ? Measurable Disease ? Reason for Visit Citlaly Gauthier is a 74 y.o. female who was referred for consultation for hypercoagulable state. History of present illness This is a pleasant 74-year-old female with history of type 2 diabetes, hyperlipidemia, hiatal hernia and GERD without any previous history of thromboembolic events presented with right-sided chest wall pain and shortness of breath to the hospital on May 22. Patient had CT chest done that showed bilateral pulmonary emboli without right heart strain. Doppler studies showed no evidence of DVT. Patient denies any provoking factors including trauma, injury, surgery and long travel. Thereis a family history of TIA in the mother who had TIA after the cardiac catheterization. She was started on Eliquis and denies any further chest pain and breathing has improved. She denies any other new complaints. Past Medical History Past Medical History: Diagnosis Date Depression Psoriasis Routine general medical examination at a health care facility 03/09/2007 Surgical History Past Surgical History: Procedure Laterality Date CYSTOSCOPY HX BREAST REDUCTION 1987 HX SECTION HX COLONOSCOPY 1998 no polyps HX EYE SURGERY HX HERNIA REPAIR 1987 Medications Current Outpatient Medications Medication Sig Dispense Refill amoxicillin (AMOXIL) 500 mg capsule TAKE 4 (FOUR) CAPSULES BY MOUTH PRE- PROCEDURE ONCE FOR 1 DOSE. TAKE ONE HOUR BEFORE PROCEDURE Eliquis 5 mg tablet Take 5 mg by mouth 2 times daily. famotidine (PEPCID) 40 mg tablet Take 1 Tablet by mouth daily. mupirocin (BACTROBAN) 2 % Ointment apply to affected area 3 times a day rosuvastatin (CRESTOR) 20 mg tablet Take 20 mg by mouth every other day. tretinoin (RETIN-A) 0.05 % Cream APPLY THIN LAYER AT NIGHT BEFORE BED, MIX WITH MOISTURIZER NEEDED. Turmeric, Bulk, (Curcumin) 95 % Powder by Sungevity.(Non-Drug; Combo Route) route. QUERCETIN ORAL Take 250 mg by mouth. resveratroL 250 mg Capsule Take by mouth. phenazopyridine 95 mg tablet Take 95 mg by mouth 3 times daily after meals. [place]-3 Fatty Acids (Super [place]-3) 1,000 mg Capsule Take by mouth. geriatric multivitamin with iron & minerals (UNICAP SENIOR) Tablet Take 1 Tablet by mouth daily. fluticasone propionate (FLONASE) 50 mcg/spray [place], Suspension nasal inhaler Administer 2 Sprays in each nostril daily. metFORMIN (GLUCOPHAGE) 500 mg tablet Take 500 mg by mouth 2 times daily. LORazepam (ATIVAN) 0.5 mg tablet TAKE ONE TABLET BY MOUTH AT BEDTIME 30 Tablet 0 FLUoxetine (PROZAC) 20 mg capsule TAKE ONE CAPSULE BY MOUTH EVERY DAY. 30 Capsule 10 coQ10, ubiquinol, 100 mg Oral Cap Take 1 Cap by mouth daily. 1 Cap 0 ascorbic acid (VITAMIN C) 1,000 mg Oral Tab Take 1 Tab by mouth 3 times daily. vitamin B complex (B COMPLEX 1) Oral Tab Take 3 Tabs by mouth daily. No current facility-administered medications for this visit. Allergies Allergies Allergen Reactions Alendronate Sodium Other (See Comments) Acid reflux Buspirone Other (See Comments) depressed Codeine Dapagliflozin Other (See Comments) Pain Diphenhydramine Hcl Other (See Comments) Per patient opposite of relaxed Duloxetine Other (See Comments) pain Fd And C Blue No.1 Other (See Comments) teary Fexofenadine-Pseudoephedrine Ibuprofen Other (See Comments) Acid reflux Nefazodone Other (See Comments) Pain Trazodone Other (See Comments) Pain Triamcinolone Amoxicillin-Pot Clavulanate Nausea and Vomiting and Fever Doxycycline Fever Levofloxacin Headache Tramadol Nausea and Vomiting Immunizations: There is no immunization history on file for this patient. Family History Family History Problem Relation Name Age of Onset Other Father depression Colon Cancer Mother Other Sister alcoholic Breast Cancer Other Mat Aunt 40's Social History Social History Tobacco Use Smoking status: Never Smokeless tobacco: Never Substance Use Topics Alcohol use: No Review of Systems Constitutional: Patient did not mention fever; no night sweats; no anorexia; no weight loss; no fatique NEENT: Patient did not mention headache; no change in vision; no change in hearing; no sore throat;no dysphagia Respiratory: Patient did not mention shortness of breath; no pleuritic chest pain; no cough; no hemoptysis Cardiac: Patient did not mention cardiac-like chest pain; no palpitations; no orthopnea; no PND; noDOE Breasts: Patient did not mention tenderness; no masses GI: Patient did not mention abdominal pain; no nausea; no vomiting; no diarrhea; no hematochezia; no melena : Patient did not mention dysuria; no frequency; no hesitancy; no hematuria 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 No signs of infection or swelling. Eyes: PERRL, conjunctiva normal HEENT: Atraumatic, external ears normal, nose normal, oropharynx moist, no pharyngeal exudates. no sinus tenderness Neck- normal range of motion, no tenderness, supple Respiratory: No respiratory distress, normal breath sounds, no rales, no wheezing Cardiovascular: Normal rate, normal rhythm, no murmurs, no gallops, no rubs GI: Soft, nondistended, normal bowel sounds, nontender, no splenomegaly, no hepatomegaly, no mass, no rebound, no guarding : No costovertebral angle tenderness Musculoskeletal: No edema, no tenderness, no deformities. Back- no tenderness Integument: Well hydrated, no rash, Digits and nails inspection normal Lymphatic: No lymphadenopathy noted Neurologic: Alert & oriented x 3, CN 2-12 normal, normal motor function, normal sensory function, no focal deficits noted Psychiatric: Speech and behavior appropriate ? labs No results found for this or any previous visit (from the past 24 hours). Pathology ? Imaging & Other Studies Performance Status? Assessment / Plan: ? Hypercoagulable state with unprovoked bilateral pulmonary embolism diagnosed on May 22, 2024. Doppler studies done at that time showed no evidence of lower extremity DVT. Patient has a history of type 2 diabetes, hiatal hernia, hyperlipidemia and GERD. She denies any provoking factors. There is afamily history of TIA in the mother who developed TIA after the cardiac catheterization. I have discussed pathogenesis for pulmonary embolism in detail and informed her the risk factors that could beacquired versus genetics. We also discussed malignancy as a risk factor for blood clot. Patient is current on her mammogram that was done on October 14, 2023 came back unremarkable. Colonoscopy was performed in July 2022 and that was also normal. At this time I will continue Eliquis 5 mg twice a dayand repeat CT scan will be performed in 4 weeks[address] I will discuss CT scan results with her in 4 weeksand then we will order hypercoagulable workup at that time. Based on the hypercoagulable workup finding we will decide about duration and intensity of anticoagulation therapy. I have answered all thequestions the patient and the satisfaction. Hyperlipidemia. Patient is on Crestor. Type 2 diabetes. Patient is on metformin. GERD. She is on Pepcid. Thank you very much for allowing me to participate in Citlaly Gauthier's evaluation and management. Please feel free to contact if I can be of any further assistance in your patient???s care requiring hematology or oncology evaluation. Sincerely, ? ? Joon Giron M.D. cell TOBACCO COUNSELING She is not a tobacco/nicotine user. Joon Giron MD ,08/03/2024 11:17 AM ? Total time spent 60 minutes, two third of the total time spent counseling patient [id number]. CC:?Tomas Romero MD documented in this encounter Plan of Treatment Upcoming Encounters Date Type Department Care Team (Late st Contact Info) Description 09/04/2024 4:30 PM CDT Telephone Check Up [facility] Oncology and Hematology - [place] [address] [address] [place] [address] Joon Giron MD [address] [address] documented as of this encounter Visit Diagnoses Diagnosis Bilateral pulmonary embolism (CMS/HCC)- Primary Other pulmonary embolism and infarction documented in this encounter
--- OUTSIDE RECORDS SUMMARY | 2024-08-03 12:31 | XMS_ITS | Encounter Summary ---
Author Organization [facility] Address [address] [facility] [place] [address] Care Team Providers Care Insurance Collector Name Role Phone Mart Fink MD Primary Care Provider Mena Butcher MD Primary Care Provider [phone] Flaco Burrell VERIFYING SPECIALIST-BUTTERMAKER Primary Care Provi good Tomas Romero MD Primary Care Provider [phone] Encounter Details Date Type Department Care Team (Late st Contact Info) Description 08/10/2019 Telephone [facility] [address] [place] [address] Mart Fink MD [address] [facility] [address] [place] [address] Social History Tobacco Use Types Packs/Day Years Used Date Smoking Tobacco: Never Smokeless Tobacco: Never Alcohol Use Standard Drinks/Week Comments No 0 (1 standard drink = 0.6 oz pur e alcohol) Comments No Sex and Gender Information Value Date Recorded Sex Assigned at Not on file 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 Author Medication Management General No Radha Wall, NAHED Note: Interventions: documented as of this encounter Visit Diagnoses Not on filedocumented in this encounter Care Teams Insurance Collector Relationship Specialty Start Date End Date Mart Fink MD [address] [facility] [address] [place] [address] PCP - General Family Medicine 05/25/17 06/27/20 Mena Butcher MD [address] [place] [address] PCP - General 06/28/20 08/01/20 Flaco Burrell, VERIFYING SPECIALIST-BUTTERMAKER [address] [place] [address] PCP - General Nurse Practitioner Family 08/02/2010/30 Tomas Romero MD [address] [facility] [address] [facility] [address] [place] [phone] PCP - General Internal Medicine 11/13/20 documented as of this encounter
--- OUTSIDE RECORDS SUMMARY | 2024-08-03 12:31 | XMS_ITS | Encounter Summary ---
Author Organization [facility] Address [address] [place] [address] Care Team Providers Care Sales And Marketing Associate Name Role Phone Rubin Lehman MD Primary Care Provider Jose powers Encounter Details Date Type Department Care Team (Late st Contact Info) Description 02/23/2007 Outpatient Historical [facility] Primary Care - [address] [place] [address] Chu Reddy MD [address] [facility] [address] [place], [place] [id number] Social History Tobacco Use Types Packs/Day Years Used Date Smoking Tobacco: Never Assessed Comments Unknown Sex and Gender Information Value Date Recorded Sex Assigned at Not on file 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 Gender Identity Not on file Sexual Orientation Not on file documented as of this encounter Plan of Treatment Upcoming Encounters Date Type Department Care Team (Late st Contact Info) Description 09/04/2024 4:30 PM CDT Telephone Check Up [facility] Oncology and Hematology - [place] [address] [facility] [address] [place] [address] Joon Giron MD [address] [facility] [address] [place] [address] documented as of this encounter Visit Diagnoses Not on filedocumented in this encounter Care Teams Sales And Marketing Associate Relationship Specialty Start Date End Date Rubin Lehman MD PCP - General Internal Medicine 09/03/10 05/08/17 documented as of this encounter
--- OUTSIDE RECORDS SUMMARY | 2024-08-03 12:31 | XMS_ITS | Clinical Summary ---
Author Organization [facility] Address [address] [place] [address] Care Team Providers Care Couples Therapist Name Role Phone Unavailable Primary Care Provider Unavailabl e Allergies Active Allergy Reactions Criticality Noted Date Comments Alendronate Sodium Other (See Comments) 08/03/2024 Acid reflux Amoxicillin-Pot Clavulanate Nausea and Vomiting,Fever Low 03/09/2007 Buspirone Other (See Comments) 08/03/2024 depressed Codeine 03/09/2007 Dapagliflozin Other (See Comments) 08/03/2024 Pain Diphenhydramine Hcl Other (See Comments) 08/03/2024 Per patient opposite of relaxed Doxycycline Fever Low 08/03/2024 Duloxetine Other (See Comments) 08/03/2024 pain Fd And C Blue No.1 Other (See Comments) 04/02/2011 teary Fexofenadine-Pseudoephedr ine 03/09/2007 Ibuprofen Other (See Comments) 08/03/2024 Acid reflux Levofloxacin Headache Low 08/03/2024 Nefazodone Other (See Comments) 08/03/2024 Pain Tramadol Nausea and Vomiting Low 08/03/2024 Trazodone Other (See Comments) 08/03/2024 Pain Triamcinolone 03/09/2007 Medications ascorbic acid (VITAMIN C) 1,000 mg Oral Tab Take 1 Tab by mouth 3 times daily. 1 Active vitamin B complex (B [...] AT BEDTIME 30 Tablet 0 6 Active amoxicillin (AMOXIL) 500 mg capsule TAKE 4 (FOUR) CAPSULES BY MOUTH PRE-PROCEDURE ONCE FOR 1 DOSE. TAKE ONE HOUR BEFORE PROCEDURE 5 Active Eliquis 5 mg tablet Take 5 mg by mouth 2 times daily. 5 Active famotidine (PEPCID) 40 mg tablet Take 1 Tablet by mouth daily. 5 Active fluticasone propionate (FLONASE) 50 mcg/spray [place], Suspension nasal inhaler Administer 2 Sprays in each nostril daily. Active metFORMIN (GLUCOPHAGE) 500 mg tablet Take 500 mg by mouth 2 times daily. Active mupirocin (BACTROBAN) 2 % Ointment apply to affected area 3 times a day 5 Active rosuvastatin (CRESTOR) 20 mg tablet Take 20 mg by mouth every other day. 5 Active tretinoin (RETIN-A) 0.05 % Cream APPLY THIN LAYER AT NIGHT BEFORE BED, MIX WITH MOISTURIZER NEEDED. 5 Active Turmeric, Bulk, (Curcumin) 95 % Powder by [employer]ostatix.(Non-Drug; Combo Route) route. Active QUERCETIN ORAL Take 250 mg by mouth. Active resveratroL 250 mg Capsule Take by mouth. Acti ve phenazopyridine 95 mg tablet Take 95 mg by mouth 3 times daily after meals. Active [place]-3 Fatty Acids (Super [place]-3) 1,000 mg Capsule Take by mouth. Acti ve geriatric multivitamin with iron & minerals (UNICAP SENIOR) Tablet Take 1 Tablet by mouth daily. Active Active Problems Problem Noted Date Diagnosed Date Mammogram declined 04/25/2015 Dysthymia 09/23/2010 Overview (09/23/2010): Hormone related Impaired fasting glucose 03/14/2007 Resolved Problems Problem Noted Date Diagnosed Date Resolved Date Depression 04/04/2008 09/23/2010 Routine general medical exam ination at a health care facility 03/09/2007 09/29/2010 Encounters Date Type Department Care Team Description 08/03/2024 10:30 AM CDT Office Visit [facility] Oncology and Hematology - [place] [address] [place] [address] Joon Giron MD Bilateral pulmonary embolism (CMS/HCC) (Primary Dx) from Last 3 Months Family History Medical History Relation Name Comments [...] on file 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 Gender Identity Not on file Sexual Orientation [...] Mass Index 25.61 08/03/2024 10:18 AM CDT Plan of Treatment Upcoming Encounters Date Type Department Care Team (Late st Contact Info) Description 09/04/2024 4:30 PM CDT Telephone Check Up [facility] Oncology and Hematology - [place] [address] [place] [address] Joon Giron MD [address] [facility] [employer] [address] [place] [address] Health Maintenance Due Date Last Done Comments FIT-DNA Q 3 years 06/05/1995 FIT/FOBT Q 1 year 06/05/1995 Flex Sig/CT Colonography Q 5 years 06/05/1995 ZOSTER VACCINE (1 of 2) 2000 OSTEOPOROSIS SCREENING 12/27/2022 8, 12/27/2017, 10/22/2015 INFLUENZA VACCINE (#1) 2023 01/03/2021 [place] Preventative Visit/Annual Wellness Visit 03/01/2024 04/25/2015, 03/26/2014, 11/23/2012, Additional history exists BREAST CANCER SCREENING 10/13/2024 10/14/19, 10/14/2023, 05/13/2022, Additional history exists RSV VACCINE (60+ or ) (1 - 1-dose 75+ series) 2025 DTAP/TDAP/TD VACCINES (2 - T d or Tdap) 10/02/2026 10/02/2016 COLORECTAL SCREENING 08/22/2029 08/23/2019, 10/10/2013, 03/01/2001, Additional history exists Colorectal Cancer Screening 08/22/2029 PNEUMOCOCCAL VACCINE 50+ YEARS Completed 12/17/2017 , 05/12/2016 Procedures Procedure Name Priority Date/Time Associated Diagnosis Comments ENDOSCOPY, COLON, SCREENING Routine 10/10/2013 from Last 3 Months or Most Recently Relevant to Health Maintenance Results * (ABNORMAL) ENDOSCOPY, COLON, SCREENING (10/10/2013) us Abstract Provider GI PROCEDURE ORDERABLES Edited Result - Final [facility] from Last 3 Months or Most Recently Relevant to Health Maintenance Insurance [facility] Advance Directives For more information, please contact: [phone] Documents on File Type Date Recorded 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
--- OUTSIDE RECORDS SUMMARY | 2024-08-03 12:31 | XMS_ITS | Encounter Summary ---
Author Organization [facility] Address [address] [facility] [place] [address] Care Team Providers Care Stock Manager Name Role Phone Mart Fink MD Primary Care Provider [phone] Mena Butcher MD Primary Care Provider [phone] Flaco Burrell COLOR SHOP HELPER-MANAGER CLINICAL INFORMATICS Primary Care Provi good Tomas Romero MD Primary Care Provider [phone] Encounter Details Date Type Department Care Team (Late st Contact Info) Description 05/15/2020 Telephone [facility] [address] [place] [address] Mena Butcher MD [address] [address] Social History Tobacco Use Types Packs/Day Years Used Date Smoking Tobacco: Never Smokeless Tobacco: Never Alcohol Use Standard Drinks/Week Comments No 0 (1 standard drink = 0.6 oz pur e alcohol) Comments No Sex and Gender Information Value Date Recorded Sex Assigned at Not on file 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 Patient Call Back number: [phone] documented in this encounter Plan of Treatment Upcoming Encounters Date Type Department Care Team (Late st Contact Info) Description 09/06/2024 1:00 PM CDT Office Visit [facility]mology [facility] [place] [phone] Hardy Up OD [address] [place] [address] 09/06/2024 1:30 PM CDT Office Visit [facility] - Ophthalmology [address] [place] [phone] Ann-Marie Baxter documented as of this encounter Goals Goal Patient Goal Type Associated Problems Recent Progress Patient-Stated? Author Medication Management General No Radha Wall, RN Note: Interventions: documented as of this encounter Visit Diagnoses Not on filedocumented in this encounter Care Teams Stock Manager Relationship Specialty Start Date End Date Mart Fink MD [address] [facility] [address] [place] [address] PCP - General Family Medicine 05/25/17 06/27/20 Mena Butcher MD [address] [place] [address] PCP - General 06/28/20 08/01/20 Flaco Burrell, COLOR SHOP HELPER-MANAGER CLINICAL INFORMATICS [address] [facility] [address] [place] [address] PCP - General Nurse Practitioner Family 08/02/2010/30 Tomas Romero MD [address] [facility] [address] [facility] [address] [place] [phone] PCP - General Internal Medicine 11/13/20 documented as of this encounter
--- OUTSIDE RECORDS SUMMARY | 2024-08-03 12:31 | XMS_ITS | Encounter Summary ---
Author Organization [facility] Address 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 [address] [place] [phone] Joon Giron MD [address] [facility] [address] [place] [address] documented as of this encounter Visit Diagnoses Not on filedocumented in this encounter Care Teams Side Seam Tender Relationship Specialty Start Date End Date Rubin Lehman MD PCP - General Internal Medicine 09/03/10 05/08/17 documented as of this encounter
--- OUTSIDE RECORDS SUMMARY | 2024-08-03 12:31 | XMS_ITS | Encounter Summary ---
Author Organization [facility] Address [address] [place] [address] Care Team Providers Care Table Games Shift Manager Name Role Phone Rubin Lehman MD Primary Care Provider Jose powers Encounter Details Date Type Department Care Team (Late st Contact Info) Description 03/09/2007 Orders Only [facility] Primary Care - [facility] [address] [place] [address] [address] [place] [address] Chu Reddy MD [address] [facility] [address] [place] [address] Social History Tobacco Use Types Packs/Day Years Used Date Smoking Tobacco: Never Assessed Comments Unknown Sex and Gender Information Value Date Recorded Sex Assigned at Not on file Legal Sex Female 3:22 AM STOCKROOM SUPERVISOR Gender Identity Not on file Sexual Orientation Not on file documented as of this encounter Progress Notes * Chu Reddy MD - 07/13/2007 5:56 PM CDT BLOOD PRESSURE: 116/80 Right Arm Sitting TEMPERATURE: 98.6??f Oral WEIGHT: 170lbs NURSE NAME: Bruce, Aggie ALLERGIES: Allergies are as listed. TOBACCO USE [...] identified on exam. LAB ORDERS: Order number: [id number] Test Ordered: COMPREHENSIVE METABOLIC PANEL 65184 Order number: [id number] Test Ordered: TSH W/REFLEX TO FT4 78711 Order number: [id number] Test Ordered: LIPID PANEL 7600 HEALTH MAINTENANCE: [...] 09/04/2024 4:30 PM CDT Telephone Check Up [facility] Oncology and Hematology - David 2227 [facility] [address] [place] [address] Joon Giron MD 2[address] [facility] [address] [place] [address] documented as of this encounter Visit Diagnoses Not on filedocumented in this encounter Care Teams Table Games Shift Manager Relationship Specialty Start Date End Date Rubin Lehman MD PCP - General Internal Medicine 09/03/10 05/08/17 documented as of this encounter
[2024-08-03 13:17] LABS: Folic Acid > 20.0 ng/mL (2.76->20); Vitamin B12 > 1000.0 pg/mL (239-931)
[2024-08-03 16:37] LABS: Hemoglobin A1C 6.1 % (<5.7)
== END 2024-08-03 11:24 | disposition home or self-care (01) ==
LOC: ANHLAB 11:24
PROVIDERS: PCP Internal Medicine; Visit Provider Internal Medicine
DX: E11.69 Type 2 diabetes mellitus with other specified complication (principal); E53.9 Vitamin B deficiency, unspecified; E78.2 Mixed hyperlipidemia; Z79.899 Other long term (current) drug therapy; Z13.29 Encounter for screening for other suspected endocrine disorder
CPT/HCPCS: 36415; 80053; 80061; 82607; 82746; 83036; 84439; 84443

== ENCOUNTER 2024-08-31 09:34 | Outpatient (CLI) | payer OTHER, SELFPAY ==
--- NOTE | ~2024-08-31 | CT_ITS ---
Clinical Indication: Shortness of breath, history of pulmonary embolus CT Scan of the Chest with Contrast: Technique: Contiguous sections were acquired throughout the chest after intravenous administration of 100 cc of Omnipaque 350. Dose reduction technique was used on this scan by utilizing automated expos ure control and iterative reconstruction technique. The dose-length product (DLP) was 301.34 mGy-cm. COMPARISON: 05/22/2024 Findings: There is no evidence of any significant mediastinal, hilar or axillary lymphadenopathy. There is no f illing defect in the pulmonary arterial tree to suggest pulmonary embolus. There is no evidence of ao rtic dissection or aneurysm. There is no evidence of pleural or pericardial effusion. There is mild patchy groundglass opacity in the lungs, nonspecific. No pulmonary nodule or focal cons olidation. Images through the upper abdomen reveal no abnormalities. Impression: No evidence of pulmonary embolus, aortic dissection, or aortic aneurysm. Mild patchy groundglass opacity. Correlate for hypoventilatory change, bronchiolitis, asthma, hyperse nsitivity pneumonitis, or possibly sequela of chronic PE. Reviewed, dictated and finalized at [facility]. Impression: No evidence of pulmonary embolus, aortic dissection, or aortic aneurysm. Mild patchy groundglass opacity. Correlate for hypoventilatory change, bronchio litis, asthma, hypersensitivity pneumonitis, or possibly sequela of chronic PE.
--- OUTSIDE RECORDS SUMMARY | 2024-08-31 09:41 | XMS_ITS | Encounter Summary ---
Author Organization [facility] Address [address] [place] [address] Care Team Providers Care Powerhouse Engineer Name Role Phone Rubin Lehman MD Primary Care Provider Jose powers Encounter Details Date Type Department Care Team (Late st Contact Info) Description 03/09/2007 Orders Only [facility] Primary Care - [facility] [address] [place] [address] [address] [place] [address] Chu Reddy MD 0426 [facility] [address] [place] [address] Social History Tobacco Use Types Packs/Day Years Used Date Smoking Tobacco: Never Assessed Comments Unknown Sex and Gender Information Value Date Recorded Sex Assigned at Not on file Legal Sex Female 3:22 AM TIRE FABRICATOR Gender Identity Not on file Sexual Orientation [...] identified on exam. LAB ORDERS: Order number: [id number] Test Ordered: COMPREHENSIVE METABOLIC PANEL 45426 Order number: [id number] Test Ordered: TSH W/REFLEX TO FT4 [id number] Order number: [id number] Test Ordered: LIPID PANEL 7600 HEALTH MAINTENANCE: [...] 09/04/2024 4:30 PM CDT Telephone Check Up [facility] Oncology and Hematology - David 2227 [facility] [address] [place] [address] Joon Giron MD 2227 [facility] [address] [place] [address] documented as of this encounter Visit Diagnoses Not on filedocumented in this encounter Care Teams Powerhouse Engineer Relationship Specialty Start Date End Date Rubin Lehman MD PCP - General Internal Medicine 09/03/10 05/08/17 documented as of this encounter
--- OUTSIDE RECORDS SUMMARY | 2024-08-31 09:41 | XMS_ITS | Encounter Summary ---
Author Organization [facility] Address [address] [place] [address] Care Team Providers Care Technical Support Coordinator Name Role Phone Rubin Lehman MD Primary Care Provider Jose powers Encounter Details Date Type Department Care Team (Late st Contact Info) Description 02/23/2007 Outpatient Historical [facility] Primary Care - [address] [place] [address] Chu Reddy MD 5555 [facility] [address] [place], [place] [id number] Social History Tobacco Use Types Packs/Day Years Used Date Smoking Tobacco: Never Assessed Comments Unknown Sex and Gender Information Value Date Recorded Sex Assigned at Not on file Legal Sex Female 3:22 AM PRINCIPAL ACCOUNT CLERK Gender Identity Not on file Sexual Orientation Not on file documented as of this encounter Plan of Treatment Upcoming Encounters Date Type Department Care Team (Late st Contact Info) Description 09/04/2024 4:30 PM CDT Telephone Check Up [facility] Oncology and Hematology - David 2[address] [facility] [address] [place] [address] Joon Giron MD 2227 [facility] [address] [place] [address] documented as of this encounter Visit Diagnoses Not on filedocumented in this encounter Care Teams Technical Support Coordinator Relationship Specialty Start Date End Date Rubin Lehman MD PCP - General Internal Medicine 09/03/10 05/08/17 documented as of this encounter
--- OUTSIDE RECORDS SUMMARY | 2024-08-31 09:41 | XMS_ITS | Encounter Summary ---
Author Organization [facility] Address [address] [place] [address] Care Team Providers Care Embossing Machine Operator Name Role Phone Mart Fink MD Primary Care Provider [phone] Mena Butcher MD Primary Care Provider [phone] Flaco Burrell DRUG ABUSE COUNSELOR-CARPET CUTTER Primary Care Provi good Tomas Romero MD Primary Care Provider [phone] Encounter Details Date Type Department Care Team (Late st Contact Info) Description 05/15/2020 Telephone [facility] [address] [place] [address] Mena Butcher MD [address] [address] Social History Tobacco Use Types Packs/Day Years Used Date Smoking Tobacco: Never Smokeless Tobacco: Never Alcohol Use Standard Drinks/Week Comments No 0 (1 standard drink = 0.6 oz pur e alcohol) Comments No Sex and Gender Information Value Date Recorded Sex Assigned at Not on file Legal Sex Female 5:15 PM PODIATRY TEACHER Gender Identity Not on file Sexual Orientation [...] a sooner appt? Patient Call Back number: [phone] documented in this encounter Plan of Treatment Upcoming Encounters Date Type Department Care Team (Late st Contact Info) Description 09/06/2024 1:00 PM CDT Office Visit [facility] - [facility]mology [facility] [place] [address] Hardy Up OD [address] [place] [address] 09/06/2024 1:30 PM CDT Office Visit [facility] - Ophthalmology [address] [place] [phone] Ann-Marie Baxter documented as of this encounter Goals Goal Patient Goal Type Associated Problems Recent Progress Patient-Stated? Author Medication Management General No Radha Wall, RN Note: Interventions: documented as of this encounter Visit Diagnoses Not on filedocumented in this encounter Care Teams Embossing Machine Operator Relationship Specialty Start Date End Date Mart Fink MD [address] [facility] [address] [place] [address] PCP - General Family Medicine 05/25/17 06/27/20 Mena Butcher MD [address] [place] [address] PCP - General 06/28/20 08/01/20 Flaco Burrell, DRUG ABUSE COUNSELOR-CARPET CUTTER [address] [facility] [address] [place] [address] PCP - General Nurse Practitioner Family 08/02/2010/30 Tomas Romero MD 68[address] [facility] [address] [facility] [address] [place] [address] PCP - General Internal Medicine 11/13/20 documented as of this encounter
--- OUTSIDE RECORDS SUMMARY | 2024-08-31 09:41 | XMS_ITS | Encounter Summary ---
Author Organization [facility] Address [address] [facility] [place] [address] Care Team Providers Care Nutritional Services Cook Name Role Phone Mart Fink MD Primary Care Provider [phone] Mena Butcher MD Primary Care Provider [phone] Flaco Burrell UNIVERSAL BRANCH CONSULTANT-BANKRUPTCY PARALEGAL Primary Care Provi good Tomas Romero MD Primary Care Provider [phone] Encounter Details Date Type Department Care Team (Late st Contact Info) Description 08/10/2019 Telephone [facility] [address] [place] [address] Mart Fink MD [address] [facility] [address] [place] [address] Social History Tobacco Use Types Packs/Day Years Used Date Smoking Tobacco: Never Smokeless Tobacco: Never Alcohol Use Standard Drinks/Week Comments No 0 (1 standard drink = 0.6 oz pur e alcohol) Comments No Sex and Gender Information Value Date Recorded Sex Assigned at Not on file Legal Sex Female 5:15 PM ACRYLIC FABRICATOR Gender Identity Not on file Sexual [...] Description 09/06/2024 1:00 PM CDT Office Visit [facility] - Ophthalmology [address] [place] [phone] Hardy pU OD [address] [place] [phone] 09/06/2024 1:30 PM CDT Office Visit [facility] - Ophthalmology [address] [place] [phone] Ann-Marie Baxter documented as of this encounter Goals Goal Patient Goal Type Associated Problems Recent Progress Patient-Stated? Author Medication Management General No Radha Wall, NAHED Note: Interventions: documented as of this encounter Visit Diagnoses Not on filedocumented in this encounter Care Teams Nutritional Services Cook Relationship Specialty Start Date End Date Mart Fink MD [address] [facility] [address] [place] [address] PCP - General Family Medicine 05/25/17 06/27/20 Mena Butcher MD [address] [place] [address] PCP - General 06/28/20 08/01/20 Flaco Burrell, UNIVERSAL BRANCH CONSULTANT-BANKRUPTCY PARALEGAL [address] [place] [address] PCP - General Nurse Practitioner Family 08/02/2010/30 Tomas Romero MD 6812 [facility] [address] [facility] [address] [place] [phone] PCP - General Internal Medicine 11/13/20 documented as of this encounter
--- OUTSIDE RECORDS SUMMARY | 2024-08-31 09:41 | XMS_ITS | Clinical Summary ---
Author Organization [facility] Address [address] [place] [address] Care Team Providers Care Hand Flesher Name Role Phone Unavailable Primary Care Provider [...] 5 Active fluticasone propionate (FLONASE) 50 mcg/spray [place], Suspension nasal inhaler Administer 2 Sprays in [...] Turmeric, Bulk, (Curcumin) 95 % Powder by RotaryView.(Non-Drug; Combo Route) route. Active QUERCETIN ORAL Take 250 mg by mouth. Active resveratroL 250 mg Capsule Take by mouth. Acti ve phenazopyridine 95 mg tablet Take 95 mg by mouth 3 times daily after meals. Active [place]-3 Fatty Acids (Super [place]-3) 1,000 mg Capsule Take by mouth. Acti [...] Encounters Date Type Department Care Team Description 08/15/2024 External Device Data STL ABSTRACTION Provider, Abstract 08/08/2024 External Device Data ST[facility] ABSTRACTION Provider, Abstract 08/08/2024 External Device Data ST[facility] ABSTRACTION Provider, Abstract 08/08/2024 External Device Data ST[facility] ABSTRACTION Provider, Abstract 08/03/2024 10:30 AM CDT Office Visit [facility] Oncology and Hematology David [address] [place] [address] Joon Giron MD Bilateral pulmonary [...] on file Legal Sex Female 3:22 AM LABORATORY MONITOR Gender Identity Not on file Sexual Orientation [...] 09/04/2024 4:30 PM CDT Telephone Check Up [facility] Oncology and Hematology David [address] [place] [address] Joon Giron MD 4[address] [facility] [address] [place] [address] Health Maintenance Due Date Last Done Comments FIT-DNA Q 3 years 06/05/1995 FIT/FOBT Q 1 year 06/05/1995 Flex Sig/CT Colonography Q 5 years 06/05/1995 ZOSTER VACCINE (1 of 2) 2000 OSTEOPOROSIS SCREENING 12/27/2022 8, 12/27/2017, 10/22/2015 Medicare Advantage ([place]) Preventative Visit/Annual Wellness Visit 03/01/2024 04/25/2015, 03/26/2014, 11/23/2012, Additional history exists INFLUENZA VACCINE (#1) 2024 01/03/2021 BREAST CANCER SCREENING 10/13/2024 10/14/19, 10/14/2023, 05/13/2022, [...] Most Recently Relevant to Health Maintenance Insurance [facility] P[place] [facility] [id number] Advance Directives For more information, please contact: [phone] Documents on File Type Date Recorded Patient Repairer Controller Tester Expl 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
--- OUTSIDE RECORDS SUMMARY | 2024-08-31 09:41 | XMS_ITS | Clinical Summary ---
Author Organization [facility] Address [address] [place] [address] Care Team Providers Care Asbestos Removal Worker Name Role Phone Tomas Romero MD Primary Care Provider [phone] Source Comments [facility],non-owned Affiliates and Associated Physician Practices is amultiple site organization consisting of ambulatory clinics and hospital sitesin [place], [place], [place] and [place]. This disclosure is being madepursuant to the Care Everywhere program and may not contain all information available regarding this patient. Last updated 17.[facility] [place] Allergies Active Allergy Reactions Criticality Noted Date [...] morning and evening meal 180 tablet 4 1 Active Blood Glucose Monitoring Suppl (ONE TOUCH ULTRA 2) w/Device KIT CHECK BLOOD SUGAR ONCE PER DAY 1 Active ONETOUCH ULTRA test strip CHECK BLOOD SUGAR ONCE PER DAY 1 Active Lancets (ONETOUCH DELICA PLUS 33G EXTRA FINE LANCET) CHECK BLOOD SUGAR ONCE PER DAY 1 Active rosuvastatin (CRESTOR) 20 MG tablet Take 1 (one) tablet by mouth once daily 1 Active fluticasone propionate (FLONASE) 50 MCG/ACT nasal spray USE 2 SPRAYS IN EACH NOSTRIL ONCE DAILY 1 Active famotidine (Pepcid) 40 MG tablet Take 1 (one) tablet by mouth once daily 5 Active tretinoin (Retin-A) 0.05 % cream Apply to affected area at bedtime 5 Active mupirocin (Bactroban) 2 % ointment Apply to affected area 3 times daily 22 g 5 Active apixaban (Eliquis) 5 MG tablet Take 2 (two) tablets by mouth 2 times daily Active amoxicillin (Amoxil) 500 MG capsule Take 1 (one) capsule by mouth pre-Procedur e once 08/25/19 25 Discontinue d(Reorder) amoxicillin (Amoxil) 500 MG capsule Take 1 (one) capsule by mouth pre-Procedur e once for 1 dose 1 capsule 5 08/25/19 25 Active Problems Problem Noted Date Diagnosed Date [...] weeks. Assessment & Plan (03/29/2019 9:52 PM QUILL CLEANER): Poorly controlled at present, mostly due to [...] 05/10/2024 Assessment & Plan (03/29/2019 9:51 PM QUILL CLEANER): A1c up slightly. Still in pre-diabetes stage. 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); Diplopia 06/28/2024 Travel from Last 3 Months Immunizations Immunization [...] on file Legal Sex Female 5:15 PM QUILL CLEANER Gender Identity Not on file Sexual Orientation Not on file Last Filed Vital Signs Vital Sign Reading Time Taken Comments Blood Pressure 138/85 05/29/2024 10:56 AM CDT Pulse 88 05/29/2024 10:56 AM CDT Temperature 37.1 C (98.8 F) 07/17/2020 10:32 AM CDT Respiratory Rate 12 01/16/2020 4:21 PM QUILL CLEANER Oxygen Saturation 95% 07/17/2020 10:34 AM CDT [...] Office Visit [facility] - Ophthalmology [address] [place] [phone] Hardy Up, PATRICE [address] [place] [phone] 09/06/2024 1:30 PM CDT Office Visit [facility] Ophthalmology [address] [place] [phone] [facility] Due Date Last Done Comments CT COLONOGRAPHY - COLON CA SCREENING 1950 FIT - COLON CA SCREENING 1950 FLEX SIG - COLON CA SCREENING 1950 ZOSTER VACCINE (1 of 2) 2000 COLOGUARD (AGES 45-75) - COLON CA SCREENING 08/01/2022 08/02/2019, 08/02/2019 SCREENING FOR DIABETES 07/18/2023 , 01/16/2020, 03/29/2019, Additional history exists COVID-19 VACCINE ( season) 2023 11/16/2020, 05/17/2020, 04/26/2020 MEDICARE AWV CALENDAR YEAR 2024 COLON MONITORING 08/22/2024 08/23/2019, 01/2014 (Done Outside Per Report) Colorectal Cancer Screening 08/22/2024 INFLUENZA VACCINE (#1) 2024 01/03/2021 Respiratory Syncytial Virus (RSV) Vaccine [...] Note: Interventions: Medical Devices Implanted Type Area Community Relations Representative Device Identifier Shelf Expiration Date Model / Serial / Lot Shell Actb 52mm Hip 3 Hl Poly R3 Std Implanted:Qty: 1 on 06/17/2017 by Paco Meléndez MD at [facility] Left: Hip [employer] 12/02/2026 [id number] / / [id number] Screw 6.5mm 45mm Actb Sphrcl Head Reflc Implanted:Qty: 1 on 06/17/2017 by Paco Meléndez MD at [facility] Left: Hip [employer] 08/19/2026 [id number] / / [id number] Liner Actb R3 0d 52mm 36mm Xlpe Hip Flxb Implanted:Qty: 1 on 06/17/2017 by Paco Meléndez MD at [facility] Left: Hip [employer] 08/01/2026 [id number] / / [id number] Polarstem Size 3 Stem Implanted:Qty: 1 on 06/17/2017 by Paco Meléndez MD at [facility] Left: Hip 02/11/2024 [id number] / / [id number] Head Fem +4mm 12/14 36mm Hip Tpr Oxnm Implanted:Qty: 1 on 06/17/2017 by Paco Meléndez MD at [facility] Left: Hip [employer] 10/11/2026 [id number] / / [id number] Mata Uncem Hip All Inclusive Implanted:Qty: 1 on 06/17/2017 by Paco Meléndez MD at [facility] [employer] BILL ONLY UNCEM HIP ALL INCLUSIVE [...] participate in the care of your patient. [facility] Breast Care utilizes [employer] as a reminder system to notify patients [...] 5.8 % BLOOD SPECIMEN / Unknown 07/17/2020 Result [facility] Flaco Burrell SACK SEWER MACHINE-BUSINESS SERVICES SALES AGENT LAB - POINT OF CARE ORDERABLES Final Result * COLONOSCOPY (08/23/2019) Result [facility] Historical Provider SCANNING ONLY Final Res ult [...] Mira Bautista al, N Engl J Med 2014;370(14):8992-3929.) The normal value (reference range) for this [...] interval of every 3 years by the [place] Cancer Society and U.S. Multi-Society Task Force. [...] can be accessed at the following location: www.IPexpert/results. Additional description of the Cologuard test process, warnings and precautions can be found at www.cologuardtest.com. Rx only. Stool specimen (specimen) STOOL SPECIMEN / Unknown 08/02/2019 9:37 AM CDT 08/03/2019 3:38 PM CDT us Mart Fink MD LAB - CHEMISTRY ORDERABLES Fi nal Result [facility] [address] [place] [address] [facility] [address] [place] [address]. [place] [address] * DEXA BONE DENSITY AXIAL SKELETON (12/27/2017 [...] ordering physician and is also available on [employer], the Radiology Department's computerized picture archive system. [...] ordering physician and is also available on [employer], the Radiology Department'Vow To Be Chic picture archive system. Patient's height 62 in; [...] Most Recently Relevant to Health Maintenance Insurance [facility] MEDICARE ADV [facility] MEDICARE ADV PPO [facility] MEDICARE ADV Care Teams Asbestos Removal Worker Relationship Specialty Start Date End Date Tomas Romero MD [address] [place] [address] PCP - General Internal Medicine 11/13/20
--- OUTSIDE RECORDS SUMMARY | 2024-08-31 09:41 | XMS_ITS | Encounter Summary ---
Author Organization [facility] Address [address] [place] [address] Care Team Providers Care Fundraising Coordinator Name Role Phone Rubin Lehman MD Primary Care Provider Jose powers Encounter Details Date Type Department Care Team (Late st Contact Info) Description 08/07/1999 Outpatient Historical [facility] MD Jeffery MATTHEWS Carolyn, MD [address] [place] [phone] Social History Tobacco Use Types Packs/Day Years Used Date Smoking Tobacco: Never Assessed Comments Unknown Sex and Gender Information Value Date Recorded Sex Assigned at Not on file Legal Sex Female 3:22 AM TALENT DEVELOPMENT COORDINATOR Gender Identity Not on file Sexual Orientation Not on file documented as of this encounter Plan of Treatment Upcoming Encounters Date Type Department Care Team (Late st Contact Info) Description 09/04/2024 4:30 PM CDT Telephone Check Up [facility] Oncology and Hematology - David [address] [facility] [address] [place] [phone] Joon Giron MD [address] [facility] [address] [place] [address] documented as of this encounter Visit Diagnoses Not on filedocumented in this encounter Care Teams Fundraising Coordinator Relationship Specialty Start Date End Date Rubin Lehman MD PCP - General Internal Medicine 09/03/10 05/08/17 documented as of this encounter
== END 2024-08-31 09:35 | disposition home or self-care (01) ==
PROVIDERS: PCP Internal Medicine; Visit Provider Internal Medicine
DX: I26.99 Other pulmonary embolism without acute cor pulmonale (principal); R91.8 Other nonspecific abnormal finding of lung field
CPT/HCPCS: 71275; Q9967

== ENCOUNTER 2024-09-19 09:02 | Outpatient (CLI) | payer OTHER, SELFPAY ==
--- OUTSIDE RECORDS SUMMARY | 2024-09-19 09:06 | XMS_ITS | Encounter Summary ---
Author Organization [facility] Address [address] [place] [address] Care Team Providers Care Combiner Name Role Phone Mart Fink MD Primary Care Provider [phone] Mena Butcher MD Primary Care Provider [phone] Flaco Burrell DIRECTOR OF OPTIMIZATION-ARCHITECT MANAGER Primary Care Provi good Tomas Romero MD Primary Care Provider [phone] Encounter Details Date Type Department Care Team (Late st Contact Info) Description 05/15/2020 Telephone [facility] [address] [place] [address] Mena Butcher MD [address] [address] Social History Tobacco Use Types Packs/Day Years Used Date Smoking Tobacco: Never Smokeless Tobacco: Never Alcohol Use Standard Drinks/Week Comments No 0 (1 standard drink = 0.6 oz pur e alcohol) Comments No Sex and Gender Information Value Date Recorded Sex Assigned at Not on file Legal Sex Female 5:15 PM BRUSH MAKER Gender Identity Not on file Sexual Orientation [...] a sooner appt? Patient Call Back number: [phone] documented in this encounter Plan of Treatment Upcoming Encounters Date Type Department Care Team (Late st Contact Info) Description 10/17/2024 2:15 PM CDT Office Visit [facility] - Ophthalmology [address] [place] [phone] Ronald Huffman MD [address] [place] [address] [place] [phone] documented as of this encounter Goals Goal Patient Goal Type Associated Problems Recent Progress Patient-Stated? Author Medication Management General No Radha Wall, NAHED Note: Interventions: documented as of this encounter Visit Diagnoses Not on filedocumented in this encounter Care Teams Combiner Relationship Specialty Start Date End Date Mart Fink MD [address] [facility] [address] [place] [address] PCP - General Family Medicine 05/25/17 06/27/20 [place] [address] [place] [address] [place] [address] PCP - General 06/28/20 08/01/20 Flaco Burrell, DIRECTOR OF OPTIMIZATION-ARCHITECT MANAGER [address] [facility] 204 [place] [address] PCP - General Nurse Practitioner Family 08/02/2010/30 Tomas Romero MD [address] [facility] [address] [place] [address] PCP - General Internal Medicine 11/13/20 documented as of this encounter
--- OUTSIDE RECORDS SUMMARY | 2024-09-19 09:06 | XMS_ITS | Encounter Summary ---
Author Organization [facility] Address [address] [place] [address] Care Team Providers Care Substitute Bus Driver Name Role Phone Mart Fink MD Primary Care Provider [phone] Mena Butcher MD Primary Care Provider [phone] Flaco Burrell CERTIFIED NURSE AIDE-YIELD ANALYST Primary Care Provi good Tomas Romero MD Primary Care Provider [phone] Encounter Details Date Type Department Care Team (Late st Contact Info) Description 08/10/[address] [facility] 18[address] [place] [address] Mart Fink MD [address] [facility] [address] [place] [address] Social History Tobacco Use Types Packs/Day Years Used Date Smoking Tobacco: Never Smokeless Tobacco: Never Alcohol Use Standard Drinks/Week Comments No 0 (1 standard drink = 0.6 oz pur e alcohol) Comments No Sex and Gender Information Value Date Recorded Sex Assigned at Not on file Legal Sex Female 5:15 PM OPERATIONS SUPPORT SPECIALIST Gender Identity Not on file Sexual [...] 10/17/2024 2:15 PM CDT Office Visit [facility] - Ophthalmology [address] [facility], [place] [phone] Ronald Huffman MD [address] [place] [address] [place] [phone] documented as of this encounter Goals Goal Patient Goal Type Associated Problems Recent Progress Patient-Stated? Author Medication Management General No Radha Wall RN Note: Interventions: documented as of this encounter Visit Diagnoses Not on filedocumented in this encounter Care Teams Substitute Bus Driver Relationship Specialty Start Date End Date Mart Fink MD [address] [facility] [address] [place] [address] PCP - General Family Medicine 05/25/17 06/27/20 Mena Butchre MD [address] [place] [address] PCP - General 06/28/20 08/01/20 Flaco Burrell, CERTIFIED NURSE AIDE-YIELD ANALYST [address] [place] [address] [place] [address] PCP - General Nurse Practitioner Family 08/02/2010/30 Tomas Romero MD [address] [facility] [address] [place] [address] PCP - General Internal Medicine 11/13/20 documented as of this encounter
--- OUTSIDE RECORDS SUMMARY | 2024-09-19 09:07 | XMS_ITS | Clinical Summary ---
Author Organization [facility] Address [address] [place] [address] Care Team Providers Care After School Program Assistant Name Role Phone Tomas Romero MD Primary Care Provider [phone] [facility],non-owned Affiliates and Associated Physician Practices is amultiple site organization consisting of ambulatory clinics and hospital sitesin [place], [place], [place] and [place]. This disclosure is being madepursuant to the Care Everywhere program and may not contain all information available regarding this patient. Last updated 17.[facility] [employer] Allergies Active Allergy Reactions Criticality Noted Date [...] weeks. Assessment & Plan (03/29/2019 9:52 PM CUSTOMER RELATIONS COORDINATOR): Poorly controlled at present, mostly due to [...] 05/10/2024 Assessment & Plan (03/29/2019 9:51 PM CUSTOMER RELATIONS COORDINATOR): A1c up slightly. Still in pre-diabetes stage. 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); Diplopia; Regular astigmatism of both eyes 09/06/2024 Travel 08/24/2024 Refill [facility] - Orthopedic Surgery [address] [place] [phone] Rose Mary Alexis RN MEDICATION REFILL 06/28/2024 1:30 PM CDT Office Visit [facility] - Ophthalmology 1225 [place] [phone] Susan Flores MD Floppy eyelid syndrome of [...] on file Legal Sex Female 5:15 PM CUSTOMER RELATIONS COORDINATOR Gender Identity Not on file Sexual Orientation Not on file Last Filed Vital Signs Vital Sign Reading Time Taken Comments Blood Pressure 138/85 05/29/2024 10:56 AM CDT Pulse 88 05/29/2024 10:56 AM CDT Temperature 37.1 C (98.8 F) 07/17/2020 10:32 AM CDT Respiratory Rate 12 01/16/2020 4:21 PM CUSTOMER RELATIONS COORDINATOR Oxygen Saturation 95% 07/17/2020 10:34 AM CDT Inhaled Oxygen Concentration - - Weight 63.5 kg (140 lb) 05/29/2024 10:56 AM CDT Height 157.5 cm (5' 2) 05/29/2024 10:56 AM CDT Body Mass Index 25.61 05/29/2024 10:56 AM CDT Plan of Treatment Upcoming Encounters Date Type Department Care Team (Late st Contact Info) Description 10/17/2024 2:15 PM CDT Office Visit [facility] - Ophthalmology [address] [place] [address], [place] [phone] Ronald Huffman MD [facility]5 [facility] [place] [address] Health Maintenance Due Date Last Done Comments CT COLONOGRAPHY - COLON CA SCREENING 1950 FIT - COLON CA SCREENING 1950 FLEX SIG - COLON CA SCREENING 1950 ZOSTER VACCINE (1 of 2) 2000 COLOGUARD (AGES 45-75) - COLON CA SCREENING 08/01/2022 08/02/2019, 08/02/2019 SCREENING FOR DIABETES 07/18/2023 , 01/16/2020, 03/29/2019, Additional history exists COVID-19 VACCINE ( - 2023- season) 2023 11/16/2020, 05/17/2020, 04/26/2020 MEDICARE AWV [...] Note: Interventions: Medical Devices Implanted Type Area Drug Worker Device Identifier Shelf Expiration Date Model / Serial / Lot Shell Actb 52mm Hip 3 Hl Poly R3 Std Implanted:Qty: 1 on 06/17/2017 by Paco Meléndez MD at [facility] Left: Hip [employer] 12/02/2026 [id number] / / [id number] Screw 6.5mm 45mm Actb Sphrcl Head Reflc Implanted:Qty: 1 on 06/17/2017 by Paco Meléndez MD at [facility] Left: Hip [employer] 08/19/2026 [id number] / / [id number] Liner Actb R3 0d 52mm 36mm Xlpe Hip Flxb Implanted:Qty: 1 on 06/17/2017 by Paco Meléndez MD at [facility] Left: Hip [employer] 08/01/2026 [id number] / / [id number] Polarstem Size 3 Stem Implanted:Qty: 1 on 06/17/2017 by Paco Meléndez MD at [facility] Left: Hip 02/11/2024 75 [id number] / / [id number] Head Fem +4mm 02/11 36mm Hip Tpr Oxnm Implanted:Qty: 1 on 06/17/2017 by Paco Meléndez MD at [facility] Left: Hip [place] [employer] 10/11/2026 [id number] / / [id number] Mata Uncem Hip All Inclusive Implanted:Qty: 1 on 06/17/2017 by Paco Meléndez MD at [facility] Orthopaedics BILL ONLY UNCEM HIP ALL [...] in the care of your patient. [facility] Breast Care utilizes Qloo as a reminder system to notify patients [...] - POINT OF CARE (AMB) [facility] (07/17/2020) [facility] Hemoglobin A1c POCT 5.8 % BLOOD SPECIMEN / Unknown 07/17/2020 Flaco Burrell MANAGER OF [facility] LAB - POINT OF CARE ORDERABLES Final Result * COLONOSCOPY (08/23/2019) Historical Provider SCANNING ONLY Final Res ult * (ABNORMAL) COLOGUARD TEST (08/02/2019 9:37 AM CDT) [facility] Cologuard Positive (A) Not Applicable Art Qualified [facility] Comment: It is recommended that [...] Mira Bautista al, N Engl J Med 2014;370(14):7555-7823.) The normal value (reference range) for this [...] interval of every 3 years by the [place] Cancer Society and U.S. Multi-Society Task Force. [...] can be accessed at the following location: [email or web address]/results. Additional description of the Cologuard test process, warnings and precautions can be found at www.cologuardtest.com. Rx only. Stool specimen (specimen) STOOL SPECIMEN / Unknown 08/02/2019 9:37 AM CDT 08/03/2019 3:38 PM CDT us Mart Fink MD LAB - CHEMISTRY ORDERABLES Fi nal Result [facility] [address] [address] [address] [place] [address] [employer] [address] [place] [address]. [place] [address] * DEXA BONE DENSITY AXIAL SKELETON (12/27/2017 [...] ordering physician and is also available on [employer], the Radiology Department's computerized picture archive system. [...] ordering physician and is also available on [employer], the Radiology Department'Viddsee picture archive system. Patient's height 62 in; [...] Relevant to Health Maintenance Insurance [place] [address] [place] [address] MEDICARE ADV PPO [facility] MANAGED MEDICARE ADV Care Teams After School Program Assistant Relationship Specialty Start Date End Date Tomas Romero MD [address] [facility] 209 [place] [address] PCP - General Internal Medicine 11/13/20
[2024-09-20 15:09] LABS: Beta-2 Glycoprotein I Ab, IgG <9 (0-20)
[2024-09-21 01:07] LABS: PTT-LA 30.0 sec (0.0-43.5)
== END 2024-09-19 09:03 | disposition home or self-care (01) ==
PROVIDERS: PCP Internal Medicine; Visit Provider Internal Medicine Hematology & Oncology
DX: I26.99 Other pulmonary embolism without acute cor pulmonale (principal)
CPT/HCPCS: 83090; 85303; 85306; 85732; 86146

== ENCOUNTER 2024-10-04 13:54 | Outpatient (CLI) | payer OTHER, SELFPAY ==
--- OUTSIDE RECORDS SUMMARY | 2024-10-04 14:01 | XMS_ITS | Encounter Summary ---
Author Organization [facility] Address [address] [place] [address] Care Team Providers Care Staffing And Scheduling Coordinator Name Role Phone Rubin Lehman MD Primary Care Provider Jose powers Encounter Details Date Type Department Care Team (Late st Contact Info) Description 02/23/2007 Outpatient Historical [facility] Primary Care - [address] [place] [address] Chu Reddy MD [address] [facility] [address] [place] [address] Social History Tobacco Use Types Packs/Day Years Used Date Smoking Tobacco: Never Assessed Comments Unknown Sex and Gender Information Value Date Recorded Sex Assigned at Not on file Legal Sex Female 3:22 AM BUS AND TROLLEY INSPECTING DISPATCHER Gender Identity Not on file Sexual Orientation Not on file documented as of this encounter Plan of Treatment Upcoming Encounters Date Type Department Care Team (Late st Contact Info) Description 10/17/2024 4:30 PM CDT Telephone Check Up [facility] Oncology and Hematology - David [address] [facility] [address] [place] [address] Joon Giron MD [address] [facility] [address] [place] [address] documented as of this encounter Visit Diagnoses Not on filedocumented in this encounter Care Teams Staffing And Scheduling Coordinator Relationship Specialty Start Date End Date Rubin Lehman MD PCP - General Internal Medicine 09/03/10 05/08/17 documented as of this encounter
--- OUTSIDE RECORDS SUMMARY | 2024-10-04 14:01 | XMS_ITS | Encounter Summary ---
Author Organization [facility] Address [address] [place] [address] Care Team Providers Care Certified Vehicle Fire Investigator Name Role Phone Rubin Lehman MD Primary Care Provider Jose powers Encounter Details Date Type Department Care Team (Late st Contact Info) Description 03/09/[address] [facility] Primary Care - [address] [place] [address] Chu Reddy MD [address] [facility] [address] [place] [address] Social History Tobacco Use Types Packs/Day Years Used Date Smoking Tobacco: Never Assessed Comments Unknown Sex and Gender Information Value Date Recorded Sex Assigned at Not on file Legal Sex Female 3:22 AM BREAD ROOM HAND Gender Identity Not on file Sexual Orientation [...] the practice. general check up. HISTORY: HISTORY: V7.0-ROUTINE GENERAL MEDICAL EXAMINATION The patient is here [...] identified on exam. LAB ORDERS: Order number: [id number] Test Ordered: COMPREHENSIVE METABOLIC PANEL 10465 Order number: [id number] Test Ordered: TSH W/REFLEX TO FT4 [id number] Order number: [id number] Test Ordered: LIPID PANEL 7600 HEALTH MAINTENANCE: [...] 10/17/2024 4:30 PM CDT Telephone Check Up [facility] Oncology and Hematology - [place] [address] [facility] 200 [place] [address] Joon Giron MD [address] [facility] [address] [place] [address] documented as of this encounter Visit Diagnoses Not on filedocumented in this encounter Care Teams Certified Vehicle Fire Investigator Relationship Specialty Start Date End Date Rubin Lehman MD PCP - General Internal Medicine 09/03/10 05/08/17 documented as of this encounter
--- OUTSIDE RECORDS SUMMARY | 2024-10-04 14:01 | XMS_ITS | Encounter Summary ---
Author Organization [employer] Address [address] [place] [address] Care Team Providers Care Deputy Clerk Name Role Phone Rubin Lehman MD Primary Care Provider Jose powers Encounter Details Date Type Department Care Team (Late st Contact Info) Description 08/07/1999 Outpatient Historical [facility] MD Jeffery MATTHEWS Carolyn, MD [address] [place] [address] Social History Tobacco Use Types Packs/Day Years Used Date Smoking Tobacco: Never Assessed Comments Unknown Sex and Gender Information Value Date Recorded Sex Assigned at Not on file Legal Sex Female 3:22 AM TECHNICAL ACCOUNT EXECUTIVE Gender Identity Not on file Sexual Orientation Not on file documented as of this encounter Plan of Treatment Upcoming Encounters Date Type Department Care Team (Late st Contact Info) Description 10/17/2024 4:30 PM CDT Telephone Check Up [facility] Oncology and Hematology - [place] [address] [facility] 200 [place] [address] Joon Giron MD [address] [facility] [address] [place] [address] documented as of this encounter Visit Diagnoses Not on filedocumented in this encounter Care Teams Deputy Clerk Relationship Specialty Start Date End Date Rubin Lehman MD PCP - General Internal Medicine 09/03/10 05/08/17 documented as of this encounter
--- OUTSIDE RECORDS SUMMARY | 2024-10-04 14:02 | XMS_ITS | Clinical Summary ---
Author Organization [facility] Address [address] [place] [address] Care Team Providers Care Rn Trauma Name Role Phone Unavailable Primary Care Provider [...] 5 Active fluticasone propionate (FLONASE) 50 mcg/spray [place], Suspension nasal inhaler Administer 2 Sprays in [...] Turmeric, Bulk, (Curcumin) 95 % Powder by [employer].(Non-Drug; Combo Route) route. Active QUERCETIN ORAL Take 250 mg by mouth. Active resveratroL 250 mg Capsule Take by mouth. Acti ve phenazopyridine 95 mg tablet Take 95 mg by mouth 3 times daily after meals. Active Oconee-3 Fatty Acids (Super Oconee-3) 1,000 mg Capsule Take by mouth. Acti [...] Encounters Date Type Department Care Team Description 09/26/[address] [facility] Oncology and Hematology - [address] [place] [address] Joon Giron MD Lab not drawn 09/21/[address] [facility] Oncology and Hematology [facility] [address] [place] [address] Joon Giron MD 09/13/2024 External Device Data STL ABSTRACTION Provider, Abstract 09/12/2024 External Device Data STL ABSTRACTION Provider, Abstract 09/04/2024 4:30 PM CDT Telephone Check Up [facility] Oncology and [facility] [address] [place] [address] Joon Giron MD Bilateral pulmonary embolism (CMS/HCC) (Primary Dx) 08/15/2024 External Device Data STL ABSTRACTION Provider, Abstract 08/08/2024 External Device Data STL ABSTRACTION Provider, Abstract 08/08/2024 External Device Data STL ABSTRACTION Provider, Abstract 08/08/2024 External Device Data STL ABSTRACTION Provider, Abstract 08/03/2024 10:30 AM CDT Office Visit [facility] Oncology [facility] [address] [place] [address] Joon Giron MD Bilateral pulmonary embolism (CMS/HCC) [...] on file Legal Sex Female 3:22 AM GIFT MANAGER Gender Identity Not on file Sexual [...] 4:30 PM CDT Telephone Check Up [facility] Oncology and Hematology [facility] [address] [facility] 200 [place] [address] Joon Giron MD [address] [facility] [address] [place] [address] Health Maintenance Due Date Last Done Comments FIT-DNA Q 3 years 06/05/1995 FIT/FOBT Q 1 year 06/05/1995 Flex Sig/CT Colonography Q 5 years 06/05/1995 ZOSTER VACCINE (1 of 2) 2000 OSTEOPOROSIS SCREENING 12/27/2022 8, 12/27/2017, 10/22/2015 Medicare [place]) Preventative Visit/Annual Wellness Visit 03/01/2024 04/25/2015, 03/26/2014, 11/23/2012, Additional history exists INFLUENZA VACCINE (#1) 2024 01/03/2021 BREAST CANCER SCREENING 10/13/2024 10/14/19 24, 10/14/2023, 05/13/2022, Additional history exists RSV VACCINE (60+ or ) (1 - 1-dose 75+ series) 2025 DTAP/TDAP/TD VACCINES (2 - T d or Tdap) 10/02/2026 10/02/2016 COLORECTAL SCREENING 08/22/2029 08/23/2019, 10/10/2013, 03/01/2001, Additional history exists Colorectal Cancer Screening 08/22/2029 PNEUMOCOCCAL VACCINE 50+ YEARS Completed 12/17/2017 , 05/12/2016 Procedures Procedure Name Priority Date/Time Associated Diagnosis Comments BETA 2 GLYCOPROTEIN I ANTIBODIES Routine 09/19/2024 1:01 PM CDT PROTEIN C & S ACTIVITY Routine 9:25 AM CDT LUPUS ANTICOAGULANT DRVVT Routine 2024 9:01 AM CDT ENDOSCOPY, COLON, SCREENING Routine 10/10/2013 from Last 3 Months or Most Recently Relevant to Health Maintenance Results * BETA 2 GLYCOPROTEIN I ANTIBODIES (09/19/2024 1:01 PM CDT) Blood Joon Giron MD CHEMISTRY ORDERABLES Final Resu lt * PROTEIN C & S ACTIVITY (09/19/2024 9:25 AM CDT) Blood Joon Giron MD CHEMISTRY ORDERABLES Final Resu lt * LUPUS ANTICOAGULANT DRVVT (09/19/2024 9:01 AM CDT) Blood Joon Giron MD HEMATOLOGY ORDERABLES Final Res ult * (ABNORMAL) ENDOSCOPY, COLON, SCREENING (10/10/2013) Abstract Provider GI PROCEDURE ORDERABLES Edited Result - Final [facility] from Last 3 Months or Most Recently Relevant to Health Maintenance Insurance [facility] Advance Directives For more information, please contact: [phone] Documents on File Type Date Recorded Patient Stringer Machine Tender Expl 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
--- OUTSIDE RECORDS SUMMARY | 2024-10-04 14:02 | XMS_ITS | Encounter Summary ---
Author Organization [facility] Address [address] [place] [address] Care Team Providers Care Audio Visual Aide Name Role Phone Mart Fink MD Primary Care Provider [phone] Mena Butcher MD Primary Care Provider [phone] Flaco Burrell AIRCRAFT HYDRAULIC EQUIPMENT MECHANIC-TUBE STATION ATTENDANT Primary Care Provi good Tomas Romero MD Primary Care Provider [phone] Encounter Details Date Type Department Care Team (Late st Contact Info) Description 05/15/2020 Telephone 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 Patient Call Back number: [phone] documented in this encounter Plan of Treatment Upcoming Encounters Date Type Department Care Team (Late st Contact Info) Description 10/17/2024 2:15 PM CDT Office Visit [facility] - Ophthalmology [address] [place] [phone] Ronald Huffman MD [address] [place] [address] [place] [phone] documented as of this encounter Goals Goal Patient Goal Type Associated Problems Recent Progress Patient-Stated? Author Medication Management General No Radha Wall, NAHED Note: Interventions: documented as of this encounter Visit Diagnoses Not on filedocumented in this encounter Care Teams Audio Visual Aide Relationship Specialty Start Date End Date Mart Fink MD [address] [facility] [address] [place] [address] PCP - General Family Medicine 05/25/17 06/27/20 [place] [address] [place] [address] [place] [address] PCP - General 06/28/20 08/01/20 Flaco Burrell, AIRCRAFT HYDRAULIC EQUIPMENT MECHANIC-TUBE STATION ATTENDANT [address] [facility] 204 [place] [address] PCP - General Nurse Practitioner Family 08/02/2010/30 Tmoas Romero MD [address] [facility] [address] [place] [address] PCP - General Internal Medicine 11/13/20 documented as of this encounter
--- OUTSIDE RECORDS SUMMARY | 2024-10-04 14:02 | XMS_ITS | Encounter Summary ---
Author Organization [facility] Health Address [address] [place] [address] Care Team Providers Care Car Rental Deliverer Name Role Phone Mart Fink MD Primary Care Provider [phone] Mena Butcher MD Primary Care Provider [phone] Flaco Burrell ACQUISITIONS ANALYST-LABORER [employer] Primary Care Provi good Tomas Romero MD Primary Care Provider [phone] Encounter Details Date Type Department Care Team (Late st Contact Info) Description 08/10/2019 Telephone [facility] [address] [place] [address] Mart Fink MD [address] [facility] [address] [place] [address] Social History Tobacco Use Types Packs/Day Years Used Date Smoking Tobacco: Never Smokeless Tobacco: Never Alcohol Use Standard Drinks/Week Comments No 0 (1 standard drink = 0.6 oz pur e alcohol) Comments No Sex and Gender Information Value Date Recorded Sex Assigned at Not on file Legal Sex Female 5:15 PM WATER RIGHTS SPECIALIST Gender Identity Not on file Sexual [...] Description 10/17/2024 2:15 PM CDT Office Visit [facility] - Ophthalmology [address] [facility], [place] [phone] Ronald Huffman MD [address] [place] [address] [place] [phone] documented as of this encounter Goals Goal Patient Goal Type Associated Problems Recent Progress Patient-Stated? Author Medication Management General No Radha Wall RN Note: Interventions: documented as of this encounter Visit Diagnoses Not on filedocumented in this encounter Care Teams Car Rental Deliverer Relationship Specialty Start Date End Date Mart Fink MD [address] [facility] [address] [place] [address] PCP - General Family Medicine 05/25/17 06/27/20 Mena Butcher MD [address] [place] [address] PCP - General 06/28/20 08/01/20 Flaco Burrell, ACQUISITIONS ANALYST-LABORER [employer] [address] [place] [address] PCP - General Nurse Practitioner Family 08/02/2010/30 Tomas Romero MD [address] [place] [address] PCP - General Internal Medicine 11/13/20 documented as of this encounter
--- OUTSIDE RECORDS SUMMARY | 2024-10-04 14:02 | XMS_ITS | Clinical Summary ---
Author Organization [facility] Address [address] [facility] [place] [address] Care Team Providers Care Electrical Troubleshooter Name Role Phone Tomas Romero MD Primary Care Provider [phone] Source Comments [facility],non-owned Affiliates and Associated Physician Practices is amultiple site organization consisting of ambulatory clinics and hospital sitesin [place], [place], [place] and [place]. This disclosure is being madepursuant to the Care Everywhere program and may not contain all information available regarding this patient. Last updated 17.[facility] Allergies Active Allergy Reactions Criticality Noted Date [...] 3 times daily 22 g 05/10/2024 Active apixaban (Eliquis) 5 MG tablet Take [...] weeks. 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 Still in pre-diabetes stage. 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); Diplopia; Regular astigmatism of both eyes 09/06/2024 Travel 08/24/2024 Refill [facility] - [facility] [address] [place] [address] Rose Mary Alexis, CAREER TECHNOLOGY TEACHER REFILL from Last 3 Months Immunizations Immunization Administration [...] on file Legal Sex Female 5:15 PM SHEARING SUPERVISOR Gender Identity Not on file Sexual Orientation Not on file Last Filed Vital Signs Vital Sign Reading Time Taken Comments Blood Pressure 138/85 05/29/2024 10:56 AM CDT Pulse 88 05/29/2024 10:56 AM CDT Temperature 37.1 C (98.8 F) 07/17/2020 10:32 AM CDT Respiratory Rate 12 01/16/2020 4:21 PM SHEARING SUPERVISOR Oxygen Saturation 95% 07/17/2020 10:34 AM CDT Inhaled Oxygen Concentration - - Weight 63.5 kg (140 lb) 05/29/2024 10:56 AM CDT Height 157.5 cm (5' 2) 05/29/2024 10:56 AM CDT Body Mass Index 25.61 05/29/2024 10:56 AM CDT Plan of Treatment Upcoming Encounters Date Type Department Care Team (Late st Contact Info) Description 10/17/2024 2:15 PM CDT Office Visit [facility] - Ophthalmology [address] [place] [phone] Ronald Huffman MD [address] [place] [address] [place] [address] Health Maintenance Due Date Last Done Comments [...] Note: Interventions: Medical Devices Implanted Type Area Malt House Operator Device Identifier Shelf Expiration Date Model / Serial / Lot Shell Actb 52mm Hip 3 Hl Poly R3 Std Implanted:Qty: 1 on 06/17/2017 by Paco Meléndez MD at [facility] Left: Hip [employer] 12/02/2026 [id number] / / [id number] Screw 6.5mm 45mm Actb Sphrcl Head Reflc Implanted:Qty: 1 on 06/17/2017 by Paco Meléndez MD at [facility] Left: Hip [employer] 08/19/2026 [id number] / / [id number] Liner Actb R3 0d 52mm 36mm Xlpe Hip Flxb Implanted:Qty: 1 on 06/17/2017 by Paco Meléndez MD at [facility] Left: Hip [employer] 08/01/2026 [id number] / / [id number] Polarstem Size 3 Stem Implanted:Qty: 1 on 06/17/2017 by Paco Meléndez MD at [facility] Left: Hip 02/11/2024 [id number] / / [id number] Head Fem +4mm /14 36mm Hip Tpr Oxnm Implanted:Qty: 1 on 06/17/2017 by Paco Meléndez MD at [facility] Left: Hip [employer] 10/11/2026 [id number] / / [id number] Mata Uncem Hip All Inclusive Implanted:Qty: 1 on 06/17/2017 by Paco Meléndez MD at [facility] [employer] BILL ONLY UNCEM [...] participate in the care of your patient. [facility] Breast [facility] utilizes [employer] as a reminder system to notify patients [...] significant interval change since the prior examination. us Tomas Romero MD MAMMO ORDERABLES Final Result * HEMOGLOBIN A1C - POINT OF CARE (AMB) [facility] (07/17/2020) Hemoglobin A1c POCT 5.8 % BLOOD SPECIMEN / Unknown 07/17/2020 Flaco Burrell CRYPTOLOGIST-BUSINESS MACHINE OPERATOR LAB - POINT OF CARE ORDERABLES Final Result * COLONOSCOPY (08/23/2019) Historical Provider MD SCANNING ONLY Final Res ult * (ABNORMAL) COLOGUARD TEST (08/02/2019 9:37 AM CDT) Cologuard Positive (A) Not Applicable [facility] Comment: It is recommended that a [...] Mira Bautista al, N Engl J Med 2014;370(14):5073-3226.) The normal value (reference range) for this [...] interval of every 3 years by the [place] [employer] Society and U.S. Multi-Society Task Force. [...] can be accessed at the following location: www.[email or web address]/results. Additional description of the Cologuard test process, warnings and precautions can be found at [email or web address].com. Rx only. Stool specimen (specimen) STOOL SPECIMEN / Unknown 08/02/2019 9:37 AM CDT 08/03/2019 3:38 PM CDT us Mart Fink MD LAB - CHEMISTRY ORDERABLES Fi nal Result [address] [place] [address] [place] [address]. [place] [address] * DEXA BONE DENSITY AXIAL SKELETON (12/27/2017 [...] ordering physician and is also available on [employer], the Radiology Department's computerized picture archive system. [...] ordering physician and is also available on [employer], the Radiology Department'[employer] picture archive system. Patient's height 62 in; [...] HERNDON D.O. on 12/27/2017 10:44 AM . us Mart Fink MD DEXA ORDERABLES Final Result [...] Most Recently Relevant to Health Maintenance Insurance [facility] MEDICARE ADV [facility] MEDICARE ADV PPO [facility] MEDICARE ADV Care Teams Electrical Troubleshooter Relationship Specialty Start Date End Date Tomas Romero MD [address] [facility] [address] [facility] [address] [place] [address] PCP - General Internal Medicine 11/13/20
== END 2024-10-04 13:55 | disposition home or self-care (01) ==
LOC: ANHLAB 13:55
PROVIDERS: PCP Internal Medicine; Visit Provider Internal Medicine Hematology & Oncology
DX: I26.99 Other pulmonary embolism without acute cor pulmonale (principal)
CPT/HCPCS: 85300

== ENCOUNTER 2024-12-07 13:15 | Emergency (ER) | payer OTHER, SELFPAY ==
--- NOTE | ~2024-12-07 | CT_ITS ---
EXAMINATION: CTA chest PE protocol, 12/07/2024 15:45 CDT HISTORY: r lower chest pain, hx of pe COMPARISON: No comparisons available. TECHNIQUE: CTA examination is obtained with contrast CTA examination technique is performed with arterial phase of contrast-enhancement. 3-D reconstruction with thin MIP axial and MPR coronal imaging is provided Isovue 300, 92cc injected IV. One or more of the following dose reduction techniques were used: automated exposure control, adjustment of the mA and/or kV according to patient size, use of iterative reconstruction technique. FINDINGS: No significant coronary calcification is present ([id number]) LUNGS: Contrast bolus adequate, no pulmonary embolism. Mild emphysematous changes with scattered areas of infiltrate, motion artifact limits evaluation. Mild bronchial wall thickening. There are some micronodules in a tree-in-bud distribution which may be infectious. HEART AND PERICARDIUM: Within normal limits. AORTA: Normal caliber aorta.. PULMONARY ARTERIES: No pulmonary embolism ADENOPATHY/MEDIASTINUM: None. LIMITED VIEWS OF THE ABDOMEN: Within normal limits. OSSEOUS STRUCTURES: Moderate loss of vertebral height throughout, no fracture or subluxation. OVERLYING SOFT TISSUES: Unremarkable. THYROID: The thyroid is unremarkable. IMPRESSION: 1. Limited study. Negative for pulmonary embolism. Probable mild bronchopneumonia, follow-up is suggested to assess resolution Reviewed, dictated and finalized at location P. IMPRESSION: 1. Limited study. Negative for pulmonary embolism. Probable mild bronchopneumon ia, follow-up is suggested to assess resolution
--- NOTE | ~2024-12-07 | XR_ITS ---
EXAMINATION: XR chest 2V, 12/07/2024 14:15 CDT HISTORY: CP/SOB SINCE YESTERDAY; Hx PE COMPARISON: No comparisons available. Technique: 2 views obtained. Findings: The lungs are clear, no effusion. No pneumothorax. Heart is normal size. Mediastinal and hilar contours are within normal limits. Bony thorax no acute abnormality. Impression: No acute cardiopulmonary abnormality. Reviewed, dictated and finalized at location P. Impression: No acute cardiopulmonary abnormality.
--- NOTE | 2024-12-07 13:18 | ECG_ITS ---
Test Date: 2024-12-07 13:30:53 Measurements Intervals [place] Rate: 96 P: 32 OK: 143 QRS: 59 QRSD: 85 T: 54 QT: 321 QTc: 407 Interpretive Statements SINUS RHYTHM POSSIBLE LEFT ATRIAL ENLARGEMENT LOW QRS VOLTAGE IN PRECORDIAL LEADS BASELINE ARTIFACT- V4-V5 BORDERLINE ECG Compared to ECG 05/22/2024 14:30:49 NO SIGNIFICANT CHANGE Electronically Signed On 12-07-2024 15:20:33 CDT by Richie Quiñonez D.O.
[2024-12-07 13:22] VITALS: BP 143/73; PULSE 99; RESP 20; TEMP 36.9; O2SAT 96
[2024-12-07 13:43] LABS: Hematocrit 40.7 % (37.0-47.0); Hemoglobin 13.5 g/dL (12.0-15.0); Immature Granulocyte Percent A 0.4 % (0-0.5); Lymphocytes Absolute Auto 1.97 K/mm3 (0.9-3.2); Mean Corpuscular HGB Conc 33.2 g/dl (32-36); Mean Corpuscular Hemoglobin 30.1 pg (26-34); Mean Corpuscular Volume 90.6 fl (80-100); Nucleated Red Blood Cells Absolute Auto 0.000 K/mm3 (0.0-0.012); Nucleated Red Blood Cells Perc 0.0 % (0.0-0.2); Platelet Count Result 287 k/mm3 (150-375); Red Blood Count 4.49 M/mm3 (4.2-5.4); White Blood Count 10.4 K/mm3 (4.5-10.0)
[2024-12-07 13:55] LABS: INR 1.2; Prothrombin Time 15.3 Seconds (11.1-14.7)
[2024-12-07 13:56] LABS: Partial Thromboplastin Time 31.8 Seconds (22.3-36.8)
[2024-12-07 14:07] LABS: Alanine Aminotransferase 21 U/L (6-35); Albumin Level 4.4 g/dL (3.5-5.1); Alkaline Phosphatase 67 U/L (38-126); Anion Gap 13 mmol/L (4-12); Aspartate Amino Transferase 27 U/L (14-36); Bilirubin,Total 0.6 mg/dL (0.2-1.3); Blood Urea Nitrogen 23 mg/dL (7-17); Calcium 9.1 mg/dL (8.4-10.2); Carbon Dioxide 22 mmol/L (22-30); Chloride 101 mmol/L (98-107); Estimated CRCL calculation 47 ml/min; Estimated Glomerular Filt Rate > 60; Glucose 128 mg/dL (65-110); Lipase 61 U/L (23-300); Potassium 4.0 mmol/L (3.4-5.0); Sodium 136 mmol/L (137-145); Total Protein 7.6 g/dL (6.3-8.2)
[2024-12-07 14:14] LABS: Troponin I < 0.012 ng/mL (0.000-0.034)
[2024-12-07 15:16] VITALS: BP 151/76; PULSE 93; RESP 16; O2SAT 98
[2024-12-07 15:17] VITALS: BP 151/76; PULSE 97; RESP 18; TEMP 36.8; O2SAT 100
--- NOTE | 2024-12-07 15:25 | ED.CHESTPAIN ---
HPI - Chest Pain General Chief Complaint: Chest Pain Stated Complaint: Chest pain-dry cough, shortness of breath Hx of PE Time Seen by Provider: 12/07/24 15:16 History of Present Illness HPI narrative: This is a 74-year-old female with history PE on Eliquis, diabetes who presents to the ED for chest pain. Patient states that for the past day, she did having right lower chest pain that feels similar but not as serious as when she was initially diagnosed with her P in April. She has been on the Eliquis but this was recently decreased to 2.5 mg b.i.d. couple weeks ago. No recent prolonged travels, hospital admissions, surgeries. She has had a dry cough. Denies fevers chills, nausea vomiting, diarrhea, constipation, abdominal pain. Related Data Home Medications ?Medication ?Instructions ?Recorded ?Confirmed ?Last Taken ?Type coenzyme Q10 100 mg capsule 100 mg PO DAILY 08/29/20 08/14/24 Unknown History (CoQ-10) pseudoephedrine-guaifenesin ER 60 1 tablet PO BID PRN Congestion 08/29/20 08/14/24 Unknown History mg-600 mg tablet,extend release 12hr (Mucinex D) Optimized Quercetin 250 mg PO DAILY 11/17/23 08/14/24 Unknown History folate 8,500 mcg PO DAILY 11/17/23 08/14/24 Unknown History tretinoin 0.1 % topical cream 1 applic topical QHS 11/17/23 08/14/24 Unknown History Vitamin C 24 hr liposomal hydrogel PO DAILY 04/03/24 08/14/24 Unknown History brimonidine 0.025 % eye drops 1 drp EACH EYE QID PRN dry eye(s) 04/03/24 08/14/24 Unknown History (Lumify) multivitamin 1 tablet PO BID 04/03/24 08/14/24 Unknown History Curcumin 500 mg PO DAILY 05/22/24 08/14/24 Unknown History critical slow release PO BID 05/22/24 08/14/24 Unknown History dextromethorphan-guaifenesin 30 1 tablet PO HS PRN cough 05/22/24 08/14/24 Unknown History mg-600 mg tablet extended [id number] hr (Mucinex DM) magnesium acetyl-taurate 45 mg PO DAILY 05/22/24 08/14/24 Unknown History mupirocin 2 % topical ointment 1 applic topical TID 05/22/24 08/14/24 Unknown History omega-3 fatty acids 1,000 mg PO BID 05/22/24 08/14/24 Unknown History peg 400-propylene glycol (PF) 0.4 1 drp EACH EYE Q6H 05/22/24 08/14/24 Unknown History %-0.3 % eye drops in a dropperette (Systane Hydration (PF)) womens bladder support PO BID 05/22/24 08/14/24 Unknown History Allergies Allergy/AdvReac Type Severity Reaction Status Date / Time hydrocodone Allergy Severe Difficulty Verified 08/14/24 09:19 Breathing tramadol Allergy Severe Difficulty Verified 08/14/24 09:19 Breathing alendronate sodium Allergy Intermediate Unknown Verified 08/14/24 09:19 trazodone Allergy Intermediate body aches Verified 08/14/24 09:19 dapagliflozin Allergy Unknown Back Pain Verified 08/14/24 09:19 fexofenadine Allergy Unknown Unknown Verified 08/14/24 09:19 nefazodone Allergy Unknown Unknown Verified 08/14/24 09:19 triamcinolone Allergy Unknown Unknown Verified 08/14/24 09:19 clavulanic acid (From AdvReac Intermediate Nausea Verified 08/14/24 09:19 Augmentin) duloxetine AdvReac Intermediate Hypertensio Verified 08/14/24 09:19 n ibuprofen AdvReac Intermediate extreme Verified 08/14/24 09:19 acid reflux naproxen AdvReac Intermediate extreme Verified 08/14/24 09:19 acid reflux buspirone AdvReac Mild Depression Verified 08/14/24 09:19 codeine AdvReac Unknown Dizziness Verified 08/14/24 09:19 diphenhydramine (From AdvReac Agitated Verified 08/14/24 09:19 Benadryl) doxycycline AdvReac Gastrointestinal Verified 08/14/24 09:19 Upset levofloxacin AdvReac Gastrointestinal Verified 08/14/24 09:19 Upset Review of Systems Review of Systems: Gen.: Denies fevers or chills Eyes: Denies eye pain or visual change ENT: Denies congestion Respiratory: As per HPI CV: As per HPI GI: Denies abdominal pain nausea, emesis or diarrhea denies burning, urgency, frequency or hematuria Musculoskeletal: Denies back pain or muscle pain Neuro: Denies numbness, tingling, weakness or focal weakness Skin: Denies rash Except as documented, all other systems reviewed and negative [facility] Past Medical History Medical History Breast cancer screening Dysphagia Facial hair on examination Trigger finger of right hand Migraine Colon cancer screening BMI 28.0-28.9,adult Vision changes Encounter for Medicare annual wellness exam Osteopenia Hip pain, bilateral Elevated fasting blood sugar Depression Chronic bilateral low back pain without sciatica Ovarian cyst Personal history of COVID-19 BMI 26.0-26.9,adult Microscopic hematuria Pelvic floor weakness Post menopausal syndrome BMI 25.0-25.9,adult Encounter for routine adult health examination without abnormal findings Need for 23-polyvalent pneumococcal polysaccharide vaccine Family history of colon cancer History of unexplained bleeding Visit for gynecologic examination Dysuria Hypersomnolence Hyperlipidemia Follow up BMI 27.0-27.9,adult Fatty liver Nasal congestion Facial pain Facial pressure RUQ abdominal pain Nasal polyp DM type 2 (diabetes mellitus, type 2) Hx of colonic polyps Ptosis, bilateral Insomnia Bladder spasms Anxiety with depression Encounter to establish care On snf drug therapy Pre-diabetes Surgical History Surgical History ACEI/ARB contraindicated Hx of abdominoplasty History of bilateral breast reduction surgery Hx of section History of tonsillectomy and adenoidectomy History of strabismus surgery Family History Family History Mother Family history of arthritis Carcinoma of colon Myocardial infarction Depression Heart disease Father Family history of congestive heart failure Alcoholism Depression Heart disease Sibling Alcoholism Hypertension Other Depression Grandparent Alcoholism Heart disease Grandparent Carcinoma of colon Other Cerebrovascular accident Family history of alcoholism Family history of cardiovascular disease Family history of liver disease Family history of malignant neoplasm Family history of mental disorder Social History Social History Smoking status: Never smoker Second hand tobacco smoke exposure: No Alcohol intake: never Substance use: never Substance use type: does not use Do You Feel Safe in your Home?: Yes Lack of Transportation: No Lack of Food: Never True Current Housing: I Have Housing Concerned About Future Housing: No Difficulty Paying Gas/Electric Bills: No Difficulty Paying for Meds: No Currently Unemployed: No Education: Master's Degree or Higher Difficulty w/ Childcare or Family Care: No Living arrangements: with family Gender identity (if verbalized by the patient): Female Spiritual care concerns: No Exam Narrative: APPEARANCE: No acute distress, nontoxic, resting in bed EYES: EOMI HEENT: Normocephalic, atraumatic, OMM RESPIRATORY: No respiratory distress Clear to auscultation bilaterally with no rhonchi wheezing or rales. CARDIOVASCULAR: Regular rate and rhythm without murmurs rubs or gallops. ABDOMINAL: Soft, nontender, nondistended, no rebound or guarding MUSCULOSKELETAl: Moves all extremities. No clubbing, cyanosis or edema. NEURO: Awake and alert. Following commands, speech normal, no focal deficits SKIN:: Warm, dry. No rashes lesions or abrasions PSYCHIATRIC: Normal affect/mood, Course Vital Signs Vital signs: Vital Signs Temperature 98.4 F 12/07/24 13:22 Pulse Rate 99 12/07/24 13:22 Respiratory Rate 20 12/07/24 13:22 Blood Pressure 143/73 H 12/07/24 13:22 Pulse Oximetry 96 12/07/24 13:22 Temperature 98.2 F 12/07/24 15:17 Pulse Rate 82 12/07/24 17:24 Respiratory Rate 14 12/07/24 17:24 Blood Pressure 138/67 12/07/24 17:24 Pulse Oximetry 98 12/07/24 17:24 Oxygen Delivery Room Air 12/07/24 15:36 MDM - Chest Pain MDM Narrative Medical decision making narrative: 74-year-old female presenting for right-sided chest pain. On initial evaluation, patient was in no acute distress, afebrile, hemodynamically stable. She did have reproducible right-sided chest wall tenderness. Her wounds clear. Abdomen soft nontender. Given the history of PE with recent reduction and anticoagulation, CTA will be obtained to rule out PE. CBC and CMP were without significant abnormalities. COVID/flu/RSV negative. CTA chest showed no evidence of PE but did show likely right-sided broncho pneumonia. Patient has significant number allergies. She is able to tolerate doxycycline so she was given a prescription for doxycycline. She was advised follow-up with her PCP in the next week for re-evaluation. Patient was agreeable to this plan. Given strict return precautions. Differential Diagnosis Differential diagnosis: Likely other (Community-acquired pneumonia, viral syndrome, costochondritis, P, ACS) Lab Data Attestation: I reviewed the patient's lab results. 12/07/24 13:37 12/07/24 13:37 Labs: Lab Results 12/07/24 12/07/24 12/07/24 Range/Units 13:37 15:36 16:33 WBC 10.4 H (4.5-10.0) K/mm3 RBC 4.49 (4.2-5.4) M/mm3 Hgb 13.5 (12.0-15.0) g/dL Hct 40.7 (37.0-47.0) % MCV 90.6 (80-100) fl MCH 30.1 (26-34) pg MCHC 33.2 (32-36) g/dl RDW 12.5 (11.5-14.5) % Plt Count 287 (150-375) k/mm3 MPV 8.5 (7.4-10.4) fl Immature Gran % (Auto) 0.4 (0-0.5) % Neut % (Auto) 71.3 (45.5-73.1) % Lymph % (Auto) 19.0 (18.3-44.2) % [place] % (Auto) 7.5 (2.6-8.5) % Eos % (Auto) 1.4 (0-4.4) % Baso % (Auto) 0.4 (0.2-1.2) % Lymph # (Auto) 1.97 (0.9-3.2) K/mm3 [place] # (Auto) 0.8 H (0.1-0.6) K/mm3 Eos # (Auto) 0.2 (0-0.3) K/mm3 Baso # (Auto) 0.0 (0.0-0.1) K/mm3 Abs Immat Gran (auto) 0.04 H (0.00-0.031) K/mm3 Absolute Neuts (auto) 7.4 H (1.3-6.7) K/mm3 Absolute Nucleated RBC 0.000 (0.0-0.012) K/mm3 Nucleated RBC % 0.0 (0.0-0.2) % PT 15.3 H (11.1-14.7) Seconds INR 1.2 APTT 31.8 (22.3-36.8) Seconds Sodium 136 L (137-145) mmol/L Potassium 4.0 (3.4-5.0) mmol/L Chloride 101 (98-107) mmol/L Carbon Dioxide 22 (22-30) mmol/L Anion Gap 13 H (4-12) mmol/L BUN 23 H (7-17) mg/dL Creatinine 0.71 (0.7-1.0) mg/dL Estim Creat Clear Calc 47 ml/min Estimated GFR > 60 (59 - ) Glucose 128 H (65-110) mg/dL Calcium 9.1 (8.4-10.2) mg/dL Total Bilirubin 0.6 (0.2-1.3) mg/dL AST 27 (14-36) U/L ALT 21 (6-35) U/L Alkaline Phosphatase 67 (38-126) U/L Troponin I < 0.012 < 0.012 (0.000-0.034) ng/mL Total Protein 7.6 (6.3-8.2) g/dL Albumin 4.4 (3.5-5.1) g/dL Lipase 61 (23-300) U/L Influenza A (RT-PCR) Negative (Negative) Influenza B (RT-PCR) Negative (Negative) RSV (RT-PCR) Negative (Negative) SARS-CoV-2 RNA (RT-PCR) Negative (Negative) Imaging Data Attestation: I personally reviewed and interpreted this imaging study as follows: Radiologist's impression: Impressions Chest X-Ray 12/07/24 14:19 Impression: No acute cardiopulmonary abnormality. Chest CTA 12/07/24 17:03 IMPRESSION: 1. Limited study. Negative for pulmonary embolism. Probable mild bronchopneumonia, follow-up is suggested to assess resolution ECG Data EKG #1: Attestation: I personally reviewed and interpreted this ECG as follows: ECG completion date: 12/07/24 ECG completion time: 13:30 Interpretation: Normal sinus rhythm rate of 96, normal axis, normal intervals, no acute ST or T-wave changes EKG #2: ECG completion date: 12/07/24 ECG completion time: 16:40 Prior ECG tracings: available for review Interpretation: Normal sinus rhythm rate of 85, normal axis, normal intervals, no acute ST or T-wave changes, no significant change from earlier Discharge Plan Discharge Clinical Impression: Community acquired pneumonia Qualifiers: Laterality: right Lung location: middle lobe of lung Qualified Code(s): J18.9 - Pneumonia, unspecified organism Patient Disposition: Home Condition: Stable Instructions: Antibiotic Form, Doxycycline (By mouth), Community Acquired Pneumonia (ED) Additional Instructions: Your CT scan showed no evidence of PEs but your found have pneumonia. Your given a prescription for doxycycline and Zofran, take this as prescribed. Follow-up with the PCP in the next few days for re-evaluation. Return the ED for any new or worsening symptoms. Patient Language: Kiswahili Prescriptions: New doxycycline hyclate 100 mg capsule 100 mg PO BID Qty: 14 0RF ondansetron 4 mg tablet,disintegrating 4 mg PO Q8H PRN (Reason: nausea and vomiting) Qty: 14 0RF No Action pseudoephedrine-guaifenesin [Mucinex D] 60-600 mg tablet extended release 12 hr 1 tablet PO BID PRN (Reason: Congestion) coenzyme Q10 [CoQ-10] 100 mg capsule 100 mg PO DAILY Optimized Quercetin 250 mg PO DAILY folate 8,500 mcg PO DAILY tretinoin 0.1 % cream 1 applic topical QHS Patient Comments: apply to face multivitamin Tablet 1 tablet PO BID Vitamin C 24 hr liposomal hydrogel PO DAILY Lumify 0.025 % drops 1 drp EACH EYE QID PRN (Reason: dry eye(s)) resveratrol 250 mg capsule 250 mg PO .QOD Qty: 90 0RF mupirocin 2 % ointment 1 applic TOPICAL TID Rx Instructions: use for 2 weeks in left nostril, last day 05/24/2024 Mucinex DM 30-600 mg tablet extended release 12 hr 1 tablet PO HS PRN (Reason: cough) Systane Hydration (PF) 0.4-0.3 % dropperette 1 drp EACH EYE Q6H Curcumin 500 mg PO DAILY omega-3 fatty acids Capsule 1,000 mg PO BID womens bladder support PO BID Rx Instructions: 2 capsules BID critical slow release PO BID Rx Instructions: 2 tabs BID magnesium acetyl-taurate 45 mg PO DAILY fluticasone propionate 50 mcg/actuation spray,suspension See Rx Instructions .ROUTE .COMPLEX Qty: 48 1RF Dose Instruction: USE 2 SPRAYS IN EACH NOSTRIL ONCE DAILY Rx Instructions: USE 2 SPRAYS IN EACH NOSTRIL ONCE DAILY metformin 500 mg tablet See Rx Instructions .ROUTE .COMPLEX Qty: 180 1RF Dose Instruction: TAKE 1 TABLET BY MOUTH TWICE A DAY Rx Instructions: TAKE 1 TABLET BY MOUTH TWICE A DAY famotidine [Pepcid] 40 mg tablet 40 mg PO DAILY Qty: 90 1RF Eliquis 5 mg tablet 5 mg PO Q12HR Qty: 90 1RF Rx Instructions: start 05/30 at 0900 am rosuvastatin 20 mg tablet See Rx Instructions .ROUTE .COMPLEX Qty: 45 1RF Dose Instruction: TAKE 1 TABLET BY MOUTH EVERY OTHER DAY Rx Instructions: TAKE 1 TABLET BY MOUTH EVERY OTHER DAY fluoxetine 20 mg capsule 20 mg PO DAILY Qty: 90 1RF lorazepam 0.5 mg tablet 0.5 mg PO DAILY Qty: 90 0RF Follow-up/Referrals: Tomas Romero MD [Primary Care Provider, Internal Medicine]
[2024-12-07 15:36] VITALS: O2SAT 98
[2024-12-07] MEDS: LIDOCAINE 5% PATCH 1 PATCH TRANSDERM (15:40)
[2024-12-07] MEDS: ACETAMINOPHEN 500 MG TABLET 1000 MG PO (15:40)
[2024-12-07 16:15] VITALS: BP 139/57; PULSE 79; RESP 15; O2SAT 98
[2024-12-07 16:16] LABS: Influenza A QL RT-PCR Negative (Negative); Influenza B QL RT-PCR Negative (Negative); RSV RNA, RT-PCR Negative (Negative); SARS-CoV-2 RNA PCR Negative (Negative)
--- NOTE | 2024-12-07 16:28 | ECG_ITS ---
Test Date: 2024-12-07 16:40:21 Measurements Intervals [place] Rate: 85 P: 37 [place]: 161 QRS: 62 QRSD: 87 T: 57 QT: 354 QTc: 423 Interpretive Statements SINUS RHYTHM POSSIBLE LEFT ATRIAL ENLARGEMENT BORDERLINE ECG Compared to ECG 12/07/2024 13:30:53 No significant changes Electronically Signed On 12-07-2024 18:35:03 CDT by Richie Quiñonez D.O.
[2024-12-07 17:05] LABS: Troponin I < 0.012 ng/mL (0.000-0.034)
[2024-12-07 17:24] VITALS: BP 138/67; PULSE 82; RESP 14; O2SAT 98
== END 2024-12-07 18:05 | disposition home or self-care (01) ==
PROVIDERS: Emergency Provider Student in an Organized Health Care Education/Training Program; PCP Internal Medicine
DX: J18.9 Pneumonia, unspecified organism (principal); Z20.822 Contact with and (suspected) exposure to COVID-19; E11.9 Type 2 diabetes mellitus without complications; E78.5 Hyperlipidemia, unspecified; M85.80 Other specified disorders of bone density and structure, unspecified site; F41.8 Other specified anxiety disorders; Z86.0100 Personal history of colon polyps, unspecified; Z86.711 Personal history of pulmonary embolism; Z86.16 Personal history of COVID-19; Z79.01 Long term (current) use of anticoagulants; Z79.84 Long term (current) use of oral hypoglycemic drugs; Z79.899 Other long term (current) drug therapy; R94.31 Abnormal electrocardiogram [ECG] [EKG]
CPT/HCPCS: 36415; 71046; 71275; 80053; 83690; 84484; 85025; 85610; 85730; 87637; 93005; 99284; A9270; Q9967

== ENCOUNTER 2024-12-11 11:49 | Outpatient (CLI) | payer OTHER, SELFPAY ==
--- NOTE | ~2024-12-11 | XR_ITS ---
EXAMINATION: XR chest 2V, 12/11/2024 11:40 CDT HISTORY: J18.9 - Pneumonia, unspecified organism COMPARISON: No comparisons available. Technique: 2 views obtained. Findings: The lungs are clear, no effusion. No pneumothorax. Heart is normal size. Mediastinal and hilar contours are within normal limits. Bony thorax no acute abnormality. Impression: No acute cardiopulmonary abnormality. Reviewed, dictated and finalized at location P. Impression: No acute cardiopulmonary abnormality.
[2024-12-11 12:27] LABS: Hemoglobin A1C 6.2 % (<5.7)
[2024-12-11 12:42] LABS: Alanine Aminotransferase 19 U/L (6-35); Albumin Level 4.1 g/dL (3.5-5.1); Alkaline Phosphatase 62 U/L (38-126); Anion Gap 8 mmol/L (4-12); Aspartate Amino Transferase 27 U/L (14-36); Bilirubin,Total 0.4 mg/dL (0.2-1.3); Blood Urea Nitrogen 22 mg/dL (7-17); Calcium 8.8 mg/dL (8.4-10.2); Carbon Dioxide 25 mmol/L (22-30); Chloride 104 mmol/L (98-107); Cholesterol 129 mg/dL (0-200); Estimated Glomerular Filt Rate > 60; Glucose 101 mg/dL (65-110); HDL Direct 56 mg/dL; Potassium 4.0 mmol/L (3.4-5.0); Sodium 137 mmol/L (137-145); Total Protein 7.2 g/dL (6.3-8.2); Triglycerides 78 mg/dL (<150)
[2024-12-11 12:48] LABS: MALB Creatinine Ratio 7.2 mg/g (0-30)
[2024-12-11 12:59] LABS: Free T4 Free Thyroxine 1.34 ng/dL (0.78-2.19)
--- OUTSIDE RECORDS SUMMARY | 2024-12-11 13:05 | XMS_ITS | Encounter Summary ---
Author Organization [facility] Address [address] [place] [address] Care Team Providers Care Terrazzo Journeyman Name Role Phone Rubin Lehman MD Primary Care Provider Jose powers Encounter Details Date Type Department Care Team (Late st Contact Info) Description 03/09/2007 Orders Only [facility] Primary Care - [address] [place] [address] Chu Reddy MD [address] [facility] [address] [place] [address] Social History Tobacco Use Types Packs/Day Years Used Date Smoking Tobacco: Never Assessed Comments Unknown Sex and Gender Information Value Date Recorded Sex Assigned at Not on file Legal Sex 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
--- OUTSIDE RECORDS SUMMARY | 2024-12-11 13:05 | XMS_ITS | Encounter Summary ---
Author Organization [facility] Address [address] [place] [address] Care Team Providers Care Energy Project Manager Name Role Phone Rubin Lehman MD Primary Care Provider Jose powers Encounter Details Date Type Department Care Team (Late st Contact Info) Description 02/23/2007 Outpatient Historical [facility] Primary Care - [address] [place] [address] Chu Reddy MD [address] [facility] [address] [place] [address] Social History Tobacco Use Types Packs/Day Years Used Date Smoking Tobacco: Never Assessed Comments Unknown Sex and Gender Information Value Date Recorded Sex Assigned at Not on file Legal Sex Female 3:22 AM HUMAN RESOURCES BENEFITS ADMINISTRATOR Gender Identity Not on file Sexual Orientation Not on file documented as of this encounter Plan of Treatment Upcoming Encounters Date Type Department Care Team (Late st Contact Info) Description 04/24/2025 11:45 AM HUMAN RESOURCES BENEFITS ADMINISTRATOR Office Visit [facility] Oncology and Hematology - [place] [address] [facility] [address] [place] [address] Joon Giron MD [address] [facility] [address] [place] [address] documented as of this encounter Visit Diagnoses Not on filedocumented in this encounter Care Teams Energy Project Manager Relationship Specialty Start Date End Date Rubin Lehman MD PCP - General Internal Medicine 09/03/10 05/08/17 documented as of this encounter
--- OUTSIDE RECORDS SUMMARY | 2024-12-11 13:05 | XMS_ITS | Encounter Summary ---
Author Organization [facility] Address [address] [place] [address] Care Team Providers Care Facility Maintenance Mechanic Name Role Phone Rubin Lehman MD Primary Care Provider Jose powers Encounter Details Date Type Department Care Team (Late st Contact Info) Description 08/07/1999 Outpatient Historical [facility] Jeffery MATTHEWS Carolyn, MD [address] [place] [address] Social History Tobacco Use Types Packs/Day Years Used Date Smoking Tobacco: Never Assessed Comments Unknown Sex and Gender Information Value Date Recorded Sex Assigned at Not on file Legal Sex Female 3:22 AM INSTRUMENTATION TECHNICIAN Gender Identity Not on file Sexual Orientation Not on file documented as of this encounter Plan of Treatment Upcoming Encounters Date Type Department Care Team (Late st Contact Info) Description 04/24/2025 11:45 AM INSTRUMENTATION TECHNICIAN Office Visit [facility] Oncology and Hematology - [place] [address] [facility] [address] [place] [address] Joon Giron MD [address] [facility] [address] [place] [address] documented as of this encounter Visit Diagnoses Not on filedocumented in this encounter Care Teams Facility Maintenance Mechanic Relationship Specialty Start Date End Date Rubin Lehman MD PCP - General Internal Medicine 09/03/10 05/08/17 documented as of this encounter
--- OUTSIDE RECORDS SUMMARY | 2024-12-11 13:06 | XMS_ITS | Clinical Summary ---
Author Organization [facility] Address [address] [place] [address] Care Team Providers Care Water Main Inspector Name Role Phone Unavailable Primary Care Provider [...] 1 Tab by mouth 3 times daily. 09/28/19 11 Active vitamin B complex (B COMPLEX 1) Oral Tab Take 3 Tabs by mouth daily. 09/28/19 11 Active coQ10, ubiquinol, 100 mg Oral Cap Take 1 Cap by mouth daily. 1 Cap 0 11/24/19 13 Active FLUoxetine (PROZAC) 20 mg capsule TAKE ONE CAPSULE BY MOUTH EVERY DAY. 30 Capsule 10 01/30/20 15 Active LORazepam (ATIVAN) 0.5 mg tablet TAKE ONE TABLET BY MOUTH AT BEDTIME 30 Tablet 0 11/07/19 16 Active amoxicillin (AMOXIL) 500 mg capsule TAKE 4 (FOUR) CAPSULES BY MOUTH PRE-PROCEDURE ONCE FOR 1 DOSE. TAKE ONE HOUR BEFORE PROCEDURE 05/10/19 25 Active famotidine (PEPCID) 40 mg tablet Take 1 Tablet by mouth daily. 06/24/19 25 Active fluticasone propionate (FLONASE) 50 mcg/spray [place], Suspension nasal inhaler Administer 2 Sprays in each nostril daily. Active metFORMIN (GLUCOPHAGE) 500 mg tablet Take 500 mg by mouth 2 times daily. Active mupirocin (BACTROBAN) 2 % Ointment apply to affected area 3 times a day 05/11/19 25 Active rosuvastatin (CRESTOR) 20 mg tablet Take 20 mg by mouth every other day. 07/26/19 25 Active tretinoin (RETIN-A) 0.05 % Cream APPLY THIN LAYER AT NIGHT BEFORE BED, MIX WITH MOISTURIZER NEEDED. 04/27/19 25 Active Turmeric, Bulk, (Curcumin) 95 % Powder by FDTEK.(Non-Drug; Combo Route) route. Active QUERCETIN ORAL Take 250 mg by mouth. Active resveratroL 250 mg Capsule Take by mouth. Acti ve phenazopyridine 95 mg tablet Take 95 mg by mouth 3 times daily after meals. Active [place]-3 Fatty Acids (Super [place]-3) 1,000 mg Capsule Take by mouth. Acti ve geriatric multivitamin with iron & minerals (UNICAP SENIOR) Tablet Take 1 Tablet by mouth daily. Active apixaban (ELIQUIS) 2.5 mg tablet Take 1 Tablet (2.5 mg) by mouth 2 times daily. 60 Tablet 3 12/08/19 25 Active Eliquis 5 mg tablet Take 5 mg by mouth 2 times daily. 06/24/19 25 025 Discontinu ed(Alterna te therapy prescribed ) Active Problems Problem Noted Date Diagnosed Date Mammogram declined 04/25/2015 Dysthymia 09/23/2010 Overview (09/23/2010): Hormone related Impaired fasting glucose 03/14/2007 Resolved Problems Problem Noted Date Diagnosed Date Resolved Date Depression 04/04/2008 09/23/2010 Routine general medical exam ination at a health care facility 03/09/2007 09/29/2010 Encounters Date Type Department Care Team Description 12/07/2024 Refill [facility] Oncology and Hematology - [address] [place] [address] Joon Giron MD 11/21/2024 External Device Data STL ABSTRACTION Provider, Abstract 11/14/2024 External Device Data STL ABSTRACTION Provider, Abstract 11/07/2024 External Device Data STL ABSTRACTION Provider, Abstract 10/17/2024 4:30 PM CDT Telephone Check Up [facility] Oncology and Hematology - [address] [place] [address] Joon Giron MD 10/06/2024 Orders Only [facility] Oncology and Hematology - [address] [place] [address] Joon Giron MD 09/26/2024 Telephone [facility] Oncology and Hematology - [address] [place] [address] Joon Giron MD Lab not drawn 09/21/2024 Orders Only [facility] Oncology and Hematology - [address] [place] [address] Joon Giron MD 09/13/2024 External Device Data STL ABSTRACTION Provider, Abstract 09/12/2024 External Device Data STL ABSTRACTION Provider, Abstract from Last 3 Months Family History Medical [...] on file Legal Sex Female 3:22 AM PROTECTIVE SERVICES OFFICER Gender Identity Not on file Sexual [...] st Contact Info) Description 04/24/2025 11:45 AM PROTECTIVE SERVICES OFFICER Office Visit [facility] Oncology and Hematology - [place] [address] [place] [address] [facility] [address] [place] [address] Joon Giron MD [address] [facility] [address] [place] [address] Health Maintenance Due Date Last Done Comments DIABETES ANNUAL FOOT EXAM 1968 DIABETES ANNUAL RETINAL EXAM 1968 DIABETES MICROALBUMIN ANNUAL SCREEN 1968 FIT-DNA Q 3 years 06/05/1995 FIT/FOBT Q 1 year 06/05/1995 Flex Sig/CT Colonography Q 5 years 06/05/1995 LDL CHOLESTEROL ANNUAL 03/26/2015 03/26/2014, 2012 DIABETES HBA1C Q 6 MONTHS 01/17/2021 07/17/2020, OSTEOPOROSIS SCREENING 12/27/2022 8, 12/27/2017, 10/22/2015 INFLUENZA VACCINE (#1) 2024 4, 11/17/2023, 11/05/2022, Additional history exists BREAST CANCER SCREENING 10/13/2024 10/14/19 24, 10/14/2023, 05/13/2022, Additional history exists COVID-19 Vaccine (2024-2 6 season) 2024 11/17/2023, 11/24/2022, 04/10/2022, Additional history exists RSV VACCINE (60+ or ) (1 - 1-dose 75+ series) 2025 DTAP/TDAP/TD VACCINES (3 - T d or Tdap) 10/16/2026 10/16/2016, 10/02/2016 COLORECTAL SCREENING 08/22/2029 08/23/2019, 10/10/2013, 03/01/2001, Additional history exists Colorectal Cancer Screening 08/22/2029 PNEUMOCOCCAL VACCINE 50+ YEARS Completed 1 , 09/06/2017, 05/12/2016 ZOSTER VACCINE Completed 01/09/2023, 10/30/2022 Procedures Procedure Name Priority Date/Time Associated Diagnosis Comments ANTITHROMBIN III ACTIVITY Routine 10/04/2024 12:43 PM CDT BETA 2 GLYCOPROTEIN I ANTIBODIES Routine 09/19/2024 1:01 PM CDT PROTEIN C & S ACTIVITY Routine 9:25 AM CDT LUPUS ANTICOAGULANT DRVVT Routine 09/19/2024 9:01 AM CDT LIPID PANEL Routine 03/26/2014 9:38 PM PROTECTIVE SERVICES OFFICER Routine general medical examination at a health care facility ENDOSCOPY, COLON, SCREENING Routine 10/10/2013 HEMOGLOBIN A1C Routine 01/16/2010 3:30 PM PROTECTIVE SERVICES OFFICER Routine general medical examination at a health care facility Impaired fasting glucose Insomnia Depression from Last 3 Months or Most Recently Relevant to Health Maintenance Results * ANTITHROMBIN III ACTIVITY (10/04/2024 12:43 PM CDT) Blood us Joon Giron MD HEMATOLOGY ORDERABLES Final Res ult * BETA 2 GLYCOPROTEIN I ANTIBODIES (09/19/2024 1:01 PM CDT) Blood us Joon Giron MD CHEMISTRY ORDERABLES Final Resu lt * PROTEIN C & S ACTIVITY (09/19/2024 9:25 AM CDT) Blood us Joon Giron MD CHEMISTRY ORDERABLES Final Resu lt * LUPUS ANTICOAGULANT DRVVT (09/19/2024 9:01 AM CDT) Blood us Joon Giron MD HEMATOLOGY ORDERABLES Final Res ult * (ABNORMAL) LIPID PANEL (03/26/2014 9:38 PM PROTECTIVE SERVICES OFFICER) CHOLESTEROL 206(H) 100 - 199 mg/dL [facility] Decision Rocket [facility] TRIGLYCERIDE 95 10 - 149 mg/dL [facility] HDL 64(H) 40 - 59 mg/dL [facility] Decision [employer] [facility] CHOL/HDL RATIO 3.2 2.0 - 5.0 [facility] Decision Rocket [facility] LDL CALCULATED 123(H) <=99 mg/dL [facility] LIPID PANEL COMMENT See Below [facility] Comment: Classifications: Adult: Total Cholesterol mg/dL HDL Cholesterol mg/dL Desirable <200 Low <40 Borderline high 200-239 Normal 40-60 High >=240 Desirable >60 Triglycerides mg/dL LDL Cholesterol mg/dL Normal <150 Optimal <100 Borderline high 150-199 Low risk 100-129 High 200-499 Borderline 130-159 Very high >=500 High 160-189 Very high >=190 Pediatric: Total Cholesterol (<20 yrs) mg/dL HDL Cholesterol (<5yrs) Desirable <170 No Reference Range Borderline high 170-199 Established High >=200 Triglyceride mg/dL LDL mg/dL Pediatric classification Desirable <110 not defined Borderline 110-129 High >=130 LDL calculation is not accurate if Triglycerides are greater than 400 mg/dL Based on AHA/NCEP Guidelines Blood 03/26/2014 9:38 PM PROTECTIVE SERVICES OFFICER 03/26/2014 10:47 PM PROTECTIVE SERVICES OFFICER Rubin Lehman MD CHEMISTRY ORDERABLES Edited R esult - Final Performing Organization Address [facility] Co de Phone Number [facility] CLIA# [id number] [address] [place] [address] * (ABNORMAL) ENDOSCOPY, COLON, SCREENING (10/10/2013) Abstract Provider GI PROCEDURE ORDERABLES Edited Result - Final Performing Organization Address [facility] Co de Phone Number [facility] * HEMOGLOBIN A1C (01/16/2010 3:30 PM PROTECTIVE SERVICES OFFICER) HEMOGLOBIN A1C 5.6 4.1 - 6.1 % of Hgb [facility] EST. AVG GLUCOSE, A1C 114 mg/dL [facility] Comment: Effective 11/20/08, the reported estimated average glucose (eAG)/mean blood glucose based on the HbA1c determination will be calculated using the recently derived ADAG study equation. The eAG from the new ADAG study equation are lower than those calculated from the previously used DCCT study formula. For more information, go to the websites: www.ngsp.org and www.diabetes.org. Blood specimen (specimen) 01/16/2010 3:30 PM PROTECTIVE SERVICES OFFICER 01/16/2010 8:35 PM PROTECTIVE SERVICES OFFICER Chu Reddy MD CHEMISTRY ORDERABLES Final Resul t Performing Organization Address [facility] de Phone Number [facility] CLIA# [id number] [address] [place] [address] from Last 3 Months or Most Recently Relevant to Health Maintenance Insurance [facility] [id number] Advance Directives For more information, please contact: [phone] Documents on File Type Date Recorded Patient Med Spa Manager Expl 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
--- OUTSIDE RECORDS SUMMARY | 2024-12-11 13:06 | XMS_ITS | Clinical Summary ---
Author Organization [facility] Address [address] [place] [address] Care Team Providers Care Financial Aid Officer Name Role Phone Tomas Romero MD Primary Care Provider [phone] Source Comments [facility],non-owned Affiliates and Associated Physician Practices is amultiple site organization consisting of ambulatory clinics and hospital sitesin [place], [place], [place] and [place]. This disclosure is being madepursuant to the Care Everywhere program and may not contain all information available regarding this patient. Last updated 17.[facility] Allergies Active Allergy Reactions Criticality Noted Date [...] daily Active amoxicillin (Amoxil) 500 MG capsule TAKE 4 (FOUR) CAPSULES BY MOUTH PRE-PROCEDURE ONCE FOR 1 DOSE. 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 Assessment & Plan (03/29/2019 9:52 PM SHEET TAKER): Poorly controlled at present, mostly due to [...] 05/10/2024 Assessment & Plan (03/29/2019 9:51 PM SHEET TAKER): A1c up slightly. Still in pre-diabetes stage. Continue to monitor Major depressive disorder, single episode 07/30/2016 09/01/2019 Encounters Date Type Department Care Team Description 11/07/2024 Refill [facility] - Orthopedic Surgery [address] [place] [address] Paco Meléndez MD Refill Request 10/17/2024 2:15 PM CDT Office Visit [facility] - Ophthalmology [address] [place] [address] [place] [address] Ronald Huffman MD Diplopia (Primary Dx); Esotropia; Hypertropia of right eye from Last 3 Months Immunizations Immunization Administration [...] on file Legal Sex Female 5:15 PM SHEET TAKER Gender Identity Not on file Sexual Orientation Not on file Last Filed Vital Signs Vital Sign Reading Time Taken Comments Blood Pressure 138/85 05/29/2024 10:56 AM CDT Pulse 88 05/29/2024 10:56 AM CDT Temperature 37.1 C (98.8 F) 07/17/2020 10:32 AM CDT Respiratory Rate 12 01/16/2020 4:21 PM SHEET TAKER Oxygen Saturation 95% 07/17/2020 10:34 AM CDT Inhaled Oxygen Concentration - - Weight 63.5 kg (140 lb) 05/29/2024 10:56 AM CDT Height 157.5 cm (5' 2) 05/29/2024 10:56 AM CDT Body Mass Index 25.61 05/29/2024 10:56 AM CDT Plan of Treatment Upcoming Encounters Date Type Department Care Team (Late st Contact Info) Description 03/14/2025 2:15 PM SHEET TAKER Office Visit [facility] - Ophthalmology [address] [facility] [address], [place] [address] Susan Flores MD [address] [place] [address] DE[place] [address] Health Maintenance Due Date Last Done Comments CT COLONOGRAPHY - COLON CA SCREENING 1950 FIT - COLON CA SCREENING 1950 FLEX SIG - COLON CA SCREENING 1950 ZOSTER VACCINE (1 of 2) 2000 COLOGUARD (AGES 45-75) - COLON CA SCREENING 08/01/2022 08/02/2019, 08/02/2019 SCREENING FOR DIABETES 07/18/2023 , 01/16/2020, 03/29/2019, Additional history exists MEDICARE AWV CALENDAR YEAR 2024 COLON MONITORING 08/22/2024 08/23/2019, 01/2014 (Done Outside Per Report) Colorectal Cancer Screening 08/22/2024 COVID-19 VACCINE ( season) 2024 11/16/2020, 05/17/2020, 04/26/2020 INFLUENZA VACCINE (#1) 2024 01/03/2021 Respiratory Syncytial [...] Progress Patient-Stated? Author Medication Management General Radha Dowling RN Note: Interventions: Medical Devices Implanted Type Area Battery Vent Plug Inserter Device Identifier Shelf Expiration Date Model / Serial / Lot Shell Actb 52mm Hip 3 Hl Poly R3 Std Implanted:Qty: 1 on 06/17/2017 by Paco Meléndez MD at [facility] Left: Hip [employer] 12/02/2026 [id number] / / [id number] Screw 6.5mm 45mm Actb Sphrcl Head Reflc Implanted:Qty: 1 on 06/17/2017 by Paco Meléndez MD at [facility] Left: Hip [employer] 08/19/2026 [id number] / / [id number] Liner Actb R3 0d 52mm 36mm Xlpe Hip Flxb Implanted:Qty: 1 on 06/17/2017 by Paco Meléndez MD at [facility] Left: Hip [employer] 08/01/2026 [id number] / / [id number] Polarstem Size 3 Stem Implanted:Qty: 1 on 06/17/2017 by Paco Meléndez MD at [facility] Left: Hip 02/11/2024 75 [id number] / / [id number] Head Fem +4mm 12/14 36mm Hip Tpr Oxnm Implanted:Qty: 1 on 06/17/2017 by Paco Meléndez MD at [facility] Left: Hip [employer] 10/11/2026 [id number] / / [id number] Mata Uncem Hip All Inclusive Implanted:Qty: 1 on 06/17/2017 by Paco Meléndez MD at [facility] [employer] BILL ONLY UNCEM [...] in the care of your patient. [facility] utilizes Sheology as a reminder system to notify patients [...] % BLOOD SPECIMEN / Unknown 07/17/2020 Flaco InduMckenna Burrell DRY TRANSFER WORKER-TERRY CLOTH [facility] - POINT OF CARE ORDERABLES Final [...] Mira Bautista al, N Engl J Med 2014;370(14):2347-6248.) The normal value (reference range) for this [...] interval of every 3 years by the [place] Cancer Society and U.S. Multi-Society Task Force. [...] can be accessed at the following location: www.realSociable/results. Additional description of the Cologuard test process, warnings and precautions can be found at www.cologuardtest.com. Rx only. Stool specimen (specimen) STOOL SPECIMEN / Unknown 08/02/2019 9:37 AM CDT 08/03/2019 3:38 PM CDT Mart Fink MD LAB - CHEMISTRY ORDERABLES Fi nal Result [facility] [address] [place] [address] [address] [address] [place] [address]. [place] [address] * DEXA BONE DENSITY AXIAL SKELETON (12/27/2017 [...] ordering physician and is also available on [employer], the Radiology Department's computerized picture archive system. [...] This report was electronically signed by PACO HENRDON D.O. on 12/27/2017 10:44 AM . Procedure Note Paco Herndon DO - 12/27/2017 Examination: Dual energy x-ray absorptiometry of the lumbar spine andhip. Clinical Indication: M85.80: Osteopenia, unspecified location Findings: No prior study is available for comparison at the time of this dictation. Detailed data from the exam is sent separately to the ordering physician and is also available on [employer], the Radiology Department'Smartsy picture archive system. Patient's height 62 in; [...] * LIPID PROFILE (EXTERAL RESULT ENTRY) (12/17/2017) [facility] Cholesterol (EXTERNAL RESULT) 192 mg/dL Triglycerides (EXTERNAL RESULT) 100 mg/dL HDL (EXTERNAL RESULT) 69 mg/dL LDL (EXTERNAL RESULT) 103 mg/dL VLDL (EXTERNAL RESULT) mg/dL Chol HDL Ratio (External Result) Fasting Glucose (EXTERNAL RESULTS) 127 HCV Antibody Screen Not Detected Blood BLOOD SPECIMEN / Unknown 12/17/2017 Historical Provider MD LAB - CHEMISTRY ORDERABLE S Final Result from Last 3 Months or Most Recently Relevant to Health Maintenance Insurance [facility] [place] [address] [employer] MEDICARE ADV PPO U[employer] MANAGED MEDICARE ADV Care Teams Financial Aid Officer Relationship Specialty Start Date End Date Tomas Romero MD [address] [place] [address] PCP - General Internal Medicine 11/13/20
--- OUTSIDE RECORDS SUMMARY | 2024-12-11 13:06 | XMS_ITS | Encounter Summary ---
Author Organization [facility] Address [address] [place] [address] Care Team Providers Care Revenue Cycle Consultant Name Role Phone Mart Fink MD Primary Care Provider [phone] Mena Butcher MD Primary Care Provider [phone] Flaco Burrell WORKER'S COMPENSATION CLAIMS EXAMINER-COMMUNITY SPECIALIST Primary Care Provi good Tomas Romero MD Primary Care Provider [phone] Encounter Details Date Type Department Care Team (Late st Contact Info) Description 08/10/2019 Telephone [facility] [address] [place] [address] Mart Fink MD [address] [facility] [address] [place] [address] Social History Tobacco Use Types Packs/Day Years Used Date Smoking Tobacco: Never Smokeless Tobacco: Never Alcohol Use Standard Drinks/Week Comments No 0 (1 standard drink = 0.6 oz pur e alcohol) Comments No Sex and Gender Information Value Date Recorded Sex Assigned at Not on file Legal Sex Female 5:15 PM NIGHT SUPERVISOR Gender Identity Not on file Sexual [...] st Contact Info) Description 03/14/2025 2:15 PM NIGHT SUPERVISOR Office Visit [facility] - Ophthalmology [address] [facility], [place] [address] Susan Flores MD [address] [place] [address] [place] [address] documented as of this encounter Goals Goal Patient Goal Type Associated Problems Recent Progress Patient-Stated? Author Medication Management General No Radha Wall RN Note: Interventions: documented as of this encounter Visit Diagnoses Not on filedocumented in this encounter Care Teams Revenue Cycle Consultant Relationship Specialty Start Date End Date Mart Fink MD [address] [facility] [address] [place] [address] PCP - General Family Medicine 05/25/17 06/27/20 Mena Butcher MD [address] [place] [address] PCP - General 06/28/20 08/01/20 Flaco Burrell, WORKER'S COMPENSATION CLAIMS EXAMINER-COMMUNITY SPECIALIST [address] [facility] [address] [place] [address] PCP - General Nurse Practitioner Family 08/02/2010/30 Tomas Romero MD [address] [facility] [address] [place] [address] PCP - General Internal Medicine 11/13/20 documented as of this encounter
--- OUTSIDE RECORDS SUMMARY | 2024-12-11 13:06 | XMS_ITS | Encounter Summary ---
Author Organization [facility] Health Address [address] [facility] [place] [address] Care Team Providers Care Recreation Center Director Name Role Phone Mart Fink MD Primary Care Provider Mena Butcher MD Primary Care Provider [phone] Flaco Burrell ABORIGINAL CEREMONIAL CELEBRANT-PETROLEUM GEOLOGIST Primary Care Provi good Tomas Romero MD Primary Care Provider [phone] Encounter Details Date Type Department Care Team (Late st Contact Info) Description 05/15/2020 Telephone [facility] [address] [place] [address] Mena Butcher MD [address] [place] [address] Social History Tobacco Use Types Packs/Day Years Used Date Smoking Tobacco: Never Smokeless Tobacco: Never Alcohol Use Standard Drinks/Week Comments No 0 (1 standard drink = 0.6 oz pur e alcohol) Comments No Sex and Gender Information Value Date Recorded Sex Assigned at Not on file Legal Sex Female 5:15 PM HEAD SUGAR REPROCESS OPERATOR Gender Identity Not on file Sexual [...] a sooner appt? Patient Call Back number: [phone] documented in this encounter Plan of Treatment Upcoming Encounters Date Type Department Care Team (Late st Contact Info) Description 03/14/2025 2:15 PM HEAD SUGAR REPROCESS OPERATOR Office Visit [facility] - Ophthalmology [address] [place] [phone] Susan Flores MD [address] [place] [address] [place] [address] documented as of this encounter Goals Goal Patient Goal Type Associated Problems Recent Progress Patient-Stated? Author Medication Management General No Radha Wall, NAHED Note: Interventions: documented as of this encounter Visit Diagnoses Not on filedocumented in this encounter Care Teams Recreation Center Director Relationship Specialty Start Date End Date Mart Fink MD [address] [facility] [address] [place] [address] PCP - General Family Medicine 05/25/17 06/27/20 [place] [address] [place] [address] [place] [address] PCP - General 06/28/20 08/01/20 Flaco Burrell, ABORIGINAL CEREMONIAL CELEBRANT-PETROLEUM GEOLOGIST [address] [place] [address] PCP - General Nurse Practitioner Family 08/02/2010/30 Tomas Romero MD [address] [facility] [address] [place] [address] PCP - General Internal Medicine 11/13/20 documented as of this encounter
[2024-12-11 13:18] LABS: Thyroid Stimulating Hormone 0.852 uIU/mL (0.465-4.680)
== END 2024-12-11 11:50 | disposition home or self-care (01) ==
PROVIDERS: PCP Internal Medicine; Visit Provider Internal Medicine
DX: J18.9 Pneumonia, unspecified organism (principal); E55.9 Vitamin D deficiency, unspecified; Z79.899 Other long term (current) drug therapy; Z13.29 Encounter for screening for other suspected endocrine disorder; E11.69 Type 2 diabetes mellitus with other specified complication; I10 Essential (primary) hypertension; E78.2 Mixed hyperlipidemia
CPT/HCPCS: 36415; 71046; 80053; 80061; 82043; 82306; 83036; 84439; 84443

== ENCOUNTER 2024-12-12 10:49 | Outpatient (CLI) | payer OTHER, SELFPAY ==
--- OUTSIDE RECORDS SUMMARY | 2024-12-12 12:46 | XMS_ITS | Encounter Summary ---
Author Organization [facility] Health Address [address] [facility] [place] [address] Care Team Providers Care Plastic Bubble Packer Name Role Phone Mart Fink MD Primary Care Provider [phone] Mena Butcher MD Primary Care Provider [phone] Flaco Burrell FAMILY PROTECTION SPECIALIST-LOOM CHECKER Primary Care Provi good Tomas Romero MD Primary Care Provider [phone] Encounter Details Date Type Department Care Team (Late st Contact Info) Description 08/10/2019 Telephone [facility] [address] [place] [address] Mart Fink MD [address] [facility] [address] [place] [address] Social History Tobacco Use Types Packs/Day Years Used Date Smoking Tobacco: Never Smokeless Tobacco: Never Alcohol Use Standard Drinks/Week Comments No 0 (1 standard drink = 0.6 oz pur e alcohol) Comments No Sex and Gender Information Value Date Recorded Sex Assigned at Not on file Legal Sex Female 5:15 PM CHICKEN RAISER Gender Identity Not on file Sexual Orientation [...] st Contact Info) Description 03/14/2025 2:15 PM CHICKEN RAISER Office Visit [facility] - Ophthalmology [address] [facility], [place] [address] Susan Flores MD [address] [place] [address] DE[place] [address] documented as of this encounter Goals Goal Patient Goal Type Associated Problems Recent Progress Patient-Stated? Author Medication Management General No Radha Wall RN Note: Interventions: documented as of this encounter Visit Diagnoses Not on filedocumented in this encounter Care Teams Plastic Bubble Packer Relationship Specialty Start Date End Date Mart Fink MD [address] [facility] [address] [place] [address] PCP - General Family Medicine 05/25/17 06/27/20 Mena Butcher MD [address] [place] [address] PCP - General 06/28/20 08/01/20 Flaco Burrell, FAMILY PROTECTION SPECIALIST-LOOM CHECKER [address] [facility] [address] [place] [address] PCP - General Nurse Practitioner Family 08/02/2010/30 Tomas Romero MD [address] [facility] [address] [place] [address] PCP - General Internal Medicine 11/13/20 documented as of this encounter
--- OUTSIDE RECORDS SUMMARY | 2024-12-12 12:46 | XMS_ITS | Encounter Summary ---
Author Organization [facility] Address [address] [place] [address] Care Team Providers Care Vp Integrity Name Role Phone Rubin Lehman MD Primary Care Provider Jose powers Encounter Details Date Type Department Care Team (Late st Contact Info) Description 08/07/1999 Outpatient Historical [facility] MD Jeffery MATTHEWS Carolyn, MD [address] [place] [address] Social History Tobacco Use Types Packs/Day Years Used Date Smoking Tobacco: Never Assessed Comments Unknown Sex and Gender Information Value Date Recorded Sex Assigned at Not on file Legal Sex Female 3:22 AM CONTRACTS PARALEGAL Gender Identity Not on file Sexual Orientation Not on file documented as of this encounter Plan of Treatment Upcoming Encounters Date Type Department Care Team (Late st Contact Info) Description 04/24/2025 11:45 AM CONTRACTS PARALEGAL Office Visit [facility] Oncology and Hematology - [place] [address] [facility] [address] [place] [address] Joon Giron MD [address] [facility] [address] [place] [address] documented as of this encounter Visit Diagnoses Not on filedocumented in this encounter Care Teams Vp Integrity Relationship Specialty Start Date End Date Rubin Lehman MD PCP - General Internal Medicine 09/03/10 05/08/17 documented as of this encounter
--- OUTSIDE RECORDS SUMMARY | 2024-12-12 12:46 | XMS_ITS | Clinical Summary ---
Author Organization [facility] Address [address] [place] [address] Care Team Providers Care Freelance Displayer Name Role Phone Unavailable Primary Care Provider [...] 25 Active fluticasone propionate (FLONASE) 50 mcg/spray Ivel, Suspension nasal inhaler Administer 2 Sprays in [...] Turmeric, Bulk, (Curcumin) 95 % Powder by 5by.(Non-Drug; Combo Route) route. Active QUERCETIN ORAL Take 250 mg by mouth. Active resveratroL 250 mg Capsule Take by mouth. Acti ve phenazopyridine 95 mg tablet Take 95 mg by mouth 3 times daily after meals. Active Diablo-3 Fatty Acids (Super Diablo-3) 1,000 mg Capsule Take by mouth. Acti [...] Type Department Care Team Description 12/07/2024 Refill [facility] Oncology and Hematology - [place] [address] [place] [address] Joon Giron MD 11/21/2024 External Device Data STL ABSTRACTION Provider, Abstract 11/14/2024 External Device Data STL ABSTRACTION Provider, Abstract 11/07/2024 External Device Data STL ABSTRACTION Provider, Abstract 10/17/2024 4:30 PM CDT Telephone Check Up [facility] Oncology and Hematology - [place] [address] [place] [address] Joon Giron MD 10/06/2024 Orders Only [facility] Oncology and Hematology - [place] [address] [place] [address] Joon Giron MD 09/26/2024 Telephone [facility] Oncology and Hematology - [place] [address] [place] [address] Joon Giron MD Lab not drawn 09/21/2024 Orders Only [facility] Oncology and Hematology - [place] [address] [place] [address] Joon Giron MD 09/13/2024 External Device Data [...] on file Legal Sex Female 3:22 AM SERVICE DESK ANALYST Gender Identity Not on file Sexual [...] st Contact Info) Description 04/24/2025 11:45 AM SERVICE DESK ANALYST Office Visit [facility] Oncology and Hematology - [place] [address] [place] [address] [facility] [address] [place] [address] Joon Giron MD [address] [facility] [address] [place] [address] Health Maintenance Due Date Last Done Comments DIABETES ANNUAL FOOT EXAM 1968 DIABETES ANNUAL RETINAL EXAM 1968 DIABETES MICROALBUMIN ANNUAL SCREEN 1968 FIT-DNA Q 3 years 06/05/1995 FIT/FOBT Q 1 year 06/05/1995 Flex Sig/CT Colonography Q 5 years 06/05/1995 LDL CHOLESTEROL ANNUAL 03/26/2015 03/26/2014, 2012 DIABETES HBA1C Q 6 MONTHS 01/17/2021 07/17/2020, OSTEOPOROSIS SCREENING 12/27/2022 8, 12/27/2017, 10/22/2015 Medicare Advantage (ND) Preventative Visit/Annual Wellness Visit 03/01/2024 04/25/2015, 03/26/2014, 11/23/2012, Additional history exists INFLUENZA VACCINE (#1) 2024 4, 11/17/2023, 11/05/2022, [...] CDT LIPID PANEL Routine 03/26/2014 9:38 PM SERVICE DESK ANALYST Routine general medical examination at a health care facility ENDOSCOPY, COLON, SCREENING Routine 10/10/2013 HEMOGLOBIN A1C Routine 01/16/2010 3:30 PM SERVICE DESK ANALYST Routine general medical examination at a health [...] * (ABNORMAL) LIPID PANEL (03/26/2014 9:38 PM SERVICE DESK ANALYST) CHOLESTEROL 206(H) 100 - 199 mg/dL [facility] TRIGLYCERIDE 95 10 - 149 mg/dL [facility] HDL 64(H) 40 - 59 mg/dL [facility] CHOL/HDL RATIO 3.2 2.0 - 5.0 [facility] LDL CALCULATED 123(H) <=99 mg/dL [facility] LIPID PANEL COMMENT See Below [facility] Comment: Classifications: Adult: Total Cholesterol mg/dL HDL [...] on AHA/NCEP Guidelines Blood 03/26/2014 9:38 PM SERVICE DESK ANALYST 03/26/2014 10:47 PM SERVICE DESK ANALYST Result [facility] Rubin Lehman MD CHEMISTRY ORDERABLES Edited R esult - Final Performing Organization Address [facility]/ZIP Co de Phone Number [facility] CLIA# [id number] [address] [place] [address] * (ABNORMAL) ENDOSCOPY, COLON, SCREENING (10/10/2013) Abstract Provider GI PROCEDURE ORDERABLES Edited Result - Final Performing Organization Address [facility] Co de Phone Number [facility] * HEMOGLOBIN A1C (01/16/2010 3:30 PM SERVICE DESK ANALYST) HEMOGLOBIN A1C 5.6 4.1 - 6.1 % of Hgb [facility] EST. AVG GLUCOSE, A1C 114 mg/dL [facility] Comment: Effective 11/20/08, the reported estimated average glucose (eAG)/mean blood glucose based on the HbA1c determination will be calculated using the recently derived ADAG study equation. The eAG from the new ADAG study equation are lower than those calculated from the previously used DCCT study formula. For more information, go to the websites: www.ngsp.org and www.diabetes.org. Blood specimen (specimen) 01/16/2010 3:30 PM SERVICE DESK ANALYST 01/16/2010 8:35 PM SERVICE DESK ANALYST Result [facility] Chu Reddy MD CHEMISTRY ORDERABLES Final Resul t Performing Organization Address [facility]/ZIP Co de Phone Number [facility] CLIA# [id number] [address] [place] [id number] from Last 3 Months or Most Recently Relevant to Health Maintenance Insurance [facility] [place] [id number] Advance Directives For more information, please contact: [phone] Documents on File Type Date Recorded Patient Director Medical Expl 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
--- OUTSIDE RECORDS SUMMARY | 2024-12-12 12:46 | XMS_ITS | Encounter Summary ---
Author Organization [facility] Address [address] [place] [address] Care Team Providers Care Supervisor [employer] Name Role Phone Rubin Lehman MD Primary Care Provider Jose powers Encounter Details Date Type Department Care Team (Late st Contact Info) Description 03/09/2007 Orders Only [facility] Primary Care - [address] [place] [address] Chu Reddy MD [address] [facility] [address] [place] [address] Social History Tobacco Use Types Packs/Day Years Used Date Smoking Tobacco: Never Assessed Comments Unknown Sex and Gender Information Value Date Recorded Sex Assigned at Not on file Legal Sex Female 3:22 AM STEM THRESHING MACHINE OPERATOR Gender Identity Not on file Sexual Orientation Not on file documented as of this encounter Progress Notes * Chu Reddy MD - 07/13/2007 5:56 PM CDT BLOOD PRESSURE: 116/80 Right Arm Sitting TEMPERATURE: 98.6??f Oral WEIGHT: 170lbs NURSE NAME: Bruce, Aggei ALLERGIES: Allergies are as listed. TOBACCO USE [...] identified on exam. LAB ORDERS: Order number: [id number] Test Ordered: COMPREHENSIVE METABOLIC PANEL 82623 Order number: [id number] Test Ordered: TSH W/REFLEX TO FT4 43326 Order number: [id number] Test Ordered: LIPID PANEL 7600 HEALTH MAINTENANCE: [...] st Contact Info) Description 04/24/2025 11:45 AM STEM THRESHING MACHINE OPERATOR Office Visit [facility] Oncology and Hematology - [address] [place] [address] Joon Giron MD [address] [facility] [address] [place] [address] documented as of this encounter Visit Diagnoses Not on filedocumented in this encounter Care Teams Supervisor [employer] Relationship Specialty Start Date End Date Rubin Lehman MD PCP - General Internal Medicine 09/03/10 05/08/17 documented as of this encounter
--- OUTSIDE RECORDS SUMMARY | 2024-12-12 12:46 | XMS_ITS | Encounter Summary ---
Author Organization [facility] Address [address] [place] [address] Care Team Providers Care Still Operator Gin Name Role Phone Rubin Lehman MD Primary Care Provider Jose powers Encounter Details Date Type Department Care Team (Late st Contact Info) Description 02/23/2007 Outpatient Historical [facility] Primary Care - [address] [place] [address] Chu Reddy MD [address] [facility] [address] [place] [address] Social History Tobacco Use Types Packs/Day Years Used Date Smoking Tobacco: Never Assessed Comments Unknown Sex and Gender Information Value Date Recorded Sex Assigned at Not on file Legal Sex Female 3:22 AM PULP SCREEN OPERATOR Gender Identity Not on file Sexual Orientation Not on file documented as of this encounter Plan of Treatment Upcoming Encounters Date Type Department Care Team (Late st Contact Info) Description 04/24/2025 11:45 AM PULP SCREEN OPERATOR Office Visit [facility] Oncology and Hematology - [place] [address] [facility] [address] [place] [address] Joon Giron MD [address] [facility] [address] [place] [address] documented as of this encounter Visit Diagnoses Not on filedocumented in this encounter Care Teams Still Operator Gin Relationship Specialty Start Date End Date Rubin Lehman MD PCP - General Internal Medicine 09/03/10 05/08/17 documented as of this encounter
--- OUTSIDE RECORDS SUMMARY | 2024-12-12 12:46 | XMS_ITS | Encounter Summary ---
Author Organization [facility] Address [address] [facility] [place] [address] Care Team Providers Care Corporate Travel Agent Name Role Phone Mart Fink MD Primary Care Provider Mena Butcher MD Primary Care Provider [phone] Flaco Burrell GANG SUPERVISOR-CLERK OF WORKS Primary Care Provi good Tomas Romero MD Primary Care Provider [phone] Encounter Details Date Type Department Care Team (Late st Contact Info) Description 05/15/2020 Telephone [facility] [address] [place] [address] Mena Butcher MD [address] [place] [address] Social History Tobacco Use Types Packs/Day Years Used Date Smoking Tobacco: Never Smokeless Tobacco: Never Alcohol Use Standard Drinks/Week Comments No 0 (1 standard drink = 0.6 oz pur e alcohol) Comments No Sex and Gender Information Value Date Recorded Sex Assigned at Not on file Legal Sex Female 5:15 PM BRIM SETTER Gender Identity Not on file Sexual Orientation [...] a sooner appt? Patient Call Back number: [phone] documented in this encounter Plan of Treatment Upcoming Encounters Date Type Department Care Team (Late st Contact Info) Description 03/14/2025 2:15 PM BRIM SETTER Office Visit [facility] - Ophthalmology [address] [place] [phone] Susan Flores MD [address] [place] [address] [place] [id number] documented as of this encounter Goals Goal Patient Goal Type Associated Problems Recent Progress Patient-Stated? Author Medication Management General No Radha Wall, NAHED Note: Interventions: documented as of this encounter Visit Diagnoses Not on filedocumented in this encounter Care Teams Corporate Travel Agent Relationship Specialty Start Date End Date Mart Fink MD [address] [facility] [address] [place] [address] PCP - General Family Medicine 05/25/17 06/27/20 [place] [address] [place] [address] [place] [address] PCP - General 06/28/20 08/01/20 Flaco Burrell, GANG SUPERVISOR-CLERK OF WORKS [address] [place] [address] PCP - General Nurse Practitioner Family 08/02/2010/30 Tomas Romero MD [address] [facility] [address] [place] [address] PCP - General Internal Medicine 11/13/20 documented as of this encounter
--- OUTSIDE RECORDS SUMMARY | 2024-12-12 12:46 | XMS_ITS | Clinical Summary ---
Author Organization [facility] Address [address] [place] [address] Care Team Providers Care Director Credit Risk Name Role Phone Tomas Romero MD Primary Care Provider [phone] Source Comments [facility],non-owned Affiliates and Associated Physician Practices is amultiple site organization consisting of ambulatory clinics and hospital sitesin [place], [place], [place] and [place]. This disclosure is being madepursuant to the Care Everywhere program and may not contain all information available regarding this patient. Last updated 17.[facility] Allergies Active Allergy Reactions Criticality Noted Date [...] weeks. Assessment & Plan (03/29/2019 9:52 PM RABBIT BREEDER): Poorly controlled at present, mostly due to [...] 05/10/2024 Assessment & Plan (03/29/2019 9:51 PM RABBIT BREEDER): A1c up slightly. Still in pre-diabetes stage. Continue to monitor Major depressive disorder, single episode 07/30/2016 09/01/2019 Encounters Date Type Department Care Team Description 11/07/2024 Refill [facility] - Orthopedic Surgery [address] [place] [address] Paco Meléndez MD Refill Request 10/17/2024 2:15 PM CDT Office Visit [facility] - Ophthalmology [address] [place] [address] [place] [phone] Ronald Huffman MD Diplopia (Primary Dx); Esotropia; [...] on file Legal Sex Female 5:15 PM RABBIT BREEDER Gender Identity Not on file Sexual Orientation Not on file Last Filed Vital Signs Vital Sign Reading Time Taken Comments Blood Pressure 138/85 05/29/2024 10:56 AM CDT Pulse 88 05/29/2024 10:56 AM CDT Temperature 37.1 C (98.8 F) 07/17/2020 10:32 AM CDT Respiratory Rate 12 01/16/2020 4:21 PM RABBIT BREEDER Oxygen Saturation 95% 07/17/2020 10:34 AM CDT Inhaled Oxygen Concentration - - Weight 63.5 kg (140 lb) 05/29/2024 10:56 AM CDT Height 157.5 cm (5' 2) 05/29/2024 10:56 AM CDT Body Mass Index 25.61 05/29/2024 10:56 AM CDT Plan of Treatment Upcoming Encounters Date Type Department Care Team (Late st Contact Info) Description 03/14/2025 2:15 PM RABBIT BREEDER Office Visit [facility] - Ophthalmology [address] [facility] [address] [place] [address] Susan Flores MD [address] [place] [address] [place] [address] Health Maintenance Due Date Last [...] Note: Interventions: Medical Devices Implanted Type Area Criminalist Device Identifier Shelf Expiration Date Model / Serial / Lot Shell Actb 52mm Hip 3 Hl Poly R3 Std Implanted:Qty: 1 on 06/17/2017 by Paco Meléndez MD at [facility] Left: Hip [employer] 12/02/2026 [id number] / / [id number] Screw 6.5mm 45mm Actb Sphrcl Head Reflc Implanted:Qty: 1 on 06/17/2017 by Paco Meléndez MD at [facility] Left: Hip [employer] 08/19/2026 [id number] / / [id number] Liner Actb R3 0d 52mm 36mm Xlpe Hip Flxb Implanted:Qty: 1 on 06/17/2017 by Paco Meléndez MD at [facility] Left: Hip [employer] 08/01/2026 [id number] / / [id number] Polarstem Size 3 Stem Implanted:Qty: 1 on 06/17/2017 by Paco Meléndez MD at [facility] Left: Hip 02/11/2024 [id number] / / [id number] Head Fem +4mm 12/14 36mm Hip Tpr Oxnm Implanted:Qty: 1 on 06/17/2017 by Paco Meléndez MD at [facility] Left: Hip [employer] 10/11/2026 [id number] / / [id number] Mata Uncem Hip All Inclusive Implanted:Qty: 1 on 06/17/2017 by Paco Meléndez MD at [facility] [employer] BILL ONLY UNCEM [...] in the care of your patient. [facility] utilizes [employer] as a reminder system to notify patients [...] SPECIMEN / Unknown 07/17/2020 Flaco InduMckenna Burrell DEALER ANALYST-CHOCOLATE TEMPERER LAB - POINT OF CARE ORDERABLES Final [...] Mira Bautista al, N Engl J Med 2014;370(14):9093-2826.) The normal value (reference range) for this [...] interval of every 3 years by the [employer] and U.S. Multi-Society Task Force. [...] can be accessed at the following location: [email or web address]/results. Additional description of the Cologuard test process, warnings and precautions can be found at [email or web address]. Rx only. Stool specimen (specimen) STOOL SPECIMEN / Unknown 08/02/2019 9:37 AM CDT 08/03/2019 3:38 PM CDT Mart Fink MD LAB - CHEMISTRY ORDERABLES Fi nal Result [facility] [address] [place] [id number] [facility] [address] [place] [address]. [place] [address] * DEXA BONE DENSITY AXIAL SKELETON (12/27/2017 [...] ordering physician and is also available on [employer], the Radiology Department's computerized picture archive system. [...] ordering physician and is also available on [employer], the Radiology Department'[employer] picture archive system. Patient's height 62 in; [...] * LIPID PROFILE (EXTERAL RESULT ENTRY) (12/17/2017) [facility] Cholesterol (EXTERNAL RESULT) 192 mg/dL Triglycerides (EXTERNAL [...] Most Recently Relevant to Health Maintenance Insurance [facility] MEDICARE ADV [place] MEDICARE ADV PPO UHC MANAGED MEDICARE ADV Care Teams Director Credit Risk Relationship Specialty Start Date End Date Tomas Romero MD [address] [place] [address] PCP - General Internal Medicine 11/13/20
== END 2024-12-12 10:50 | disposition home or self-care (01) ==
PROVIDERS: PCP Internal Medicine; Visit Provider Internal Medicine
DX: R68.2 Dry mouth, unspecified (principal); H04.123 Dry eye syndrome of bilateral lacrimal glands
CPT/HCPCS: 86235